=== PATIENT | male | born 1960 | race African-American/Black ===

== ENCOUNTER 2016-11-06 15:41 | Inpatient (IN) | payer OTHER ==
[2016-11-06 19:32] VITALS: BMI 19.7
--- NOTE | 2016-11-06 21:06 | HP ---
COWS - Scale Resting Pulse: 1= [place] 81-100 Sweatin= Chills/Flushing Restless Observation: 3= Extraneous Movement Pupil Size: 0= Normal to Room Light Bone or Joint Aches: 2= Severe Diffuse Aches Runny Nose/ Eye Tearin= Nasal Congestion GI Upset > 30mins: 2= Nausea/Diarrhea Tremor Observation: 2= Slight Tremor Visible Yawning Observation: 0= None Anxiety or Irritability: 2=Irritable/Anxious Goose Flesh Skin: 0=Smooth Skin COWS Score: 14 CIWA Score - CIWA Score Nausea/Vomitin-Mild Nausea/No Vomiting Muscle Tremors: 4-Moderate,w/Arms Extend Anxiety: 4-Mod. Anxious/Guarded Agitation: 4-Moderately Restless Paroxysmal Sweats: 1-Minimal Palms Moist Orientation: 1-Uncertain about Date Tacttile Disturbances: 0-None Auditory Disturbances: 0-None Visual Disturbances: 0-None Headache: 0-None Present CIWA-Ar Total Score: 15 Admission ROS S - HPI Chief Complaint: WITHDRAWAL SX Allergies/Adverse Reactions: Allergies Allergy/AdvReac Type Severity Reaction Status Date / Time No Known Allergies Allergy Verified 10/23/13 22:16 History of Present Illness: 56 YEARS OLD MALE WITH LONG HISTORY OF OPIOID ALCOHOL NICOTINE DEPENDENCE HAS HIV HYPERTENSION ASTHMA COPD AND DEPRESSION WEIGHT LOSS IS ADMITTED TO DETOX Exam Limitations: No Limitations - Ebola screening Have you traveled outside of the country in the last 21 days: No Have you had contact with anyone from an Ebola affected area: No Have you been sick,other than usual withdrawal symptoms: No Do you have a fever: No - Review of Systems Constitutional: Chills, Loss of Appetite, Changes in sleep, Unintentional Wgt. Loss, Unexplained wgt Loss EENT: reports: No Symptoms Reported, Dental Problems (TOOTH REMOVED) Respiratory: reports: Cough, SOB with Exertion Cardiac: reports: No Symptoms Reported GI: reports: Nausea, Poor Appetite, Poor Fluid Intake, Abdominal cramping : reports: No Symptoms Reported Musculoskeletal: reports: Back Pain, Joint Pain, Muscle Pain, Neck Pain Integumentary: reports: Change in Color (BOTH UPPER FORE ARMS), Other (RIGHT INGUINAL HERNIA) Neuro: reports: Seizure (2015), Tremors Endocrine: reports: No Symptoms Reported Hematology: reports: No Symptoms Reported Psychiatric: reports: Judgement Intact, Depressed Other Systems: Reviewed and Negative Patient History - Patient Medical History Hx Anemia: No Hx Asthma: Yes (hh of PCP ) Hx Chronic Obstructive Pulmonary Disease (COPD): Yes Hx Cancer: No Hx Cardiac Disorders: No Hx Congestive Heart Failure: No Hx Hypertension: Yes Hx Hypercholesterolemia: No Hx Pacemaker: No HX Cerebrovascular Accident: No Hx Seizures: Yes Hx Dementia: No Hx Diabetes: No Hx Gastrointestinal Disorders: No Hx Liver Disease: No Hx Genitourinary Disorders: No Hx Sexually Transmitted Disorders: No Hx Renal Disease (ESRD): No Hx Thyroid Disease: No Hx Human Immunodeficiency Virus (HIV): Yes (since 1995, TRIUMEQ) Hx Hepatitis C: Yes Hx Depression: Yes Hx Suicide Attempt: No Hx Bipolar Disorder: No Hx Schizophrenia: No - Patient Surgical History Past Surgical History: Yes Hx Neurologic Surgery: No Hx Cataract Extraction: No Hx Cardiac Surgery: No Hx Lung Surgery: Yes (chest tube insertion right 2 months ago) Hx Breast Surgery: No Hx Breast Biopsy: No Hx Abdominal Surgery: Yes Hx Appendectomy: No Hx Cholecystectomy: No Hx Genitourinary Surgery: No Hx Orthopedic Surgery: No Other Surgical History: in childhood also hernia right Anesthesia Reaction: No - PPD History Previous Implant?: Yes Documented Results: Negative w/o proof Implanted On Prior R Admission?: Yes Date: 08/02/13 PPD to be Administered?: Yes - Smoking Cessation Smoking history: Current every day smoker Have you smoked in the past 12 months: Yes Aproximately how many cigarettes per day: 10 Cigars Per Day: 0 Hx Chewing Tobacco Use: No Initiated information on smoking cessation: Yes 'Breaking Loose' booklet given: 11/06/16 - Substance & Tx. History Hx Alcohol Use: Yes Hx Substance Use: Yes Substance Use Type: Alcohol, Cocaine, Opiates Hx Substance Use Treatment: Yes - Substances Abused Alcohol Route: Oral Frequency: Daily Amount used: [id number] 1 PINT Age of first use: 15 Date of Last Use: 11/06/16 Heroin Route: Injection Frequency: Daily Amount used: 3 BAGS Age of first use: 15 Date of Last Use: 11/05/16 Family Disease History - Family Disease History Family Disease History: Diabetes: Father, Heart Disease: Father, Mother ( alcoholic ), CA: Sister, Other: Mother Admission Physical Exam BHS - Vital Signs Vital Signs: Vital Signs - 24 hr 11/06/16 19:29 Temperature 97.3 F L Pulse Rate 92 H Respiratory 18 Rate Blood Pressure 100/70 - Physical General Appearance: Yes: Appropriately Dressed, Mild Distress, Alcohol on Breath , Thin, Tremorous, Irritable, Sweating, Anxious HEENTM: Yes: Hearing grossly Normal, Normal ENT Inspection, Normocephalic, Normal Voice Respiratory: Yes: Chest Non-Tender, No Respiratory Distress, No Accessory Muscle Use, Wheezing, Hyperresonant Neck: Yes: Supple, Trachea in good position Breast: Yes: Breasts Symetrical Cardiology: Yes: Regular Rhythm, S1, S2, Tachycardia Abdominal: Yes: Non Tender, Soft Genitourinary: Yes: Within Normal Limits Back: Yes: Normal Inspection Musculoskeletal: Yes: full range of Motion, Gait Steady, Back pain, Muscle Pain Extremities: Yes: Normal Range of Motion, Non-Tender, Tremors Neurological: Yes: Alert, Motor Strength 5/5, Normal Response, Depressed Affect Integumentary: Yes: Warm, Track [place] Lymphatic: Yes: Within Normal Limits - Diagnostic (1) Depression Current Visit: Yes Status: Suspected Qualifiers: Depression Type: dysthymia Qualified Code(s): F34.1 - Dysthymic disorder (2) Weight decreased Current Visit: Yes Status: Acute (3) Alcohol dependence with uncomplicated withdrawal Current Visit: Yes Status: Acute (4) Opioid dependence with withdrawal Current Visit: Yes Status: Acute (5) HIV (human immunodeficiency virus infection) Current Visit: Yes Status: Chronic (6) Hypertension Current Visit: Yes Status: Chronic Qualifiers: Hypertension type: essential hypertension Qualified Code(s): I10 - Essential (primary) hypertension (7) Nicotine dependence Current Visit: Yes Status: Acute Qualifiers: Nicotine product type: cigarettes Substance use status: in withdrawal Qualified Code(s): F17.213 - Nicotine dependence, cigarettes, with withdrawal (8) Tooth caries Current Visit: Yes Status: Acute Comment: FRONT LOWER BIOXIN (9) Hepatitis C antibody test positive Current Visit: Yes Status: Resolved (10) Asthma Current Visit: Yes Status: Chronic Qualifiers: Asthma severity: mild persistent Asthma complication type: with status asthmaticus Qualified Code(s): J45.32 - Mild persistent asthma with status asthmaticus (11) COPD (chronic obstructive pulmonary disease) Current Visit: Yes Status: Chronic Qualifiers: COPD type: emphysema Emphysema type: other Qualified Code(s): J43.8 - Other emphysema (12) Use of cane as ambulatory aid Current Visit: Yes Status: Chronic (13) Inguinal hernia of right side without obstruction or gangrene Current Visit: Yes Status: Chronic Comment: RIGHT Cleared for Admission [facility] - Detox or Rehab [facility] Level of Care: Medically Managed Detox Regimen/Protocol: Methadone/Librium [facility] Breath Alcohol Content Breath Alcohol Content: 0.175 Urine Drug Screen - Results Drug Screen Negative: No Urine Drug Screen Results: LULA-Cocaine, OPI-Opiates, TCA-Tricyclic Antidepress
[2016-11-06] MEDS ORDERED: guaiFENesin/D-METHORPHAN HB 10 ML UNIT-DOSE CUPS PO PRN (21:18)
[2016-11-06] MEDS ORDERED: chlordiazePOXIDE HCL 25 MG CAPSULE PO PRN (21:18)
[2016-11-06] MEDS ORDERED: MAGNESIUM HYDROX 2400MG/30ML ORAL SUSPENSION 30 ML CUP PO PRN (21:18)
[2016-11-06] MEDS ORDERED: P-EPHED 60MG/TRIPROLIDI 2.5MG TABLET PO PRN (21:18)
[2016-11-06] MEDS ORDERED: MAGNESIUM CITRATE 300 ML BOTTLE PO PRN (21:18)
[2016-11-06] MEDS ORDERED: MAG HYDROX/AL HYDROX/SIMETH 30 ML UNIT-DOSE CUP PO PRN (21:18)
[2016-11-06] MEDS ORDERED: NICOTINE POLACRILEX 2 MG GUM BC PRN (21:18)
[2016-11-06] MEDS ORDERED: IBUPROFEN 400 MG TABLET (FP) PO PRN (21:18)
[2016-11-06] MEDS ORDERED: ACETAMINOPHEN 325 MG TABLET (FP) PO PRN (21:18)
[2016-11-06] MEDS ORDERED: diphenhydrAMINE HCL 50 MG CAPSULE PO PRN (21:18)
[2016-11-06] MEDS ORDERED: METHADONE HCL 10 MG TABLET (FOR DETOX USE ONLY) PO ONE ×2 (21:18→23:00)
[2016-11-06] MEDS ORDERED: LOPERAMIDE HCL 2 MG CAPSULE PO PRN (21:18)
[2016-11-06] MEDS ORDERED: MENTHOL/PHENOL 1 EACH UD MM PRN (21:18)
[2016-11-06] MEDS: chlordiazePOXIDE HCL 25 MG CAPSULE PO SCH (23:08)
[2016-11-06] MEDS: THIAMINE HCL 100 MG TABLET (FP) PO SCH (23:09)
[2016-11-07 00:10] LABS: URINE APPEARANCE CLEAR; URINE BILIRUBIN NEGATIVE (NEGATIVE); URINE BLOOD NEGATIVE (NEGATIVE); URINE COLOR YELLOW; URINE GLUCOSE (UA) NEGATIVE (NEGATIVE); URINE KETONE NEGATIVE (NEGATIVE); URINE LEUK ESTERASE NEGATIVE (NEGATIVE); URINE NITRITE NEGATIVE (NEGATIVE); URINE UROBILINOGEN NEGATIVE E.U./dl (0.2-1.0)
[2016-11-07 00:17] LABS: URINE PROTEIN 2+ (NEGATIVE)
[2016-11-07 00:44] LABS: URINE HYALINE CAST 122 /lpf; URINE MUCUS RARE; URINE RBC 1 /hpf (0-3); URINE WBC 11 /hpf (3-5)
[2016-11-07] MEDS: chlordiazePOXIDE HCL 25 MG CAPSULE PO SCH ×4 (05:59→22:53)
[2016-11-07] MEDS ORDERED: METHADONE HCL 10 MG TABLET (FOR DETOX USE ONLY) PO SCH (10:00)
[2016-11-07 10:29] LABS: MCH 29.7 pg (25.7-33.7); MCHC 33.2 g/dl (32.0-35.9); MEAN CELL VOLUME 89.4 fl (80-96); MEAN PLT VOLUME 7.3 fl (7.5-11.1); PLATELET COUNT 408 K/MM3 (134-434); RDW 17.2 % (11.9-15.9); WHITE BLOOD COUNT 4.6 K/mm3 (4.0-10.0)
[2016-11-07] MEDS: PATIENT'S OWN MEDICATION (NON-FORMULARY) (Sulfamethoxazole/Trimethoprim [Bactrim Ds Tablet PO SCH (10:37)
[2016-11-07] MEDS: PATIENT'S OWN MEDICATION (NON-FORMULARY) (Amlodipine Besylate [Amlodipine Besylate] 10 MG) PO SCH (10:37)
[2016-11-07] MEDS: CLARITHROMYCIN PO SCH ×4 (10:37→23:03)
[2016-11-07] MEDS: PRENATAL VITAMINS W/ FOLIC ACID TABLET (FP) PO SCH (10:38)
[2016-11-07] MEDS: NICOTINE 14 MG/24 HOURS TOPICAL PATCH TD SCH (10:38)
[2016-11-07 10:53] LABS: ALBUMIN 2.9 g/dl (3.4-5.0); ANION GAP 9 (8-16); CALCIUM 9.6 mg/dL (8.5-10.1); CO2 35 mmol/L (21-32); COCKROFT - GAULT 63.02; SGOT/AST 28 U/L (15-37); SGPT/ALT 23 U/L (12-78)
[2016-11-07 10:55] LABS: ALK PHOS 134 U/L (45-117); TOT PROT 7.3 g/dl (6.4-8.2)
[2016-11-07] MEDS ORDERED: ALBUTEROL SO4 6.7 GM HFA INHALER IH PRN (11:00)
--- NOTE | 2016-11-07 11:05 | PN ---
[facility] CIWA - CIWA Score Nausea/Vomitin-No Nausea/No Vomiting Muscle Tremors: 3 Anxiety: 3 Agitation: 4-Moderately Restless Paroxysmal Sweats: 3 Orientation: 0-Oriented Tacttile Disturbances: 0-None Auditory Disturbances: 0-None Visual Disturbances: 0-None Headache: 1-Very Mild CIWA-Ar Total Score: 14 BHS COWS - Scale Resting Pulse: 2= [place] 101-120 Sweatin=Flushed/Facial Moisture Restless Observation: 1= Difficult to Sit Still Pupil Size: 0= Normal to Room Light Bone or Joint Aches: 2= Severe Diffuse Aches Runny Nose/ Eye Tearin= Runny Nose/Eyes GI Upset > 30mins: 0= None Tremor Observation of Outstretched Hands: 2= Slight Tremor Visible Yawning Observation: 2= >3x During Session Anxiety or Irritability: 1=Feels Anxious/Irritable Goose Flesh Skin: 0=Smooth Skin COWS Score: 14 S Progress Note (SOAP) Subjective: agitation sweats shakes interrupted sleep back pain diarrhea Objective: 11/07/16 11:02 Vital Signs Temperature 97.9 F 11/07/16 09:58 Pulse Rate 110 H 11/07/16 09:58 Respiratory Rate 16 11/07/16 09:58 Blood Pressure 125/75 11/07/16 09:58 O2 Sat by Pulse Oximetry (%) Laboratory Tests 11/06/16 11/07/16 00:00 07:00 WBC 4.6 RBC 4.22 Hgb 12.5 Hct 37.7 MCV 89.4 MCHC 33.2 RDW 17.2 H D Plt Count 408 D MPV 7.3 L D Urine Color Yellow Urine Appearance Clear Urine pH 7.0 Urine Protein 2+ H Urine Glucose (UA) Negative Urine Ketones Negative Urine Blood Negative Urine Nitrite Negative Urine Bilirubin Negative Urine Urobilinogen Negative Ur Leukocyte Esterase Negative Urine RBC 1 Urine WBC 11 Ur Epithelial Cells Rare Hyaline Casts 122 Urine Mucus Rare labs pending awake/alert ambulating no acute distress Assessment: 11/07/16 11:04 withdrawal sx Plan: continue detox increase fluids labs pending lidocaine patch immodium prn
[2016-11-07] MEDS: PATIENT'S OWN MEDICATION (NON-FORMULARY) (Umeclidinium Bromide [Incruse Ellipta] 62.5 MCG) IH SCH (12:08)
[2016-11-07] MEDS: LIDOCAINE 5% TOPICAL PATCH TP SCH (12:10)
[2016-11-07 12:12] LABS: GLUCOSE,RANDOM 104 mg/dL (74-106)
[2016-11-07 12:13] LABS: BILIRUBIN,TOTAL 0.3 mg/dL (0.2-1.0)
--- NOTE | 2016-11-07 17:19 | EKG ---
Test Reason : Blood Pressure : / mmHG Vent. Rate : 094 BPM Atrial Rate : 094 BPM P-R Int : 144 ms QRS Dur : 086 ms QT Int : 414 ms P-R-T Axes : 078 060 058 degrees QTc Int : 517 ms NORMAL SINUS RHYTHM MINIMAL VOLTAGE CRITERIA FOR LVH, MAY BE NORMAL VARIANT PROLONGED QT ABNORMAL ECG WHEN COMPARED WITH ECG OF 06-NOV-2016 21:33, NO SIGNIFICANT CHANGE WAS FOUND Confirmed by EDILBERTO RUBALCAVA, JACOBO ([id number]) on 11/07/2016 5:18:46 PM Referred By: Confirmed By:JACOBO CASANOVA MD
--- NOTE | 2016-11-07 17:20 | EKG ---
Test Reason : Blood Pressure : / mmHG Vent. Rate : 085 BPM Atrial Rate : 085 BPM P-R Int : 150 ms QRS Dur : 078 ms QT Int : 440 ms P-R-T Axes : 080 063 059 degrees QTc Int : 523 ms NORMAL SINUS RHYTHM PROLONGED QT ABNORMAL ECG WHEN COMPARED WITH ECG OF 05-AUG-2013 14:21, QT HAS LENGTHENED Confirmed by JACOBO CASANOVA MD ([id number]) on 11/07/2016 5:20:25 PM Referred By: Confirmed By:JACOBO CASANOVA MD
--- NOTE | 2016-11-07 17:55 | CONSULT ---
[facility] Psychiatric Consult - Data Date of interview: 11/07/16 Admission source: [facility] Identifying data: Readmission to [facility] for this 56 y/o AA male seeking detox treatment on for alcohol,heroin and cocaine dependence.Patient is without children,domiciled,unemployed and supported on SSI benefits. Substance Abuse History: - Smoking Cessation. Smoking history: Current every day smoker. Have you smoked in the past 12 months: Yes. Aproximately how many cigarettes per day: 10. Cigars Per Day: 0. Hx Chewing Tobacco Use: No. Initiated information on smoking cessation: Yes. 'Breaking Loose' booklet given : 11/06/16. - Substance & Tx. History. Hx Alcohol Use: Yes. Hx Substance Use : Yes. Substance Use Type: Alcohol, Cocaine, Opiates. Hx Substance Use Treatment: Yes. - Substances Abused. Alcohol. Route: Oral. Frequency: Daily. Amount used: [id number]+WISKY 1 PINT. Age of first use: 15. Date of Last Use: 11/06/16. Heroin. Route: Injection. Frequency: Daily. Amount used: 3 BAGS. Age of first use: 15. Date of Last Use: 11/05/16. Confirmed by patient. Medical History: HIV infection since 1995,COPD,hypertension and bronchial asthma. Psychiatric History: No reported history of psychiatric hospitalizations.Patient is followed at the [facility] in the [place].Diagnosed with MDD/Anxietyy Disorder.Prescribed seroquel 100 mg/hs.Mr Prather denies history of suicide attempts. Physical/Sexual Abuse/Trauma History: Patient denies. Additional Comment: Urine Drug Screen Results: LULA-Cocaine, OPI-Opiates, TCA- Tricyclic Antidepressants .Noted. Mental Status Exam - Mental Status Exam Alert and Oriented to: Time, Place, Person Cognitive Function: Good Patient Appearance: Well Groomed Mood: Withdrawn, Hopeful Affect: Appropriate, Normal Range Patient Behavior: Fatigued, Appropriate, Cooperative Speech Pattern: Clear, Appropriate Voice Loudness: Normal Thought Process: Goal Oriented Thought Disorder: Not Present Hallucinations: Denies Suicidal Ideation: Denies Homicidal Ideation: Denies Insight/Judgement: Fair Sleep: Poorly, Difficulty falling asleep Appetite: Good Muscle strength/Tone: Normal Gait/Station: Normal Psychiatric Findings - Problem List ([place] 1, 2,3) (1) Alcohol dependence with uncomplicated withdrawal Current Visit: Yes Status: Acute (2) Opioid dependence with withdrawal Current Visit: Yes Status: Acute (3) Nicotine dependence Current Visit: Yes Status: Acute Qualifiers: Nicotine product type: cigarettes Substance use status: in withdrawal Qualified Code(s): F17.213 - Nicotine dependence, cigarettes, with withdrawal (4) Cocaine dependence Current Visit: Yes Status: Acute (5) Substance induced mood disorder Current Visit: Yes Status: Acute (6) Weight decreased Current Visit: Yes Status: Chronic (7) Asthma Current Visit: Yes Status: Chronic Qualifiers: Asthma severity: mild persistent Asthma complication type: with status asthmaticus Qualified Code(s): J45.32 - Mild persistent asthma with status asthmaticus (8) COPD (chronic obstructive pulmonary disease) Current Visit: Yes Status: Chronic Qualifiers: COPD type: emphysema Emphysema type: other Qualified Code(s): J43.8 - Other emphysema (9) HIV (human immunodeficiency virus infection) Current Visit: Yes Status: Chronic (10) Hypertension Current Visit: Yes Status: Chronic Qualifiers: Hypertension type: essential hypertension Qualified Code(s): I10 - Essential (primary) hypertension (11) Hepatitis C antibody test positive Current Visit: Yes Status: Resolved (12) Inguinal hernia of right side without obstruction or gangrene Current Visit: Yes Status: Chronic Comment: RIGHT (13) Use of cane as ambulatory aid Current Visit: Yes Status: Chronic (14) Insomnia Current Visit: Yes Status: Acute - Initial Treatment Plan Initial Treatment Plan: Psychoeducation.Detoxification.Seroquel 100 mg po hs.Side effects/benefits discussed with the patient.He is in agreememt with this careplan.Observation.Dose of seroquel is verified through review of recent pharmacy claims (filled script on 10/23/16 at [facility]).NO need for script at discharge.
[2016-11-07] MEDS: POTASSIUM CHLORIDE ORAL LIQUID 20 MEQ/15 ML PO SCH ×2 (21:39→22:54)
[2016-11-07] MEDS: QUEtiapine FUMARATE 100 MG TABLET (FP) PO SCH (22:53)
[2016-11-07] MEDS: BUDESONIDE/FORMETEROL FUMARATE 80/4.5 mcg INHALER IH SCH (22:53)
[2016-11-07] MEDS: THIAMINE HCL 100 MG TABLET (FP) PO SCH (22:55)
[2016-11-08] MEDS: chlordiazePOXIDE HCL 25 MG CAPSULE PO SCH ×3 (06:03→17:30)
[2016-11-08] MEDS: PRENATAL VITAMINS W/ FOLIC ACID TABLET (FP) PO SCH (10:49)
[2016-11-08] MEDS: METHADONE HCL 5 MG TABLET (FOR DETOX USE ONLY) PO SCH (10:49)
[2016-11-08] MEDS: NICOTINE 14 MG/24 HOURS TOPICAL PATCH TD SCH (10:50)
[2016-11-08] MEDS: CLARITHROMYCIN PO SCH ×2 (10:50→23:00)
[2016-11-08] MEDS: LIDOCAINE 5% TOPICAL PATCH TP SCH (10:50)
[2016-11-08] MEDS: PATIENT'S OWN MEDICATION (NON-FORMULARY) (Umeclidinium Bromide [Incruse Ellipta] 62.5 MCG) IH SCH (10:51)
[2016-11-08] MEDS: POTASSIUM CHLORIDE ORAL LIQUID 20 MEQ/15 ML PO SCH ×2 (10:51→22:59)
[2016-11-08] MEDS: PATIENT'S OWN MEDICATION (NON-FORMULARY) (Sulfamethoxazole/Trimethoprim [Bactrim Ds Tablet PO SCH (10:51)
[2016-11-08] MEDS: BUDESONIDE/FORMETEROL FUMARATE 80/4.5 mcg INHALER IH SCH ×2 (10:51→22:59)
[2016-11-08] MEDS: PATIENT'S OWN MEDICATION (NON-FORMULARY) (Amlodipine Besylate [Amlodipine Besylate] 10 MG) PO SCH (10:52)
--- NOTE | 2016-11-08 12:30 | PN ---
[facility] CIWA - CIWA Score Nausea/Vomitin Muscle Tremors: 2 Anxiety: 2 Agitation: 2 Paroxysmal Sweats: 3 Orientation: 0-Oriented Tacttile Disturbances: 1-Very Mild Itch/Numbness Auditory Disturbances: 0-None Visual Disturbances: 0-None Headache: 0-None Present CIWA-Ar Total Score: 12 BHS COWS - Scale Resting Pulse: 1= [place] 81-100 Sweatin= Chills/Flushing Restless Observation: 1= Difficult to Sit Still Pupil Size: 1= Pupils >than Normal Bone or Joint Aches: 1= Mild Discomfort Runny Nose/ Eye Tearin= Nasal Congestion GI Upset > 30mins: 1= Stomach Cramp Tremor Observation of Outstretched Hands: 1= Tremor [place], Not Seen Yawning Observation: 1= 1-2x During Session Anxiety or Irritability: 1=Feels Anxious/Irritable Goose Flesh Skin: 0=Smooth Skin COWS Score: 10 S Progress Note (SOAP) Subjective: feeling better, interrupted sleep, sweats, lbp Objective: 11/08/16 12:28 Vital Signs Temperature 97.2 F L 11/08/16 10:07 Pulse Rate 111 H 11/08/16 10:07 Respiratory Rate 20 11/08/16 10:07 Blood Pressure 104/53 11/08/16 10:07 O2 Sat by Pulse Oximetry (%) Laboratory Tests 11/06/16 11/07/16 11/07/16 00:00 07:00 07:00 WBC 4.6 RBC 4.22 Hgb 12.5 Hct 37.7 MCV 89.4 MCHC 33.2 RDW 17.2 H D Plt Count 408 D MPV 7.3 L D Sodium 137 Potassium 3.0 L D Chloride 93 L Carbon Dioxide 35 H Anion Gap 9 BUN 5 L D Creatinine 1.0 D Creat Clearance w eGFR > 60 Random Glucose 104 D Calcium 9.6 Total Bilirubin 0.3 D AST 28 D ALT 23 D Alkaline Phosphatase 134 H D Total Protein 7.3 Albumin 2.9 L Urine Color Yellow Urine Appearance Clear Urine pH 7.0 Ur Specific [place] 1.020 Urine Protein 2+ H Urine Glucose (UA) Negative Urine Ketones Negative Urine Blood Negative Urine Nitrite Negative Urine Bilirubin Negative Urine Urobilinogen Negative Ur Leukocyte Esterase Negative Urine RBC 1 Urine WBC 11 Ur Epithelial Cells Rare Hyaline Casts 122 Urine Mucus Rare RPR Titer 05/16/17 07:00 WBC RBC Hgb Hct MCV MCHC RDW Plt Count MPV Sodium Potassium Chloride Carbon Dioxide Anion Gap BUN Creatinine Creat Clearance w eGFR Random Glucose Calcium Total Bilirubin AST ALT Alkaline Phosphatase Total Protein Albumin Urine Color Urine Appearance Urine pH Ur Specific [place] Urine Protein Urine Glucose (UA) Urine Ketones Urine Blood Urine Nitrite Urine Bilirubin Urine Urobilinogen Ur Leukocyte Esterase Urine RBC Urine WBC Ur Epithelial Cells Hyaline Casts Urine Mucus RPR Titer Nonreactive pt aox3 in nad ambulating Assessment: 11/08/16 12:28 withdrawal sx;s lbp hypokalemia hiv 11/08/16 12:30 Plan: cont. detox increase fluids cont k dur cont lido. patch
[2016-11-08] MEDS: QUEtiapine FUMARATE 100 MG TABLET (FP) PO SCH (22:59)
[2016-11-08] MEDS: THIAMINE HCL 100 MG TABLET (FP) PO SCH (22:59)
[2016-11-08] MEDS: chlordiazePOXIDE 5 MG CAPSULE PO SCH (22:59)
[2016-11-09] MEDS: chlordiazePOXIDE 5 MG CAPSULE PO SCH ×3 (06:24→17:23)
[2016-11-09 10:00] LABS: ALBUMIN 2.6 g/dl (3.4-5.0); ANION GAP 8 (8-16); CALCIUM 9.2 mg/dL (8.5-10.1); CO2 31 mmol/L (21-32); GLUCOSE,RANDOM 117 mg/dL (74-106)
[2016-11-09 10:04] LABS: ALK PHOS 116 U/L (45-117); BILIRUBIN,TOTAL 0.2 mg/dL (0.2-1.0); COCKROFT - GAULT 70.02; CREATININE 0.9 mg/dL (0.7-1.3); SGOT/AST 22 U/L (15-37); SGPT/ALT 20 U/L (12-78); TOT PROT 6.5 g/dl (6.4-8.2)
[2016-11-09] MEDS: METHADONE HCL 5 MG TABLET (FOR DETOX USE ONLY) PO SCH (11:11)
[2016-11-09] MEDS: PRENATAL VITAMINS W/ FOLIC ACID TABLET (FP) PO SCH (11:11)
[2016-11-09] MEDS: PATIENT'S OWN MEDICATION (NON-FORMULARY) (Sulfamethoxazole/Trimethoprim [Bactrim Ds Tablet PO SCH (11:12)
[2016-11-09] MEDS: NICOTINE 14 MG/24 HOURS TOPICAL PATCH TD SCH (11:14)
[2016-11-09] MEDS: PATIENT'S OWN MEDICATION (NON-FORMULARY) (Umeclidinium Bromide [Incruse Ellipta] 62.5 MCG) IH SCH (11:15)
[2016-11-09] MEDS: BUDESONIDE/FORMETEROL FUMARATE 80/4.5 mcg INHALER IH SCH ×2 (11:15→22:27)
[2016-11-09] MEDS: POTASSIUM CHLORIDE ORAL LIQUID 20 MEQ/15 ML PO SCH ×2 (11:15→22:28)
[2016-11-09] MEDS: LIDOCAINE 5% TOPICAL PATCH TP SCH (11:22)
[2016-11-09] MEDS: PATIENT'S OWN MEDICATION (NON-FORMULARY) (Amlodipine Besylate [Amlodipine Besylate] 10 MG) PO SCH (11:23)
--- NOTE | 2016-11-09 11:32 | PN ---
BHS Progress Note (SOAP) Subjective: sweats sleepy Objective: 11/09/16 11:31 Vital Signs Temperature 98.1 F 11/09/16 09:44 Pulse Rate 105 H 11/09/16 09:44 Respiratory Rate 16 11/09/16 09:44 Blood Pressure 109/60 11/09/16 09:44 O2 Sat by Pulse Oximetry (%) awake/alert ambulating no acute distress Assessment: 11/09/16 11:31 withdrawal sx Plan: continue detox increase fluids d/c in am
[2016-11-09] MEDS: chlordiazePOXIDE HCL 10 MG CAPSULE PO SCH (22:27)
[2016-11-09] MEDS: THIAMINE HCL 100 MG TABLET (FP) PO SCH (22:28)
[2016-11-09] MEDS: QUEtiapine FUMARATE 100 MG TABLET (FP) PO SCH (22:28)
[2016-11-10] MEDS: chlordiazePOXIDE HCL 10 MG CAPSULE PO SCH ×2 (06:36→11:09)
[2016-11-10 07:00] VITALS: TEMP 97.7
--- NOTE | 2016-11-10 09:49 | DS ---
[facility] Detox Discharge Summary Admission Date: 11/06/16 Discharge Date: 11/10/16 - History Present History: Alcohol Dependence, Cocaine Dependence, Opioid Dependence - Physical Exam Results Vital Signs: Vital Signs Temperature 97.7 F 11/10/16 06:00 Pulse Rate 105 H 11/10/16 06:00 Respiratory Rate 16 11/10/16 06:00 Blood Pressure 129/70 11/10/16 06:00 O2 Sat by Pulse Oximetry (%) - Treatment Hospital Course: Detox Protocol Followed, Detoxed Safely, Responded well, Discharged Condition Good, Rehab Referral Accepted - Medication Discharge Medications: Ambulatory Orders Sulfamethoxazole/Trimethoprim [Bactrim DS -] 1 each PO DAILY #0 tablet 08/13/13 Azithromycin [Zithromax 600mg Tablets -] 1,200 mg PO Q7D@1000 #8 tablet Fluconazole [Diflucan -] 100 mg PO DAILY #30 tablet 11/11/13 Quetiapine Fumarate [Seroquel -] 100 mg PO HS #30 tablet 11/11/13 Sulfamethoxazole/Trimethoprim [Bactrim DS -] 1 each PO DAILY #30 tablet Abacavir/Dolutegravir/Lamivudi [Triumeq Tablet] 1 each PO DAILY 11/06/16 Amlodipine Besylate 10 mg PO DAILY 11/06/16 Clarithromycin [Biaxin -] 250 mg PO BID 11/06/16 Sulfamethoxazole/Trimethoprim [Bactrim Ds Tablet] 1 each PO DAILY 11/06/16 Umeclidinium [place] [Incruse Ellipta] 62.5 mcg IH DAILY 11/06/16 - Diagnosis (1) Alcohol dependence with uncomplicated withdrawal Current Visit: Yes Status: Chronic (2) Cocaine dependence Current Visit: Yes Status: Chronic Qualifiers: Substance use status: uncomplicated Qualified Code(s): F14.20 - Cocaine dependence, uncomplicated (3) Insomnia Current Visit: Yes Status: Chronic (4) Nicotine dependence Current Visit: Yes Status: Chronic Qualifiers: Nicotine product type: cigarettes Substance use status: uncomplicated Qualified Code(s): F17.210 - Nicotine dependence, cigarettes, uncomplicated (5) Opioid dependence with withdrawal Current Visit: Yes Status: Chronic (6) Substance induced mood disorder Current Visit: Yes Status: Chronic (7) Tooth caries Current Visit: Yes Status: Acute (8) Asthma Current Visit: Yes Status: Chronic Qualifiers: Asthma severity: mild persistent Asthma complication type: with status asthmaticus Qualified Code(s): J45.32 - Mild persistent asthma with status asthmaticus (9) COPD (chronic obstructive pulmonary disease) Current Visit: Yes Status: Chronic Qualifiers: COPD type: emphysema Emphysema type: other Qualified Code(s): J43.8 - Other emphysema (10) HIV (human immunodeficiency virus infection) Current Visit: Yes Status: Chronic (11) Hypertension Current Visit: Yes Status: Chronic Qualifiers: Hypertension type: essential hypertension Qualified Code(s): I10 - Essential (primary) hypertension (12) Inguinal hernia of right side without obstruction or gangrene Current Visit: Yes Status: Chronic (13) Use of cane as ambulatory aid Current Visit: Yes Status: Chronic (14) Weight decreased Current Visit: Yes Status: Chronic (15) Depression Current Visit: Yes Status: Suspected Qualifiers: Depression Type: dysthymia Qualified Code(s): F34.1 - Dysthymic disorder (16) Hepatitis C antibody test positive Current Visit: Yes Status: Resolved (17) Acquired immune deficiency syndrome (AIDS) Current Visit: No Status: Acute (18) Alcohol dependence Current Visit: No Status: Acute (19) Hepatitis C carrier Current Visit: No Status: Acute (20) Opioid dependence Current Visit: Yes Status: Chronic Qualifiers: Substance use status: uncomplicated Qualified Code(s): F11.20 - Opioid dependence, uncomplicated - AMA Did Patient Leave Against Medical Advice: No
[2016-11-10] MEDS ORDERED: METHADONE HCL 10 MG TABLET (FOR DETOX USE ONLY) PO SCH (10:00)
[2016-11-10 10:39] VITALS: BP 132/75; PULSE 109
[2016-11-10] MEDS: NICOTINE 14 MG/24 HOURS TOPICAL PATCH TD SCH (11:00)
[2016-11-10] MEDS: PATIENT'S OWN MEDICATION (NON-FORMULARY) (Umeclidinium Bromide [Incruse Ellipta] 62.5 MCG) IH SCH (11:00)
[2016-11-10] MEDS: PATIENT'S OWN MEDICATION (NON-FORMULARY) (Amlodipine Besylate [Amlodipine Besylate] 10 MG) PO SCH (11:00)
[2016-11-10] MEDS: PATIENT'S OWN MEDICATION (NON-FORMULARY) (Sulfamethoxazole/Trimethoprim [Bactrim Ds Tablet PO SCH (11:00)
[2016-11-10] MEDS: POTASSIUM CHLORIDE ORAL LIQUID 20 MEQ/15 ML PO SCH (11:00)
[2016-11-10] MEDS: LIDOCAINE 5% TOPICAL PATCH TP SCH (11:00)
[2016-11-10] MEDS: PRENATAL VITAMINS W/ FOLIC ACID TABLET (FP) PO SCH (11:00)
[2016-11-10] MEDS: BUDESONIDE/FORMETEROL FUMARATE 80/4.5 mcg INHALER IH SCH (11:00)
[2016-11-11] MEDS ORDERED: METHADONE HCL 5 MG TABLET (FOR DETOX USE ONLY) PO SCH (06:00)
== END 2016-11-10 12:55 | disposition home or self-care (01) | DRG 773 ==
LOC: YASAS 15:41 → Y6N 21:47
PROVIDERS: ADMIT Internal Medicine Addiction Medicine; ATTEND Internal Medicine Addiction Medicine
PROC: HZ2ZZZZ Detoxification Services for Substance Abuse Treatment (ICD-10-PCS; principal; 2016-11-10)
DX: F11.23 Opioid dependence with withdrawal (principal); F10.230 Alcohol dependence with withdrawal, uncomplicated; F14.20 Cocaine dependence, uncomplicated; F17.210 Nicotine dependence, cigarettes, uncomplicated; F19.24 Other psychoactive substance dependence with psychoactive substance-induced mood disorder; F34.1 Dysthymic disorder; G47.00 Insomnia, unspecified; B18.2 Chronic viral hepatitis C; Z21 Asymptomatic human immunodeficiency virus [HIV] infection status; I10 Essential (primary) hypertension; J43.8 Other emphysema; J45.30 Mild persistent asthma, uncomplicated; K40.90 Unilateral inguinal hernia, without obstruction or gangrene, not specified as recurrent; Z99.89 Dependence on other enabling machines and devices; R63.4 Abnormal weight loss; Z68.1 Body mass index [BMI] 19.9 or less, adult; K02.9 Dental caries, unspecified
CPT/HCPCS: 36415; 80053; 81003; 81015; 85027; 86593; 93005; 93010

== ENCOUNTER 2017-01-26 13:31 | Inpatient (IN) | payer OTHER ==
[2017-01-26] MEDS ORDERED: chlordiazePOXIDE HCL 25 MG CAPSULE PO SCH (17:00)
--- NOTE | 2017-01-26 17:59 | HP ---
COWS - Scale Resting Pulse: 1= [place] 81-100 Sweatin=Flushed/Facial Moisture Restless Observation: 1= Difficult to Sit Still Pupil Size: 0= Normal to Room Light Bone or Joint Aches: 2= Severe Diffuse Aches Runny Nose/ Eye Tearin= Runny Nose/Eyes GI Upset > 30mins: 0= None Tremor Observation: 2= Slight Tremor Visible Yawning Observation: 2= >3x During Session Anxiety or Irritability: 2=Irritable/Anxious Goose Flesh Skin: 3=Piloerection COWS Score: 17 CIWA Score - CIWA Score Nausea/Vomitin-Mild Nausea/No Vomiting Muscle Tremors: 4-Moderate,w/Arms Extend Anxiety: 3 Agitation: 4-Moderately Restless Paroxysmal Sweats: 3 Orientation: 0-Oriented Tacttile Disturbances: 0-None Auditory Disturbances: 0-None Visual Disturbances: 0-None Headache: 1-Very Mild CIWA-Ar Total Score: 16 Admission ROS BHS - HPI Chief Complaint: I am need detox and help to stay sober. Allergies/Adverse Reactions: Allergies Allergy/AdvReac Type Severity Reaction Status Date / Time No Known Allergies Allergy Verified 01/26/17 16:52 History of Present Illness: pt is a 56yr old male with a history of alcohol and heroin dependence seeking detox for treatment. Exam Limitations: Physical Impairment (uses cane d/t bad hip pain.), Other ( large inguinal hernia pt denies any pain/discomfort) - Ebola screening Have you traveled outside of the country in the last 21 days: No Have you had contact with anyone from an Ebola affected area: No Have you been sick,other than usual withdrawal symptoms: No Do you have a fever: No - Review of Systems Constitutional: Chills, Loss of Appetite, Night Sweats EENT: reports: Tearing, Nose Congestion Respiratory: reports: Cough Cardiac: reports: No Symptoms Reported GI: reports: Nausea, Poor Appetite, Poor Fluid Intake, Indigestion : reports: No Symptoms Reported Musculoskeletal: reports: Back Pain, Joint Pain, Other (pt states he fell four week ago and hurt his right hip and abrasions to left forearm.) Integumentary: reports: Flushing, Sweating Endocrine: reports: Excessive Sweating, Flushing Hematology: reports: No Symptoms Reported Psychiatric: reports: Judgement Intact, Mood/Affect Appropiate, Orientated x3, Agitated, Anxious Other Systems: Reviewed and Negative Patient History - Patient Medical History Hx Anemia: No Hx Asthma: Yes Hx Chronic Obstructive Pulmonary Disease (COPD): Yes Hx Cancer: No Hx Cardiac Disorders: No Hx Congestive Heart Failure: No Hx Hypertension: Yes Hx Hypercholesterolemia: No Hx Pacemaker: No HX Cerebrovascular Accident: No Hx Seizures: No Hx Dementia: No Hx Diabetes: No Hx Gastrointestinal Disorders: No Hx Liver Disease: No Hx Genitourinary Disorders: No Hx Sexually Transmitted Disorders: No Hx Renal Disease (ESRD): No Hx Thyroid Disease: No Hx Human Immunodeficiency Virus (HIV): Yes (since 1995, TRIUMEQ) Hx Hepatitis C: Yes Hx Depression: Yes Hx Suicide Attempt: No Hx Bipolar Disorder: No Hx Schizophrenia: No - Patient Surgical History Past Surgical History: Yes Hx Neurologic Surgery: No Hx Cataract Extraction: No Hx Cardiac Surgery: No Hx Lung Surgery: No Hx Breast Surgery: No Hx Breast Biopsy: No Hx Abdominal Surgery: No Hx Appendectomy: No Hx Cholecystectomy: No Hx Genitourinary Surgery: No Hx Section: No Hx Orthopedic Surgery: No Other Surgical History: hernia surgery as a child Anesthesia Reaction: No - PPD History Previous Implant?: Yes Documented Results: Negative w/o proof PPD to be Administered?: Yes - Reproductive History Patient is a Female of Child Bearing Age (11 -55 yrs old): No - Smoking Cessation Smoking history: Current every day smoker Have you smoked in the past 12 months: Yes Aproximately how many cigarettes per day: 10 Cigars Per Day: 0 Hx Chewing Tobacco Use: No Initiated information on smoking cessation: Yes 'Breaking Loose' booklet given: 01/26/17 - Substance & Tx. History Hx Alcohol Use: Yes Hx Substance Use: Yes Substance Use Type: Alcohol, Cocaine, Heroin Hx Substance Use Treatment: Yes ([facility] detox 1 month ago.) - Substances Abused Heroin Route: Injection Frequency: Daily Amount used: 4 BAGS Age of first use: 15 Date of Last Use: 01/25/17 Cocaine Route: Smoking Frequency: Daily Amount used: 2 BAGS Age of first use: 23 Date of Last Use: 01/24/17 Alcohol Frequency: Daily Amount used: 4 can 16oz beer Age of first use: 15 Date of Last Use: 01/25/17 Family Disease History - Family Disease History Family Disease History: Diabetes: Father, Heart Disease: Father, Mother ( alcoholic ), CA: Sister, Other: Mother Admission Physical Exam [facility] - Vital Signs Vital Signs: Vital Signs - 24 hr 01/26/17 15:27 Temperature 97 F L Pulse Rate 88 Respiratory 20 Rate Blood Pressure 108/69 - Physical General Appearance: Yes: Appropriately Dressed, Moderate Distress, Thin, Tremorous, Irritable, Sweating, Anxious HEENTM: Yes: Hearing grossly Normal, Normal Voice, Nasal Congestion, Rhinorrhea Respiratory: Yes: Lungs Clear, Normal Breath Sounds, No Respiratory Distress Neck: Yes: No masses,lesions,Nodules Breast: Yes: Within Normal Limits Cardiology: Yes: Regular Rhythm, Regular Rate, S1, S2 Abdominal: Yes: Normal Bowel Sounds, Non Tender, Soft Genitourinary: Yes: Within Normal Limits Back: Yes: Normal Inspection Musculoskeletal: Yes: Back pain Extremities: Yes: Normal Capillary Refill, Normal Inspection, Tremors Neurological: Yes: Fully Oriented, Alert, Normal Response Integumentary: Yes: Normal Color, Diaphoresis, Track Powell, Other (large hernia to inguinal area) Lymphatic: Yes: Within Normal Limits Cleared for Admission [facility] - Detox or Rehab [facility] Level of Care: Medically Managed Detox Regimen/Protocol: Methadone/Librium [facility] Breath Alcohol Content Breath Alcohol Content: 0.090 Urine Drug Screen - Results Drug Screen Negative: No Urine Drug Screen Results: LULA-Cocaine, OPI-Opiates
[2017-01-26] MEDS ORDERED: ACETAMINOPHEN 325 MG TABLET (FP) PO PRN (18:06)
[2017-01-26] MEDS ORDERED: MAGNESIUM HYDROX 2400MG/30ML ORAL SUSPENSION 30 ML CUP PO PRN (18:06)
[2017-01-26] MEDS ORDERED: hydrOXYzine PAMOATE 50 MG CAPSULE (FP) PO PRN (18:06)
[2017-01-26] MEDS ORDERED: MENTHOL/PHENOL 1 EACH UD MM PRN (18:06)
[2017-01-26] MEDS ORDERED: MAG HYDROX/AL HYDROX/SIMETH 30 ML UNIT-DOSE CUP PO PRN (18:06)
[2017-01-26] MEDS ORDERED: IBUPROFEN 400 MG TABLET (FP) PO PRN (18:06)
[2017-01-26] MEDS ORDERED: MAGNESIUM CITRATE 300 ML BOTTLE PO PRN (18:06)
[2017-01-26] MEDS ORDERED: chlordiazePOXIDE HCL 25 MG CAPSULE PO PRN (18:06)
[2017-01-26] MEDS ORDERED: LOPERAMIDE HCL 2 MG CAPSULE PO PRN (18:06)
[2017-01-26] MEDS ORDERED: diphenhydrAMINE HCL 50 MG CAPSULE PO PRN (18:06)
[2017-01-26] MEDS ORDERED: guaiFENesin/D-METHORPHAN HB 10 ML UNIT-DOSE CUPS PO PRN (18:06)
[2017-01-26] MEDS ORDERED: chlordiazePOXIDE HCL 25 MG CAPSULE PO ONE (18:06)
[2017-01-26] MEDS ORDERED: P-EPHED 60MG/TRIPROLIDI 2.5MG TABLET PO PRN (18:06)
[2017-01-26] MEDS ORDERED: ALBUTEROL SO4 2.5/IPRATROPIUM 0.5 INH SOL 3 ML VIAL.NEB. NEB ONE (18:11)
[2017-01-26] MEDS ORDERED: METHADONE HCL 10 MG TABLET (FOR DETOX USE ONLY) PO ONE ×4 (18:30→23:00)
[2017-01-26] MEDS ORDERED: diazePAM 5 MG TABLET PO ONE (19:22)
[2017-01-26] MEDS ORDERED: diazePAM 5 MG TABLET PO PRN (19:22)
[2017-01-26 22:02] LABS: URINE APPEARANCE CLEAR; URINE BILIRUBIN NEGATIVE (NEGATIVE); URINE BLOOD NEGATIVE (NEGATIVE); URINE COLOR LTYELLOW; URINE GLUCOSE (UA) NEGATIVE (NEGATIVE); URINE KETONE NEGATIVE (NEGATIVE); URINE LEUK ESTERASE NEGATIVE (NEGATIVE); URINE NITRITE NEGATIVE (NEGATIVE)
[2017-01-26] MEDS: BUDESONIDE/FORMETEROL FUMARATE 80/4.5 mcg INHALER IH SCH (22:12)
[2017-01-26] MEDS: diazePAM 5 MG TABLET PO SCH (22:12)
[2017-01-26] MEDS: THIAMINE HCL 100 MG TABLET (FP) PO SCH (22:12)
[2017-01-26 22:14] LABS: URINE PROTEIN 1+ (NEGATIVE)
[2017-01-26 22:47] LABS: URINE WBC 1 /hpf (3-5)
[2017-01-27] MEDS ORDERED: cloNIDine HCL 0.1 MG TABLET PO ONE (06:18)
[2017-01-27] MEDS ORDERED: cloNIDine HCL 0.1 MG TABLET ONE (06:25)
[2017-01-27] MEDS: diazePAM 5 MG TABLET PO SCH ×3 (06:30→21:41)
--- NOTE | 2017-01-27 07:16 | PN ---
BHS Progress Note Note: Last Vital Signs Temp Pulse Resp BP Pulse Ox 101.3 F H 138 H 16 150/90 01/27/17 06:32 01/27/17 06:32 01/27/17 06:32 01/27/17 06:32 BP elevated. Clonidine 0.2mg ordered. Will continue to monitor.
[2017-01-27 10:00] LABS: MCH 28.7 pg (25.7-33.7); MCHC 32.1 g/dl (32.0-35.9); MEAN CELL VOLUME 89.5 fl (80-96); MEAN PLT VOLUME 7.8 fl (7.5-11.1); PLATELET COUNT 431 K/MM3 (134-434); RDW 18.4 % (11.9-15.9); WHITE BLOOD COUNT 13.5 K/mm3 (4.0-10.0)
[2017-01-27] MEDS ORDERED: BACTRIM DS PO SCH (10:00)
[2017-01-27] MEDS ORDERED: METHADONE HCL 10 MG TABLET (FOR DETOX USE ONLY) PO SCH ×2 (10:00)
[2017-01-27 10:25] LABS: ALBUMIN 2.8 g/dl (3.4-5.0); ALK PHOS 147 U/L (45-117); ANION GAP 12 (8-16); BILIRUBIN,TOTAL 0.6 mg/dL (0.2-1.0); CALCIUM 8.9 mg/dL (8.5-10.1); CO2 37 mmol/L (21-32); CREATININE 0.8 mg/dL (0.7-1.3); GLUCOSE,RANDOM 130 mg/dL (74-106); SGOT/AST 32 U/L (15-37); SGPT/ALT 24 U/L (12-78); TOT PROT 8.4 g/dl (6.4-8.2)
--- NOTE | 2017-01-27 11:40 | CONSULT ---
[facility] Psychiatric Consult - Data Date of interview: 01/27/17 Admission source: [facility] Identifying data: Another admission to [facility] for this 56 y/o AA male seeking detox treatment on for alcohol,heroin and cocaine dependence.Patient is without children,domiciled,unemployed and supported on SSI benefits. Substance Abuse History: Discussed in this interview.Mr Yamilka HOROWITZ confirms report on his substance abuse patterns as accurate : Smoking Cessation. Smoking history: Current every day smoker. Have you smoked in the past 12 months: Yes. Aproximately how many cigarettes per day: 10. Cigars Per Day: 0. Hx Chewing Tobacco Use: No. Initiated information on smoking cessation: Yes. 'Breaking Loose' booklet given: 01/26/17. - Substance & Tx. History. Hx Alcohol Use: Yes. Hx Substance Use: Yes. Substance Use Type: Alcohol, Cocaine , Heroin. Hx Substance Use Treatment: Yes ([facility] ago[facility] - Substances Abused. Heroin. Route: Injection. Frequency: Daily. Amount used: 4 BAGS. Age of first use: 15. Date of Last Use: 01/25/17. Cocaine. Route: Smoking. Frequency: Daily. Amount used: 2 BAGS. Age of first use: 23. Date of Last Use: 01/24/17. Alcohol. Frequency: Daily. Amount used: 4 can 16oz beer. Age of first use: 15. Date of Last Use: 01/25/17 Medical History: Patient ambulates with a cane.Hip pain,HIV infection since 1995 ,COPD,hepatitis C,inguinal hernia,hypertension and bronchial asthma. Psychiatric History: Patient denies history of psychiatric hospitalizations.Patient is still followed at the [facility] in the [place].Diagnosed with MDD/Anxiety Disorder.Mr Yamilka HOROWITZ is currently managed on a regimen of wellbutrin XL 150 mg/day + seroquel 100 mg/hs (verified via survey of recent pharmacy claims : filled scripts on 01/16/17 @ [facility] [place]) .Patient admits to poor adherence to OPD care.Denies history of suicide attempts. Physical/Sexual Abuse/Trauma History: Patient denies history of abuse. Additional Comment: Urine Drug Screen Results: LULA-Cocaine, OPI-Opiates.Noted. Mental Status Exam - Mental Status Exam Alert and Oriented to: Time, Place, Person Cognitive Function: Grossly Intact Patient Appearance: Unkempt, Disheveled (short stature,thin,frail habitus.Abrasions seen on left forearm : result of a fall two weeks ago) Mood: Nervous, Withdrawn Affect: Mood Congruent, Constricted Patient Behavior: Fatigued (weak), Appropriate, Cooperative Speech Pattern: Clear, Appropriate Voice Loudness: Moderately Soft/Quiet Thought Process: Goal Oriented Thought Disorder: Not Present Hallucinations: Denies Suicidal Ideation: Denies Homicidal Ideation: Denies Insight/Judgement: Poor Sleep: Poorly, Difficulty falling asleep Appetite: Poor, Weight loss Muscle strength/Tone: Mild Hypotonicity Gait/Station: Other (unsteady gait) Psychiatric Findings - Problem List ([place] 1, 2,3) (1) Alcohol dependence with uncomplicated withdrawal Current Visit: Yes Status: Acute (2) Opioid dependence with withdrawal Current Visit: Yes Status: Acute (3) Cocaine dependence Current Visit: Yes Status: Acute Qualifiers: Substance use status: uncomplicated Qualified Code(s): F14.20 - Cocaine dependence, uncomplicated (4) Nicotine dependence Current Visit: Yes Status: Acute Qualifiers: Nicotine product type: cigarettes Substance use status: uncomplicated Qualified Code(s): F17.210 - Nicotine dependence, cigarettes, uncomplicated (5) Depressive disorder Current Visit: Yes Status: Acute (6) Asthma Current Visit: Yes Status: Chronic Qualifiers: Asthma severity: mild persistent Asthma complication type: with status asthmaticus Qualified Code(s): J45.32 - Mild persistent asthma with status asthmaticus (7) COPD (chronic obstructive pulmonary disease) Current Visit: Yes Status: Chronic Qualifiers: COPD type: emphysema Emphysema type: other Qualified Code(s): J43.8 - Other emphysema (8) HIV (human immunodeficiency virus infection) Current Visit: Yes Status: Chronic (9) Hepatitis C carrier Current Visit: Yes Status: Chronic (10) Insomnia Current Visit: Yes Status: Acute (11) Use of cane as ambulatory aid Current Visit: Yes Status: Chronic - Initial Treatment Plan Initial Treatment Plan: Psychoeducation.Detoxification.Medications : wellbutrin XL 150 mg po daily + seroquel 50 mg po hs (reduced).Side effects/benefits discussed with the patient.He agrees to follow this careplan.Observation.NO scripts needed at discharge from [facility].
[2017-01-27] MEDS: CLARITHROMYCIN PO SCH ×3 (11:53→21:43)
[2017-01-27] MEDS: PRENATAL VITAMINS W/ FOLIC ACID TABLET (FP) PO SCH (11:54)
[2017-01-27] MEDS: PATIENT'S OWN MEDICATION (NON-FORMULARY) (Amlodipine Besylate [Amlodipine Besylate] 10 MG) PO SCH (11:56)
[2017-01-27] MEDS: BUDESONIDE/FORMETEROL FUMARATE 80/4.5 mcg INHALER IH SCH ×2 (11:57→21:42)
[2017-01-27] MEDS: NICOTINE 14 MG/24 HOURS TOPICAL PATCH TD SCH (11:57)
[2017-01-27] MEDS ORDERED: POTASSIUM CHLORIDE TABS 20 MEQ TABLET.ER (FP) PO ONE (13:00)
--- NOTE | 2017-01-27 15:05 | PN ---
[facility] CIWA - CIWA Score Nausea/Vomitin-Mild Nausea/No Vomiting Muscle Tremors: 5 Anxiety: 3 Agitation: 2 Paroxysmal Sweats: 2 Orientation: 2-Disoriented Date<2 days Tacttile Disturbances: 2-Mild Itch/Numbness/Burn Auditory Disturbances: 0-None Visual Disturbances: 0-None Headache: 0-None Present CIWA-Ar Total Score: 17 BHS COWS - Scale Resting Pulse: 1= [place] 81-100 Sweatin= Chills/Flushing Restless Observation: 0= Sits Still Pupil Size: 0= Normal to Room Light Bone or Joint Aches: 1= Mild Discomfort Runny Nose/ Eye Tearin= Runny Nose/Eyes GI Upset > 30mins: 1= Stomach Cramp Tremor Observation of Outstretched Hands: 2= Slight Tremor Visible Yawning Observation: 1= 1-2x During Session Anxiety or Irritability: 2=Irritable/Anxious Goose Flesh Skin: 3=Piloerection COWS Score: 14 S Progress Note (SOAP) Subjective: Fatigue, Tremors, Sweating. Objective: PT. A & O X 2 (DISORIENTED ABOUT DAY / DATE). PT. OBSERVED AMBULATING ON UNIT. NO ACUTE DISTRESS. PT. DENIES CHEST PAIN. PATIENT REPORTS HISTORY OF DIAGNOSIS OF PNEUMONIA (APPORX. 2 WEEKS AGO), FOR WHICH HE WAS PRESCRIBED BACTRIM. HOWEVER, PATIENT REPORTS INCONSISTENT TAKING OF THE BACTRIM SINCE STARTING IT. NO S.O.B. NOTED ON PATIENT. LUNG SOUNDS AUSCULTATED CLEAR AND EQUAL BILATERALLY. TRACK GONG NOTED ON BILATERAL ARMS; HOWEVER, NO SIGNS OF INFECTION NOTED AT ANY OF THE AFFECTED SITES. PATIENT DENIES ANY OTHER ACUTE WOUNDS OR INJURIES TO ANY OTHER PART OF HIS BODY. 01/27/17 14:59 Vital Signs Temperature 97.7 F 01/27/17 13:52 Pulse Rate 79 01/27/17 13:52 Respiratory Rate 20 01/27/17 13:52 Blood Pressure 100/59 01/27/17 13:52 O2 Sat by Pulse Oximetry (%) Laboratory Tests 01/26/17 01/27/17 01/27/17 21:45 08:00 08:00 WBC 13.5 H D RBC 4.06 Hgb 11.7 Hct 36.3 MCV 89.5 MCH 28.7 MCHC 32.1 RDW 18.4 H Plt Count 431 MPV 7.8 Sodium 135 L Potassium 2.8 L* D Chloride 86 L D Carbon Dioxide 37 H Anion Gap 12 BUN 3 L D Creatinine 0.8 Creat Clearance w eGFR > 60 Random Glucose 130 H Calcium 8.9 Total Bilirubin 0.6 D AST 32 D ALT 24 Alkaline Phosphatase 147 H D Total Protein 8.4 H D Albumin 2.8 L Urine Color Ltyellow Urine Appearance Clear Urine pH 6.0 Ur Specific [place] <= 1.005 Urine Protein 1+ H Urine Glucose (UA) Negative Urine Ketones Negative Urine Blood Negative Urine Nitrite Negative Urine Bilirubin Negative Urine Urobilinogen 2.0 Ur Leukocyte Esterase Negative Urine RBC None Urine WBC 1 Ur Epithelial Cells Rare RPR Titer 01/27/17 08:00 WBC RBC Hgb Hct MCV MCH MCHC RDW Plt Count MPV Sodium Potassium Chloride Carbon Dioxide Anion Gap BUN Creatinine Creat Clearance w eGFR Random Glucose Calcium Total Bilirubin AST ALT Alkaline Phosphatase Total Protein Albumin Urine Color Urine Appearance Urine pH Ur Specific [place] Urine Protein Urine Glucose (UA) Urine Ketones Urine Blood Urine Nitrite Urine Bilirubin Urine Urobilinogen Ur Leukocyte Esterase Urine RBC Urine WBC Ur Epithelial Cells RPR Titer Nonreactive LABS NOTED. 01/27/17 15:05 01/27/17 15:09 Assessment: 01/27/17 15:00 WITHDRAWAL SYMPTOMS. Plan: CONTINUE DETOX. K, 40 MEQ PO X 1 NOW, THEN 20 MEQ PO BID. RE-CHECK K LEVEL ON CXR ON 01/29/17. PATIENT ALSO CURRENTLY PRESCRIBED CLARITHROMYCIN, 250 MG PO BID (PATIENT UNCERTAIN TO REASON WHY). START BACTRIM, DS, PO, 1 TABLET DAILY (PATIENT WAS PREVIOUSLY PRESCRIBED THIS PRIOR TO ADMISSION TO DETOX). PATIENT CURRENTLY AFEBRILE. CONTINUE TO MONITOR TEMPERATURE.
[2017-01-27] MEDS ORDERED: chlordiazePOXIDE HCL 25 MG CAPSULE PO SCH (17:00)
[2017-01-27] MEDS: THIAMINE HCL 100 MG TABLET (FP) PO SCH (21:41)
[2017-01-27] MEDS: QUEtiapine FUMARATE 50 MG TABLET PO SCH (21:41)
[2017-01-27] MEDS: POTASSIUM CHLORIDE TABS 20 MEQ TABLET.ER (FP) PO SCH (21:42)
--- NOTE | 2017-01-28 08:12 | EKG ---
Test Reason : Blood Pressure : / mmHG Vent. Rate : 083 BPM Atrial Rate : 083 BPM P-R Int : 146 ms QRS Dur : 076 ms QT Int : 416 ms P-R-T Axes : 082 069 070 degrees QTc Int : 488 ms NORMAL SINUS RHYTHM POSSIBLE LEFT ATRIAL ENLARGEMENT LEFT VENTRICULAR HYPERTROPHY PROLONGED QT ABNORMAL ECG WHEN COMPARED WITH ECG OF 07-NOV-2016 05:41, NO SIGNIFICANT CHANGE WAS FOUND Confirmed by RIYA RUBALCAVA, DEMARCO ([id number]) on 01/28/2017 8:11:52 AM Referred By: Julio Carter Confirmed By:DEMARCO RITTER MD
[2017-01-28] MEDS ORDERED: METHADONE HCL 5 MG TABLET (FOR DETOX USE ONLY) PO SCH (10:00)
[2017-01-28] MEDS: CLARITHROMYCIN PO SCH ×2 (10:05→22:00)
[2017-01-28] MEDS: PATIENT'S OWN MEDICATION (NON-FORMULARY) (Amlodipine Besylate [Amlodipine Besylate] 10 MG) PO SCH (10:05)
[2017-01-28] MEDS: PRENATAL VITAMINS W/ FOLIC ACID TABLET (FP) PO SCH (10:06)
[2017-01-28] MEDS: POTASSIUM CHLORIDE TABS 20 MEQ TABLET.ER (FP) PO SCH ×2 (10:06→22:00)
[2017-01-28] MEDS: METHADONE HCL 5 MG TABLET (FOR DETOX USE ONLY) PO SCH (10:07)
[2017-01-28] MEDS: diazePAM 5 MG TABLET PO SCH ×2 (10:08→22:00)
[2017-01-28] MEDS: NICOTINE 14 MG/24 HOURS TOPICAL PATCH TD SCH (10:09)
[2017-01-28] MEDS: BUDESONIDE/FORMETEROL FUMARATE 80/4.5 mcg INHALER IH SCH ×2 (10:09→22:00)
[2017-01-28] MEDS: SULFAMETHOXAZOLE/TRIMETHOPRIM 800MG/160MG D.S. TABLET PO SCH (12:35)
[2017-01-28] MEDS: ALBUTEROL SO4 2.5/IPRATROPIUM 0.5 INH SOL 3 ML VIAL.NEB. NEB PRN ×2 (12:38→21:20)
--- NOTE | 2017-01-28 13:14 | PN ---
[facility] CIWA - CIWA Score Nausea/Vomitin Muscle Tremors: 4-Moderate,w/Arms Extend Anxiety: 4-Mod. Anxious/Guarded Agitation: 4-Moderately Restless Paroxysmal Sweats: No Perspiration Orientation: 0-Oriented Tacttile Disturbances: 0-None Auditory Disturbances: 0-None Visual Disturbances: 0-None Headache: 1-Very Mild CIWA-Ar Total Score: 16 BHS COWS - Scale Resting Pulse: 4= [place] > 121 Sweatin=Flushed/Facial Moisture Restless Observation: 3= Extraneous Movement Pupil Size: 0= Normal to Room Light Bone or Joint Aches: 2= Severe Diffuse Aches Runny Nose/ Eye Tearin= Runny Nose/Eyes GI Upset > 30mins: 3= Vomiting/Diarrhea Tremor Observation of Outstretched Hands: 2= Slight Tremor Visible Yawning Observation: 0= None Anxiety or Irritability: 2=Irritable/Anxious Goose Flesh Skin: 0=Smooth Skin COWS Score: 20 S Progress Note (SOAP) Subjective: N/V/D (vomited once this morning), stomach ache, anxious, restless Objective: 01/28/17 13:11 Last Vital Signs Temp Pulse Resp BP Pulse Ox 99.1 F 122 H 18 102/60 01/28/17 10:15 01/28/17 10:15 01/28/17 10:15 01/28/17 10:15 Laboratory Tests 01/26/17 01/27/17 01/27/17 21:45 08:00 08:00 WBC 13.5 H D RBC 4.06 Hgb 11.7 Hct 36.3 MCV 89.5 MCH 28.7 MCHC 32.1 RDW 18.4 H Plt Count 431 MPV 7.8 Sodium 135 L Potassium 2.8 L* D Chloride 86 L D Carbon Dioxide 37 H Anion Gap 12 BUN 3 L D Creatinine 0.8 Creat Clearance w eGFR > 60 Random Glucose 130 H Calcium 8.9 Total Bilirubin 0.6 D AST 32 D ALT 24 Alkaline Phosphatase 147 H D Total Protein 8.4 H D Albumin 2.8 L Urine Color Ltyellow Urine Appearance Clear Urine pH 6.0 Ur Specific [place] <= 1.005 Urine Protein 1+ H Urine Glucose (UA) Negative Urine Ketones Negative Urine Blood Negative Urine Nitrite Negative Urine Bilirubin Negative Urine Urobilinogen 2.0 Ur Leukocyte Esterase Negative Urine RBC None Urine WBC 1 Ur Epithelial Cells Rare RPR Titer 01/27/17 08:00 WBC RBC Hgb Hct MCV MCH MCHC RDW Plt Count MPV Sodium Potassium Chloride Carbon Dioxide Anion Gap BUN Creatinine Creat Clearance w eGFR Random Glucose Calcium Total Bilirubin AST ALT Alkaline Phosphatase Total Protein Albumin Urine Color Urine Appearance Urine pH Ur Specific [place] Urine Protein Urine Glucose (UA) Urine Ketones Urine Blood Urine Nitrite Urine Bilirubin Urine Urobilinogen Ur Leukocyte Esterase Urine RBC Urine WBC Ur Epithelial Cells RPR Titer Nonreactive Labs noted: K 2.8, WBC 13.5, RDW 18.4, UA: 1+ protein Assessment: 01/28/17 13:14 Withdrawal symptoms Noted with hypokalemia, elevated RDW, leukocytosis and proteinuria Plan: Continue detox Hypokalemia: continue potassium supplement, send BMP Elevated RDW: send iron studies to rule out iron deficiency anemia Leukocytosis: repeat CBC, continue abx for PNA, follow up on chest xray Proteinuria: encouraged to drink lots of water, repeat UA
[2017-01-28] MEDS ORDERED: chlordiazePOXIDE 5 MG CAPSULE PO SCH (17:00)
[2017-01-28] MEDS: QUEtiapine FUMARATE 50 MG TABLET PO SCH (22:00)
[2017-01-28] MEDS: THIAMINE HCL 100 MG TABLET (FP) PO SCH (22:00)
[2017-01-29] MEDS: ALBUTEROL SO4 2.5/IPRATROPIUM 0.5 INH SOL 3 ML VIAL.NEB. NEB PRN (06:06)
--- NOTE | 2017-01-29 07:35 | PN ---
[facility] Progress Note Note: MD'S NOTE: CALLED AT ABOUT 6:50 TO EVALUATE THE PT. FOR CONSIDERATION TO TRANSFER TO THE ER SUB: FEELS BETTER AFTER RESP. TREATMENT BUT STILL HAS ONGOING MILD SOB - SEC. TO COPD AND ASTHMA DENIES CP, PALPITATIONS, N/V, DIZZINESS OBJ: THE PT. IS PEREZ X 3, LOOKS ANEMIC, MILDLY DYSPNEIC, NO CYANOSIS, NO EDEMA NOTED UNDERNOURISHED WITH MUSCLE WASTING+++. V/S: 96.3F-16-63-90/51-02 SATS. AT 88% ON R/A S/E: LUNGS: BRONCHO-VESICULAR BREATH SOUNDS, OCC. RALES AT THE BASES+ RHONCHI AND WHEEZING AT LOWER LOBE REGIONS+ CVS: -JVD, NORMAL HEART SOUNDS, NO MURMURS ABD: SOFT, NT, B.S.+ METAL MOVER: NO FOCAL DEFICITS NOTED CLINICALLY AT THIS TIME IMPRESSION: -MILD HYPOXIA - SEC. TO: COPD AND ASTHMA : POOR INSPIRATORY EFFORT -KNOWN CASE OF AIDS AND HEP.C PLANS: -AWAITING FOR AM LABS. AND CHEST X-RAY (TO R/O: PNEUMONIA) FOR FURTHER MANAGEMENT -NEEDS MORE NUTRITIONAL SUPPORT AND SUPPORTIVE CARE -02 AT 1-3L/NC/MT -PRN -WILL TRANSFER THE PT. TO THE ER, IN THE EVENT OF ANY FURTHER DETERIORATION OF HIS OVER ALL CONDITION. -WILL BE FOLLOWED BY AM ATTENDING FOR FURTHER MANAGEMENT -CLOSE MONITORING OF ABC'S -WILL ALSO F/U NEEDED PROVIDER; MIGUEL STEELE MD
[2017-01-29] MEDS: PATIENT'S OWN MEDICATION (NON-FORMULARY) (Amlodipine Besylate [Amlodipine Besylate] 10 MG) PO SCH (09:33)
[2017-01-29] MEDS: CLARITHROMYCIN PO SCH ×2 (09:34→22:57)
[2017-01-29] MEDS: SULFAMETHOXAZOLE/TRIMETHOPRIM 800MG/160MG D.S. TABLET PO SCH ×2 (09:34→22:57)
[2017-01-29] MEDS: METHADONE HCL 5 MG TABLET (FOR DETOX USE ONLY) PO SCH (09:35)
[2017-01-29] MEDS: NICOTINE 14 MG/24 HOURS TOPICAL PATCH TD SCH (09:35)
[2017-01-29] MEDS: POTASSIUM CHLORIDE TABS 20 MEQ TABLET.ER (FP) PO SCH ×2 (09:35→22:57)
[2017-01-29] MEDS: PRENATAL VITAMINS W/ FOLIC ACID TABLET (FP) PO SCH (09:35)
[2017-01-29] MEDS: diazePAM 5 MG TABLET PO SCH ×2 (09:36→22:57)
[2017-01-29] MEDS: BUDESONIDE/FORMETEROL FUMARATE 80/4.5 mcg INHALER IH SCH ×2 (09:36→22:57)
[2017-01-29 09:59] LABS: BASOPHIL 0.1 % (0-2.0); EOSINOPHIL 0.3 % (0-4.5); MCH 28.6 pg (25.7-33.7); MCHC 32.1 g/dl (32.0-35.9); MEAN CELL VOLUME 89.2 fl (80-96); MEAN PLT VOLUME 7.9 fl (7.5-11.1); NEUTROPHILS 81.9 % (42.8-82.8); PLATELET COUNT 328 K/MM3 (134-434); RDW 18.9 % (11.9-15.9)
[2017-01-29 10:09] LABS: ANION GAP 7 (8-16); CALCIUM 8.3 mg/dL (8.5-10.1); CO2 37 mmol/L (21-32); GLUCOSE,RANDOM 119 mg/dL (74-106)
[2017-01-29 10:17] LABS: FERRITIN 177.746 ng/ml (16.4-293.9)
--- NOTE | 2017-01-29 16:31 | PN ---
[facility] Progress Note (SOAP) Subjective: Body Aches, H/A, Interrupted Sleep. Objective: PT. A & O X 2 (DISORIENTED ABOUT DAY / DATE). NO ACUTE DISTRESS. 01/29/17 16:27 Vital Signs Temperature 99.8 F H 01/29/17 13:06 Pulse Rate 118 H 01/29/17 13:06 Respiratory Rate 18 01/29/17 13:06 Blood Pressure 89/59 01/29/17 13:06 O2 Sat by Pulse Oximetry (%) Laboratory Tests 01/26/17 01/27/17 01/27/17 21:45 08:00 08:00 WBC 13.5 H D RBC 4.06 Hgb 11.7 Hct 36.3 MCV 89.5 MCH 28.7 MCHC 32.1 RDW 18.4 H Plt Count 431 MPV 7.8 Neutrophils % Lymphocytes % Monocytes % Eosinophils % Basophils % Sodium 135 L Potassium 2.8 L* D Chloride 86 L D Carbon Dioxide 37 H Anion Gap 12 BUN 3 L D Creatinine 0.8 Creat Clearance w eGFR > 60 Random Glucose 130 H Calcium 8.9 Ferritin Total Bilirubin 0.6 D AST 32 D ALT 24 Alkaline Phosphatase 147 H D Total Protein 8.4 H D Albumin 2.8 L Vitamin B12 Serum Folate Urine Color Ltyellow Urine Appearance Clear Urine pH 6.0 Ur Specific [place] <= 1.005 Urine Protein 1+ H Urine Glucose (UA) Negative Urine Ketones Negative Urine Blood Negative Urine Nitrite Negative Urine Bilirubin Negative Urine Urobilinogen 2.0 Ur Leukocyte Esterase Negative Urine RBC None Urine WBC 1 Ur Epithelial Cells Rare RPR Titer 01/27/17 01/29/17 01/29/17 08:00 07:00 07:00 WBC 7.0 D RBC 3.21 L D Hgb 9.2 L D Hct 28.6 L D MCV 89.2 MCH 28.6 MCHC 32.1 RDW 18.9 H Plt Count 328 D MPV 7.9 Neutrophils % 81.9 D Lymphocytes % 11.9 D Monocytes % 5.8 Eosinophils % 0.3 D Basophils % 0.1 Sodium 137 Potassium 3.4 L D Chloride 93 L Carbon Dioxide 37 H Anion Gap 7 L BUN 15 D Creatinine 1.0 D Creat Clearance w eGFR Random Glucose 119 H Calcium 8.3 L Ferritin 177.746 Total Bilirubin AST ALT Alkaline Phosphatase Total Protein Albumin Vitamin B12 685 Serum Folate 26 H Urine Color Urine Appearance Urine pH Ur Specific [place] Urine Protein Urine Glucose (UA) Urine Ketones Urine Blood Urine Nitrite Urine Bilirubin Urine Urobilinogen Ur Leukocyte Esterase Urine RBC Urine WBC Ur Epithelial Cells RPR Titer Nonreactive LABS NOTED. RESULTS OF REPEAT CBC, REPEAT COMP META., AND CXR DONE EARLIER TODAY (01/29/2017 ) NOTED. IRON STUDIES RESULTS PENDING. 01/29/17 16:28 01/29/17 16:32 01/29/17 16:33 Assessment: 01/29/17 16:27 WITHDRAWAL SYMPTOMS. Plan: CONTINUE DETOX. INCREASE BACTRIM DS TO 1 TABLET PO BID. PATIENT CURRENTLY RECEIVING CLARITHROMYCIN, 250 MG PO BID (STARTED PRIOR TO DETOX ADMISSION). FEOSOL, 300 MG PO (LIQUID) TID WITH MEALS.
[2017-01-29] MEDS ORDERED: chlordiazePOXIDE HCL 10 MG CAPSULE PO SCH (17:00)
[2017-01-29] MEDS: FERROUS SO4 300 MG/5 ML ORAL SOLN UNIT DOSE CUPS PO SCH (18:30)
[2017-01-29] MEDS ORDERED: SULFAMETHOXAZOLE/TRIMETHOPRIM 800MG/160MG D.S. TABLET PO SCH (22:00)
[2017-01-29] MEDS: THIAMINE HCL 100 MG TABLET (FP) PO SCH (22:57)
[2017-01-29] MEDS: QUEtiapine FUMARATE 50 MG TABLET PO SCH (22:57)
[2017-01-30] MEDS: ALBUTEROL SO4 2.5/IPRATROPIUM 0.5 INH SOL 3 ML VIAL.NEB. NEB PRN (05:39)
[2017-01-30] MEDS: FERROUS SO4 300 MG/5 ML ORAL SOLN UNIT DOSE CUPS PO SCH ×2 (08:45→12:20)
[2017-01-30 09:15] VITALS: BP 110/72; PULSE 78; TEMP 98.4
--- NOTE | 2017-01-30 09:50 | PN ---
[facility] Progress Note Note: RECEIVED PT AT 8:30 AM WHILE ROUNDING ON PT HE C/O SOB, WHEEZING,WEAK AND UNSTABLE GAIT. PT ON OXYGEN THERAPY 2 L NC AND NEBULIZER TX WHICH APPEAR TO BE INEFFECTIVE. PT STATES WORSENING SYMPTOMS FROM PAST TWO DAYS. DENIES CHEST PAIN. PT LOOKS CACHECTIC. HX ASTHMA,COPD, HTN, HIV+/AIDS, HEP C. LUNGS: SLIGHT TO MODERATE BILATERAL WHEEZE WITH SCATTERED RHONCHI. SLIGHT DYSPNEIC. ACYANOTIC. PULSE OXIMETRY: 82% ROOM AIR; 85% POST NEBULIZER TX. CARDIAC:S1 S2, TACHYCARDIA Laboratory Last Values Vital Signs 01/30/17 01/30/17 01/30/17 04:02 06:24 09:15 Temperature 97 F L 98.4 F Pulse Rate 110 H 78 Respiratory 18 16 18 Rate Blood Pressure 97/62 110/72 Laboratory Tests 01/26/17 01/27/17 01/27/17 21:45 08:00 08:00 WBC 13.5 H D RBC 4.06 Hgb 11.7 Hct 36.3 MCV 89.5 MCH 28.7 MCHC 32.1 RDW 18.4 H Plt Count 431 MPV 7.8 Neutrophils % Lymphocytes % Monocytes % Eosinophils % Basophils % Sodium 135 L Potassium 2.8 L* D Chloride 86 L D Carbon Dioxide 37 H Anion Gap 12 BUN 3 L D Creatinine 0.8 Creat Clearance w eGFR > 60 Random Glucose 130 H Calcium 8.9 Ferritin Total Bilirubin 0.6 D AST 32 D ALT 24 Alkaline Phosphatase 147 H D Total Protein 8.4 H D Albumin 2.8 L Vitamin B12 Serum Folate Urine Color Ltyellow Urine Appearance Clear Urine pH 6.0 Ur Specific [place] <= 1.005 Urine Protein 1+ H Urine Glucose (UA) Negative Urine Ketones Negative Urine Blood Negative Urine Nitrite Negative Urine Bilirubin Negative Urine Urobilinogen 2.0 Ur Leukocyte Esterase Negative Urine RBC None Urine WBC 1 Ur Epithelial Cells Rare RPR Titer 01/27/17 01/29/17 01/29/17 08:00 07:00 07:00 WBC 7.0 D RBC 3.21 L D Hgb 9.2 L D Hct 28.6 L D MCV 89.2 MCH 28.6 MCHC 32.1 RDW 18.9 H Plt Count 328 D MPV 7.9 Neutrophils % 81.9 D Lymphocytes % 11.9 D Monocytes % 5.8 Eosinophils % 0.3 D Basophils % 0.1 Sodium 137 Potassium 3.4 L D Chloride 93 L Carbon Dioxide 37 H Anion Gap 7 L BUN 15 D Creatinine 1.0 D Creat Clearance w eGFR Random Glucose 119 H Calcium 8.3 L Ferritin 177.746 Total Bilirubin AST ALT Alkaline Phosphatase Total Protein Albumin Vitamin B12 685 Serum Folate 26 H Urine Color Urine Appearance Urine pH Ur Specific [place] Urine Protein Urine Glucose (UA) Urine Ketones Urine Blood Urine Nitrite Urine Bilirubin Urine Urobilinogen Ur Leukocyte Esterase Urine RBC Urine WBC Ur Epithelial Cells RPR Titer Nonreactive 01/30/17 10:00 WBC RBC Hgb Hct MCV MCH MCHC RDW Plt Count MPV Neutrophils % Lymphocytes % Monocytes % Eosinophils % Basophils % Sodium Potassium Chloride Carbon Dioxide Anion Gap BUN Creatinine Creat Clearance w eGFR Random Glucose Calcium Ferritin Total Bilirubin AST ALT Alkaline Phosphatase Total Protein Albumin Vitamin B12 Serum Folate Urine Color Yellow Urine Appearance Clear Urine pH 7.0 Ur Specific [place] Urine Protein Negative Urine Glucose (UA) Negative Urine Ketones Negative Urine Blood Negative Urine Nitrite Negative Urine Bilirubin Negative Urine Urobilinogen 4.0 e.u/dl Ur Leukocyte Esterase Negative Urine RBC Urine WBC Ur Epithelial Cells RPR Titer IMPRESSION:ACUTE RESPIRATORY DISTRESS HYPOKALEMIA ANEMIA HIV/AIDS COPD CHRONIC ASTHMA HEP C PLAN:TRANSFER TO [facility] FOR EVALUATION AND STABILIZATION. SPOKE TO AT THE ER.
[2017-01-30] MEDS: POTASSIUM CHLORIDE TABS 20 MEQ TABLET.ER (FP) PO SCH (09:52)
[2017-01-30] MEDS: SULFAMETHOXAZOLE/TRIMETHOPRIM 800MG/160MG D.S. TABLET PO SCH (09:52)
[2017-01-30] MEDS: PRENATAL VITAMINS W/ FOLIC ACID TABLET (FP) PO SCH (09:53)
[2017-01-30] MEDS: NICOTINE 14 MG/24 HOURS TOPICAL PATCH TD SCH (09:53)
[2017-01-30] MEDS: BUDESONIDE/FORMETEROL FUMARATE 80/4.5 mcg INHALER IH SCH (09:53)
[2017-01-30] MEDS: PATIENT'S OWN MEDICATION (NON-FORMULARY) (Amlodipine Besylate [Amlodipine Besylate] 10 MG) PO SCH (09:54)
[2017-01-30] MEDS: CLARITHROMYCIN PO SCH (09:54)
[2017-01-30] MEDS ORDERED: METHADONE HCL 10 MG TABLET (FOR DETOX USE ONLY) PO SCH ×2 (10:00)
[2017-01-30] MEDS ORDERED: diazePAM 5 MG TABLET PO SCH (10:00)
[2017-01-30 12:26] LABS: URINE APPEARANCE CLEAR; URINE BILIRUBIN NEGATIVE (NEGATIVE); URINE BLOOD NEGATIVE (NEGATIVE); URINE COLOR YELLOW; URINE GLUCOSE (UA) NEGATIVE (NEGATIVE); URINE KETONE NEGATIVE (NEGATIVE); URINE LEUK ESTERASE NEGATIVE (NEGATIVE); URINE NITRITE NEGATIVE (NEGATIVE); URINE PROTEIN NEGATIVE (NEGATIVE); URINE UROBILINOGEN 4.0 E.U/dl mg/dL (0.2-1.0)
[2017-01-31] MEDS ORDERED: METHADONE HCL 5 MG TABLET (FOR DETOX USE ONLY) PO SCH ×2 (06:00)
[2017-02-01 06:08] LABS: SERUM IRON 10 ug/dL (38-169); TOTAL IRON BINDING CAPACITY 130 ug/dL (250-450); UIBC 120 ug/dL (111-343)
== END 2017-01-30 15:30 | disposition short-term general hospital (02) | DRG 773 ==
LOC: YASAS 13:31 → Y3N 17:14
PROVIDERS: ADMIT Internal Medicine; ATTEND Internal Medicine
PROC: HZ2ZZZZ Detoxification Services for Substance Abuse Treatment (ICD-10-PCS; principal; 2017-01-26)
DX: F11.23 Opioid dependence with withdrawal (principal); F10.230 Alcohol dependence with withdrawal, uncomplicated; F14.20 Cocaine dependence, uncomplicated; F17.210 Nicotine dependence, cigarettes, uncomplicated; F32.9 Major depressive disorder, single episode, unspecified; I10 Essential (primary) hypertension; E87.6 Hypokalemia; B20 Human immunodeficiency virus [HIV] disease; D64.9 Anemia, unspecified; J45.32 Mild persistent asthma with status asthmaticus; J43.8 Other emphysema; B18.2 Chronic viral hepatitis C; D72.829 Elevated white blood cell count, unspecified; R80.9 Proteinuria, unspecified; R79.89 Other specified abnormal findings of blood chemistry; R26.2 Difficulty in walking, not elsewhere classified; Z99.89 Dependence on other enabling machines and devices; J80 Acute respiratory distress syndrome
CPT/HCPCS: 36415; 71020-TC; 80048; 80053; 81003; 81015; 82607; 82728; 82746; 83540; 83550; 85025; 85027; 86593; 93005; 93010; 94640

== ENCOUNTER 2017-01-30 10:32 | Inpatient (IN) | payer OTHER ==
[2017-01-30] MEDS ORDERED: methylPREDNISolone NA SUCC 125 MG/2 ML VIAL IVPB ONE (11:16)
[2017-01-30] MEDS ORDERED: PIPERACILLIN/TAZOB 3.375 GM/50 ML PRE-DOCKED IV ONE (11:32)
[2017-01-30] MEDS ORDERED: SODIUM CHLORIDE 1,000 ML IV STA (11:32)
[2017-01-30] MEDS ORDERED: VANCOMYCIN 1,000 MG in DEXTROSE 5%-WATER - 250 ML IVPB ONE (11:32)
[2017-01-30] MEDS ORDERED: ACETAMINOPHEN 325 MG TABLET (FP) PO ONE (11:32)
[2017-01-30] MEDS: ALBUTEROL SO4 2.5/IPRATROPIUM 0.5 INH SOL 3 ML VIAL.NEB. NEB SCH ×4 (12:00→12:45)
--- NOTE | 2017-01-30 12:00 | PDOC ---
History of Present Illness - General Chief Complaint: Shortness of Breath Stated Complaint: DIFFICULTY BREATHING Time Seen by Provider: 01/30/17 10:49 - History of Present Illness Initial Comments: 01/30/17 11:51 56 yo M with h/o alcohol dependence, cocaine abuse, HIV, Hep C, HTN, and COPD who is transferred from [facility] with SOB. Arrives with 2/4 SIRS criteria ( Temp: 100.5, P: 110) and hypoxia 88% on 2 Liters NC. Increased SOB, wheezing, and productive ( yellow sputum ) cough over the past 2 days. Pt. reports stable , left sided non pleuritic, non radiating chest pain. + weakness, fatigue, and night sweats. Denies N/V,hemoptysis, vision changes, LOC, lightheadedness, abdominal complaints, urinary symptoms, diaphoresis, or falls. Denies home oxygen requirements/use or home nebulizer therapy. Recent CXR ( 01/29/17) depicts bilateral pulmonary consolidations. Denies h/o PE, DVT, malignancy, recent surgery or trauma within 4 weeks. Pt. continues tobacco use 1/2 ppd 30+ years. Endorses continued daily alcohol intake and cocaine recreational cocaine use. Past History - Past Medical History Allergies/Adverse Reactions: Allergies Allergy/AdvReac Type Severity Reaction Status Date / Time No Known Allergies Allergy Verified 01/30/17 10:48 Home Medications: Ambulatory Orders Sulfamethoxazole/Trimethoprim [Bactrim DS -] 1 each PO DAILY #0 tablet 08/13/13 Azithromycin [Zithromax 600mg Tablets -] 1,200 mg PO Q7D@1000 #8 tablet Fluconazole [Diflucan -] 100 mg PO DAILY #30 tablet 11/11/13 Quetiapine Fumarate [Seroquel -] 100 mg PO HS #30 tablet 11/11/13 Sulfamethoxazole/Trimethoprim [Bactrim DS -] 1 each PO DAILY #30 tablet Abacavir/Dolutegravir/Lamivudi [Triumeq Tablet] 1 each PO DAILY 11/06/16 Amlodipine Besylate 10 mg PO DAILY 11/06/16 Clarithromycin [Biaxin -] 250 mg PO BID 11/06/16 Sulfamethoxazole/Trimethoprim [Bactrim Ds Tablet] 1 each PO DAILY 11/06/16 Umeclidinium [place] [Incruse Ellipta] 62.5 mcg IH DAILY 11/06/16 Anemia: No Asthma: Yes Cancer: No Cardiac Disorders: No CVA: No COPD: Yes CHF: No Dementia: No Diabetes: No GI Disorders: No Disorders: No HTN: Yes Hypercholesterolemia: No HIV: Yes (AIDS) Kidney Stones: No Liver Disease: No Suicide Attempt (Hx): No Seizures: No Thyroid Disease: No - Surgical History Abdominal Surgery: No Appendectomy: No Cardiac Surgery: No Cholecystectomy: No Lung Surgery: No Neurologic Surgery: No Orthopedic Surgery: No - Reproductive History Testicular Surgery: No - Psycho/Social/Smoking Cessation Hx Anxiety: No Suicidal Ideation: No Smoking History: Current every day smoker Have you smoked in the past 12 months: Yes Number of Cigarettes Smoked Daily: 10 Cigars Per Day: 0 Information on smoking cessation initiated: Yes 'Breaking Loose' booklet given: 01/26/17 Hx Alcohol Use: Yes Drug/Substance Use Hx: Yes Substance Use Type: Alcohol, Cocaine, Heroin Hx Substance Use Treatment: Yes ([facility] detox 1 month ago.) Cardiac Specific PMH - Complaint Specific PMHX Pacemaker: No Review of Systems - Review of Systems Comments:: 01/30/17 12:13 GENERAL/CONSTITUTIONAL: + fever /chills, and weakness. HEAD, EYES, EARS, NOSE AND THROAT: No change in vision. No ear pain or discharge. No sore throat. CARDIOVASCULAR: + chest pain and shortness of breath RESPIRATORY: +cough, and wheezing,. No hemoptysis. GASTROINTESTINAL: No nausea, vomiting, diarrhea or constipation. GENITOURINARY: No dysuria, frequency, or change in urination. MUSCULOSKELETAL: No joint or muscle swelling or pain. No neck or back pain. SKIN: No rash NEUROLOGIC: No headache, vertigo, loss of consciousness, or change in strength/ sensation. ENDOCRINE: No increased thirst. No abnormal weight change HEMATOLOGIC/LYMPHATIC: No anemia, easy bleeding, or history of blood clots. ALLERGIC/IMMUNOLOGIC: No hives or skin allergy. *Physical Exam - Vital Signs Last Vital Signs Temp Pulse Resp BP Pulse Ox 98.3 F 91 H 22 111/58 93 L 01/30/17 14:14 01/30/17 14:14 01/30/17 10:35 01/30/17 14:14 01/30/17 14:14 - Physical Exam Comments: 01/30/17 12:15 GENERAL: + Slurred Speech. Awake, alert, and fully oriented, in no acute distress. HEAD: No signs of trauma, normocephalic, atraumatic EYES: PERRLA, EOMI, sclera anicteric, conjunctiva clear ENT: Auricles normal inspection, hearing grossly normal, nares patent, oropharynx clear without exudates. Moist mucosa NECK: Normal ROM, supple, no lymphadenopathy, JVD, or masses LUNGS: Scattered rales and rhonci in upper and lower lung mejia. No distress, speaks full sentences,. peripheral pulses normal and equal bilaterally. ABDOMEN: Soft, nontender, normoactive bowel sounds. No guarding, no rebound. No masses EXTREMITIES: Normal inspection, Normal range of motion, no edema. No clubbing or cyanosis. NEUROLOGICAL: Cranial nerves II through XII grossly intact. Normal speech, normal gait, no focal sensorimotor deficits SKIN: Warm, Dry, normal turgor, no rashes or lesions noted. ED Treatment Course - LABORATORY CBC & Chemistry Diagram: 01/30/17 11:55 01/30/17 11:55 - ADDITIONAL ORDERS Additional order review: Laboratory Results 01/30/17 01/30/17 01/30/17 13:24 13:12 11:55 Puncture Site Right radial ABG pH 7.45 ABG pCO2 at Pt Temp 51.9 H D ABG pO2 at Pt Temp 60.6 L ABG HCO3 35.4 H ABG O2 Sat (Measured) 88.5 L ABG O2 Content 9.9 L* ABG Base Excess 10.4 H Rubén Test Positive Carboxyhemoglobin 2.2 H Methemoglobin 0.5 O2 Delivery Device nasal cannula Oxygen Flow Rate 2 lpm PEEP 0.0 Sodium Potassium Chloride Carbon Dioxide Anion Gap BUN Creatinine Creat Clearance w eGFR Random Glucose Lactic Acid 1.7 Calcium Total Bilirubin AST ALT Alkaline Phosphatase LD Total Creatine Kinase Creatine Kinase Index CK-MB (CK-2) Troponin I Total Protein Albumin 01/30/17 01/30/17 11:55 11:55 Puncture Site ABG pH ABG pCO2 at Pt Temp ABG pO2 at Pt Temp ABG HCO3 ABG O2 Sat (Measured) ABG O2 Content ABG Base Excess Rubén Test Carboxyhemoglobin Methemoglobin O2 Delivery Device Oxygen Flow Rate PEEP Sodium 140 Potassium 4.8 D Chloride 97 L Carbon Dioxide 38 H Anion Gap 5 L BUN 14 Creatinine 0.8 Creat Clearance w eGFR > 60 Random Glucose 68 L D Lactic Acid Calcium 8.2 L Total Bilirubin 0.3 D AST 47 H D ALT 21 Alkaline Phosphatase 114 D LD Total 322 H D Creatine Kinase Cancelled 312 H Creatine Kinase Index 0.6 CK-MB (CK-2) 2.175 Troponin I Cancelled < 0.02 Total Protein 6.4 D Albumin 2.0 L D 01/30/17 11:55 RBC 3.12 L MCV 89.1 MCHC 32.6 RDW 18.8 H MPV 7.8 Neutrophils % 71.5 Lymphocytes % 16.4 D Monocytes % 11.4 H D Eosinophils % 0.5 Basophils % 0.2 - RADIOLOGY Radiology Studies Ordered: Category Date Time Status CHEST X-RAY PORTABLE* [RAD] Stat Radiology 01/30/17 11:17 Completed Radiograph Interpretation: 01/30/17 12:53 - Medications Given in the ED: ED Medications Discontinued Medications Generic Name Dose Route Start Last Admin Trade Name Cecilq PRN Reason Stop Dose Admin Acetaminophen 650 mg 01/30/17 11:32 01/30/17 12:00 Tylenol - PO 01/30/17 11:33 650 mg ONCE ONE Administration Albuterol/Ipratropium 1 amp 01/30/17 11:45 01/30/17 12:45 Duoneb - NEB 01/30/17 12:31 1 amp Q15M JANETT Administration Sodium Chloride 1,000 mls @ 1,000 mls/hr 01/30/17 11:32 01/30/17 12:00 Normal Saline - IV 01/30/17 12:31 1,000 mls/hr ASDIR STA Administration Vancomycin HCl 1,000 mg/ 250 mls @ 250 mls/hr 01/30/17 11:32 01/30/17 12:45 Dextrose IVPB 01/30/17 12:31 250 mls/hr ONCE ONE Administration Protocol Methylprednisolone Sodium Succinate 125 mg 01/30/17 11:16 01/30/17 12:00 Solu-Medrol - IVPB 01/30/17 11:17 125 mg ONCE ONE Administration Piperacillin Sod/Tazobactam Sod 3.375 gm 01/30/17 11:32 01/30/17 12:00 Zosyn 3.375gm Ivpb (Pre-Docked) IV 01/30/17 11:33 3.375 gm ONCE ONE Administration Protocol Medical Decision Making - Medical Decision Making 01/30/17 12:21 56 yo M with h/o alcohol dependence, cocaine abuse, HIV, Hep C, HTN, and COPD who is transferred from [facility] with SOB. Arrives with 2/4 SIRS criteria ( Temp: 100.5, P: 110) and hypoxia 88% on 2 Liters NC. Increased SOB, wheezing, and productive ( yellow sputum ) cough over the past 2 days. Physical exam reveals diffuse rales and rhonci. Recent CXR ( 01/29/17) depicts bilateral pulmonary consolidations. DDx: COPD exaccerbation, Pneumonia, PE, ACS/AK ED Course: CBC CMP UA Lactic acid EKG CXR BIPAP Duonebs Methylprednisilone 125 Zosyn / Vanc NS 1 L 01/30/17 12:52 CXR BL Pulmonary Consolidation unchanged from previous exam ( 01/29/17) Admit to Inpatient Med/Surg. 01/30/17 13:47 AB.448/51.9/60.6/35.4 *DC/Admit/Observation/Transfer Diagnosis at time of Disposition: COPD exacerbation - Discharge Dispostion Admit: Yes - Attestations Physician Attestion: 01/30/17 13:44 I, Dr. Clyde Garcia, attest that this document has been prepared under my direction and personally reviewed by me in its entirety. I further attest, that it accurately reflects all work, treatment, procedures and medical decision -making performed by me.
[2017-01-30] MEDS ORDERED: ALBUTEROL SO4 2.5/IPRATROPIUM 0.5 INH SOL 3 ML VIAL.NEB. NEB ONE (12:05)
[2017-01-30] MEDS ORDERED: ACETAMINOPHEN 325 MG TABLET (FP) ONE (12:05)
[2017-01-30] MEDS ORDERED: VANCOMYCIN 1 GRAM (PRE-DOCKED) 250 ML IVPB ONE ×2 (12:05→19:26)
[2017-01-30] MEDS ORDERED: PIPERACILLIN/TAZOB 3.375 GM 50 ML IVPB ONE (12:06)
[2017-01-30] MEDS ORDERED: methylPREDNISolone NA SUCC 125 MG/2 ML VIAL ONE (12:06)
[2017-01-30 12:18] LABS: BASOPHIL 0.2 % (0-2.0); EOSINOPHIL 0.5 % (0-4.5); MCHC 32.6 g/dl (32.0-35.9); MEAN CELL VOLUME 89.1 fl (80-96); MEAN PLT VOLUME 7.8 fl (7.5-11.1); NEUTROPHILS 71.5 % (42.8-82.8); PLATELET COUNT 330 K/MM3 (134-434); RDW 18.8 % (11.9-15.9); WHITE BLOOD COUNT 8.3 K/mm3 (4.0-10.0)
[2017-01-30 13:18] LABS: ARTERIAL BLD GAS O2 SATURATION 88.5 % (90-98.9); ARTERIAL BLOOD GAS BASE EXCESS 10.4 meq/l (-2-2); ARTERIAL BLOOD GAS HCO3 35.4 meq/L (22-26); ARTERIAL BLOOD GAS PO2 60.6 mmHg (80-100); ARTERIAL BLOOD GAS pH 7.45 (7.35-7.45)
[2017-01-30 13:19] LABS: ALLENS TEST POSITIVE; ART PUNCT SITE RIGHT RADIAL; LPM/O2% 2 LPM; PT. ON O2? yes; TYPE OF O2 nasal cannula
--- NOTE | 2017-01-30 13:21 | HP ---
CHIEF COMPLAINT: Shortness of breath PCP: Dr. Douglass ([address] in [place]) HISTORY OF PRESENT ILLNESS: This is a 56 year old male with a history of HIV/ AIDS (dx in 1995, IVDU, hx PCP PNA, on Triumeq but does not take it regularly, unknown CD4), Hep C, HTN, and asthma/COPD who presented to the [facility] detox facility for heroin/cocaine EtOH detox on 01/27. He reported a diagnosis of pneumonia about two weeks prior to admission and was on Bactrim and Clarithromycin (again, taking it only occasionally). While in the facility yesterday, he was noted to be short of breath and hypoxic to 88%. He was treated with nebulizers, his Bactrim dose was increased to bid, and he had a chest xray which showed bilateral opacities. Today, he became more short of breath, weak, and unsteady and was transferred to the ED. Here, he reports intermittent sharp chest pain, wheezing, cough productive of white sputum, and decreased exercise tolerance (becomes dyspenic after walking a few feet). ER course was notable for: (1) SpO2 87% on room air, P 105, Temp 100.5 rectally (per ED verbal report) (2) WBC within normal limits at 8.3 (3) ABG: pH 7.45/PO2 61/PCO2 52/HcO3- 35 Recent Travel: None PAST MEDICAL HISTORY: As above PAST SURGICAL HISTORY: Ventral hernia Social History: Lives in an apartment in a facility where he is served one meal a day. Drug use: Heroin Route: Injection Frequency: Daily Amount used: 4 BAGS Age of first use: 15 Date of Last Use: 01/25/17 Cocaine Route: Smoking Frequency: Daily Amount used: 2 BAGS Age of first use: 23 Date of Last Use: 01/24/17 Alcohol Frequency: Daily Amount used: 4 can 16oz beer Age of first use: 15 Date of Last Use: 01/25/17 Family History: Allergies No Known Allergies Allergy (Verified 01/30/17 10:48) HOME MEDICATIONS: Home Medications Medication Instructions Recorded Sulfamethoxazole/Trimethoprim 1 each PO DAILY #0 tablet 08/13/13 [Bactrim DS -] Azithromycin [Zithromax 600mg 1,200 mg PO Q7D@1000 #8 tablet 11/11/13 Tablets -] Fluconazole [Diflucan -] 100 mg PO DAILY #30 tablet 11/11/13 Quetiapine Fumarate [Seroquel -] 100 mg PO HS #30 tablet 11/11/13 Sulfamethoxazole/Trimethoprim 1 each PO DAILY #30 tablet 11/11/13 [Bactrim DS -] Abacavir/Dolutegravir/Lamivudi 1 each PO DAILY 11/06/16 [Triumeq Tablet] Amlodipine Besylate 10 mg PO DAILY 11/06/16 Clarithromycin [Biaxin -] 250 mg PO BID 11/06/16 Sulfamethoxazole/Trimethoprim 1 each PO DAILY 11/06/16 [Bactrim Ds Tablet] Umeclidinium [place] [Incruse 62.5 mcg IH DAILY 11/06/16 Ellipta] REVIEW OF SYSTEMS CONSTITUTIONAL: Fevers/chills, generalized weakness, malaise Absent: f loss of appetite, weight change HEENT: Absent: rhinorrhea, nasal congestion, throat pain, throat swelling, difficulty swallowing, mouth swelling, ear pain, eye pain, visual changes CARDIOVASCULAR: Chest pain Absent: syncope, palpitations, irregular heart rate, lightheadedness, peripheral edema RESPIRATORY: See HPI GASTROINTESTINAL: Absent: abdominal pain, abdominal distension, nausea, vomiting, diarrhea, constipation, melena, hematochezia GENITOURINARY: Absent: dysuria, frequency, urgency, hesitancy, hematuria, flank pain, genital pain MUSCULOSKELETAL: Absent: myalgia, arthralgia, joint swelling, back pain, neck pain SKIN: Absent: rash, itching, pallor HEMATOLOGIC/IMMUNOLOGIC: Absent: easy bleeding, easy bruising, lymphadenopathy, frequent infections ENDOCRINE: Absent: unexplained weight gain, unexplained weight loss, heat intolerance, cold intolerance NEUROLOGIC: Absent: headache, focal weakness or paresthesias, dizziness, unsteady gait, seizure, mental status changes, bladder or bowel incontinence PSYCHIATRIC: Active polysubstance abuse Absent: anxiety, depression, suicidal or homicidal ideation, hallucinations. PHYSICAL EXAMINATION Vital Signs - 24 hr 01/30/17 10:35 Temperature 99.9 F H Pulse Rate 105 H Respiratory 22 Rate Blood Pressure 117/74 O2 Sat by Pulse 87 L Oximetry (%) GENERAL: Awake, alert, and fully oriented, in no acute distress. Cachectic. HEAD: Normal with no signs of trauma. Temporal wasting. EYES: Pupils equal, round and reactive to light, extraocular movements intact, sclera anicteric, conjunctiva clear. No lid lag. EARS, NOSE, THROAT: Ears normal, nares patent, oropharynx clear without exudates. Moist mucous membranes. NECK: Normal range of motion, supple without lymphadenopathy, JVD, or masses. LUNGS:Diffuse expiratory wheezing. Diminished at bases. Cough. No accessory muscle use. HEART: Regular rate and rhythm, normal S1 and S2 without murmur, rub or gallop. ABDOMEN: Soft, nontender, not distended. Very large right inguinal hernia, non- tender. MUSCULOSKELETAL: Normal range of motion at all joints. No bony deformities or tenderness. No CVA tenderness. UPPER EXTREMITIES: 2+ pulses, warm, well-perfused. No cyanosis. No clubbing. No peripheral edema. LOWER EXTREMITIES: 2+ pulses, warm, well-perfused. No calf tenderness. No peripheral edema. NEUROLOGICAL: Cranial nerves II-XII intact. Normal speech. Normal gait. PSYCHIATRIC: Cooperative. Good eye contact. Appropriate mood and affect. SKIN: Warm, dry, normal turgor, no rashes or lesions noted, normal capillary refill. Laboratory Results - last 24 hr 01/30/17 01/30/17 11:55 11:55 WBC 8.3 RBC 3.12 L Hgb 9.1 L Hct 27.8 L MCV 89.1 MCH 29.0 MCHC 32.6 RDW 18.8 H Plt Count 330 MPV 7.8 Neutrophils % 71.5 Lymphocytes % 16.4 D Monocytes % 11.4 H D Eosinophils % 0.5 Basophils % 0.2 Creatine Kinase Cancelled Troponin I Cancelled ASSESSMENT/PLAN: 56 year old male with history of asthma and HIV/AIDS (non- adherent to medication, unknown CD4) with dyspnea, sepsis, and bilateral pulmonary infiltrates. Problem List - Problem (1) Pneumonia Assessment/Plan: -HCAP with recent outpatient abx, although not taken correctly -Bilateral opacities with hypoxemia and unknown CD4; r/o PCP -Add LDH -CT non-contrast -Continue Vancomycin, Zosyn, start Atovaquone -Re-start HAART -ID evaluation requested Code(s): J18.9 - PNEUMONIA, UNSPECIFIED ORGANISM (2) Sepsis Assessment/Plan: -Likely referable to above -Antibiotics as outlined -IVF -Tylenol prn fever -Follow up blood, urine, sputum cultures -Monitor temp, WBC curves Code(s): A41.9 - SEPSIS, UNSPECIFIED ORGANISM (3) Opioid dependence with withdrawal Assessment/Plan: -With concurrent EtOH WD -Detox consultation Code(s): F11.23 - OPIOID DEPENDENCE WITH WITHDRAWAL (4) Asthma exacerbation Assessment/Plan: -DuoNebs q6h standing -Solu-Medrol 40mg q6h, taper as tolerated -Supplemental O2 as needed (currently on VenturiMask 50%) Code(s): J45.901 - UNSPECIFIED ASTHMA WITH (ACUTE) EXACERBATION (5) HIV (human immunodeficiency virus infection) Assessment/Plan: -Send CD4 -Re-start HAART -ID evaluation Code(s): Z21 - ASYMPTOMATIC HUMAN IMMUNODEFICIENCY VIRUS INFECTION STATUS (6) Nicotine dependence Assessment/Plan: -Nicoderm patch Code(s): F17.200 - NICOTINE DEPENDENCE, UNSPECIFIED, UNCOMPLICATED Qualifiers : Nicotine product type: cigarettes Substance use status: uncomplicated Qualified Code(s): F17.210 - Nicotine dependence, cigarettes, uncomplicated (7) Inguinal hernia Assessment/Plan: -Asymptomatic -Outpatient surgery followup Code(s): K40.90 - UNIL INGUINAL HERNIA, W/O OBST OR GANGR, NOT SPCF RECUR (8) DVT prophylaxis Assessment/Plan: -Lovenox 40mg sq daily -PT Code(s): MKK9761 - (9) Hepatitis C carrier Assessment/Plan: -No active issues Code(s): Z22.52 - (10) Hypertension Assessment/Plan: -Borderline low BP -Hold Norvasc in setting of sepsis Code(s): I10 - ESSENTIAL (PRIMARY) HYPERTENSION Visit type - Emergency Visit Emergency Visit: Yes ED Registration Date: 01/30/17 Care time: The patient presented to the Emergency Department on the above date and was hospitalized for further evaluation of their emergent condition. - New Patient This patient is new to me today: Yes Date on this admission: 02/03/17 - Critical Care Critical Care patient: No
[2017-01-30 13:28] LABS: METHEMOGLOBIN 0.5 % (0.4-1.5)
[2017-01-30] MEDS ORDERED: ONDANSETRON 4 MG/2 ML VIAL IVPB PRN (13:29)
[2017-01-30 13:39] LABS: ANION GAP 5 (8-16); BILIRUBIN,TOTAL 0.3 mg/dL (0.2-1.0); CALCIUM 8.2 mg/dL (8.5-10.1); CO2 38 mmol/L (21-32); CREATININE 0.8 mg/dL (0.7-1.3); GLUCOSE,RANDOM 68 mg/dL (74-106); SGOT/AST 47 U/L (15-37); SGPT/ALT 21 U/L (12-78); TOT PROT 6.4 g/dl (6.4-8.2)
[2017-01-30 13:40] LABS: ALK PHOS 114 U/L (45-117); CPK 312 IU/L (39-308); TROPONIN I < 0.02 ng/ml (0.00-0.05)
[2017-01-30] MEDS ORDERED: ATOVAQUONE 750 MG/5 ML (UNIT-DOSE PACKAGING) PO SCH (13:45)
[2017-01-30 15:18] LABS: LDH 322 U/L (87-241)
--- NOTE | 2017-01-30 15:42 | PDOC ---
Attending Attestation - Resident Resident Name: Clyde Garcia - ED Attending Attestation I have performed the following: I have examined & evaluated the patient, The case was reviewed & discussed with the resident, I agree w/resident's findings & plan, Exceptions are as noted - HPI HPI: 01/30/17 15:39 Agree with the resident's HPI as documented in the electronic medical record. - Physicial Exam PE: 01/30/17 15:39 Agree with the resident's physical examination as documented in the electronic medical record. - Medical Decision Making 01/30/17 15:39 56-year-old male with history of HIVunknown CD4 count, COPD, polysubstance abuse is transferred to the emergency department from [facility] for evaluation of hypoxia and shortness of breath. The patient was hypoxic into the low 90s on room air upon arrival to the emergency department; he had an episode of hypotension at [facility] earlier this morning. Differential diagnosis includes but is not limited to: Pneumonia, sepsis, COPD exacerbation, pneumothorax, ACS, dehydration, toxic/metabolic derangement. Plan: 1. Labs 2. Chest x-ray 3. EKG 4. Panculture 5. DuoNeb treatments 6. Observe and reevaluate Addendum: Labs were reviewed and are noted in the EMR. The chest x-ray shows multi lobar patchy infiltrates. The patient has been given vancomycin and Zosyn. The plan is to admit to a monitored setting for continued IV antibiotics and monitoring of hypoxemia.
[2017-01-30] MEDS ORDERED: methylPREDNISolone NA SUCC 40 MG/1 ML VIAL ONE ×2 (16:25→21:05)
--- NOTE | 2017-01-30 16:28 | CONSULT ---
Consultation: REQUESTING PROVIDER: Helen Mcghee CONSULT REQUEST: We have been asked to medically evaluate this patient for PNA. HISTORY OF PRESENT ILLNESS: Pt is a 56yo man with PMH of HIV (CD4 unknown, non-compliant with Triumeq, h/o PCP), polysubstance abuse (heroine IV, cocaine, EtOH, tob cigarettes), Hep C, HTN, COPD who presents from [facility] due to fever and SOB. Per patient, about 1 month ago he was at another hospital ([facility]) where he was told that he had PNA. He was given medication, but was taking it inconsistently. He endorses increased cough and sputum production over the past month. He denies any hemoptysis. No subjective fever, chills, n/v or dysuria. He has been having pleuritic chest pain for the past few weeks, but no chest pressure or palpitations REVIEW OF SYSTEMS: CONSTITUTIONAL: Absent: fever, chills, diaphoresis, generalized weakness, malaise, loss of appetite, weight change HEENT: Absent: rhinorrhea, nasal congestion, throat pain, throat swelling, difficulty swallowing, mouth swelling, ear pain, eye pain, visual changes CARDIOVASCULAR: Absent: chest pain, syncope, palpitations, irregular heart rate, lightheadedness , peripheral edema RESPIRATORY: see HPI Absent: cough, shortness of breath, dyspnea with exertion, orthopnea, wheezing, stridor, hemoptysis GASTROINTESTINAL: Absent: abdominal pain, abdominal distension, nausea, vomiting, diarrhea, constipation, melena, hematochezia GENITOURINARY: Absent: dysuria, frequency, urgency, hesitancy, hematuria, flank pain, genital pain MUSCULOSKELETAL: Absent: myalgia, arthralgia, joint swelling, back pain, neck pain SKIN: Absent: rash, itching, pallor HEMATOLOGIC/IMMUNOLOGIC: Absent: easy bleeding, easy bruising, lymphadenopathy, frequent infections ENDOCRINE: Absent: unexplained weight gain, unexplained weight loss, heat intolerance, cold intolerance NEUROLOGIC: Absent: headache, focal weakness or paresthesias, dizziness, unsteady gait, seizure, mental status changes, bladder or bowel incontinence PSYCHIATRIC: Absent: anxiety, depression, suicidal or homicidal ideation, hallucinations. PHYSICAL EXAMINATION Vital Signs - 24 hr 01/30/17 14:14 Temperature 98.3 F Pulse Rate [ 91 H Apical] Blood Pressure 111/58 [Left Arm] O2 Sat by Pulse 93 L Oximetry (%) GENERAL: thin older man, awake, alert, and fully oriented, in no acute distress. HEAD: Normal with no signs of trauma. EYES: EOMI, sclera anicteric, conjunctiva clear EARS, NOSE, THROAT: Poor dentition, oropharynx clear without exudates. Moist mucous membranes. NECK: supple, no cervical LAD LUNGS: bibasilar rhonchi L>R HEART: Regular rate and rhythm, normal S1 and S2 without murmur, rub or gallop. ABDOMEN: Soft, nontender, not distended, normoactive bowel sounds, no guarding, no rebound, no masses UPPER EXTREMITIES: 2+ pulses, warm, well-perfused. No cyanosis. No clubbing. No peripheral edema. LOWER EXTREMITIES: 2+ pulses, warm, well-perfused. No calf tenderness. No peripheral edema. NEUROLOGICAL: Grossly intact, but not formally tested. Normal speech PSYCHIATRIC: Cooperative. Good eye contact. Appropriate mood and affect. SKIN: Warm, dry, normal turgor CBC, BMP 01/30/17 11:55 01/30/17 11:55 IMAGING: Chest CT (01/30/2017): minimal b/l pleural effusions. subcentimeter LLL blebs which are probably postinfectious, centrilobular emphysema. CXR (01/29/2017): b/l pulmonary consolidations, no e/o pneumothorax Active Medications Acetaminophen (Tylenol -) 650 mg PO Q4H PRN PRN Reason: FEVER OR PAIN Albuterol/Ipratropium (Duoneb -) 1 amp NEB QIDR [facility] Cefepime HCl (Maxipime (Restricted To Id) -) 1 gm IVPB Q8H-IV JANETT PRN Reason: Protocol Docusate Sodium (Colace -) 100 mg PO TID [facility] Last Admin: 01/30/17 17:14 Dose: 100 mg Enoxaparin Sodium (Lovenox -) 40 mg SQ DAILY [facility] Vancomycin HCl (Vancomycin (Pre-Docked)) 250 mls @ 166.667 mls/hr IVPB Q12H [facility] Methylprednisolone Sodium Succinate (Solu-Medrol -) 40 mg IVPB Q6H-IV JANETT Last Admin: 01/30/17 16:57 Dose: 40 mg Nicotine (Nicoderm Patch -) 14 mg TD DAILY JANETT Non-Formulary Medication (Abacavir/Dolutegravir/Lamivudi [Triumeq Tablet]) 1 each PO DAILY JANETT Ondansetron HCl (Zofran Injection) 4 mg IVPB Q6H PRN PRN Reason: NAUSEA Quetiapine Fumarate (Seroquel -) 100 mg PO HS JANETT Trimethoprim/Sulfamethoxazole (Bactrim Ds -) 1 each PO DAILY JANETT ASSESSMENT/PLAN: 56yo man with HIV/AIDS (non-compliant, CD4 unknown) and IVDU/polysubstance abuser who presents in sepsis (T 100.5, HR 100) likely 2/2 multilobar PNA. Possible COPD exacerbation. #sepsis 2/2 HCAP -discontinue Zosyn -Vancomycin 2gm IVPB daily for MRSA coverage -Vanc trough in 72h -Cefepime IVPB for GN/pseudomonas coverage -obtain sputum culture #HIV/AIDS -CD4 -Bactrim for PCP prophylaxis -Quantiferon gold ordered Dispo: We will continue to follow the patient. Thank you for this consultative opportunity. d/w Dr. Ruben FINNEGAN MD PGY-1 Visit type - Emergency Visit Emergency Visit: Yes ED Registration Date: 01/30/17 Care time: The patient presented to the Emergency Department on the above date and was hospitalized for further evaluation of their emergent condition. - New Patient This patient is new to me today: Yes Date on this admission: 01/30/17 - Critical Care Critical Care patient: No
[2017-01-30] MEDS: methylPREDNISolone NA SUCC 40 MG/1 ML VIAL IVPB SCH ×2 (16:57→21:13)
[2017-01-30] MEDS ORDERED: DOCUSATE SODIUM 100 MG CAPSULE (FP) PO ONE ×2 (17:09→21:11)
[2017-01-30] MEDS: DOCUSATE SODIUM 100 MG CAPSULE (FP) PO SCH ×2 (17:14→21:13)
--- NOTE | 2017-01-30 17:32 | PN ---
Teaching Attending Note Name of Resident: Mary Huitron ATTENDING PHYSICIAN STATEMENT I saw and evaluated the patient. I reviewed the resident's note and discussed the case with the resident. I agree with the resident's findings and plan as documented. SUBJECTIVE: OBJECTIVE: ASSESSMENT AND PLAN: Bilateral, multilobar pneumonia Exacerbation COPD Polysubstance abuse AIDS- hx non compliance Obtain sputum c/s, CD4, Quantiferon Empiric coverage, suspected nosocomial lung pathogens with vancomycin/ cefepime Bactrim prophylaxis
[2017-01-30] MEDS ORDERED: CEFEPIME 100 ML IVPB ONE (19:25)
[2017-01-30] MEDS: CEFEPIME HCL 1 GM VIAL (RESTRICTED TO ID) IVPB SCH (19:32)
[2017-01-30] MEDS: VANCOMYCIN 1 GRAM (PRE-DOCKED) 250 ML IVPB SCH (20:37)
[2017-01-30 20:45] LABS: URINE APPEARANCE CLEAR; URINE BILIRUBIN NEGATIVE (NEGATIVE); URINE BLOOD NEGATIVE (NEGATIVE); URINE COLOR LTYELLOW; URINE GLUCOSE (UA) NEGATIVE (NEGATIVE); URINE KETONE NEGATIVE (NEGATIVE); URINE LEUK ESTERASE NEGATIVE (NEGATIVE); URINE NITRITE NEGATIVE (NEGATIVE); URINE PROTEIN NEGATIVE (NEGATIVE); URINE UROBILINOGEN 4.0 E.U/dl mg/dL (0.2-1.0)
[2017-01-30] MEDS ORDERED: QUEtiapine FUMARATE 100 MG TABLET (FP) ONE (21:10)
[2017-01-30] MEDS: QUEtiapine FUMARATE 100 MG TABLET (FP) PO SCH (21:13)
[2017-01-31] MEDS: CEFEPIME HCL 1 GM VIAL (RESTRICTED TO ID) IVPB SCH (01:29)
[2017-01-31] MEDS: methylPREDNISolone NA SUCC 40 MG/1 ML VIAL IVPB SCH ×4 (03:00→21:12)
[2017-01-31] MEDS: VANCOMYCIN 1 GRAM (PRE-DOCKED) 250 ML IVPB SCH ×2 (05:51→17:58)
[2017-01-31] MEDS: DOCUSATE SODIUM 100 MG CAPSULE (FP) PO SCH ×3 (05:51→21:12)
[2017-01-31] MEDS: ALBUTEROL SO4 2.5/IPRATROPIUM 0.5 INH SOL 3 ML VIAL.NEB. NEB SCH ×4 (06:35→18:51)
[2017-01-31 07:48] LABS: BASOPHIL 0.1 % (0-2.0); MCH 28.7 pg (25.7-33.7); MCHC 32.3 g/dl (32.0-35.9); MEAN CELL VOLUME 88.7 fl (80-96); MEAN PLT VOLUME 7.9 fl (7.5-11.1); NEUTROPHILS 87.2 % (42.8-82.8); PLATELET COUNT 396 K/MM3 (134-434); RDW 18.1 % (11.9-15.9); WHITE BLOOD COUNT 5.8 K/mm3 (4.0-10.0)
[2017-01-31 08:06] LABS: ALBUMIN 2.1 g/dl (3.4-5.0); ANION GAP 8 (8-16); CALCIUM 8.9 mg/dL (8.5-10.1); CO2 32 mmol/L (21-32); GLUCOSE,RANDOM 79 mg/dL (74-106); MAGNESIUM 2.1 mg/dL (1.8-2.4)
[2017-01-31 08:10] LABS: ALK PHOS 116 U/L (45-117); BILIRUBIN,TOTAL 0.3 mg/dL (0.2-1.0); CREATININE 0.7 mg/dL (0.7-1.3); SGOT/AST 29 U/L (15-37); SGPT/ALT 21 U/L (12-78); TOT PROT 6.8 g/dl (6.4-8.2)
[2017-01-31] MEDS: NICOTINE 14 MG/24 HOURS TOPICAL PATCH TD SCH (10:01)
[2017-01-31] MEDS: CEFEPIME 1 GM in DEXTROSE 5%-WATER 100 ML IVPB SCH ×2 (10:01→19:27)
[2017-01-31] MEDS: ENOXAPARIN NA (PORCINE) 40 MG/0.4 ML DISP.SYRIN SQ SCH (10:01)
[2017-01-31] MEDS: SULFAMETHOXAZOLE/TRIMETHOPRIM 800MG/160MG D.S. TABLET PO SCH (10:02)
--- NOTE | 2017-01-31 10:32 | PN ---
Physical Exam: SUBJECTIVE: Patient seen and examined at bedside. OBJECTIVE: Vital Signs Period Temp Pulse Resp BP Sys/Galdamez Pulse Ox Last 24 Hr 97.0 F-98.3 F 76-91 16-22 95-146/58-80 93-100 GENERAL: The patient is awake, alert, and fully oriented, in no acute distress. Cachectic. NECK: Trachea midline, full range of motion, supple. LUNGS: Breath sounds diminished in left base, no wheezes, no crackles, no accessory muscle use. HEART: Regular rate and rhythm, S1, S2 without murmur, rub or gallop. ABDOMEN: Soft, nontender, nondistended, normoactive bowel sounds, no guarding, no rebound, no hepatomegaly, no masses. Palpable spleen present. EXTREMITIES: 2+ pulses, warm, well-perfused, no edema. NEUROLOGICAL: Cranial nerves II through XII grossly intact. Normal speech, gait not observed. SKIN: Warm, dry, normal turgor, no rashes or lesions noted Laboratory Results - last 24 hr 01/30/17 01/31/17 01/31/17 17:16 05:35 05:35 WBC 5.8 D RBC 3.38 L Hgb 9.7 L Hct 30.0 L MCV 88.7 MCH 28.7 MCHC 32.3 RDW 18.1 H Plt Count 396 MPV 7.9 Neutrophils % 87.2 H D Lymphocytes % 8.4 D Monocytes % 4.3 Eosinophils % 0.0 D Basophils % 0.1 Sodium 143 Potassium 4.3 Chloride 103 Carbon Dioxide 32 Anion Gap 8 BUN 11 D Creatinine 0.7 Creat Clearance w eGFR > 60 Random Glucose 79 Calcium 8.9 Magnesium 2.1 Total Bilirubin 0.3 AST 29 D ALT 21 Alkaline Phosphatase 116 Total Protein 6.8 Albumin 2.1 L Urine Color Ltyellow Urine Appearance Clear Urine pH 7.0 Ur Specific [place] 1.015 Urine Protein Negative Urine Glucose (UA) Negative Urine Ketones Negative Urine Blood Negative Urine Nitrite Negative Urine Bilirubin Negative Urine Urobilinogen 4.0 e.u/dl Ur Leukocyte Esterase Negative Active Medications Generic Name Dose Route Start Last Admin Trade Name Freq PRN Reason Stop Dose Admin Acetaminophen 650 mg 01/30/17 13:29 Tylenol - PO Q4H PRN FEVER OR PAIN Albuterol/Ipratropium 1 amp 01/30/17 18:00 01/31/17 06:35 Duoneb - NEB 1 amp QIDR JANETT Administration Docusate Sodium 100 mg 01/30/17 14:00 01/31/17 05:51 Colace - PO 100 mg TID JANETT Administration Enoxaparin Sodium 40 mg 01/31/17 10:00 01/31/17 10:01 Lovenox - SQ 40 mg DAILY JANETT Administration Vancomycin HCl 250 mls @ 166.667 mls/hr 01/30/17 18:00 01/31/17 05:51 Vancomycin (Pre-Docked) IVPB 166.667 mls/hr Q12H JANETT Administration Cefepime HCl 1 gm/ Dextrose 100 mls @ 200 mls/hr 01/31/17 10:00 01/31/17 10:01 IVPB 200 mls/hr Q8H-IV JANETT Administration Methylprednisolone Sodium Succinate 40 mg 01/30/17 15:00 01/31/17 10:02 Solu-Medrol - IVPB 40 mg Q6H-IV JANETT Administration Nicotine 14 mg 01/31/17 10:00 01/31/17 10:01 Nicoderm Patch - TD 14 mg DAILY JANETT Administration Non-Formulary Medication 1 each 01/31/17 10:00 Abacavir/Dolutegravir/Lamivudi [Triumeq Tablet] PO DAILY JANETT Ondansetron HCl 4 mg 01/30/17 13:29 Zofran Injection IVPB Q6H PRN NAUSEA Quetiapine Fumarate 100 mg 01/30/17 22:00 01/30/17 21:13 Seroquel - PO 100 mg HS JANETT Administration Trimethoprim/Sulfamethoxazole 1 each 01/31/17 10:00 01/31/17 10:02 Bactrim Ds - PO 1 each DAILY JANETT Administration IMAGING: RAD/CHEST X-RAY PORTABLE* Reason: Rule out infiltrate. Single portable chest x- ray compared with January 29, 2017. Pulmonary consolidations are noted in bilateral mid/lower lung zones unchanged from prior study. Unchanged contour of the cardiomediastinal silhouette. No evidence of pneumothorax. Bullous changes noted in bilateral upper lobes. Impression. Bilateral pulmonary consolidations, unchanged from prior examination. Reported By: Israel Roy MD 01/30/[address]/CHEST CT WITHOUT CONTRAST Chest CT (without contrast) Clinical information - evaluate for PCP pneumonia multiplanar imaging was performed. As requested intravenous contrast was not administered. In comparison to a prior CT study of 08/01/2013 development of bilateral lower lung field alveolar consolidation is noted. As on the prior study several subcentimeter left lower lobe blebs is seen probably on a postinfectious basis. Development of a lingular infiltrate is seen. A small right upper lobe anterior segment infiltrate is noted. A persistent versus recurrent alveolar infiltrate is seen within the superior segment of the right lower lobe. Atelectasis is noted within the medial segment right middle lobe which appears increased. Subtle trace bilateral pleural effusions are seen. As on the prior study bilateral upper lobe bullae are seen suggestive of centrilobular emphysema. A component of this finding may also be post infectious. No gross lymphadenopathy is noted. There is no definite cardiac enlargement. No pericardial effusion is seen. Several small atherosclerotic coronary artery calcifications are noted. As on the prior study the partially imaged spleen demonstrates a mildly lobulated contour as well as a small subcapsular fluid collection laterally probably due to remote injury. There is associated mild capsular calcification laterally. IMPRESSION: Bilateral nonspecific alveolar infiltrates are noted as discussed. Alveolar infiltrates may be noted in patients treated prophylactically for pneumocystis pneumonia. Minimal bilateral pleural effusions. Atelectasis, probably chronic, involving the right middle lobe medially. Subcentimeter left lower lobe blebs which are probably postinfectious - ? history of pneumocystis pneumonia. Centrilobular emphysema. Reported By: Stevie Tyson MD 01/30/17 [id number] ASSESSMENT/PLAN: A: 56 yo man with AIDS who reports intermittent compliance with ART 2/2 IV heroin and ETOH use who presents with pneumonia and right upper lobe infiltrates. P: 1. Pneumonia - likely PCP given recent diagnosis and intermittent compliance with Bactrim treatment - Vancomycin - Cefipime - Bactrim DS BID - sputum cx- pending - blood cx- pending - urine cx- pending - quantiferon- pending 2. HIV/AIDS - restart HAART - CD4/CD8/CD3- pending - ID following 3. Sepsis - likely PNA as source - SIRS resolved 4. Asthma - Solumedrol - Duonebs 5. Right inguinal hernia - no s/s incarceration - outpatient treatment 6. Opiate dependance without withdrawal - COWS score- 0 - serial COWS score - last IV heroin 01/25 - Consult Detox if worsens 7. ETOH dependance without withdrawal - CIWA score- 0 - Serial CIWA - Last ETOH 01/26 8. Tobacco Dependance - nicotine patch 9. H/o HTN - hold all meds given sepsis 10. F/E/N - Low Na diet - replete prn 11. PPX - Lovenox 40mg daily Dispo- Requires inpatient treatment of his acute medical conditions Visit type - Emergency Visit Emergency Visit: Yes ED Registration Date: 01/30/17 Care time: The patient presented to the Emergency Department on the above date and was hospitalized for further evaluation of their emergent condition. - New Patient This patient is new to me today: Yes Date on this admission: 01/31/17 - Critical Care Critical Care patient: No
--- NOTE | 2017-01-31 10:43 | PN ---
Physical Exam: SUBJECTIVE: Patient seen and examined. Subjective fever last night. No chills, n /v. Continues to cough with some white sputum production, feels less SOB. Good appetite. OBJECTIVE: Vital Signs Period Temp Pulse Resp BP Sys/Galdamez Pulse Ox Last 24 Hr 97.0 F-98.3 F 76-91 16-22 95-146/58-80 93-100 GENERAL: Thin, lying comfortably in bed. nad EYES: Sclera anicteric, conjunctiva clear ENT: poor dentition, oropharynx clear without exudates, moist mucous membranes. NECK: supple, no cervical LAD LUNGS: bibasilar rhonchi L>R HEART: Regular rate and rhythm, normal S1/S2 without murmur, rub or gallop. ABDOMEN: Soft, ntnd, normoactive bowel sounds, no guarding, no rebound, no hepatosplenomegaly, no masses. EXTREMITIES: 2+ pulses, warm, well-perfused, no edema. NEUROLOGICAL: grossly intact, not formally tested PSYCH: Normal mood, normal affect. SKIN: Warm, dry, normal turgor, no rashes or lesions noted Laboratory Results - last 24 hr 01/30/17 01/31/17 01/31/17 17:16 05:35 05:35 WBC 5.8 D RBC 3.38 L Hgb 9.7 L Hct 30.0 L MCV 88.7 MCH 28.7 MCHC 32.3 RDW 18.1 H Plt Count 396 MPV 7.9 Neutrophils % 87.2 H D Lymphocytes % 8.4 D Monocytes % 4.3 Eosinophils % 0.0 D Basophils % 0.1 Sodium 143 Potassium 4.3 Chloride 103 Carbon Dioxide 32 Anion Gap 8 BUN 11 D Creatinine 0.7 Creat Clearance w eGFR > 60 Random Glucose 79 Calcium 8.9 Magnesium 2.1 Total Bilirubin 0.3 AST 29 D ALT 21 Alkaline Phosphatase 116 Total Protein 6.8 Albumin 2.1 L Urine Color Ltyellow Urine Appearance Clear Urine pH 7.0 Ur Specific [place] 1.015 Urine Protein Negative Urine Glucose (UA) Negative Urine Ketones Negative Urine Blood Negative Urine Nitrite Negative Urine Bilirubin Negative Urine Urobilinogen 4.0 e.u/dl Ur Leukocyte Esterase Negative Microbiology -Urine Cx pending -Blood Cx x2 pending -Sputum Cx pending -Quantiferon Gold pending Active Medications Acetaminophen (Tylenol -) 650 mg PO Q4H PRN PRN Reason: FEVER OR PAIN Albuterol/Ipratropium (Duoneb -) 1 amp NEB QIDR [facility] Last Admin: 01/31/17 06:35 Dose: 1 amp Docusate Sodium (Colace -) 100 mg PO TID [facility] Last Admin: 01/31/17 05:51 Dose: 100 mg Enoxaparin Sodium (Lovenox -) 40 mg SQ DAILY [facility] Last Admin: 01/31/17 10:01 Dose: 40 mg Vancomycin HCl (Vancomycin (Pre-Docked)) 250 mls @ 166.667 mls/hr IVPB Q12H [facility] Last Admin: 01/31/17 05:51 Dose: 166.667 mls/hr Cefepime HCl 1 gm/ Dextrose 100 mls @ 200 mls/hr IVPB Q8H-IV [facility] Last Admin: 01/31/17 10:01 Dose: 200 mls/hr Methylprednisolone Sodium Succinate (Solu-Medrol -) 40 mg IVPB Q6H-IV [facility] Last Admin: 01/31/17 10:02 Dose: 40 mg Nicotine (Nicoderm Patch -) 14 mg TD DAILY [facility] Last Admin: 01/31/17 10:01 Dose: 14 mg Non-Formulary Medication (Abacavir/Dolutegravir/Lamivudi [Triumeq Tablet]) 1 each PO DAILY [facility] Ondansetron HCl (Zofran Injection) 4 mg IVPB Q6H PRN PRN Reason: NAUSEA Quetiapine Fumarate (Seroquel -) 100 mg PO HS [facility] Last Admin: 01/30/17 21:13 Dose: 100 mg Trimethoprim/Sulfamethoxazole (Bactrim Ds -) 1 each PO DAILY [facility] Last Admin: 01/31/17 10:02 Dose: 1 each ASSESSMENT/PLAN: 56yo man who is IVDU/polysubstance abuser with HIV/AIDS (non-compliant, CD4 unknown) who has multilobar PNA. Possible COPD exacerbation. #HCAP -Vancomycin 2gm IVPB daily for MRSA coverage -Vanc trough in 72h -Cefepime IVPB for GN/pseudomonas coverage -Sputum culture sent today -f/u blood cx #HIV/AIDS -CD4/CD8 pending -Quantiferon gold pending -Bactrim for PCP prophylaxis Dispo: We will continue to follow the patient. Thank you for this consultative opportunity. d/w Dr. Isaiah FINNEGAN MD PGY-1 Visit type - Emergency Visit Emergency Visit: No - New Patient This patient is new to me today: No - Critical Care Critical Care patient: No
--- NOTE | 2017-01-31 13:23 | PN ---
Teaching Attending Note Name of Resident: Mary Huitron ATTENDING PHYSICIAN STATEMENT I saw and evaluated the patient. I reviewed the resident's note and discussed the case with the resident. I agree with the resident's findings and plan as documented. SUBJECTIVE: feels improved OBJECTIVE: Vital Signs Period Temp Pulse Resp BP Sys/Galdamez Pulse Ox Last 24 Hr 97.0 F-98.6 F 76-91 16-22 95-146/58-80 93-100 cor-rrr lungs crackles at bases abd soft,nt ext no edema CBC, BMP 01/31/17 05:35 01/31/17 05:35 Microbiology 01/30/17 11:55 Blood - Peripheral Venous Blood Culture - Preliminary NO GROWTH OBTAINED AFTER 24 HOURS, INCUBATION TO CONTINUE FOR 4 DAYS. 01/30/17 11:55 Blood - Peripheral Venous Blood Culture - Preliminary NO GROWTH OBTAINED AFTER 24 HOURS, INCUBATION TO CONTINUE FOR 4 DAYS. ASSESSMENT AND PLAN: multilobar pneumonia polysubstance use hiv- noncompliant with care continue vanco/cefepime bactrim for pcp prophylaxis f/u cd4 count vancomycin trough before the fourth dose
--- NOTE | 2017-01-31 14:46 | EKG ---
Test Reason : Blood Pressure : / mmHG Vent. Rate : 103 BPM Atrial Rate : 103 BPM P-R Int : 138 ms QRS Dur : 078 ms QT Int : 368 ms P-R-T Axes : 074 057 070 degrees QTc Int : 482 ms POOR DATA QUALITY, INTERPRETATION MAY BE ADVERSELY AFFECTED SINUS TACHYCARDIA POSSIBLE LEFT ATRIAL ENLARGEMENT NONSPECIFIC T WAVE ABNORMALITY ABNORMAL ECG WHEN COMPARED WITH ECG OF 26-JAN-2017 18:30, NO SIGNIFICANT CHANGE WAS FOUND Confirmed by NIALL MCGILL MD ([id number]) on 01/31/2017 2:46:16 PM Referred By: Confirmed By:NIALL MCGILL MD
--- NOTE | 2017-01-31 15:31 | PN ---
[facility] Progress Note (SOAP) Subjective: Pt. was sent to med/surg from detox because of bilateral consolidation and SOB. Objective: 01/31/17 15:26 Vital Signs - 8 hr 01/31/17 01/31/17 09:00 14:06 Temperature 98.6 F 97.6 F Pulse Rate 85 89 Respiratory 20 20 Rate Blood Pressure 135/69 120/70 O2 Sat by Pulse 97 Oximetry (%) Laboratory Last Values WBC 5.8 K/mm3 (4.0-10.0) D 01/31/17 05:35 RBC 3.38 M/mm3 (4.00-5.60) L 01/31/17 05:35 Hgb 9.7 GM/dL (11.7-16.9) L 01/31/17 05:35 Hct 30.0 % (35.4-49) L 01/31/17 05:35 MCV 88.7 fl (80-96) 01/31/17 05:35 MCH 28.7 pg (25.7-33.7) 01/31/17 05:35 MCHC 32.3 g/dl (32.0-35.9) 01/31/17 05:35 RDW 18.1 % (11.9-15.9) H 01/31/17 05:35 Plt Count 396 K/MM3 (134-434) 01/31/17 05:35 MPV 7.9 fl (7.5-11.1) 01/31/17 05:35 Neutrophils % 87.2 % (42.8-82.8) H D 01/31/17 05:35 Lymphocytes % 8.4 % (8-40) D 01/31/17 05:35 Monocytes % 4.3 % (3.8-10.2) 01/31/17 05:35 Eosinophils % 0.0 % (0-4.5) D 01/31/17 05:35 Basophils % 0.1 % (0-2.0) 01/31/17 05:35 Puncture Site Right radial 01/30/17 13:12 ABG pH 7.45 (7.35-7.45) 01/30/17 13:12 ABG pCO2 at Pt Temp 51.9 mmHg (35-45) H D 01/30/17 13:12 ABG pO2 at Pt Temp 60.6 mmHg (80-100) L 01/30/17 13:12 ABG HCO3 35.4 meq/L (22-26) H 01/30/17 13:12 ABG O2 Sat (Measured) 88.5 % (90-98.9) L 01/30/17 13:12 ABG O2 Content 9.9 % vol (15-22) L* 01/30/17 13:12 ABG Base Excess 10.4 meq/l (-2-2) H 01/30/17 13:12 Rubén Test Positive 01/30/17 13:12 Carboxyhemoglobin 2.2 gm% (0.5-2.0) H 01/30/17 13:24 Methemoglobin 0.5 % (0.4-1.5) 01/30/17 13:24 O2 Delivery Device nasal cannula 01/30/17 13:12 Oxygen Flow Rate 2 lpm 01/30/17 13:12 PEEP 0.0 cmH2O 01/30/17 13:12 Sodium 143 mmol/L (136-145) 01/31/17 05:35 Potassium 4.3 mmol/L (3.5-5.1) 01/31/17 05:35 Chloride 103 mmol/L (98-107) 01/31/17 05:35 Carbon Dioxide 32 mmol/L (21-32) 01/31/17 05:35 Anion Gap 8 (8-16) 01/31/17 05:35 BUN 11 mg/dL (7-18) D 01/31/17 05:35 Creatinine 0.7 mg/dL (0.7-1.3) 01/31/17 05:35 Creat Clearance w eGFR > 60 (>60) 01/31/17 05:35 Random Glucose 79 mg/dL (74-106) 01/31/17 05:35 Lactic Acid 1.7 mmol/L (0.4-2.0) 01/30/17 11:55 Calcium 8.9 mg/dL (8.5-10.1) 01/31/17 05:35 Magnesium 2.1 mg/dL (1.8-2.4) 01/31/17 05:35 Total Bilirubin 0.3 mg/dL (0.2-1.0) 01/31/17 05:35 AST 29 U/L (15-37) D 01/31/17 05:35 ALT 21 U/L (12-78) 01/31/17 05:35 Alkaline Phosphatase 116 U/L (45-117) 01/31/17 05:35 LD Total 322 U/L (87-241) H D 01/30/17 11:55 Creatine Kinase 312 IU/L (39-308) H 01/30/17 11:55 Creatine Kinase Index 0.6 % (0.0-5.0) 01/30/17 11:55 CK-MB (CK-2) 2.175 ng/mL (0.5-3.6) 01/30/17 11:55 Troponin I < 0.02 ng/ml (0.00-0.05) 01/30/17 11:55 Total Protein 6.8 g/dl (6.4-8.2) 01/31/17 05:35 Albumin 2.1 g/dl (3.4-5.0) L 01/31/17 05:35 Urine Color Ltyellow 01/30/17 17:16 Urine Appearance Clear 01/30/17 17:16 Urine pH 7.0 (5.0-8.0) 01/30/17 17:16 Ur Specific [place] 1.015 (1.005-1.025) 01/30/17 17:16 Urine Protein Negative (NEGATIVE) 01/30/17 17:16 Urine Glucose (UA) Negative (NEGATIVE) 01/30/17 17:16 Urine Ketones Negative (NEGATIVE) 01/30/17 17:16 Urine Blood Negative (NEGATIVE) 01/30/17 17:16 Urine Nitrite Negative (NEGATIVE) 01/30/17 17:16 Urine Bilirubin Negative (NEGATIVE) 01/30/17 17:16 Urine Urobilinogen 4.0 e.u/dl mg/dL (0.2-1.0) 01/30/17 17:16 Ur Leukocyte Esterase Negative (NEGATIVE) 01/30/17 17:16 labs noted Cx-ray = consolidation, small b/l pleural effusion & centrolobular emphysema Assessment: 01/31/17 15:29 R/O Pneumocystis pneumonia Plan: Detox completed
--- NOTE | 2017-01-31 15:35 | PN ---
Progress Note (short form) - Note Progress Note: PULMONARY CONSULTATION DICTATED 01/31/17 IMP ACUTE ON CHRONIC RESPIRATORY FAILURE BILATERAL PNEUMONIA HIV/AIDS COPD H/O SUBSTANCE ABUSE PLAN IV ANTIBIOTICS PER ID INHALED BRONCHODILATORS O2 STEROID TAPER CULTURES F/U CHEST X-RAY SMOKING CESSATION DR RODRIGUEZ Problem List - Problems (1) COPD exacerbation Code(s): J44.1 - CHRONIC OBSTRUCTIVE PULMONARY DISEASE W (ACUTE) EXACERBATION (2) DVT prophylaxis Code(s): WFR9387 - (3) Pneumonia Code(s): J18.9 - PNEUMONIA, UNSPECIFIED ORGANISM (4) COPD (chronic obstructive pulmonary disease) Code(s): J44.9 - CHRONIC OBSTRUCTIVE PULMONARY DISEASE, UNSPECIFIED Qualifiers : COPD type: emphysema Emphysema type: other Qualified Code(s): J43.8 - Other emphysema (5) HIV (human immunodeficiency virus infection) Code(s): Z21 - ASYMPTOMATIC HUMAN IMMUNODEFICIENCY VIRUS INFECTION STATUS (6) Acute and chronic respiratory failure Code(s): J96.20 - ACUTE AND CHR RESP FAILURE, UNSP W HYPOXIA OR HYPERCAPNIA
[2017-01-31] MEDS ORDERED: ALBUTEROL SO4 2.5/IPRATROPIUM 0.5 INH SOL 3 ML VIAL.NEB. NEB ONE (17:40)
[2017-01-31] MEDS: CEFEPIME 1 GM/100 ML BAG PRE-DOCKED IVPB SCH (18:42)
[2017-01-31] MEDS: QUEtiapine FUMARATE 100 MG TABLET (FP) PO SCH (21:12)
[2017-01-31] MEDS: guaiFENesin 200 MG/10 ML 10 ML UNIT-DOSE CUPS PO PRN (21:47)
[2017-02-01] MEDS: ALBUTEROL SO4 2.5/IPRATROPIUM 0.5 INH SOL 3 ML VIAL.NEB. NEB SCH ×5 (00:02→23:31)
[2017-02-01] MEDS: CEFEPIME 1 GM/100 ML BAG PRE-DOCKED IVPB SCH ×3 (03:09→17:11)
[2017-02-01] MEDS: methylPREDNISolone NA SUCC 40 MG/1 ML VIAL IVPB SCH ×4 (03:10→22:32)
[2017-02-01] MEDS: DOCUSATE SODIUM 100 MG CAPSULE (FP) PO SCH ×3 (06:14→22:33)
[2017-02-01] MEDS: VANCOMYCIN 1 GRAM (PRE-DOCKED) 250 ML IVPB SCH ×2 (06:14→19:12)
[2017-02-01 07:11] LABS: BASOPHIL 0.1 % (0-2.0); MCH 28.5 pg (25.7-33.7); MCHC 32.3 g/dl (32.0-35.9); MEAN CELL VOLUME 88.3 fl (80-96); MEAN PLT VOLUME 7.6 fl (7.5-11.1); NEUTROPHILS 86.1 % (42.8-82.8); PLATELET COUNT 397 K/MM3 (134-434); RDW 18.6 % (11.9-15.9); WHITE BLOOD COUNT 6.7 K/mm3 (4.0-10.0)
[2017-02-01 07:33] LABS: ALBUMIN 2.2 g/dl (3.4-5.0); ANION GAP 5 (8-16); CALCIUM 8.9 mg/dL (8.5-10.1); CO2 32 mmol/L (21-32); GLUCOSE,RANDOM 146 mg/dL (74-106); SGOT/AST 15 U/L (15-37)
[2017-02-01 07:36] LABS: ALK PHOS 106 U/L (45-117); BILIRUBIN,TOTAL 0.3 mg/dL (0.2-1.0); CREATININE 0.7 mg/dL (0.7-1.3); SGPT/ALT 19 U/L (12-78); TOT PROT 6.9 g/dl (6.4-8.2)
--- NOTE | 2017-02-01 09:09 | PN ---
Physical Exam: SUBJECTIVE: Patient seen and examined at the bedside. Remains on isolation precautions. He denies any chest pain or any other discomfort. Having intermittent right hip pain after a fall a few weeks ago as per patient. Having coughing spells that last apx 10 mins, but otherwise denies shortness of breath. Patient verbalized hopes to finish rehab after d/c and to remain drug free. OBJECTIVE: Productive cough with light brown sputum No wheezing on exam, tolerating room air: in no acute distress Vital Signs Period Temp Pulse Resp BP Sys/Galdamez Pulse Ox Last 24 Hr 97.6 F-98.1 F 81-93 20-20 115-129/70-78 96 GENERAL: The patient is awake, alert, and fully oriented, in no acute distress. HEAD: Normal with no signs of trauma. EYES: PERRL, extraocular movements intact, sclera anicteric, conjunctiva clear. No ptosis. ENT: Ears normal, nares patent, oropharynx clear without exudates, moist mucous membranes. NECK: Trachea midline, full range of motion, supple. LUNGS: No wheezing, breath sounds equal, mostly clear to auscultation, diminished at the bases. HEART: Regular rate and rhythm ABDOMEN: Soft, nontender, nondistended, normoactive bowel sounds, no guarding, no rebound, no hepatosplenomegaly, no masses. EXTREMITIES: no edema. NEUROLOGICAL: Normal speech PSYCH: Normal mood, normal affect. SKIN: Warm, dry, normal turgor, no rashes or lesions noted Laboratory Results - last 24 hr 02/01/17 02/01/17 06:30 06:30 WBC 6.7 RBC 3.38 L Hgb 9.6 L Hct 29.8 L MCV 88.3 MCH 28.5 MCHC 32.3 RDW 18.6 H Plt Count 397 MPV 7.6 Neutrophils % 86.1 H Lymphocytes % 9.0 Monocytes % 4.8 Eosinophils % 0.0 Basophils % 0.1 Sodium 141 Potassium 4.1 Chloride 104 Carbon Dioxide 32 Anion Gap 5 L BUN 9 Creatinine 0.7 Creat Clearance w eGFR > 60 Random Glucose 146 H D Calcium 8.9 Total Bilirubin 0.3 AST 15 D ALT 19 Alkaline Phosphatase 106 Total Protein 6.9 Albumin 2.2 L Active Medications Generic Name Dose Route Start Last Admin Trade Name Freq PRN Reason Stop Dose Admin Acetaminophen 650 mg 01/30/17 13:29 Tylenol - PO Q4H PRN FEVER OR PAIN Albuterol/Ipratropium 1 amp 01/30/17 18:00 02/01/17 06:30 Duoneb - NEB Not Given QIDR JANETT Cefepime HCl 1 gm 01/31/17 18:15 02/01/17 03:09 Maxipime 1gm Ivpb Pre-Docked IVPB 1 gm Q8H-IV JANETT Administration Docusate Sodium 100 mg 01/30/17 14:00 02/01/17 06:14 Colace - PO Not Given TID JANETT Enoxaparin Sodium 40 mg 01/31/17 10:00 01/31/17 10:01 Lovenox - SQ 40 mg DAILY JANETT Administration Guaifenesin 10 ml 01/31/17 21:32 01/31/17 21:47 Robitussin - PO 10 ml Q4H PRN Administration COUGH Vancomycin HCl 250 mls @ 166.667 mls/hr 01/30/17 18:00 02/01/17 06:14 Vancomycin (Pre-Docked) IVPB 166.667 mls/hr Q12H JANETT Administration Methylprednisolone Sodium Succinate 40 mg 01/30/17 15:00 02/01/17 03:10 Solu-Medrol - IVPB 40 mg Q6H-IV JANETT Administration Nicotine 14 mg 01/31/17 10:00 01/31/17 10:01 Nicoderm Patch - TD 14 mg DAILY JANETT Administration Non-Formulary Medication 1 each 01/31/17 10:00 Abacavir/Dolutegravir/Lamivudi [Triumeq Tablet] PO DAILY JANETT Ondansetron HCl 4 mg 01/30/17 13:29 Zofran Injection IVPB Q6H PRN NAUSEA Quetiapine Fumarate 100 mg 01/30/17 22:00 01/31/17 21:12 Seroquel - PO 100 mg HS JANETT Administration Trimethoprim/Sulfamethoxazole 1 each 01/31/17 10:00 01/31/17 10:02 Bactrim Ds - PO 1 each DAILY JANETT Administration ASSESSMENT/PLAN: Patient is a 56 year old male with a significant past medical history of ETOH abuse, cocaine abuse, current everyday smoker, HIV+ (CD4 count unknown), Hepatitis C, hypertension and COPD. Patient reported history of pneumonia 2 weeks prior for which he was prescribed Bactrim, however he was inconsistent with taking the Bactrim. On 01/26 he was admitted to [facility] for detox for ETOH, cocaine and heroin use. He completed detox and was about to start rehab but he was noted by staff to be experiencing shortness of breath and wheezing at [facility] with hypoxia @88% . He was treated with nebs and his Bactrim was increased to BID without improvement of his symptoms. On admission, He was noted to have a fever of 100.5, pulse of 110 with hypoxia @ 88% on 2 liters of NC. He was noted to also be wheezing with productive yellow sputum. Further he was weak and his gait was unsteady in the ED. Imaging: Chest Xray 01/29/2017: bilateral pulmonary consolidations, no pneumothorax, no large pleural effusions Chest Xray 01/30/2017: bilateral pulmonary consolidations unchanged from prior chest xray Chest CT 01/31/2017: pending read ID/Pulmonary: Sepsis secondary to Pneumonia/Chronic obstructive bronchitis/ PCP pneumonia/ with acute respiratory failure A/P: On admission noted to have tachycardia, leukocytotis and fever of 102.2 which have since resolved Serial xrays show bilateral pulmonary consolidations, no large pleural effusions On Solumedrol 40mg q6 On Vanco (day 3), cifepime (day 2), Bactrim (was on this outpt) Oxygen as needed. duonebs On airborne isolation pending TB (Qft) Blood cultures ngtd, UC pending, Sputum cult pending Monitor respiratory status, continue airborne precautions Robitussin for cough HIV+ A/P: awaiting CD4/CD8/CD3-pending Reported to be non compliant with meds ID following Psyche: Opiate dependance without evidence of withdrawal/ETOH dependence A/P: completed detox at [facility] (Methadone and Libirium) Rehab after d/c from hospital Tobacco Dependence A/P: Nicotine patch Counseled on cessation Cardiology: Hypertension A/P: BP at goal, on home dose of Norvasc 10mg which is on hold 2/2 to sepsis Monitor BP and restart cardiac meds if hypertensive F.E.N. Fluids: tolerating PO Electrolytes: within normal limits Nutrition: regular diet Prophylaxis: GI: protonix while on steroids DVT: Lovenox Physical therapy once more stable Disposition: Requires inpatient hospitalization for his acute medical condition. Full Code. - Visit type - Emergency Visit Emergency Visit: Yes ED Registration Date: 01/30/17 Care time: The patient presented to the Emergency Department on the above date and was hospitalized for further evaluation of their emergent condition. - New Patient This patient is new to me today: Yes Date on this admission: 02/01/17 - Critical Care Critical Care patient: No - Discharge Referral Referred to [facility] Med [facility] No
--- NOTE | 2017-02-01 09:17 | PN ---
Progress Note, Physician History of Present Illness: Pt feels less SOB and chest tightness this am, but coughing more with whitish- brown sputum. No fever, chills, n/v. No dysuria, normal BM yesterday. good appetite - Current Medication List Current Medications: Active Medications Acetaminophen (Tylenol -) 650 mg PO Q4H PRN PRN Reason: FEVER OR PAIN Albuterol/Ipratropium (Duoneb -) 1 amp NEB QIDR [facility] Last Admin: 02/01/17 06:30 Dose: Not Given Cefepime HCl (Maxipime 1gm Ivpb Pre-Docked) 1 gm IVPB Q8H-IV [facility] Last Admin: 02/01/17 03:09 Dose: 1 gm Docusate Sodium (Colace -) 100 mg PO TID [facility] Last Admin: 02/01/17 06:14 Dose: Not Given Enoxaparin Sodium (Lovenox -) 40 mg SQ DAILY [facility] Last Admin: 01/31/17 10:01 Dose: 40 mg Guaifenesin (Robitussin -) 10 ml PO Q4H PRN PRN Reason: COUGH Last Admin: 01/31/17 21:47 Dose: 10 ml Vancomycin HCl (Vancomycin (Pre-Docked)) 250 mls @ 166.667 mls/hr IVPB Q12H [facility] Last Admin: 02/01/17 06:14 Dose: 166.667 mls/hr Methylprednisolone Sodium Succinate (Solu-Medrol -) 40 mg IVPB Q6H-IV [facility] Last Admin: 02/01/17 03:10 Dose: 40 mg Nicotine (Nicoderm Patch -) 14 mg TD DAILY [facility] Last Admin: 01/31/17 10:01 Dose: 14 mg Non-Formulary Medication (Abacavir/Dolutegravir/Lamivudi [Triumeq Tablet]) 1 each PO DAILY [facility] Ondansetron HCl (Zofran Injection) 4 mg IVPB Q6H PRN PRN Reason: NAUSEA Quetiapine Fumarate (Seroquel -) 100 mg PO HS [facility] Last Admin: 01/31/17 21:12 Dose: 100 mg Trimethoprim/Sulfamethoxazole (Bactrim Ds -) 1 each PO DAILY [facility] Last Admin: 01/31/17 10:02 Dose: 1 each - Objective Vital Signs: Vital Signs Temperature 97.8 F 02/01/17 06:00 Pulse Rate 81 02/01/17 06:00 Respiratory Rate 20 02/01/17 06:00 Blood Pressure 128/73 02/01/17 06:00 O2 Sat by Pulse Oximetry (%) 96 01/31/17 21:00 Constitutional: Yes: No Distress, Thin Eyes: Yes: WNL HENT: Yes: WNL Neck: Yes: Supple. No: Lymphadenopathy Cardiovascular: Yes: Regular Rate and Rhythm. No: Gallop, Murmur, Rub Respiratory: Yes: Cough, Diminished (at bases). No: Accessory Muscle Use, Rales , Rhonchi, Wheezes Gastrointestinal: Yes: Normal Bowel Sounds, Soft. No: Distention, Tenderness Extremities: Yes: Other (No LE edema) Edema: No Peripheral Pulses WNL: Yes (2+ b/l) Labs: 02/01/17 06:30 02/01/17 06:30 01/31/17 05:35 Absolute CD3 Count Pending % CD3+ Lymphocytes Pending Absolute CD4 [place] Pending % CD4+ Lymphocyte Pending CD4/CD8 Ratio Pending % CD8+ Lymphocyte Pending Absolute CD8 Count Pending Microbiology Sputum culture: collected 01/30 - no organisms see collected 01/31 - pending Blood culture: NGTD x 48hr Impression/Plan Impression/Plan: 56yo man who is IVDU/polysubstance abuser with HIV/AIDS (non-compliant, CD4 unknown) who has multilobar PNA. Possible COPD exacerbation. #HCAP -Vancomycin 2gm IVPB daily for MRSA coverage -Vanc trough ordered for this evening -Cefepime IVPB for GN/pseudomonas coverage #HIV/AIDS -Bactrim DS for PCP prophylaxis -CD4/CD8 pending -Quantiferon gold pending -Sputum AFB x2 pending -restart Triumeq Dispo: We will continue to follow the patient. Thank you for this consultative opportunity. d/w Dr. Ruben FINNEGAN MD PGY-1 Visit type - Emergency Visit Emergency Visit: No - New Patient This patient is new to me today: No - Critical Care Critical Care patient: No
[2017-02-01] MEDS: guaiFENesin 200 MG/10 ML 10 ML UNIT-DOSE CUPS PO PRN ×2 (10:27→22:33)
[2017-02-01] MEDS: SULFAMETHOXAZOLE/TRIMETHOPRIM 800MG/160MG D.S. TABLET PO SCH (10:27)
[2017-02-01] MEDS: ENOXAPARIN NA (PORCINE) 40 MG/0.4 ML DISP.SYRIN SQ SCH (10:27)
[2017-02-01] MEDS: NICOTINE 14 MG/24 HOURS TOPICAL PATCH TD SCH (10:27)
[2017-02-01] MEDS: PANTOPRAZOLE 40 MG TABLET (FP) PO SCH (10:30)
--- NOTE | 2017-02-01 13:53 | CONS ---
DATE OF CONSULTATION: 01/31/2017 PULMONARY CONSULTATION REFERRING PHYSICIAN: HISTORY OF PRESENT ILLNESS: The patient is a 56-year-old black male with a past medical history of HIV/AIDS diagnosed in 1995, currently not on any therapy. History of PCP pneumonia, hepatitis C, hypertension, asthma, COPD, admitted to [facility] with shortness of breath. Patient was recently diagnosed with pneumonia approximately 2 weeks prior to this admission, placed on Bactrim and clarithromycin. Apparently he checked into detox on admission. He was noted to be hypoxic. He had chest x-ray performed showing bilateral opacities. On the day of admission, he developed more shortness of breath and weakness and presented in the emergency room. In the ER he had chest CT performed, which revealed extensive bilateral basilar consolidations with ground glass opacities as well as extensive COPD changes. He was admitted to the floor. He was started on broad-spectrum antibiotics. Patient denies any chest pain, nausea, vomiting, diaphoreses. He does have significant weight loss. He also has a cough productive of clear sputum, denies any hemoptysis. He has a history of tobacco use and is a retired cook by profession. PAST MEDICAL HISTORY: Again includes HIV/AIDS, history of IVDA, history of pneumonia. REVIEW OF SYSTEMS: No orthopnea, no PND. Positive dyspnea on exertion. Positive cough. No chest pain. No palpitations. No hemoptysis. CURRENT MEDICATIONS: Include Solu-Medrol, Zofran, Triumeq, Tylenol, cefepime, Fortaz, trimethoprim sulfate, vancomycin, Lovenox, Seroquel, NicoDerm, DuoNeb, Colace. PHYSICAL EXAMINATION: General: The patient is a cachectic black male, well developed, awake, alert, in no acute distress. Vital signs: He is currently afebrile. Blood pressure 120/70, respiratory rate 20, O2 saturation is 97% on nasal O2. HEENT: Head is normocephalic, atraumatic. Neck: Supple. Heart: Regular. S1, S2. Chest: Bilateral crackles. Abdomen: Soft. Bowel sounds positive. Extremities: No cyanosis, edema. LABORATORY: WBC is 5.8, hemoglobin 9.7, hematocrit 30. Platelet count 396,000. Blood gas: pH 7.45, pCO2 of 51, and pO2 of 60, bicarbonate of 35, and saturation of 88 that was on 2 L. BUN 11, creatinine 0.7. Chest CT reveals extensive bibasilar consolidations since his COPD changes. IMPRESSION: 1. [id number] hypoxemic respiratory failure. 2. Extensive bilateral pneumonia. 3. Advanced chronic obstructive pulmonary disease. 4. History of acquired immune deficiency syndrome. PLAN: Continue inhaled bronchodilators, supplemental O2, broad-spectrum antibiotics as per Infectious Disease. Obtain followup chest x-ray. Cultures. Short course of rapid steroid taper. Smoking cessation. ANTONIO RODRIGUEZ M.D. [id number]
--- NOTE | 2017-02-01 15:11 | PN ---
Teaching Attending Note Name of Resident: Mary Huitron ATTENDING PHYSICIAN STATEMENT I saw and evaluated the patient. I reviewed the resident's note and discussed the case with the resident. I agree with the resident's findings and plan as documented. SUBJECTIVE: Awake, alert C/O cough productive of white sputum, sternal chest pain No hemoptysis Afebrile on steroids OBJECTIVE: Cachectic No thrush cor S1S2 scatterred rhonchi no edema ASSESSMENT AND PLAN: Multilobar pneumonia AIDS Await cultures, AFB CD4 Continue vancomycin/ cefepime
[2017-02-01 16:30] LABS: % CD 3 POS. LYMPH. 73.8 % (57.5-86.2); % CD 4 POS LYM 4.8 % (30.8-58.5); %CD3+CD4+CD8+ 0.8 % (Not Estab.); %CD3+CD4-CD8+ 66.1 % (Not Estab.); %CD3+CD4-CD8- 2.9 % (Not Estab.); ABSO. CD 3 443 /uL (622-2402); ABSOLUTE CD 4 HELPER 29 /uL (359-1519); AbsCD3+CD4+CD8+ 5 /uL (Not Estab.); AbsCD3+CD4-CD8+ 397 /uL (Not Estab.); AbsCD3+CD4-CD8- 17 /uL (Not Estab.); CD4/CD8 0.07 (0.92-3.72); CD4/CD8 NYSDOH RATIO 0.06 (Not Estab.); WHITE BLOOD COUNT 6.1 x10E3/uL (3.4-10.8)
[2017-02-01] MEDS ORDERED: PT OWN MED DRAWER 7, Y5N ONE (19:07)
[2017-02-01] MEDS: ACETAMINOPHEN 325 MG TABLET (FP) PO PRN (22:33)
[2017-02-01] MEDS: QUEtiapine FUMARATE 100 MG TABLET (FP) PO SCH (22:33)
[2017-02-02] MEDS: guaiFENesin 200 MG/10 ML 10 ML UNIT-DOSE CUPS PO PRN (02:11)
[2017-02-02] MEDS: methylPREDNISolone NA SUCC 40 MG/1 ML VIAL IVPB SCH ×3 (02:11→22:43)
[2017-02-02] MEDS: CEFEPIME 1 GM/100 ML BAG PRE-DOCKED IVPB SCH ×3 (02:11→17:34)
[2017-02-02] MEDS: DOCUSATE SODIUM 100 MG CAPSULE (FP) PO SCH ×3 (05:48→22:42)
[2017-02-02] MEDS: VANCOMYCIN 1 GRAM (PRE-DOCKED) 250 ML IVPB SCH ×2 (05:48→17:33)
[2017-02-02] MEDS: ALBUTEROL SO4 2.5/IPRATROPIUM 0.5 INH SOL 3 ML VIAL.NEB. NEB SCH ×3 (06:51→17:34)
[2017-02-02 07:35] LABS: MCH 28.6 pg (25.7-33.7); MCHC 32.6 g/dl (32.0-35.9); MEAN CELL VOLUME 87.7 fl (80-96); PLATELET COUNT 420 K/MM3 (134-434); RDW 18.6 % (11.9-15.9); WHITE BLOOD COUNT 10.1 K/mm3 (4.0-10.0)
[2017-02-02 07:51] LABS: ALBUMIN 2.4 g/dl (3.4-5.0); ALK PHOS 105 U/L (45-117); ANION GAP 8 (8-16); BILIRUBIN,TOTAL 0.5 mg/dL (0.2-1.0); CALCIUM 8.8 mg/dL (8.5-10.1); CO2 32 mmol/L (21-32); CREATININE 0.7 mg/dL (0.7-1.3); GLUCOSE,RANDOM 121 mg/dL (74-106); SGOT/AST 13 U/L (15-37); SGPT/ALT 20 U/L (12-78); TOT PROT 6.9 g/dl (6.4-8.2)
--- NOTE | 2017-02-02 09:50 | PN ---
Physical Exam: SUBJECTIVE: Patient seen and examined. He is verbalizing midsternal intermittent chest pressure. Will order trop and evaluate. Having intermittent shortness of breath, uses oxygen 2 liters prn + right anterior thigh soreness, minimal pain OBJECTIVE: Lidoderm patch to right anterior thigh for pain relief troponin x 1, last trop on 01/30/17 negative Productive cough with whitish cooper sputum Vital Signs Period Temp Pulse Resp BP Sys/Galdamez Pulse Ox Last 24 Hr 97.8 F-98.7 F 74-92 18-20 126-141/73-98 96-97 GENERAL: The patient is awake, alert, and fully oriented, in no acute distress. HEAD: Normal with no signs of trauma. EYES: PERRL, extraocular movements intact, sclera anicteric, conjunctiva clear. No ptosis. ENT: Ears normal, nares patent, oropharynx clear without exudates, moist mucous membranes. NECK: Trachea midline, full range of motion, supple. LUNGS: No wheezing, breath sounds equal, mostly clear to auscultation, diminished at the bases. HEART: Regular rate and rhythm ABDOMEN: Soft, nontender, nondistended, normoactive bowel sounds, no guarding, no rebound, no hepatosplenomegaly, no masses. EXTREMITIES: no edema. NEUROLOGICAL: Normal speech PSYCH: Normal mood, normal affect. SKIN: Warm, dry, normal turgor, no rashes or lesions noted Laboratory Results - last 24 hr 01/31/17 02/01/17 02/02/17 05:35 17:00 05:35 WBC 6.1 10.1 H D RBC 3.40 L Hgb 9.7 L Hct 29.8 L MCV 87.7 MCH 28.6 MCHC 32.6 RDW 18.6 H Plt Count 420 MPV 8.0 Absolute Lymphs (auto) 0.6 L Neutrophils % Y Lymphocytes % Y Lymphocytes 9 Nucleated RBCs TNP Sodium Potassium Chloride Carbon Dioxide Anion Gap BUN Creatinine Creat Clearance w eGFR Random Glucose Calcium Total Bilirubin AST ALT Alkaline Phosphatase Total Protein Albumin Vancomycin Pre-Dose 11.740 H Absolute CD3 Count 443 L % CD3+ Lymphocytes 73.8 Absolute CD4 [place] 29 L % CD4+ Lymphocyte 4.8 L CD4/CD8 Ratio 0.07 L % CD8+ Lymphocyte 66.8 H Absolute CD8 Count 401 02/02/17 05:35 WBC RBC Hgb Hct MCV MCH MCHC RDW Plt Count MPV Absolute Lymphs (auto) Neutrophils % Lymphocytes % Lymphocytes Nucleated RBCs Sodium 140 Potassium 3.9 Chloride 100 Carbon Dioxide 32 Anion Gap 8 BUN 11 D Creatinine 0.7 Creat Clearance w eGFR > 60 Random Glucose 121 H Calcium 8.8 Total Bilirubin 0.5 D AST 13 L ALT 20 Alkaline Phosphatase 105 Total Protein 6.9 Albumin 2.4 L Vancomycin Pre-Dose Absolute CD3 Count % CD3+ Lymphocytes Absolute CD4 [place] % CD4+ Lymphocyte CD4/CD8 Ratio % CD8+ Lymphocyte Absolute CD8 Count Active Medications Generic Name Dose Route Start Last Admin Trade Name Freq PRN Reason Stop Dose Admin Acetaminophen 650 mg 01/30/17 13:29 02/01/17 22:33 Tylenol - PO 650 mg Q4H PRN Administration FEVER OR PAIN Albuterol/Ipratropium 1 amp 01/30/17 18:00 02/02/17 06:51 Duoneb - NEB Not Given QIDR JANETT Cefepime HCl 1 gm 01/31/17 18:15 02/02/17 02:11 Maxipime 1gm Ivpb Pre-Docked IVPB 1 gm Q8H-IV JANETT Administration Docusate Sodium 100 mg 01/30/17 14:00 02/02/17 05:48 Colace - PO Not Given TID JANETT Enoxaparin Sodium 40 mg 01/31/17 10:00 02/01/17 10:27 Lovenox - SQ 40 mg DAILY JANETT Administration Guaifenesin 10 ml 01/31/17 21:32 02/02/17 02:11 Robitussin - PO 10 ml Q4H PRN Administration COUGH Vancomycin HCl 250 mls @ 166.667 mls/hr 01/30/17 18:00 02/02/17 05:48 Vancomycin (Pre-Docked) IVPB 166.667 mls/hr Q12H JANETT Administration Methylprednisolone Sodium Succinate 40 mg 01/30/17 15:00 02/02/17 02:11 Solu-Medrol - IVPB 40 mg Q6H-IV JANETT Administration Nicotine 14 mg 01/31/17 10:00 02/01/17 10:27 Nicoderm Patch - TD 14 mg DAILY JANETT Administration Non-Formulary Medication 1 each 01/31/17 10:00 Abacavir/Dolutegravir/Lamivudi [Triumeq Tablet] PO DAILY JANETT Ondansetron HCl 4 mg 08/08/17 13:29 Zofran Injection IVPB Q6H PRN NAUSEA Pantoprazole Sodium 40 mg 02/01/17 10:00 02/01/17 10:30 Protonix - PO 40 mg DAILY JANETT Administration Quetiapine Fumarate 100 mg 01/30/17 22:00 02/01/17 22:33 Seroquel - PO 100 mg HS JANETT Administration Trimethoprim/Sulfamethoxazole 1 each 01/31/17 10:00 02/01/17 10:27 Bactrim Ds - PO 1 each DAILY JANETT Administration ASSESSMENT/PLAN: Patient is a 56 year old male with a significant past medical history of ETOH abuse, cocaine abuse, current everyday smoker, HIV+, Hepatitis C, hypertension and COPD. Patient reported history of pneumonia 2 weeks prior for which he was prescribed Bactrim, however he was inconsistent with taking the Bactrim. On 01/26 he was admitted to [facility] for detox for ETOH, cocaine and heroin use. He completed detox and was about to start rehab but he was noted by staff to be experiencing shortness of breath and wheezing at [facility] with hypoxia @88% . He was treated with nebs and his Bactrim was increased to BID without improvement of his symptoms. On admission, He was noted to have a fever of 100.5, pulse of 110 with hypoxia @ 88% on 2 liters of NC. He was noted to also be wheezing with productive yellow sputum. Further he was weak and his gait was unsteady in the ED. Imaging: Chest Xray 01/29/2017: bilateral pulmonary consolidations, no pneumothorax, no large pleural effusions Chest Xray 01/30/2017: bilateral pulmonary consolidations unchanged from prior chest xray Chest CT 01/31/2017: Bilateral non specific alveolar infiltrates, minimal bilateral pleural effusion, atelectasis (likely chronic) on right lobe, centrilobular emphysema ID/Pulmonary: Sepsis secondary to Pneumonia/Chronic obstructive bronchitis/ PCP pneumonia/ with acute respiratory failure A/P: On admission noted to have tachycardia, leukocytotis and fever of 102.2 which have since resolved Serial xrays show bilateral pulmonary consolidations, no large pleural effusions On Solumedrol q12 On Vanco (day 4), cifepime (day 3), Bactrim (was on this outpt) Oxygen as needed. duonebs On airborne isolation pending TB (Qft) Blood cultures ngtd, UC pending, Sputum cult pending Monitor respiratory status, continue airborne precautions Robitussin for cough HIV+ A/P: awaiting CD4/CD8/CD3-pending Reported to be non compliant with meds Started on antiviral medications ID following Psyche: Opiate dependance without evidence of withdrawal/ETOH dependence A/P: completed detox at [facility] (Methadone and Libirium) Rehab after d/c from hospital Tobacco Dependence A/P: Nicotine patch Counseled on cessation Cardiology: Hypertension A/P: BP at goal, on home dose of Norvasc 10mg which is on hold 2/2 to sepsis Monitor BP and restart cardiac meds if hypertensive F.E.N. Fluids: tolerating PO Electrolytes: within normal limits Nutrition: regular diet Prophylaxis: GI: protonix while on steroids DVT: Lovenox Physical therapy as tolerated Disposition: Requires inpatient hospitalization for his acute medical condition. Full Code. Visit type - Emergency Visit Emergency Visit: Yes ED Registration Date: 01/30/17 Care time: The patient presented to the Emergency Department on the above date and was hospitalized for further evaluation of their emergent condition. - New Patient This patient is new to me today: No - Critical Care Critical Care patient: No - Discharge Referral Referred to [facility] No
[2017-02-02] MEDS: LIDOCAINE 5% TOPICAL PATCH TP SCH (10:47)
[2017-02-02] MEDS: SULFAMETHOXAZOLE/TRIMETHOPRIM 800MG/160MG D.S. TABLET PO SCH (10:48)
[2017-02-02] MEDS: PANTOPRAZOLE 40 MG TABLET (FP) PO SCH (10:48)
[2017-02-02] MEDS: ENOXAPARIN NA (PORCINE) 40 MG/0.4 ML DISP.SYRIN SQ SCH (10:48)
[2017-02-02 11:09] LABS: TROPONIN I < 0.02 ng/ml (0.00-0.05)
[2017-02-02] MEDS: NICOTINE 14 MG/24 HOURS TOPICAL PATCH TD SCH ×2 (12:52→13:51)
--- NOTE | 2017-02-02 14:25 | PN ---
Progress Note, Physician History of Present Illness: PULMONARY ALERT,FEELING BETTER,-RESP DISTRESS - Current Medication List Current Medications: Active Medications Acetaminophen (Tylenol -) 650 mg PO Q4H PRN PRN Reason: FEVER OR PAIN Last Admin: 02/01/17 22:33 Dose: 650 mg Albuterol/Ipratropium (Duoneb -) 1 amp NEB QIDR [facility] Last Admin: 02/02/17 11:43 Dose: 1 amp Cefepime HCl (Maxipime 1gm Ivpb Pre-Docked) 1 gm IVPB Q8H-IV [facility] Last Admin: 02/02/17 10:47 Dose: 1 gm Docusate Sodium (Colace -) 100 mg PO TID [facility] Last Admin: 02/02/17 13:52 Dose: 100 mg Enoxaparin Sodium (Lovenox -) 40 mg SQ DAILY [facility] Last Admin: 02/02/17 10:48 Dose: 40 mg Guaifenesin (Robitussin -) 10 ml PO Q4H PRN PRN Reason: COUGH Last Admin: 02/02/17 02:11 Dose: 10 ml Vancomycin HCl (Vancomycin (Pre-Docked)) 250 mls @ 166.667 mls/hr IVPB Q12H [facility] Last Admin: 02/02/17 05:48 Dose: 166.667 mls/hr Lidocaine (Lidoderm Patch -) 1 patch TP DAILY [facility] Last Admin: 02/02/17 10:47 Dose: 1 patch Methylprednisolone Sodium Succinate (Solu-Medrol -) 40 mg IVPB Q6H-IV [facility] Last Admin: 02/02/17 09:30 Dose: 40 mg Miscellaneous (Lidoderm Patch Removal) 1 each MC DAILY@2200 [facility] Nicotine (Nicoderm Patch -) 14 mg TD DAILY [facility] Last Admin: 02/02/17 13:51 Dose: 14 mg Non-Formulary Medication (Abacavir/Dolutegravir/Lamivudi [Triumeq Tablet]) 1 each PO DAILY [facility] Ondansetron HCl (Zofran Injection) 4 mg IVPB Q6H PRN PRN Reason: NAUSEA Pantoprazole Sodium (Protonix -) 40 mg PO DAILY [facility] Last Admin: 02/02/17 10:48 Dose: 40 mg Quetiapine Fumarate (Seroquel -) 100 mg PO HS [facility] Last Admin: 02/01/17 22:33 Dose: 100 mg Trimethoprim/Sulfamethoxazole (Bactrim Ds -) 1 each PO DAILY [facility] Last Admin: 02/02/17 10:48 Dose: 1 each - Objective Vital Signs: Vital Signs Temperature 98.7 F 02/02/17 10:00 Pulse Rate 88 02/02/17 11:44 Respiratory Rate 18 02/02/17 10:00 Blood Pressure 128/72 02/02/17 10:00 O2 Sat by Pulse Oximetry (%) 97 02/02/17 11:44 Constitutional: Yes: Calm, Thin Eyes: Yes: WNL HENT: Yes: WNL Neck: Yes: WNL Cardiovascular: Yes: Regular Rate and Rhythm, S1, S2 Respiratory: Yes: Rhonchi (SCATTERED BILATERAL RHONCHI AND WHEEZES) Gastrointestinal: Yes: Normal Bowel Sounds, Soft Extremities: Yes: WNL Edema: No Labs: CBC, BMP 02/02/17 05:35 02/02/17 05:35 Problem List - Problems (1) COPD exacerbation Code(s): J44.1 - CHRONIC OBSTRUCTIVE PULMONARY DISEASE W (ACUTE) EXACERBATION (2) DVT prophylaxis Code(s): [id number] - (3) Pneumonia Code(s): J18.9 - PNEUMONIA, UNSPECIFIED ORGANISM (4) COPD (chronic obstructive pulmonary disease) Code(s): J44.9 - CHRONIC OBSTRUCTIVE PULMONARY DISEASE, UNSPECIFIED Qualifiers : COPD type: emphysema Emphysema type: other Qualified Code(s): J43.8 - Other emphysema (5) HIV (human immunodeficiency virus infection) Code(s): Z21 - ASYMPTOMATIC HUMAN IMMUNODEFICIENCY VIRUS INFECTION STATUS (6) Acute and chronic respiratory failure Code(s): J96.20 - ACUTE AND CHR RESP FAILURE, UNSP W HYPOXIA OR HYPERCAPNIA Assessment/Plan IMP ACUTE ON CHRONIC RESPIRATORY FAILURE BILATERAL PNEUMONIA HIV/AIDS COPD H/O SUBSTANCE ABUSE PLAN IV ANTIBIOTICS PER ID INHALED BRONCHODILATORS O2 STEROID TAPER F/U CHEST X-RAY SMOKING CESSATION DR RODRIGUEZ Problem List - Problems (1) COPD exacerbation Code(s): J44.1 - CHRONIC OBSTRUCTIVE PULMONARY DISEASE W (ACUTE) EXACERBATION (2) DVT prophylaxis Code(s): [id number] - (3) Pneumonia Code(s): J18.9 - PNEUMONIA, UNSPECIFIED ORGANISM (4) COPD (chronic obstructive pulmonary disease) Code(s): J44.9 - CHRONIC OBSTRUCTIVE PULMONARY DISEASE, UNSPECIFIED Qualifiers : COPD type: emphysema Emphysema type: other Qualified Code(s): J43.8 - Other emphysema (5) HIV (human immunodeficiency virus infection) Code(s): Z21 - ASYMPTOMATIC HUMAN IMMUNODEFICIENCY VIRUS INFECTION STATUS (6) Acute and chronic respiratory failure Code(s): J96.20 - ACUTE AND CHR RESP FAILURE, UNSP W HYPOXIA OR HYPERCAPNIA
[2017-02-02 14:47] LABS: PLATELET ESTIMATE ADEQUATE (NORMAL)
--- NOTE | 2017-02-02 15:29 | PN ---
Physical Exam: SUBJECTIVE: Patient seen and examined. Pt still feeling short of breath with chest tightness. productive cough with cooper-colored sputum. no fever, chills, n/ v. good appetite. OBJECTIVE: Vital Signs Period Temp Pulse Resp BP Sys/Galdamez Pulse Ox Last 24 Hr 97.8 F-98.7 F 74-88 18-20 126-141/72-98 97-97 Constitutional: Yes: No Distress, Thin Eyes: Yes: WNL HENT: Yes: WNL Neck: Yes: Supple. No: Lymphadenopathy Cardiovascular: Yes: Regular Rate and Rhythm. No: Gallop, Murmur, Rub Respiratory: Yes: Cough, Diminished (at bases). No: Accessory Muscle Use, Rales , Rhonchi, Wheezes Gastrointestinal: Yes: Normal Bowel Sounds, Soft. No: Distention, Tenderness Extremities: Yes: Other (No LE edema) Edema: No Peripheral Pulses WNL: Yes (2+ b/l) CBC, BMP 02/02/17 05:35 02/02/17 05:35 01/31/17 02/01/17 05:35 17:00 Vancomycin Pre-Dose 11.740 H Absolute CD3 Count 443 L % CD3+ Lymphocytes 73.8 Absolute CD4 [place] 29 L % CD4+ Lymphocyte 4.8 L CD4/CD8 Ratio 0.07 L % CD8+ Lymphocyte 66.8 H Absolute CD8 Count 401 Microbiology 02/01/17 16:10 Sputum - Expectorated AFB Smear Concentration - Preliminary : neg 02/01/17 16:10 Sputum - Expectorated Direct Acid Fast Bacilli Smear - Final 02/01/17 16:10 Sputum - Expectorated Mycobacterial Culture - Preliminary 02/02/17 07:40 Sputum - Expectorated AFB Smear Concentration - Preliminary 02/02/17 07:40 Sputum - Expectorated Direct Acid Fast Bacilli Smear - Final 02/02/17 07:40 Sputum - Expectorated Mycobacterial Culture - Preliminary 01/30/17 21:39 Sputum - Expectorated Gram Stain - Final 01/30/17 21:39 Sputum - Expectorated Sputum Culture - Final Yeast Like Organism 01/30/17 11:55 Blood - Peripheral Venous Blood Culture - Preliminary NO GROWTH OBTAINED AFTER 72 HOURS, INCUBATION TO CONTINUE FOR 2 DAYS. 01/30/17 11:55 Blood - Peripheral Venous Blood Culture - Preliminary NO GROWTH OBTAINED AFTER 72 HOURS, INCUBATION TO CONTINUE FOR 2 DAYS. 01/31/17 11:05 Sputum - Expectorated Gram Stain - Final 01/31/17 11:05 Sputum - Expectorated Sputum Culture - Preliminary Yeast Like Organism Staphylococcus Latex Coag Pos 01/31/17 05:35 Blood - Peripheral Venous TB Test (QFT) ([facility]) - Preliminary 01/30/17 11:32 Urine - Urine Clean Catch Urine Culture - Final NO GROWTH OBTAINED Active Medications Abacavir Sulfate (Ziagen -) 300 mg PO BID [facility] Acetaminophen (Tylenol -) 650 mg PO Q4H PRN PRN Reason: FEVER OR PAIN Last Admin: 02/01/17 22:33 Dose: 650 mg Albuterol/Ipratropium (Duoneb -) 1 amp NEB QIDR [facility] Last Admin: 02/02/17 11:43 Dose: 1 amp Cefepime HCl (Maxipime 1gm Ivpb Pre-Docked) 1 gm IVPB Q8H-IV [facility] Last Admin: 02/02/17 10:47 Dose: 1 gm Docusate Sodium (Colace -) 100 mg PO TID [facility] Last Admin: 02/02/17 13:52 Dose: 100 mg Enoxaparin Sodium (Lovenox -) 40 mg SQ DAILY [facility] Last Admin: 02/02/17 10:48 Dose: 40 mg Guaifenesin (Robitussin -) 10 ml PO Q4H PRN PRN Reason: COUGH Last Admin: 02/02/17 02:11 Dose: 10 ml Vancomycin HCl (Vancomycin (Pre-Docked)) 250 mls @ 166.667 mls/hr IVPB Q12H [facility] Last Admin: 02/02/17 05:48 Dose: 166.667 mls/hr Lamivudine (Epivir -) 300 mg PO DAILY [facility] Lidocaine (Lidoderm Patch -) 1 patch TP DAILY [facility] Last Admin: 02/02/17 10:47 Dose: 1 patch Methylprednisolone Sodium Succinate (Solu-Medrol -) 40 mg IVPB BID [facility] Miscellaneous (Lidoderm Patch Removal) 1 each MC DAILY@2200 [facility] Nicotine (Nicoderm Patch -) 14 mg TD DAILY [facility] Last Admin: 02/02/17 13:51 Dose: 14 mg Non-Formulary Medication (Abacavir/Dolutegravir/Lamivudi [Triumeq Tablet]) 1 each PO DAILY [facility] Ondansetron HCl (Zofran Injection) 4 mg IVPB Q6H PRN PRN Reason: NAUSEA Pantoprazole Sodium (Protonix -) 40 mg PO DAILY [facility] Last Admin: 02/02/17 10:48 Dose: 40 mg Quetiapine Fumarate (Seroquel -) 100 mg PO HS [facility] Last Admin: 02/01/17 22:33 Dose: 100 mg Raltegravir (Isentress -) 400 mg PO BID [facility] Trimethoprim/Sulfamethoxazole (Bactrim Ds -) 1 each PO DAILY [facility] Last Admin: 02/02/17 10:48 Dose: 1 each ASSESSMENT/PLAN: 56yo man who is IVDU/polysubstance abuser with HIV/AIDS who has multilobar PNA. Possible COPD exacerbation. #HCAP -Vancomycin 1gm IVPB Q12H for MRSA coverage -Cefepime 1gm IVPB Q8H for GN/pseudomonas coverage #HIV/AIDS: CD4 count 29 -Triumeq not on formulary here - start Abacavir 300 mg PO BID, Raltegravir 400 mg PO BID, Lamivudine 300 mg PO DAILY -Bactrim DS for PCP prophylaxis -AFB sputum x2 neg, awaiting 3rd sputum --> if negative can d/c TB isolation -Mycobacterium PCR pending --> if no detection of MAC, start ppx with Azithromycin Dispo: We will continue to follow the patient. Thank you for this consultative opportunity. d/w Dr. Ruben FINNEGAN MD PGY-1 Visit type - Emergency Visit Emergency Visit: No - New Patient This patient is new to me today: No - Critical Care Critical Care patient: No
--- NOTE | 2017-02-02 16:15 | PN ---
Teaching Attending Note Name of Resident: Mary Huitron ATTENDING PHYSICIAN STATEMENT I saw and evaluated the patient. I reviewed the resident's note and discussed the case with the resident. I agree with the resident's findings and plan as documented. SUBJECTIVE: OBJECTIVE: ASSESSMENT AND PLAN: Await 3rd AFB Continue empiric vancomycin/ cefepime Continue AFB precautions ART/ PCP prohylaxis
[2017-02-02] MEDS ORDERED: PT OWN MED DRAWER 7, Y5N ONE ×3 (21:57→23:58)
[2017-02-02] MEDS: QUEtiapine FUMARATE 100 MG TABLET (FP) PO SCH (22:42)
[2017-02-02] MEDS: ABACAVIR SULFATE 300 MG TABLET PO SCH (22:43)
[2017-02-02] MEDS: RALTEGRAVIR POTASSIUM 400 MG TAB PO SCH (22:43)
[2017-02-02] MEDS: LIDOCAINE PATCH REMOVAL MC SCH (22:50)
[2017-02-03] MEDS: ALBUTEROL SO4 2.5/IPRATROPIUM 0.5 INH SOL 3 ML VIAL.NEB. NEB SCH ×5 (00:05→23:33)
[2017-02-03] MEDS: CEFEPIME 1 GM/100 ML BAG PRE-DOCKED IVPB SCH ×3 (02:37→17:43)
[2017-02-03] MEDS: DOCUSATE SODIUM 100 MG CAPSULE (FP) PO SCH ×3 (05:46→22:14)
[2017-02-03] MEDS: VANCOMYCIN 1 GRAM (PRE-DOCKED) 250 ML IVPB SCH ×2 (05:49→17:43)
[2017-02-03 08:56] LABS: BASOPHIL 0.1 % (0-2.0); MCH 27.8 pg (25.7-33.7); MCHC 31.4 g/dl (32.0-35.9); MEAN CELL VOLUME 88.6 fl (80-96); MEAN PLT VOLUME 7.4 fl (7.5-11.1); NEUTROPHILS 87.1 % (42.8-82.8); PLATELET COUNT 468 K/MM3 (134-434); RDW 18.7 % (11.9-15.9)
[2017-02-03 09:24] LABS: ALBUMIN 2.5 g/dl (3.4-5.0); ANION GAP 7 (8-16); CALCIUM 9.2 mg/dL (8.5-10.1); CO2 31 mmol/L (21-32); CREATININE 0.8 mg/dL (0.7-1.3); GLUCOSE,RANDOM 166 mg/dL (74-106); SGOT/AST 11 U/L (15-37); SGPT/ALT 22 U/L (12-78)
[2017-02-03 09:25] LABS: ALK PHOS 104 U/L (45-117); BILIRUBIN,TOTAL 0.2 mg/dL (0.2-1.0)
[2017-02-03] MEDS ORDERED: PT OWN MED DRAWER 7, Y5N ONE ×2 (09:48→22:06)
[2017-02-03] MEDS: SULFAMETHOXAZOLE/TRIMETHOPRIM 800MG/160MG D.S. TABLET PO SCH (09:53)
[2017-02-03] MEDS: methylPREDNISolone NA SUCC 40 MG/1 ML VIAL IVPB SCH ×2 (09:53→22:15)
[2017-02-03] MEDS: PANTOPRAZOLE 40 MG TABLET (FP) PO SCH (09:53)
[2017-02-03] MEDS: LIDOCAINE 5% TOPICAL PATCH TP SCH (09:53)
[2017-02-03] MEDS: NICOTINE 14 MG/24 HOURS TOPICAL PATCH TD SCH (09:54)
[2017-02-03] MEDS: RALTEGRAVIR POTASSIUM 400 MG TAB PO SCH ×2 (09:54→22:14)
[2017-02-03] MEDS: ENOXAPARIN NA (PORCINE) 40 MG/0.4 ML DISP.SYRIN SQ SCH (09:54)
[2017-02-03] MEDS: ABACAVIR SULFATE 300 MG TABLET PO SCH ×2 (09:55→22:14)
[2017-02-03] MEDS: lamiVUDine 150 MG TABLET PO SCH (09:55)
--- NOTE | 2017-02-03 12:10 | PN ---
Physical Exam: SUBJECTIVE: Patient seen and examined. He denies any shortness of breath or further chest pressure. Ambulating in room without shortness of breath OBJECTIVE: Ambulating in room, no dyspnea on exam. Lung sound mostly clear, no wheezing Trops negative, no further chest pain. Remains on airborne precautions, awaiting third sputum culture Vital Signs Period Temp Pulse Resp BP Sys/Galdamez Pulse Ox Last 24 Hr 97.9 F-98.2 F 84-88 18-18 136-137/65-71 93 GENERAL: The patient is awake, alert, and fully oriented, in no acute distress. HEAD: Normal with no signs of trauma. EYES: PERRL, extraocular movements intact, sclera anicteric, conjunctiva clear. No ptosis. ENT: Ears normal, nares patent, oropharynx clear without exudates, moist mucous membranes. NECK: Trachea midline, full range of motion, supple. LUNGS: No wheezing, breath sounds equal, mostly clear to auscultation, diminished at the bases. HEART: Regular rate and rhythm ABDOMEN: Soft, nontender, nondistended, normoactive bowel sounds, no guarding, no rebound, no hepatosplenomegaly, no masses. EXTREMITIES: no edema. NEUROLOGICAL: Normal speech PSYCH: Normal mood, normal affect. SKIN: Warm, dry, normal turgor, no rashes or lesions noted Laboratory Results - last 24 hr 02/02/17 02/03/17 02/03/17 05:35 08:45 08:45 WBC 10.1 H D 12.0 H RBC 3.40 L 3.68 L Hgb 9.7 L 10.2 L Hct 29.8 L 32.6 L MCV 87.7 88.6 MCH 28.6 27.8 MCHC 32.6 31.4 L RDW 18.6 H 18.7 H Plt Count 420 468 H MPV 8.0 7.4 L Neutrophils % 93.0 H 87.1 H Lymphocytes % 4.0 L D 7.4 L D Monocytes % 2.0 L 5.4 D Eosinophils % 0.0 Basophils % 0.1 Myelocytes 1 Differential Comment Manual diff done Platelet Estimate Adequate Sodium 139 Potassium 3.5 Chloride 101 Carbon Dioxide 31 Anion Gap 7 L BUN 13 Creatinine 0.8 Creat Clearance w eGFR > 60 Random Glucose 166 H D Calcium 9.2 Total Bilirubin 0.2 D AST 11 L ALT 22 Alkaline Phosphatase 104 Total Protein 7.0 Albumin 2.5 L Active Medications Generic Name Dose Route Start Last Admin Trade Name Freq PRN Reason Stop Dose Admin Abacavir Sulfate 300 mg 02/02/17 22:00 02/03/17 09:55 Ziagen - PO 300 mg BID [facility] Administration Acetaminophen 650 mg 01/30/17 13:29 02/01/17 22:33 Tylenol - PO 650 mg Q4H PRN Administration FEVER OR PAIN Albuterol/Ipratropium 1 amp 01/30/17 18:00 02/03/17 11:43 Duoneb - NEB 1 amp QIDR [facility] Administration Cefepime HCl 1 gm 01/31/17 18:15 02/03/17 09:53 Maxipime 1gm Ivpb Pre-Docked IVPB 1 gm Q8H-IV [facility] Administration Docusate Sodium 100 mg 01/30/17 14:00 02/03/17 05:46 Colace - PO Not Given TID [facility] Enoxaparin Sodium 40 mg 01/31/17 10:00 02/03/17 09:54 Lovenox - SQ 40 mg DAILY [facility] Administration Guaifenesin 10 ml 01/31/17 21:32 02/02/17 02:11 Robitussin - PO 10 ml Q4H PRN Administration COUGH Vancomycin HCl 250 mls @ 166.667 mls/hr 01/30/17 18:00 02/03/17 05:49 Vancomycin (Pre-Docked) IVPB 166.667 mls/hr Q12H [facility] Administration Lamivudine 300 mg 02/02/17 18:52 02/03/17 09:55 Epivir - PO 300 mg DAILY [facility] Administration Lidocaine 1 patch 02/02/17 10:00 02/03/17 09:53 Lidoderm Patch - TP 1 patch DAILY [facility] Administration Methylprednisolone Sodium Succinate 40 mg 02/02/17 22:00 02/03/17 09:53 Solu-Medrol - IVPB 40 mg BID [facility] Administration Miscellaneous 1 each 02/02/17 22:00 02/02/17 22:50 Lidoderm Patch Removal MC 1 each DAILY@2200 [facility] Administration Nicotine 14 mg 01/31/17 10:00 02/03/17 09:54 Nicoderm Patch - TD 14 mg DAILY [facility] Administration Ondansetron HCl 4 mg 01/30/17 13:29 Zofran Injection IVPB Q6H PRN [facility] Pantoprazole Sodium 40 mg 02/01/17 10:00 02/03/17 09:53 Protonix - PO 40 mg DAILY [facility] Administration Quetiapine Fumarate 100 mg 01/30/17 22:00 02/02/17 22:42 Seroquel - PO 100 mg HS [facility] Administration Raltegravir 400 mg 02/02/17 22:00 02/03/17 09:54 Isentress - PO 400 mg BID [facility] Administration Trimethoprim/Sulfamethoxazole 1 each 01/31/17 10:00 02/03/17 09:53 Bactrim Ds - PO 1 each DAILY [facility] Administration ASSESSMENT/PLAN: Patient is a 56 year old male with a significant past medical history of ETOH abuse, cocaine abuse, current everyday smoker, HIV+, Hepatitis C, hypertension and COPD. Patient reported history of pneumonia 2 weeks prior for which he was prescribed Bactrim, however he was inconsistent with taking the Bactrim. On 01/26 he was admitted to [facility] for detox for ETOH, cocaine and heroin use. He completed detox and was about to start rehab but he was noted by staff to be experiencing shortness of breath and wheezing with hypoxia @88%. He was treated with nebs and his Bactrim was increased to BID without improvement of his symptoms. On admission, He was noted to have a fever of 100.5, pulse of 110 with hypoxia @ 88% on 2 liters of NC. He was noted to also be wheezing with productive yellow sputum. Further he was weak and his gait was unsteady in the ED. Imaging: Chest Xray 01/29/2017: bilateral pulmonary consolidations, no pneumothorax, no large pleural effusions Chest Xray 01/30/2017: bilateral pulmonary consolidations unchanged from prior chest xray Chest CT 01/31/2017: Bilateral non specific alveolar infiltrates, minimal bilateral pleural effusion, atelectasis (likely chronic) on right lobe, centrilobular emphysema ID/Pulmonary: Sepsis secondary to Pneumonia/Chronic obstructive bronchitis/ PCP pneumonia/ with acute respiratory failure - improving A/P: On admission noted to have tachycardia, leukocytotis and fever of 102.2 which have since resolved Serial xrays show bilateral pulmonary consolidations, no large pleural effusions On Solumedrol q12 On Vanco (day 5), cifepime (day 4), Bactrim (was on this medication outpt) Oxygen as needed. duonebs On airborne isolation pending TB (Qft) Blood cultures ngtd, UC pending, 3rd Sputum cult pending Monitor respiratory status, continue airborne precautions Robitussin for cough HIV+ A/P: Reported to be non compliant with meds Started on antiviral medications by ID Psyche: Opiate dependance without evidence of withdrawal/ETOH dependence A/P: completed detox at [facility] (Methadone and Libirium) Rehab after d/c from hospital Tobacco Dependence A/P: Nicotine patch Counseled on cessation Cardiology: Hypertension A/P: BP at goal, on home dose of Norvasc 10mg will restart Norvasc 10mg F.E.N. Fluids: tolerating PO Electrolytes: within normal limits Nutrition: regular diet Prophylaxis: GI: protonix while on steroids DVT: Lovenox Physical therapy as tolerated Disposition: Requires inpatient hospitalization for his acute medical condition. Full Code. Visit type - Emergency Visit Emergency Visit: Yes ED Registration Date: 01/30/17 Care time: The patient presented to the Emergency Department on the above date and was hospitalized for further evaluation of their emergent condition. - New Patient This patient is new to me today: No - Critical Care Critical Care patient: No - Discharge Referral Referred to [facility] Med P.C.: No
--- NOTE | 2017-02-03 13:59 | PN ---
Progress Note (short form) - Note Progress Note: Overall breathing is better. No CP or SOB. Intake & Output 01/31/17 02/01/17 02/02/17 02/03/17 23:59 23:59 23:59 23:59 Intake Total 1390 350 550 350 Output Total 017 610 7922 300 Balance 1140 50 -1450 50 Weight 115 lb 6.4 oz Last Vital Signs Temp Pulse Resp BP Pulse Ox 98.2 F 84 18 136/71 93 L 02/03/17 06:00 02/03/17 06:00 02/03/17 06:00 02/03/17 06:00 02/02/17 22:45 Active Medications Abacavir Sulfate (Ziagen -) 300 mg PO BID [facility] Last Admin: 02/03/17 09:55 Dose: 300 mg Acetaminophen (Tylenol -) 650 mg PO Q4H PRN PRN Reason: FEVER OR PAIN Last Admin: 02/01/17 22:33 Dose: 650 mg Albuterol/Ipratropium (Duoneb -) 1 amp NEB QIDR [facility] Last Admin: 02/03/17 11:43 Dose: 1 amp Cefepime HCl (Maxipime 1gm Ivpb Pre-Docked) 1 gm IVPB Q8H-IV [facility] Last Admin: 02/03/17 09:53 Dose: 1 gm Docusate Sodium (Colace -) 100 mg PO TID [facility] Last Admin: 02/03/17 05:46 Dose: Not Given Enoxaparin Sodium (Lovenox -) 40 mg SQ DAILY [facility] Last Admin: 02/03/17 09:54 Dose: 40 mg Guaifenesin (Robitussin -) 10 ml PO Q4H PRN PRN Reason: COUGH Last Admin: 02/02/17 02:11 Dose: 10 ml Vancomycin HCl (Vancomycin (Pre-Docked)) 250 mls @ 166.667 mls/hr IVPB Q12H [facility] Last Admin: 02/03/17 05:49 Dose: 166.667 mls/hr Lamivudine (Epivir -) 300 mg PO DAILY [facility] Last Admin: 02/03/17 09:55 Dose: 300 mg Lidocaine (Lidoderm Patch -) 1 patch TP DAILY [facility] Last Admin: 02/03/17 09:53 Dose: 1 patch Methylprednisolone Sodium Succinate (Solu-Medrol -) 40 mg IVPB BID [facility] Last Admin: 02/03/17 09:53 Dose: 40 mg Miscellaneous (Lidoderm Patch Removal) 1 each MC DAILY@2200 [facility] Last Admin: 02/02/17 22:50 Dose: 1 each Nicotine (Nicoderm Patch -) 14 mg TD DAILY [facility] Last Admin: 02/03/17 09:54 Dose: 14 mg Ondansetron HCl (Zofran Injection) 4 mg IVPB Q6H PRN PRN Reason: NAUSEA Pantoprazole Sodium (Protonix -) 40 mg PO DAILY [facility] Last Admin: 02/03/17 09:53 Dose: 40 mg Quetiapine Fumarate (Seroquel -) 100 mg PO HS [facility] Last Admin: 02/02/17 22:42 Dose: 100 mg Raltegravir (Isentress -) 400 mg PO BID [facility] Last Admin: 02/03/17 09:54 Dose: 400 mg Trimethoprim/Sulfamethoxazole (Bactrim Ds -) 1 each PO DAILY [facility] Last Admin: 02/03/17 09:53 Dose: 1 each Constitutional: Yes: NAD, Thin Eyes: Yes: WNL HENT: Yes: WNL Neck: Yes: WNL Cardiovascular: Yes: Regular Rate and Rhythm, S1, S2 Respiratory: Yes: Scattered bilateral Rhonchi Gastrointestinal: Yes: Normal Bowel Sounds, Soft Extremities: Yes: WNL Edema: No Labs: Laboratory Results - last 24 hr 02/02/17 02/03/17 02/03/17 05:35 08:45 08:45 WBC 10.1 H D 12.0 H RBC 3.40 L 3.68 L Hgb 9.7 L 10.2 L Hct 29.8 L 32.6 L MCV 87.7 88.6 MCH 28.6 27.8 MCHC 32.6 31.4 L RDW 18.6 H 18.7 H Plt Count 420 468 H MPV 8.0 7.4 L Neutrophils % 93.0 H 87.1 H Lymphocytes % 4.0 L D 7.4 L D Monocytes % 2.0 L 5.4 D Eosinophils % 0.0 Basophils % 0.1 Myelocytes 1 Differential Comment Manual diff done Platelet Estimate Adequate Sodium 139 Potassium 3.5 Chloride 101 Carbon Dioxide 31 Anion Gap 7 L BUN 13 Creatinine 0.8 Creat Clearance w eGFR > 60 Random Glucose 166 H D Calcium 9.2 Total Bilirubin 0.2 D AST 11 L ALT 22 Alkaline Phosphatase 104 Total Protein 7.0 Albumin 2.5 L Problem List - Problems (1) COPD exacerbation Code(s): J44.1 - CHRONIC OBSTRUCTIVE PULMONARY DISEASE W (ACUTE) EXACERBATION (2) DVT prophylaxis Code(s): [id number] - (3) Pneumonia Code(s): J18.9 - PNEUMONIA, UNSPECIFIED ORGANISM (4) COPD (chronic obstructive pulmonary disease) Code(s): J44.9 - CHRONIC OBSTRUCTIVE PULMONARY DISEASE, UNSPECIFIED Qualifiers : COPD type: emphysema Emphysema type: other Qualified Code(s): J43.8 - Other emphysema (5) HIV (human immunodeficiency virus infection) Code(s): Z21 - ASYMPTOMATIC HUMAN IMMUNODEFICIENCY VIRUS INFECTION STATUS (6) Acute and chronic respiratory failure Code(s): J96.20 - ACUTE AND CHR RESP FAILURE, UNSP W HYPOXIA OR HYPERCAPNIA Assessment/Plan IMP ACUTE ON CHRONIC RESPIRATORY FAILURE BILATERAL PNEUMONIA HIV/AIDS COPD H/O SUBSTANCE ABUSE PLAN IV ANTIBIOTICS PER ID INHALED BRONCHODILATORS O2 STEROID TAPER SMOKING CESSATION DR MALDONADO
[2017-02-03] MEDS: QUEtiapine FUMARATE 100 MG TABLET (FP) PO SCH (22:14)
[2017-02-03] MEDS: LIDOCAINE PATCH REMOVAL MC SCH (22:15)
[2017-02-04] MEDS: CEFEPIME 1 GM/100 ML BAG PRE-DOCKED IVPB SCH ×3 (02:14→17:35)
[2017-02-04] MEDS ORDERED: PT OWN MED DRAWER 7, Y5N ONE ×3 (02:24→20:57)
[2017-02-04] MEDS: ALBUTEROL SO4 2.5/IPRATROPIUM 0.5 INH SOL 3 ML VIAL.NEB. NEB SCH ×3 (06:21→17:25)
[2017-02-04] MEDS: VANCOMYCIN 1 GRAM (PRE-DOCKED) 250 ML IVPB SCH ×2 (06:45→18:29)
[2017-02-04] MEDS: DOCUSATE SODIUM 100 MG CAPSULE (FP) PO SCH ×3 (06:45→21:08)
[2017-02-04 07:35] LABS: MCH 28.4 pg (25.7-33.7); MCHC 32.5 g/dl (32.0-35.9); MEAN CELL VOLUME 87.5 fl (80-96); MEAN PLT VOLUME 7.8 fl (7.5-11.1); PLATELET COUNT 415 K/MM3 (134-434); RDW 18.6 % (11.9-15.9); WHITE BLOOD COUNT 8.7 K/mm3 (4.0-10.0)
[2017-02-04 08:10] LABS: ALBUMIN 2.3 g/dl (3.4-5.0); ANION GAP 8 (8-16); BILIRUBIN,TOTAL 0.8 mg/dL (0.2-1.0); CALCIUM 9.1 mg/dL (8.5-10.1); CO2 32 mmol/L (21-32); CREATININE 0.7 mg/dL (0.7-1.3); GLUCOSE,RANDOM 120 mg/dL (74-106); SGOT/AST 12 U/L (15-37); SGPT/ALT 23 U/L (12-78); TOT PROT 6.5 g/dl (6.4-8.2)
[2017-02-04 08:11] LABS: ALK PHOS 92 U/L (45-117)
[2017-02-04] MEDS: LIDOCAINE 5% TOPICAL PATCH TP SCH (11:14)
[2017-02-04] MEDS: ENOXAPARIN NA (PORCINE) 40 MG/0.4 ML DISP.SYRIN SQ SCH (11:14)
[2017-02-04] MEDS: PANTOPRAZOLE 40 MG TABLET (FP) PO SCH (11:15)
[2017-02-04] MEDS: amLODIPine BESYLATE 10 MG TABLET (FP) PO SCH (11:15)
[2017-02-04] MEDS: SULFAMETHOXAZOLE/TRIMETHOPRIM 800MG/160MG D.S. TABLET PO SCH (11:15)
[2017-02-04] MEDS: methylPREDNISolone NA SUCC 40 MG/1 ML VIAL IVPB SCH ×2 (11:15→21:08)
[2017-02-04] MEDS: RALTEGRAVIR POTASSIUM 400 MG TAB PO SCH ×2 (11:16→21:08)
[2017-02-04] MEDS: guaiFENesin 200 MG/10 ML 10 ML UNIT-DOSE CUPS PO PRN (11:16)
[2017-02-04] MEDS: ABACAVIR SULFATE 300 MG TABLET PO SCH ×2 (11:17→21:09)
[2017-02-04] MEDS: lamiVUDine 150 MG TABLET PO SCH (11:17)
[2017-02-04] MEDS: NICOTINE 14 MG/24 HOURS TOPICAL PATCH TD SCH (11:17)
[2017-02-04 12:33] LABS: METAMYELOCYTE 1 % (0-2); PLATELET ESTIMATE ADEQUATE (NORMAL)
--- NOTE | 2017-02-04 15:28 | PN ---
Physical Exam: SUBJECTIVE: Patient seen and examined. He states his breathing has improved, able to tolerate room air without dyspnea. Denies chest pain. OBJECTIVE: Restarted Amlodopine 10mg +MRSA in the sputum Vital Signs Period Temp Pulse Resp BP Sys/Galdamez Pulse Ox Last 24 Hr 98.0 F-98.6 F 75-94 18-20 103-145/63-90 96-99 GENERAL: The patient is awake, alert, and fully oriented, in no acute distress. HEAD: Normal with no signs of trauma. EYES: PERRL, extraocular movements intact, sclera anicteric, conjunctiva clear. No ptosis. ENT: Ears normal, nares patent, oropharynx clear without exudates, moist mucous membranes. NECK: Trachea midline, full range of motion, supple. LUNGS: No wheezing, breath sounds equal, mostly clear to auscultation, diminished at the bases. HEART: Regular rate and rhythm ABDOMEN: Soft, nontender, nondistended, normoactive bowel sounds, no guarding, no rebound, no hepatosplenomegaly, no masses. EXTREMITIES: no edema. NEUROLOGICAL: Normal speech PSYCH: Normal mood, normal affect. SKIN: Warm, dry, normal turgor, no rashes or lesions noted Laboratory Results - last 24 hr 02/04/17 02/04/17 06:00 06:00 WBC 8.7 RBC 3.52 L Hgb 10.0 L Hct 30.8 L MCV 87.5 MCH 28.4 MCHC 32.5 RDW 18.6 H Plt Count 415 MPV 7.8 Neutrophils % 89.0 H Lymphocytes % 5.0 L D Monocytes % 5.0 Metamyelocytes 1 Differential Comment Manual diff done Platelet Estimate Adequate Sodium 141 Potassium 4.2 Chloride 101 Carbon Dioxide 32 Anion Gap 8 BUN 16 D Creatinine 0.7 Creat Clearance w eGFR > 60 Random Glucose 120 H D Calcium 9.1 Total Bilirubin 0.8 D AST 12 L ALT 23 Alkaline Phosphatase 92 Total Protein 6.5 Albumin 2.3 L Active Medications Generic Name Dose Route Start Last Admin Trade Name Freq PRN Reason Stop Dose Admin Abacavir Sulfate 300 mg 02/02/17 22:00 02/04/17 11:17 Ziagen - PO 300 mg BID JANETT Administration Acetaminophen 650 mg 01/30/17 13:29 02/01/17 22:33 Tylenol - PO 650 mg Q4H PRN Administration FEVER OR PAIN Albuterol/Ipratropium 1 amp 01/30/17 18:00 02/04/17 11:02 Duoneb - NEB 1 amp QIDR JANETT Administration Amlodipine Besylate 10 mg 02/04/17 10:00 02/04/17 11:15 Norvasc - PO 10 mg DAILY JANETT Administration Cefepime HCl 1 gm 01/31/17 18:15 02/04/17 11:14 Maxipime 1gm Ivpb Pre-Docked IVPB 1 gm Q8H-IV JANETT Administration Docusate Sodium 100 mg 01/30/17 14:00 02/04/17 14:19 Colace - PO Not Given TID JANETT Enoxaparin Sodium 40 mg 01/31/17 10:00 02/04/17 11:14 Lovenox - SQ 40 mg DAILY JANETT Administration Guaifenesin 10 ml 01/31/17 21:32 02/04/17 11:16 Robitussin - PO 10 ml Q4H PRN Administration COUGH Vancomycin HCl 250 mls @ 166.667 mls/hr 01/30/17 18:00 02/04/17 06:45 Vancomycin (Pre-Docked) IVPB 166.667 mls/hr Q12H JANETT Administration Lamivudine 300 mg 02/02/17 18:52 02/04/17 11:17 Epivir - PO 300 mg DAILY JANETT Administration Lidocaine 1 patch 02/02/17 10:00 02/04/17 11:14 Lidoderm Patch - TP 1 patch DAILY JANETT Administration Methylprednisolone Sodium Succinate 40 mg 02/02/17 22:00 02/04/17 11:15 Solu-Medrol - IVPB 40 mg BID JANETT Administration Miscellaneous 1 each 02/02/17 22:00 02/03/17 22:15 Lidoderm Patch Removal MC 1 each DAILY@2200 JANETT Administration Nicotine 14 mg 01/31/17 10:00 02/04/17 11:17 Nicoderm Patch - TD 14 mg DAILY JANETT Administration Ondansetron HCl 4 mg 01/30/17 13:29 Zofran Injection IVPB Q6H PRN NAUSEA Pantoprazole Sodium 40 mg 02/01/17 10:00 02/04/17 11:15 Protonix - PO 40 mg DAILY JANETT Administration Quetiapine Fumarate 100 mg 01/30/17 22:00 02/03/17 22:14 Seroquel - PO 100 mg HS JANETT Administration Raltegravir 400 mg 02/02/17 22:00 02/04/17 11:16 Isentress - PO 400 mg BID JANETT Administration Trimethoprim/Sulfamethoxazole 1 each 01/31/17 10:00 02/04/17 11:15 Bactrim Ds - PO 1 each DAILY JANETT Administration ASSESSMENT/PLAN: Patient is a 56 year old male with a significant past medical history of ETOH abuse, cocaine abuse, current everyday smoker, HIV+, Hepatitis C, hypertension and COPD. Patient reported history of pneumonia 2 weeks prior for which he was prescribed Bactrim, however he was inconsistent with taking the Bactrim. On 01/26 he was admitted to [facility] for detox for ETOH, cocaine and heroin use. He completed detox and was about to start rehab but he was noted by staff to be experiencing shortness of breath and wheezing with hypoxia @88%. He was treated with nebs and his Bactrim was increased to BID without improvement of his symptoms. On admission, He was noted to have a fever of 100.5, pulse of 110 with hypoxia @ 88% on 2 liters of NC. He was noted to also be wheezing with productive yellow sputum. Further he was weak and his gait was unsteady in the ED. Imaging: Chest Xray 01/29/2017: bilateral pulmonary consolidations, no pneumothorax, no large pleural effusions Chest Xray 01/30/2017: bilateral pulmonary consolidations unchanged from prior chest xray Chest CT 01/31/2017: Bilateral non specific alveolar infiltrates, minimal bilateral pleural effusion, atelectasis (likely chronic) on right lobe, centrilobular emphysema ID/Pulmonary: Sepsis secondary to Pneumonia/Chronic obstructive bronchitis/ PCP pneumonia/ with acute respiratory failure - improving A/P: On admission noted to have tachycardia, leukocytotis and fever of 102.2 which have since resolved Serial xrays show bilateral pulmonary consolidations, no large pleural effusions On Solumedrol q12 On Vanco (day 6), cifepime (day 5), Bactrim (was on this medication outpt) On airborne isolation pending TB (Qft), +MRSA in sputum Blood and urine cultures ngtd, 3rd Sputum cult pending Monitor respiratory status, continue airborne precautions HIV+ A/P: Reported to be non compliant with meds Started on antiviral medications by ID Psyche: Opiate dependance without evidence of withdrawal/ETOH dependence A/P: completed detox at [facility] (Methadone and Libirium) Rehab after d/c from hospital Tobacco Dependence A/P: Nicotine patch Counseled on cessation Cardiology: Hypertension A/P: BP at goal, on home dose of Norvasc 10mg F.E.N. Fluids: tolerating PO Electrolytes: within normal limits Nutrition: regular diet Prophylaxis: GI: protonix while on steroids DVT: Lovenox Physical therapy as tolerated Disposition: Requires inpatient hospitalization for his acute medical condition. Full Code. Visit type - Emergency Visit Emergency Visit: Yes ED Registration Date: 01/30/17 Care time: The patient presented to the Emergency Department on the above date and was hospitalized for further evaluation of their emergent condition. - New Patient This patient is new to me today: No - Critical Care Critical Care patient: No - Discharge Referral Referred to [facility] No
[2017-02-04] MEDS: QUEtiapine FUMARATE 100 MG TABLET (FP) PO SCH (21:08)
[2017-02-04] MEDS: LIDOCAINE PATCH REMOVAL MC SCH (21:12)
[2017-02-05] MEDS: CEFEPIME 1 GM/100 ML BAG PRE-DOCKED IVPB SCH ×4 (01:59→18:34)
[2017-02-05] MEDS: VANCOMYCIN 1 GRAM (PRE-DOCKED) 250 ML IVPB SCH ×3 (06:05→18:34)
[2017-02-05] MEDS: DOCUSATE SODIUM 100 MG CAPSULE (FP) PO SCH ×3 (06:05→23:23)
[2017-02-05 07:49] LABS: ALBUMIN 2.4 g/dl (3.4-5.0); ANION GAP 8 (8-16); BILIRUBIN,TOTAL 0.3 mg/dL (0.2-1.0); CALCIUM 8.8 mg/dL (8.5-10.1); CO2 30 mmol/L (21-32); CREATININE 0.6 mg/dL (0.7-1.3); GLUCOSE,RANDOM 125 mg/dL (74-106); SGOT/AST 13 U/L (15-37); SGPT/ALT 26 U/L (12-78); TOT PROT 6.5 g/dl (6.4-8.2)
[2017-02-05 07:50] LABS: ALK PHOS 88 U/L (45-117)
[2017-02-05 07:53] LABS: BASOPHIL 0.1 % (0-2.0); MCH 28.4 pg (25.7-33.7); MCHC 32.4 g/dl (32.0-35.9); MEAN CELL VOLUME 87.8 fl (80-96); MEAN PLT VOLUME 7.8 fl (7.5-11.1); NEUTROPHILS 85.7 % (42.8-82.8); PLATELET COUNT 425 K/MM3 (134-434); RDW 18.5 % (11.9-15.9); WHITE BLOOD COUNT 11.4 K/mm3 (4.0-10.0)
--- NOTE | 2017-02-05 10:23 | PN ---
Progress Note (short form) - Note Progress Note: spitting up saliva, vomited this am no abdominal pain, notes mid chest discomfort with cough no constipation Vital Signs no diarrhea Period Temp Pulse Resp BP Sys/Galdamez Pulse Ox Last 24 Hr 97.3 F-98.6 F 78-86 18-20 103-139/63-84 96 +thrush cor-rrr lungs decreased bs at bases abd soft,nt ext no edema CBC, BMP 02/05/17 06:00 02/05/17 06:00 Microbiology 02/02/17 07:40 Sputum - Expectorated AFB Smear Concentration - Preliminary 02/02/17 07:40 Sputum - Expectorated Direct Acid Fast Bacilli Smear - Final 02/02/17 07:40 Sputum - Expectorated Mycobacterial Culture - Preliminary 02/01/17 16:10 Sputum - Expectorated AFB Smear Concentration - Preliminary 02/01/17 16:10 Sputum - Expectorated Direct Acid Fast Bacilli Smear - Final 02/01/17 16:10 Sputum - Expectorated Mycobacterial Culture - Preliminary 01/31/17 05:35 Blood - Peripheral Venous TB Test (QFT) (MEGHA) - Preliminary 02/03/17 10:00 Sputum - Expectorated Direct Acid Fast Bacilli Smear - Final 02/03/17 10:00 Sputum - Expectorated Mycobacterial Culture - Preliminary 01/30/17 11:55 Blood - Peripheral Venous Blood Culture - Final NO GROWTH AFTER 5 DAYS INCUBATION 01/30/17 11:55 Blood - Peripheral Venous Blood Culture - Final NO GROWTH AFTER 5 DAYS INCUBATION 01/31/17 11:05 Sputum - Expectorated Gram Stain - Final 01/31/17 11:05 Sputum - Expectorated Sputum Culture - Final Yeast Like Organism Mr S Aureus 01/30/17 21:39 Sputum - Expectorated Gram Stain - Final 01/30/17 21:39 Sputum - Expectorated Sputum Culture - Final Yeast Like Organism 01/30/17 11:32 Urine - Urine Clean Catch Urine Culture - Final NO GROWTH OBTAINED Current Medications Abacavir Sulfate (Ziagen -) 300 mg PO BID JANETT Last Admin: 02/04/17 21:09 Dose: 300 mg Acetaminophen (Tylenol -) 650 mg PO Q4H PRN PRN Reason: FEVER OR PAIN Last Admin: 02/01/17 22:33 Dose: 650 mg Amlodipine Besylate (Norvasc -) 10 mg PO DAILY JANETT Last Admin: 02/04/17 11:15 Dose: 10 mg Cefepime HCl (Maxipime 1gm Ivpb Pre-Docked) 1 gm IVPB Q8H-IV [facility] Last Admin: 02/05/17 01:59 Dose: 1 gm Docusate Sodium (Colace -) 100 mg PO TID [facility] Last Admin: 02/05/17 06:05 Dose: Not Given Enoxaparin Sodium (Lovenox -) 40 mg SQ DAILY [facility] Last Admin: 02/04/17 11:14 Dose: 40 mg Guaifenesin (Robitussin -) 10 ml PO Q4H PRN PRN Reason: COUGH Last Admin: 02/04/17 11:16 Dose: 10 ml Vancomycin HCl (Vancomycin (Pre-Docked)) 250 mls @ 166.667 mls/hr IVPB Q12H [facility] Last Admin: 02/05/17 06:05 Dose: 166.667 mls/hr Lamivudine (Epivir -) 300 mg PO DAILY [facility] Last Admin: 02/04/17 11:17 Dose: 300 mg Lidocaine (Lidoderm Patch -) 1 patch TP DAILY [facility] Last Admin: 02/04/17 11:14 Dose: 1 patch Methylprednisolone Sodium Succinate (Solu-Medrol -) 40 mg IVPB BID [facility] Last Admin: 02/04/17 21:08 Dose: 40 mg Miscellaneous (Lidoderm Patch Removal) 1 each MC DAILY@2200 [facility] Last Admin: 02/04/17 21:12 Dose: 1 each Nicotine (Nicoderm Patch -) 14 mg TD DAILY [facility] Last Admin: 02/04/17 11:17 Dose: 14 mg Ondansetron HCl (Zofran Injection) 4 mg IVPB Q6H PRN PRN Reason: NAUSEA Pantoprazole Sodium (Protonix -) 40 mg PO DAILY [facility] Last Admin: 02/04/17 11:15 Dose: 40 mg Quetiapine Fumarate (Seroquel -) 100 mg PO HS [facility] Last Admin: 02/04/17 21:08 Dose: 100 mg Raltegravir (Isentress -) 400 mg PO BID [facility] Last Admin: 02/04/17 21:08 Dose: 400 mg Trimethoprim/Sulfamethoxazole (Bactrim Ds -) 1 each PO DAILY [facility] Last Admin: 02/04/17 11:15 Dose: 1 each a/p bilateral pneumonia aids thrush continue vancomycin and cefepime day #6 vanco level today add nystatin swish and swallow continue ART f/u sputum AFB, if 3rd sputum is negative, can d/c isolation
[2017-02-05] MEDS: PANTOPRAZOLE 40 MG TABLET (FP) PO SCH (10:24)
[2017-02-05] MEDS: amLODIPine BESYLATE 10 MG TABLET (FP) PO SCH (10:24)
[2017-02-05] MEDS: ENOXAPARIN NA (PORCINE) 40 MG/0.4 ML DISP.SYRIN SQ SCH (10:24)
[2017-02-05] MEDS: SULFAMETHOXAZOLE/TRIMETHOPRIM 800MG/160MG D.S. TABLET PO SCH (10:24)
[2017-02-05] MEDS: RALTEGRAVIR POTASSIUM 400 MG TAB PO SCH ×2 (10:25→23:22)
[2017-02-05] MEDS: LIDOCAINE 5% TOPICAL PATCH TP SCH ×2 (10:25→10:42)
[2017-02-05] MEDS: lamiVUDine 150 MG TABLET PO SCH (10:26)
[2017-02-05] MEDS: NICOTINE 14 MG/24 HOURS TOPICAL PATCH TD SCH (10:26)
[2017-02-05] MEDS: ABACAVIR SULFATE 300 MG TABLET PO SCH ×2 (10:27→23:24)
[2017-02-05] MEDS: methylPREDNISolone NA SUCC 40 MG/1 ML VIAL IVPB SCH ×2 (10:35→23:42)
--- NOTE | 2017-02-05 10:37 | PN ---
Physical Exam: SUBJECTIVE: Patient seen and examined. Denies chest pain or shortness of breath , tolerating room air. States he vomited x 1 today after eating breakfast provoked by increased secretions and coughing. He denies nausea. c/o of hiccups. OBJECTIVE: Vital Signs Period Temp Pulse Resp BP Sys/Galdamez Pulse Ox Last 24 Hr 97.3 F-98.6 F 78-86 18-20 103-139/63-84 96 GENERAL: The patient is awake, alert, and fully oriented, in no acute distress. HEAD: Normal with no signs of trauma. EYES: PERRL, extraocular movements intact, sclera anicteric, conjunctiva clear. No ptosis. ENT: Ears normal, nares patent, oropharynx clear without exudates, moist mucous membranes. NECK: Trachea midline, full range of motion, supple. LUNGS: No wheezing, breath sounds equal, clear to auscultation, diminished at the bases. HEART: Regular rate and rhythm ABDOMEN: Soft, nontender, nondistended, normoactive bowel sounds, no guarding, no rebound, no hepatosplenomegaly, no masses. EXTREMITIES: no edema. NEUROLOGICAL: Normal speech PSYCH: Normal mood, normal affect. SKIN: Warm, dry, normal turgor, no rashes or lesions noted Laboratory Results - last 24 hr 02/04/17 02/05/17 02/05/17 06:00 06:00 06:00 WBC 8.7 11.4 H D RBC 3.52 L 3.44 L Hgb 10.0 L 9.8 L Hct 30.8 L 30.2 L MCV 87.5 87.8 MCH 28.4 28.4 MCHC 32.5 32.4 RDW 18.6 H 18.5 H Plt Count 415 425 MPV 7.8 7.8 Neutrophils % 89.0 H 85.7 H Lymphocytes % 5.0 L D 9.9 D Monocytes % 5.0 4.3 Eosinophils % 0.0 Basophils % 0.1 Metamyelocytes 1 Differential Comment Manual diff done Platelet Estimate Adequate Sodium 141 Potassium 3.9 Chloride 103 Carbon Dioxide 30 Anion Gap 8 BUN 18 Creatinine 0.6 L Creat Clearance w eGFR > 60 Random Glucose 125 H Calcium 8.8 Total Bilirubin 0.3 D AST 13 L ALT 26 Alkaline Phosphatase 88 Total Protein 6.5 Albumin 2.4 L Active Medications Generic Name Dose Route Start Last Admin Trade Name Freq PRN Reason Stop Dose Admin Abacavir Sulfate 300 mg 02/02/17 22:00 02/05/17 10:27 Ziagen - PO 300 mg BID JANETT Administration Acetaminophen 650 mg 01/30/17 13:29 02/01/17 22:33 Tylenol - PO 650 mg Q4H PRN Administration FEVER OR PAIN Amlodipine Besylate 10 mg 02/04/17 10:00 02/05/17 10:24 Norvasc - PO 10 mg DAILY JANETT Administration Cefepime HCl 1 gm 01/31/17 18:15 02/05/17 10:24 Maxipime 1gm Ivpb Pre-Docked IVPB 1 gm Q8H-IV JANETT Administration Clotrimazole 10 mg 02/05/17 14:00 Mycelex Patrick's - PO 5XD JANETT Docusate Sodium 100 mg 01/30/17 14:00 02/05/17 06:05 Colace - PO Not Given TID JANETT Enoxaparin Sodium 40 mg 01/31/17 10:00 02/05/17 10:24 Lovenox - SQ 40 mg DAILY JANETT Administration Guaifenesin 10 ml 01/31/17 21:32 02/04/17 11:16 Robitussin - PO 10 ml Q4H PRN Administration COUGH Vancomycin HCl 250 mls @ 166.667 mls/hr 01/30/17 18:00 02/05/17 06:05 Vancomycin (Pre-Docked) IVPB 166.667 mls/hr Q12H JANETT Administration Lamivudine 300 mg 02/02/17 18:52 02/05/17 10:26 Epivir - PO 300 mg DAILY JANETT Administration Lidocaine 1 patch 02/02/17 10:00 02/05/17 10:25 Lidoderm Patch - TP 1 patch DAILY JANETT Administration Methylprednisolone Sodium Succinate 40 mg 02/02/17 22:00 02/05/17 10:35 Solu-Medrol - IVPB 40 mg BID JANETT Administration Miscellaneous 1 each 02/02/17 22:00 02/04/17 21:12 Lidoderm Patch Removal MC 1 each DAILY@2200 JANETT Administration Nicotine 14 mg 01/31/17 10:00 02/05/17 10:26 Nicoderm Patch - TD 14 mg DAILY JANETT Administration Nystatin 500,000 units 02/05/17 12:00 Nystatin Oral Suspension - PO Q6HPO JANETT Ondansetron HCl 4 mg 01/30/17 13:29 Zofran Injection IVPB Q6H PRN NAUSEA Pantoprazole Sodium 40 mg 02/01/17 10:00 02/05/17 10:24 Protonix - PO 40 mg DAILY JANETT Administration Quetiapine Fumarate 100 mg 01/30/17 22:00 02/04/17 21:08 Seroquel - PO 100 mg HS JANETT Administration Raltegravir 400 mg 02/02/17 22:00 02/05/17 10:25 Isentress - PO 400 mg BID JANETT Administration Trimethoprim/Sulfamethoxazole 1 each 01/31/17 10:00 02/05/17 10:24 Bactrim Ds - PO 1 each DAILY JANETT Administration ASSESSMENT/PLAN: Patient is a 56 year old male with a significant past medical history of ETOH abuse, cocaine abuse, current everyday smoker, HIV+, Hepatitis C, hypertension and COPD. Patient reported history of pneumonia 2 weeks prior for which he was prescribed Bactrim, however he was inconsistent with taking the Bactrim. On 01/26 he was admitted to [facility] for detox for ETOH, cocaine and heroin use. He completed detox and was about to start rehab but he was noted by staff to be experiencing shortness of breath and wheezing with hypoxia @88%. He was treated with nebs and his Bactrim was increased to BID without improvement of his symptoms. On admission, He was noted to have a fever of 100.5, pulse of 110 with hypoxia @ 88% on 2 liters of NC. He was noted to also be wheezing with productive yellow sputum. Further he was weak and his gait was unsteady in the ED. Imaging: Chest Xray 01/29/2017: bilateral pulmonary consolidations, no pneumothorax, no large pleural effusions Chest Xray 01/30/2017: bilateral pulmonary consolidations unchanged from prior chest xray Chest CT 01/31/2017: Bilateral non specific alveolar infiltrates, minimal bilateral pleural effusion, atelectasis (likely chronic) on right lobe, centrilobular emphysema ID/Pulmonary: Sepsis secondary to Pneumonia/Chronic obstructive bronchitis/ PCP pneumonia/ with acute respiratory failure - improving A/P: On admission noted to have tachycardia, leukocytotis and fever of 102.2 which have since resolved Serial xrays show bilateral pulmonary consolidations, no large pleural effusions On Solumedrol q12 On Vanco (day 7), cifepime (day 6), Bactrim (was on this medication outpt) On airborne isolation pending TB (Qft), +MRSA in sputum Blood and urine cultures ngtd, 3rd Sputum cult pending Monitor respiratory status, continue airborne precautions HIV+ A/P: Reported to be non compliant with meds Started on antiviral medications by ID Psyche: Opiate dependance without evidence of withdrawal/ETOH dependence A/P: completed detox at [facility] (Methadone and Libirium) Rehab after d/c from hospital Tobacco Dependence A/P: Nicotine patch Counseled on cessation Cardiology: Hypertension A/P: BP at goal, on home dose of Norvasc 10mg F.E.N. Fluids: tolerating PO Electrolytes: within normal limits Nutrition: regular diet Prophylaxis: GI: protonix while on steroids DVT: Lovenox Physical therapy as tolerated Disposition: Requires inpatient hospitalization for his acute medical condition. Full Code. Visit type - Emergency Visit Emergency Visit: Yes ED Registration Date: 01/30/17 Care time: The patient presented to the Emergency Department on the above date and was hospitalized for further evaluation of their emergent condition. - New Patient This patient is new to me today: No - Critical Care Critical Care patient: No - Discharge Referral Referred to [facility] No
[2017-02-05] MEDS: NYSTATIN 500,000 UNITS/5 ML SUSPENSION PO SCH ×2 (12:24→17:23)
--- NOTE | 2017-02-05 13:51 | PN ---
Progress Note (short form) - Note Progress Note: PULMONARY Has been vomiting today. +cough. No fevers or chills. Last Vital Signs Temp Pulse Resp BP Pulse Ox 98.5 F 82 18 128/82 96 02/05/17 08:45 02/05/17 08:45 02/05/17 08:45 02/05/17 08:45 02/04/17 21:00 Gen: NAD at rest Heart: RRR Lung: scattered bilateral rhonchi Abd: soft, nontender Ext: no edema CBC, BMP 02/05/17 06:00 02/05/17 06:00 Active Medications Abacavir Sulfate (Ziagen -) 300 mg PO BID [facility] Last Admin: 02/05/17 10:27 Dose: 300 mg Acetaminophen (Tylenol -) 650 mg PO Q4H PRN PRN Reason: FEVER OR PAIN Last Admin: 02/01/17 22:33 Dose: 650 mg Amlodipine Besylate (Norvasc -) 10 mg PO DAILY [facility] Last Admin: 02/05/17 10:24 Dose: 10 mg Cefepime HCl (Maxipime 1gm Ivpb Pre-Docked) 1 gm IVPB Q8H-IV [facility] Last Admin: 02/05/17 10:24 Dose: 1 gm Clotrimazole (Mycelex Patrick's -) 10 mg PO 5XD [facility] Docusate Sodium (Colace -) 100 mg PO TID [facility] Last Admin: 02/05/17 06:05 Dose: Not Given Enoxaparin Sodium (Lovenox -) 40 mg SQ DAILY [facility] Last Admin: 02/05/17 10:24 Dose: 40 mg Guaifenesin (Robitussin -) 10 ml PO Q4H PRN PRN Reason: COUGH Last Admin: 02/04/17 11:16 Dose: 10 ml Vancomycin HCl (Vancomycin (Pre-Docked)) 250 mls @ 166.667 mls/hr IVPB Q12H [facility] Last Admin: 02/05/17 06:05 Dose: 166.667 mls/hr Lamivudine (Epivir -) 300 mg PO DAILY [facility] Last Admin: 02/05/17 10:26 Dose: 300 mg Lidocaine (Lidoderm Patch -) 1 patch TP DAILY [facility] Last Admin: 02/05/17 10:42 Dose: Not Given Methylprednisolone Sodium Succinate (Solu-Medrol -) 40 mg IVPB BID [facility] Last Admin: 02/05/17 10:35 Dose: 40 mg Miscellaneous (Lidoderm Patch Removal) 1 each MC DAILY@2200 [facility] Last Admin: 02/04/17 21:12 Dose: 1 each Nicotine (Nicoderm Patch -) 14 mg TD DAILY [facility] Last Admin: 02/05/17 10:26 Dose: 14 mg Nystatin (Nystatin Oral Suspension -) 500,000 units PO Q6HPO [facility] Last Admin: 02/05/17 12:24 Dose: 500,000 units Ondansetron HCl (Zofran Injection) 4 mg IVPB Q6H PRN PRN Reason: NAUSEA Pantoprazole Sodium (Protonix -) 40 mg PO DAILY [facility] Last Admin: 02/05/17 10:24 Dose: 40 mg Quetiapine Fumarate (Seroquel -) 100 mg PO HS [facility] Last Admin: 02/04/17 21:08 Dose: 100 mg Raltegravir (Isentress -) 400 mg PO BID [facility] Last Admin: 02/05/17 10:25 Dose: 400 mg Trimethoprim/Sulfamethoxazole (Bactrim Ds -) 1 each PO DAILY [facility] Last Admin: 02/05/17 10:24 Dose: 1 each A/P Pneumonia HIV/AIDS COPD Smoker - continue antibiotics - medrol at current dose - inhaled bronchodilators - continue ART - O2 to keep SpO2 >90% - DVT prophylaxis - smoking cessation
[2017-02-05] MEDS: CLOTRIMAZOLE 10 MG TROCHE (FP) PO SCH ×3 (14:19→23:22)
[2017-02-05] MEDS ORDERED: ALBUTEROL SO4 2.5/IPRATROPIUM 0.5 INH SOL 3 ML VIAL.NEB. NEB ONE (17:06)
[2017-02-05] MEDS: LIDOCAINE PATCH REMOVAL MC SCH (23:22)
[2017-02-05] MEDS: QUEtiapine FUMARATE 100 MG TABLET (FP) PO SCH (23:22)
[2017-02-05] MEDS: guaiFENesin 200 MG/10 ML 10 ML UNIT-DOSE CUPS PO PRN (23:48)
[2017-02-06] MEDS: NYSTATIN 500,000 UNITS/5 ML SUSPENSION PO SCH ×4 (00:24→17:19)
[2017-02-06] MEDS: CEFEPIME 1 GM/100 ML BAG PRE-DOCKED IVPB SCH ×3 (01:01→17:00)
[2017-02-06] MEDS: DOCUSATE SODIUM 100 MG CAPSULE (FP) PO SCH ×3 (06:13→23:06)
[2017-02-06] MEDS: VANCOMYCIN 1 GRAM (PRE-DOCKED) 250 ML IVPB SCH ×2 (06:13→17:01)
[2017-02-06] MEDS: CLOTRIMAZOLE 10 MG TROCHE (FP) PO SCH ×5 (06:13→23:07)
[2017-02-06 08:32] LABS: ALBUMIN 2.5 g/dl (3.4-5.0); ANION GAP 9 (8-16); BILIRUBIN,TOTAL 0.4 mg/dL (0.2-1.0); CALCIUM 9.1 mg/dL (8.5-10.1); CO2 29 mmol/L (21-32); CREATININE 0.7 mg/dL (0.7-1.3); GLUCOSE,RANDOM 110 mg/dL (74-106); SGOT/AST 13 U/L (15-37); SGPT/ALT 29 U/L (12-78)
[2017-02-06 08:37] LABS: ALK PHOS 92 U/L (45-117); TOT PROT 6.4 g/dl (6.4-8.2)
[2017-02-06 09:02] LABS: BASOPHIL 0.4 % (0-2.0); MCHC 31.6 g/dl (32.0-35.9); MEAN CELL VOLUME 88.5 fl (80-96); MEAN PLT VOLUME 7.4 fl (7.5-11.1); NEUTROPHILS 87.5 % (42.8-82.8); PLATELET COUNT 397 K/MM3 (134-434); WHITE BLOOD COUNT 10.9 K/mm3 (4.0-10.0)
--- NOTE | 2017-02-06 09:47 | PN ---
Physical Exam: SUBJECTIVE: Patient seen and examined. States he is having midsternal chest pain, does not radiate. No shortness of breath, no jaw pain. Productive cough. OBJECTIVE: Chest pain likely secondary to coughing spells, but CP not reproducible on palpation of chest: will order trops now, EKG K 3.4, repleted wth PO Kdur 40meq x 1 Vital Signs Period Temp Pulse Resp BP Sys/Galdamez Pulse Ox Last 24 Hr 98.1 F-98.3 F 89-105 16-20 108-125/71-74 GENERAL: The patient is awake, alert, and fully oriented, in no acute distress. HEAD: Normal with no signs of trauma. EYES: PERRL, extraocular movements intact, sclera anicteric, conjunctiva clear. No ptosis. ENT: Ears normal, nares patent, oropharynx clear without exudates, moist mucous membranes. NECK: Trachea midline, full range of motion, supple. LUNGS: No wheezing, breath sounds equal, clear to auscultation, diminished at the bases. HEART: Regular rate and rhythm ABDOMEN: Soft, nontender, nondistended, normoactive bowel sounds, no guarding, no rebound, no hepatosplenomegaly, no masses. EXTREMITIES: no edema. NEUROLOGICAL: Normal speech PSYCH: Normal mood, normal affect. SKIN: Warm, dry, normal turgor, no rashes or lesions noted Laboratory Results - last 24 hr 02/05/17 02/06/17 02/06/17 17:20 07:00 08:15 WBC 10.9 H RBC 3.59 L Hgb 10.0 L Hct 31.7 L MCV 88.5 MCH 28.0 MCHC 31.6 L RDW 19.0 H Plt Count 397 MPV 7.4 L Neutrophils % 87.5 H Lymphocytes % 8.3 Monocytes % 3.8 Eosinophils % 0.0 Basophils % 0.4 D Sodium 144 Potassium 3.4 L Chloride 106 Carbon Dioxide 29 Anion Gap 9 BUN 23 H D Creatinine 0.7 Creat Clearance w eGFR > 60 Random Glucose 110 H Calcium 9.1 Total Bilirubin 0.4 D AST 13 L ALT 29 Alkaline Phosphatase 92 Total Protein 6.4 Albumin 2.5 L Vancomycin Pre-Dose 15.152 H* D Active Medications Generic Name Dose Route Start Last Admin Trade Name Freq PRN Reason Stop Dose Admin Abacavir Sulfate 300 mg 02/02/17 22:00 02/05/17 23:24 Ziagen - PO 300 mg BID JANETT Administration Acetaminophen 650 mg 01/30/17 13:29 02/01/17 22:33 Tylenol - PO 650 mg Q4H PRN Administration FEVER OR PAIN Amlodipine Besylate 10 mg 02/04/17 10:00 02/05/17 10:24 Norvasc - PO 10 mg DAILY JANETT Administration Cefepime HCl 1 gm 01/31/17 18:15 02/06/17 01:01 Maxipime 1gm Ivpb Pre-Docked IVPB 1 gm Q8H-IV JANETT Administration Clotrimazole 10 mg 02/05/17 14:00 02/06/17 06:13 Mycelex Patrick's - PO 10 mg 5XD JANETT Administration Docusate Sodium 100 mg 01/30/17 14:00 02/06/17 06:13 Colace - PO Not Given TID JANETT Enoxaparin Sodium 40 mg 01/31/17 10:00 02/05/17 10:24 Lovenox - SQ 40 mg DAILY JANETT Administration Guaifenesin 10 ml 01/31/17 21:32 02/05/17 23:48 Robitussin - PO 10 ml Q4H PRN Administration COUGH Vancomycin HCl 250 mls @ 166.667 mls/hr 01/30/17 18:00 02/06/17 06:13 Vancomycin (Pre-Docked) IVPB 166.667 mls/hr Q12H JANETT Administration Lamivudine 300 mg 02/02/17 18:52 02/05/17 10:26 Epivir - PO 300 mg DAILY JANETT Administration Lidocaine 1 patch 02/02/17 10:00 02/05/17 10:42 Lidoderm Patch - TP Not Given DAILY JANETT Methylprednisolone Sodium Succinate 40 mg 02/02/17 22:00 02/05/17 23:42 Solu-Medrol - IVPB 40 mg BID JANETT Administration Miscellaneous 1 each 02/02/17 22:00 02/05/17 23:22 Lidoderm Patch Removal MC Not Given DAILY@2200 JANETT Nicotine 14 mg 01/31/17 10:00 02/05/17 10:26 Nicoderm Patch - TD 14 mg DAILY JANETT Administration Nystatin 500,000 units 02/05/17 12:00 02/06/17 06:13 Nystatin Oral Suspension - PO 500,000 units Q6HPO JANETT Administration Ondansetron HCl 4 mg 01/30/17 13:29 Zofran Injection IVPB Q6H PRN NAUSEA Pantoprazole Sodium 40 mg 02/01/17 10:00 02/05/17 10:24 Protonix - PO 40 mg DAILY JANETT Administration Potassium Chloride 40 meq 02/06/17 09:44 K-Dur - PO 02/06/17 09:45 ONCE ONE Quetiapine Fumarate 100 mg 01/30/17 22:00 02/05/17 23:22 Seroquel - PO 100 mg HS JANETT Administration Raltegravir 400 mg 02/02/17 22:00 02/05/17 23:22 Isentress - PO 400 mg BID JANETT Administration Trimethoprim/Sulfamethoxazole 1 each 01/31/17 10:00 02/05/17 10:24 Bactrim Ds - PO 1 each DAILY JANETT Administration ASSESSMENT/PLAN: Patient is a 56 year old male with a significant past medical history of ETOH abuse, cocaine abuse, current everyday smoker, HIV+, Hepatitis C, hypertension and COPD. Patient reported history of pneumonia 2 weeks prior for which he was prescribed Bactrim, however he was inconsistent with taking the Bactrim. On 01/26 he was admitted to [facility] for detox for ETOH, cocaine and heroin use. He completed detox and was about to start rehab but he was noted by staff to be experiencing shortness of breath and wheezing with hypoxia @88%. He was treated with nebs and his Bactrim was increased to BID without improvement of his symptoms. On admission, He was noted to have a fever of 100.5, pulse of 110 with hypoxia @ 88% on 2 liters of NC. He was noted to also be wheezing with productive yellow sputum. Further he was weak and his gait was unsteady in the ED. Imaging: Chest Xray 01/29/2017: bilateral pulmonary consolidations, no pneumothorax, no large pleural effusions Chest Xray 01/30/2017: bilateral pulmonary consolidations unchanged from prior chest xray Chest CT 01/31/2017: Bilateral non specific alveolar infiltrates, minimal bilateral pleural effusion, atelectasis (likely chronic) on right lobe, centrilobular emphysema ID/Pulmonary: Sepsis secondary to Pneumonia/Chronic obstructive bronchitis/ PCP pneumonia - improving A/P: On admission noted to have tachycardia, leukocytosis and fever of 102.2. Has mild leukocytosis, remains afebrile, mild tachycardia Serial xrays show bilateral pulmonary consolidations, no large pleural effusions On Solumedrol 40mg q12 On Vanco (day 8), cifepime (day 7), Bactrim (was on this medication outpt) On airborne isolation pending TB (Qft), +MRSA in sputum Blood and urine cultures ngtd, 3rd Sputum cult pending Continue airborne precautions pending 3rd sputum cult. HIV+ A/P: Reported to be non compliant with meds Started on antiviral medications by ID Psyche: Opiate dependance without evidence of withdrawal/ETOH dependence A/P: completed detox at [facility] (Methadone and Libirium) Rehab after d/c from hospital Tobacco Dependence A/P: Nicotine patch Counseled on cessation Cardiology: Hypertension A/P: BP at goal, on home dose of Norvasc 10mg Recent use of cocaine Chest Pain: A/P: chest pain not reproducible on palpation Trend troponins EKG 02/06/2017 NSR with upward coving of ST segment in leads II, III, VF, V5, V6 F.E.N. Fluids: tolerating PO Electrolytes: within normal limits Nutrition: regular diet Prophylaxis: GI: protonix while on steroids DVT: Lovenox Physical therapy as tolerated Disposition: Requires inpatient hospitalization for his acute medical condition. Full Code. Visit type - Emergency Visit Emergency Visit: Yes ED Registration Date: 01/30/17 Care time: The patient presented to the Emergency Department on the above date and was hospitalized for further evaluation of their emergent condition. - New Patient This patient is new to me today: No - Critical Care Critical Care patient: No - Discharge Referral Referred to [facility] No
[2017-02-06] MEDS ORDERED: POTASSIUM CHLORIDE TABS 20 MEQ TABLET.ER (FP) PO ONE (10:00)
--- NOTE | 2017-02-06 10:26 | EKG ---
Test Reason : Blood Pressure : / mmHG Vent. Rate : 087 BPM Atrial Rate : 087 BPM P-R Int : 138 ms QRS Dur : 086 ms QT Int : 372 ms P-R-T Axes : 085 063 071 degrees QTc Int : 447 ms NORMAL SINUS RHYTHM EARLY REPOLARIZATION WHEN COMPARED WITH ECG OF 30-JAN-2017 10:57, UPWARD COVING OF ST SEGMENTS IN IN II III aVF AND V5-V6 CLINICAL CORRELATION IS RECOMMENDED Confirmed by JIGNA MANN MD ([id number]) on 02/06/2017 10:26:19 AM Referred By: Ina MADDEN Confirmed By:JIGNA MANN MD
[2017-02-06] MEDS ORDERED: PT OWN MED DRAWER 7, Y5N ONE (10:34)
[2017-02-06] MEDS: SULFAMETHOXAZOLE/TRIMETHOPRIM 800MG/160MG D.S. TABLET PO SCH (10:39)
[2017-02-06] MEDS: methylPREDNISolone NA SUCC 40 MG/1 ML VIAL IVPB SCH ×2 (10:39→23:05)
[2017-02-06] MEDS: amLODIPine BESYLATE 10 MG TABLET (FP) PO SCH (10:40)
[2017-02-06] MEDS: ENOXAPARIN NA (PORCINE) 40 MG/0.4 ML DISP.SYRIN SQ SCH (10:40)
[2017-02-06] MEDS: LIDOCAINE 5% TOPICAL PATCH TP SCH (10:40)
[2017-02-06] MEDS: PANTOPRAZOLE 40 MG TABLET (FP) PO SCH (10:40)
[2017-02-06] MEDS: NICOTINE 14 MG/24 HOURS TOPICAL PATCH TD SCH (10:42)
[2017-02-06] MEDS: ABACAVIR SULFATE 300 MG TABLET PO SCH ×2 (10:43→23:07)
[2017-02-06] MEDS: RALTEGRAVIR POTASSIUM 400 MG TAB PO SCH ×2 (10:43→23:05)
[2017-02-06] MEDS: lamiVUDine 150 MG TABLET PO SCH (10:44)
--- NOTE | 2017-02-06 15:01 | PN ---
Progress Note (short form) - Note Progress Note: PULMONARY Reports persistent hiccups. +cough. No fevers or chills. Last Vital Signs Temp Pulse Resp BP Pulse Ox 98.2 F 105 H 16 125/71 96 02/06/17 06:00 02/06/17 06:00 02/06/17 08:54 02/06/17 06:00 02/04/17 21:00 Gen: NAD at rest Heart: RRR Lung: scattered bilateral rhonchi Abd: soft, nontender Ext: no edema CBC, BMP 02/06/17 08:15 02/06/17 07:00 Active Medications Abacavir Sulfate (Ziagen -) 300 mg PO BID [facility] Last Admin: 02/06/17 10:43 Dose: 300 mg Acetaminophen (Tylenol -) 650 mg PO Q4H PRN PRN Reason: FEVER OR PAIN Last Admin: 02/01/17 22:33 Dose: 650 mg Amlodipine Besylate (Norvasc -) 10 mg PO DAILY [facility] Last Admin: 02/06/17 10:40 Dose: 10 mg Cefepime HCl (Maxipime 1gm Ivpb Pre-Docked) 1 gm IVPB Q8H-IV JANETT Last Admin: 02/06/17 10:40 Dose: 1 gm Clotrimazole (Mycelex Patrick's -) 10 mg PO 5XD [facility] Last Admin: 02/06/17 13:54 Dose: 10 mg Docusate Sodium (Colace -) 100 mg PO TID [facility] Last Admin: 02/06/17 13:54 Dose: Not Given Enoxaparin Sodium (Lovenox -) 40 mg SQ DAILY [facility] Last Admin: 02/06/17 10:40 Dose: 40 mg Guaifenesin (Robitussin -) 10 ml PO Q4H PRN PRN Reason: COUGH Last Admin: 02/05/17 23:48 Dose: 10 ml Vancomycin HCl (Vancomycin (Pre-Docked)) 250 mls @ 166.667 mls/hr IVPB Q12H [facility] Last Admin: 02/06/17 06:13 Dose: 166.667 mls/hr Lamivudine (Epivir -) 300 mg PO DAILY [facility] Last Admin: 02/06/17 10:44 Dose: 300 mg Lidocaine (Lidoderm Patch -) 1 patch TP DAILY [facility] Last Admin: 02/06/17 10:40 Dose: Not Given Methylprednisolone Sodium Succinate (Solu-Medrol -) 40 mg IVPB BID [facility] Last Admin: 02/06/17 10:39 Dose: 40 mg Miscellaneous (Lidoderm Patch Removal) 1 each MC DAILY@2200 [facility] Last Admin: 02/05/17 23:22 Dose: Not Given Nicotine (Nicoderm Patch -) 14 mg TD DAILY [facility] Last Admin: 02/06/17 10:42 Dose: 14 mg Nystatin (Nystatin Oral Suspension -) 500,000 units PO Q6HPO [facility] Last Admin: 02/06/17 13:04 Dose: 500,000 units Ondansetron HCl (Zofran Injection) 4 mg IVPB Q6H PRN PRN Reason: NAUSEA Pantoprazole Sodium (Protonix -) 40 mg PO DAILY [facility] Last Admin: 02/06/17 10:40 Dose: 40 mg Quetiapine Fumarate (Seroquel -) 100 mg PO HS [facility] Last Admin: 02/05/17 23:22 Dose: 100 mg Raltegravir (Isentress -) 400 mg PO BID [facility] Last Admin: 02/06/17 10:43 Dose: 400 mg Trimethoprim/Sulfamethoxazole (Bactrim Ds -) 1 each PO DAILY [facility] Last Admin: 02/06/17 10:39 Dose: 1 each A/P Pneumonia HIV/AIDS COPD Smoker - continue antibiotics - medrol at current dose, can taper in AM to daily dosing - inhaled bronchodilators - continue ART - O2 to keep SpO2 >90% - DVT prophylaxis - smoking cessation
--- NOTE | 2017-02-06 15:46 | PN ---
Progress Note (short form) - Note Progress Note: spitting up saliva, hungry wants a snack intermittent chest discomfort with cough Vital Signs Period Temp Pulse Resp BP Sys/Galdamez Pulse Ox Last 24 Hr 97.2 F-98.2 F 89-105 16-22 117-125/70-74 no thrush cor-rrr lungs scattered rhonchi abd soft,nt ext no edema CBC, BMP 02/06/17 08:15 02/06/17 07:00 Microbiology 01/31/17 05:35 Blood - Peripheral Venous TB Test (QFT) (MEGHA) - Final 02/01/17 16:10 Sputum - Expectorated AFB Smear Concentration - Final 02/01/17 16:10 Sputum - Expectorated Direct Acid Fast Bacilli Smear - Final 02/01/17 16:10 Sputum - Expectorated Mycobacterial Culture - Preliminary 02/02/17 07:40 Sputum - Expectorated AFB Smear Concentration - Final 02/02/17 07:40 Sputum - Expectorated Direct Acid Fast Bacilli Smear - Final 02/02/17 07:40 Sputum - Expectorated Mycobacterial Culture - Preliminary 02/03/17 10:00 Sputum - Expectorated Direct Acid Fast Bacilli Smear - Final 02/03/17 10:00 Sputum - Expectorated Mycobacterial Culture - Preliminary 01/30/17 11:55 Blood - Peripheral Venous Blood Culture - Final NO GROWTH AFTER 5 DAYS INCUBATION 01/30/17 11:55 Blood - Peripheral Venous Blood Culture - Final NO GROWTH AFTER 5 DAYS INCUBATION 01/31/17 11:05 Sputum - Expectorated Gram Stain - Final 01/31/17 11:05 Sputum - Expectorated Sputum Culture - Final Yeast Like Organism Mr S Aureus 01/30/17 21:39 Sputum - Expectorated Gram Stain - Final 01/30/17 21:39 Sputum - Expectorated Sputum Culture - Final Yeast Like Organism 01/30/17 11:32 Urine - Urine Clean Catch Urine Culture - Final NO GROWTH OBTAINED Laboratory Tests 02/05/17 17:20 Vancomycin Pre-Dose 15.152 H* D a/p bilateral pneumonia aids thrush continue vancomycin and cefepime day #7 continue ART f/u sputum AFB, if 3rd sputum is negative, can d/c isolation called [facility] they will check with reference lab
[2017-02-06] MEDS: LIDOCAINE PATCH REMOVAL MC SCH (23:06)
[2017-02-06] MEDS: QUEtiapine FUMARATE 100 MG TABLET (FP) PO SCH (23:07)
[2017-02-07] MEDS: CEFEPIME 1 GM/100 ML BAG PRE-DOCKED IVPB SCH ×2 (01:09→15:51)
[2017-02-07] MEDS: NYSTATIN 500,000 UNITS/5 ML SUSPENSION PO SCH ×4 (01:11→17:36)
[2017-02-07] MEDS: VANCOMYCIN 1 GRAM (PRE-DOCKED) 250 ML IVPB SCH (06:34)
[2017-02-07] MEDS: DOCUSATE SODIUM 100 MG CAPSULE (FP) PO SCH ×3 (06:34→22:49)
[2017-02-07] MEDS: CLOTRIMAZOLE 10 MG TROCHE (FP) PO SCH ×5 (06:34→22:48)
[2017-02-07 07:39] LABS: MCH 28.3 pg (25.7-33.7); MCHC 32.1 g/dl (32.0-35.9); MEAN CELL VOLUME 88.2 fl (80-96); MEAN PLT VOLUME 7.8 fl (7.5-11.1); PLATELET COUNT 367 K/MM3 (134-434); RDW 18.4 % (11.9-15.9); WHITE BLOOD COUNT 9.7 K/mm3 (4.0-10.0)
[2017-02-07 08:05] LABS: ALBUMIN 2.4 g/dl (3.4-5.0); ALK PHOS 85 U/L (45-117); ANION GAP 9 (8-16); BILIRUBIN,TOTAL 0.3 mg/dL (0.2-1.0); CALCIUM 8.6 mg/dL (8.5-10.1); CO2 28 mmol/L (21-32); CREATININE 0.7 mg/dL (0.7-1.3); GLUCOSE,RANDOM 151 mg/dL (74-106); SGOT/AST 13 U/L (15-37); SGPT/ALT 28 U/L (12-78); TOT PROT 6.1 g/dl (6.4-8.2)
--- NOTE | 2017-02-07 09:53 | PN ---
Progress Note (short form) - Note Progress Note: Subjective: The patient was seen and examined at the bedside, he reports having hiccups and vomiting. Will give Reglan x1 and monitor Hiccups may be 2/2 to pneumonia? F/u abd x-ray, r/o GI source for hiccups Current Medications Generic Name Dose Route Start Last Admin Trade Name Freq PRN Reason Stop Dose Admin Abacavir Sulfate 300 mg 02/02/17 22:00 02/06/17 23:07 Ziagen - PO 300 mg BID JANETT Administration Acetaminophen 650 mg 01/30/17 13:29 02/01/17 22:33 Tylenol - PO 650 mg Q4H PRN Administration FEVER OR PAIN Amlodipine Besylate 10 mg 02/04/17 10:00 02/06/17 10:40 Norvasc - PO 10 mg DAILY JANETT Administration Cefepime HCl 1 gm 01/31/17 18:15 02/07/17 01:09 Maxipime 1gm Ivpb Pre-Docked IVPB 1 gm Q8H-IV JANETT Administration Clotrimazole 10 mg 02/05/17 14:00 02/07/17 06:34 Mycelex Aptrick's - PO 10 mg 5XD JANETT Administration Docusate Sodium 100 mg 01/30/17 14:00 02/07/17 06:34 Colace - PO Not Given TID JANETT Enoxaparin Sodium 40 mg 01/31/17 10:00 02/06/17 10:40 Lovenox - SQ 40 mg DAILY JANETT Administration Guaifenesin 10 ml 01/31/17 21:32 02/05/17 23:48 Robitussin - PO 10 ml Q4H PRN Administration COUGH Vancomycin HCl 250 mls @ 166.667 mls/hr 01/30/17 18:00 02/07/17 06:34 Vancomycin (Pre-Docked) IVPB 166.667 mls/hr Q12H JANETT Administration Lamivudine 300 mg 02/02/17 18:52 02/06/17 10:44 Epivir - PO 300 mg DAILY JANETT Administration Lidocaine 1 patch 02/02/17 10:00 02/06/17 10:40 Lidoderm Patch - TP Not Given DAILY JANETT Methylprednisolone Sodium Succinate 40 mg 02/02/17 22:00 02/06/17 23:05 Solu-Medrol - IVPB 40 mg BID JANETT Administration Miscellaneous 1 each 02/02/17 22:00 02/06/17 23:06 Lidoderm Patch Removal MC Not Given DAILY@2200 JANETT Nicotine 14 mg 01/31/17 10:00 02/06/17 10:42 Nicoderm Patch - TD 14 mg DAILY JANETT Administration Nystatin 500,000 units 02/05/17 12:00 02/07/17 06:35 Nystatin Oral Suspension - PO 500,000 units Q6HPO JANETT Administration Ondansetron HCl 4 mg 01/30/17 13:29 Zofran Injection IVPB Q6H PRN NAUSEA Pantoprazole Sodium 40 mg 02/01/17 10:00 02/06/17 10:40 Protonix - PO 40 mg DAILY JANETT Administration Quetiapine Fumarate 100 mg 01/30/17 22:00 02/06/17 23:07 Seroquel - PO 100 mg HS JANETT Administration Raltegravir 400 mg 02/02/17 22:00 02/06/17 23:05 Isentress - PO 400 mg BID JANETT Administration Trimethoprim/Sulfamethoxazole 1 each 01/31/17 10:00 02/06/17 10:39 Bactrim Ds - PO 1 each DAILY JANETT Administration Objective: Vital Signs Period Temp Pulse Resp BP Sys/Galdamez Pulse Ox Last 24 Hr 97.2 F-98.2 F 72-96 18-22 117-136/70-79 Physical Exam: General: NAD, A&Ox3, Thin Lungs: CTA bilaterally Heart: RRR, S1S2 Abd: Soft, non-tender, non-distended. Normoactive bowel sounds Ext: Warm, well-perfused 2+ DP/PT bilaterally Neuro: CN 2-12 intact CBCD WBC 9.7 K/mm3 (4.0-10.0) 02/07/17 05:35 RBC 3.41 M/mm3 (4.00-5.60) L 02/07/17 05:35 Hgb 9.7 GM/dL (11.7-16.9) L 02/07/17 05:35 Hct 30.1 % (35.4-49) L 02/07/17 05:35 MCV 88.2 fl (80-96) 02/07/17 05:35 MCHC 32.1 g/dl (32.0-35.9) 02/07/17 05:35 RDW 18.4 % (11.9-15.9) H 02/07/17 05:35 Plt Count 367 K/MM3 (134-434) 02/07/17 05:35 MPV 7.8 fl (7.5-11.1) 02/07/17 05:35 CMP Sodium 142 mmol/L (136-145) 02/07/17 05:35 Potassium 3.7 mmol/L (3.5-5.1) 02/07/17 05:35 Chloride 105 mmol/L (98-107) 02/07/17 05:35 Carbon Dioxide 28 mmol/L (21-32) 02/07/17 05:35 Anion Gap 9 (8-16) 02/07/17 05:35 BUN 20 mg/dL (7-18) H 02/07/17 05:35 Creatinine 0.7 mg/dL (0.7-1.3) 02/07/17 05:35 Creat Clearance w eGFR > 60 (>60) 02/07/17 05:35 Random Glucose 151 mg/dL (74-106) H D 02/07/17 05:35 Calcium 8.6 mg/dL (8.5-10.1) 02/07/17 05:35 Total Bilirubin 0.3 mg/dL (0.2-1.0) D 02/07/17 05:35 AST 13 U/L (15-37) L 02/07/17 05:35 ALT 28 U/L (12-78) 02/07/17 05:35 Alkaline Phosphatase 85 U/L (45-117) 02/07/17 05:35 Total Protein 6.1 g/dl (6.4-8.2) L 02/07/17 05:35 Albumin 2.4 g/dl (3.4-5.0) L 02/07/17 05:35 CARDIAC ENZYMES Creatine Kinase 312 IU/L (39-308) H 01/30/17 11:55 Troponin I < 0.02 ng/ml (0.00-0.05) 02/06/17 15:40 Microbiology 02/03/17 10:00 Sputum - Expectorated AFB Smear Concentration - Preliminary 02/03/17 10:00 Sputum - Expectorated Direct Acid Fast Bacilli Smear - Final 02/03/17 10:00 Sputum - Expectorated Mycobacterial Culture - Preliminary 01/31/17 05:35 Blood - Peripheral Venous TB Test (QFT) (MEGHA) - Final 02/01/17 16:10 Sputum - Expectorated AFB Smear Concentration - Final 02/01/17 16:10 Sputum - Expectorated Direct Acid Fast Bacilli Smear - Final 02/01/17 16:10 Sputum - Expectorated Mycobacterial Culture - Preliminary 02/02/17 07:40 Sputum - Expectorated AFB Smear Concentration - Final 02/02/17 07:40 Sputum - Expectorated Direct Acid Fast Bacilli Smear - Final 02/02/17 07:40 Sputum - Expectorated Mycobacterial Culture - Preliminary 01/30/17 11:55 Blood - Peripheral Venous Blood Culture - Final NO GROWTH AFTER 5 DAYS INCUBATION 01/30/17 11:55 Blood - Peripheral Venous Blood Culture - Final NO GROWTH AFTER 5 DAYS INCUBATION 01/31/17 11:05 Sputum - Expectorated Gram Stain - Final 01/31/17 11:05 Sputum - Expectorated Sputum Culture - Final Yeast Like Organism Mr S Aureus 01/30/17 21:39 Sputum - Expectorated Gram Stain - Final 01/30/17 21:39 Sputum - Expectorated Sputum Culture - Final Yeast Like Organism 01/30/17 11:32 Urine - Urine Clean Catch Urine Culture - Final NO GROWTH OBTAINED Imaging: Chest Xray 01/29/2017: bilateral pulmonary consolidations, no pneumothorax, no large pleural effusions Chest Xray 01/30/2017: bilateral pulmonary consolidations unchanged from prior chest xray Chest CT 01/31/2017: Bilateral non specific alveolar infiltrates, minimal bilateral pleural effusion, atelectasis (likely chronic) on right lobe, centrilobular emphysema Assessment: This is a 56 year old male with a history of HIV/AIDS (dx in 1995, IVDU, hx PCP PNA, on Triumeq but does not take it regularly, unknown CD4), Hep C , HTN, and asthma/COPD who presented to the [facility] detox facility for heroin/ cocaine EtOH detox on 01/27 and was sent to the ED with shortness of breath, wheezing, and hypoxia. Plan: 1) ID: B/l pneumonia - Continue Vanco (01/30- ) - Continue Cefepime (01/30- ) - AFB x3 negative Thrush - Continue Nystatin AIDS - Continue Bactrim for prophylaxis - [place] Lamivudine - Continue Raltegravir - Continue Abacavir - Appreciate ID consult 2) Psych: Opiate dependence - No evidence of withdrawal - Can d/c to [facility] rehab once cleared by ID 3) Cardiology: HTN - Continue Norvasc - No BB as the patient has recent cocaine use Chest pain - Trops negative 4) F/E/N: - Sodium controlled diet - Monitor electrolytes 5) Prophylaxis: - Lovenox 40mg sq daily - OOB ambulating 6) Dispo: - Requires continued inpatient care CODE STATUS: FULL CODE Visit type - Emergency Visit Emergency Visit: Yes ED Registration Date: 01/30/17 Care time: The patient presented to the Emergency Department on the above date and was hospitalized for further evaluation of their emergent condition. - New Patient This patient is new to me today: Yes Date on this admission: 02/07/17 - Critical Care Critical Care patient: No
[2017-02-07 09:56] LABS: METAMYELOCYTE 3 % (0-2)
[2017-02-07] MEDS: LIDOCAINE 5% TOPICAL PATCH TP SCH (10:17)
[2017-02-07] MEDS: NICOTINE 14 MG/24 HOURS TOPICAL PATCH TD SCH (10:18)
[2017-02-07] MEDS: methylPREDNISolone NA SUCC 40 MG/1 ML VIAL IVPB SCH (10:19)
[2017-02-07] MEDS: ENOXAPARIN NA (PORCINE) 40 MG/0.4 ML DISP.SYRIN SQ SCH (10:19)
[2017-02-07] MEDS: PANTOPRAZOLE 40 MG TABLET (FP) PO SCH (10:19)
[2017-02-07] MEDS: SULFAMETHOXAZOLE/TRIMETHOPRIM 800MG/160MG D.S. TABLET PO SCH (10:19)
[2017-02-07] MEDS: amLODIPine BESYLATE 10 MG TABLET (FP) PO SCH (10:19)
[2017-02-07] MEDS: lamiVUDine 150 MG TABLET PO SCH (10:20)
[2017-02-07] MEDS: RALTEGRAVIR POTASSIUM 400 MG TAB PO SCH ×2 (10:20→22:48)
--- NOTE | 2017-02-07 10:39 | PN ---
Progress Note (short form) - Note Progress Note: continues to have hiccups intermittent vomiting no abdominal pain hungry and wants to eat Vital Signs Period Temp Pulse Resp BP Sys/Galdamez Pulse Ox Last 24 Hr 97.2 F-98.2 F 72-96 18-22 117-136/70-79 no thrush cor rrr lungs scattered rhonchi abd soft,nt ext no edema CBC, BMP 02/07/17 05:35 02/07/17 05:35 Microbiology 02/03/17 10:00 Sputum - Expectorated AFB Smear Concentration - Preliminary 02/03/17 10:00 Sputum - Expectorated Direct Acid Fast Bacilli Smear - Final 02/03/17 10:00 Sputum - Expectorated Mycobacterial Culture - Preliminary 01/31/17 05:35 Blood - Peripheral Venous TB Test (QFT) (MEGHA) - Final 02/01/17 16:10 Sputum - Expectorated AFB Smear Concentration - Final 02/01/17 16:10 Sputum - Expectorated Direct Acid Fast Bacilli Smear - Final 02/01/17 16:10 Sputum - Expectorated Mycobacterial Culture - Preliminary 02/02/17 07:40 Sputum - Expectorated AFB Smear Concentration - Final 02/02/17 07:40 Sputum - Expectorated Direct Acid Fast Bacilli Smear - Final 02/02/17 07:40 Sputum - Expectorated Mycobacterial Culture - Preliminary 01/30/17 11:55 Blood - Peripheral Venous Blood Culture - Final NO GROWTH AFTER 5 DAYS INCUBATION 01/30/17 11:55 Blood - Peripheral Venous Blood Culture - Final NO GROWTH AFTER 5 DAYS INCUBATION 01/31/17 11:05 Sputum - Expectorated Gram Stain - Final 01/31/17 11:05 Sputum - Expectorated Sputum Culture - Final Yeast Like Organism Mr S Aureus 01/30/17 21:39 Sputum - Expectorated Gram Stain - Final 01/30/17 21:39 Sputum - Expectorated Sputum Culture - Final Yeast Like Organism 01/30/17 11:32 Urine - Urine Clean Catch Urine Culture - Final NO GROWTH OBTAINED Laboratory Tests 02/05/17 17:20 Vancomycin Pre-Dose 15.152 H* D Current Medications Abacavir Sulfate (Ziagen -) 300 mg PO BID JANETT Last Admin: 02/06/17 23:07 Dose: 300 mg Acetaminophen (Tylenol -) 650 mg PO Q4H PRN PRN Reason: FEVER OR PAIN Last Admin: 02/01/17 22:33 Dose: 650 mg Amlodipine Besylate (Norvasc -) 10 mg PO DAILY [facility] Last Admin: 02/07/17 10:19 Dose: 10 mg Cefepime HCl (Maxipime 1gm Ivpb Pre-Docked) 1 gm IVPB Q8H-IV [facility] Last Admin: 02/07/17 01:09 Dose: 1 gm Clotrimazole (Mycelex Patrick's -) 10 mg PO 5XD [facility] Last Admin: 02/07/17 10:21 Dose: 10 mg Docusate Sodium (Colace -) 100 mg PO TID [facility] Last Admin: 02/07/17 06:34 Dose: Not Given Enoxaparin Sodium (Lovenox -) 40 mg SQ DAILY [facility] Last Admin: 02/07/17 10:19 Dose: 40 mg Guaifenesin (Robitussin -) 10 ml PO Q4H PRN PRN Reason: COUGH Last Admin: 02/05/17 23:48 Dose: 10 ml Vancomycin HCl (Vancomycin (Pre-Docked)) 250 mls @ 166.667 mls/hr IVPB Q12H [facility] Last Admin: 02/07/17 06:34 Dose: 166.667 mls/hr Lamivudine (Epivir -) 300 mg PO DAILY [facility] Last Admin: 02/07/17 10:20 Dose: 300 mg Lidocaine (Lidoderm Patch -) 1 patch TP DAILY [facility] Last Admin: 02/07/17 10:17 Dose: Not Given Methylprednisolone Sodium Succinate (Solu-Medrol -) 40 mg IVPB BID [facility] Last Admin: 02/07/17 10:19 Dose: 40 mg Miscellaneous (Lidoderm Patch Removal) 1 each MC DAILY@2200 [facility] Last Admin: 02/06/17 23:06 Dose: Not Given Nicotine (Nicoderm Patch -) 14 mg TD DAILY [facility] Last Admin: 02/07/17 10:18 Dose: 14 mg Nystatin (Nystatin Oral Suspension -) 500,000 units PO Q6HPO [facility] Last Admin: 02/07/17 06:35 Dose: 500,000 units Ondansetron HCl (Zofran Injection) 4 mg IVPB Q6H PRN PRN Reason: NAUSEA Pantoprazole Sodium (Protonix -) 40 mg PO DAILY [facility] Last Admin: 02/07/17 10:19 Dose: 40 mg Quetiapine Fumarate (Seroquel -) 100 mg PO HS [facility] Last Admin: 02/06/17 23:07 Dose: 100 mg Raltegravir (Isentress -) 400 mg PO BID [facility] Last Admin: 02/07/17 10:20 Dose: 400 mg Trimethoprim/Sulfamethoxazole (Bactrim Ds -) 1 each PO DAILY [facility] Last Admin: 02/07/17 10:19 Dose: 1 each a/p bilateral pneumonia aids thrush can d/c antibiotics 3rd sputum afb is negative can d/c isolation taper steroids hiccups/vomiting- ?gi continue ART d/w hospitalist d/w pulmonary
[2017-02-07] MEDS ORDERED: ONDANSETRON 4 MG/2 ML VIAL ONE (12:20)
[2017-02-07] MEDS ORDERED: METOCLOPRAMIDE HCL INJECTION 10 MG/2 ML VIAL IVPB ONE (12:30)
--- NOTE | 2017-02-07 12:58 | PN ---
Progress Note (short form) - Note Progress Note: PULMONARY Still with persistent hiccups. +cough. No fevers or chills. No shortness of breath. Last Vital Signs Temp Pulse Resp BP Pulse Ox 98.4 F 88 18 142/72 96 02/07/17 10:00 02/07/17 10:00 02/07/17 10:00 02/07/17 10:00 02/04/17 21:00 Gen: NAD at rest Heart: RRR Lung: scattered bilateral rhonchi Abd: soft, nontender Ext: no edema CBC, BMP 02/07/17 05:35 02/07/17 05:35 Active Medications Abacavir Sulfate (Ziagen -) 300 mg PO BID [facility] Last Admin: 02/06/17 23:07 Dose: 300 mg Acetaminophen (Tylenol -) 650 mg PO Q4H PRN PRN Reason: FEVER OR PAIN Last Admin: 02/01/17 22:33 Dose: 650 mg Amlodipine Besylate (Norvasc -) 10 mg PO DAILY [facility] Last Admin: 02/07/17 10:19 Dose: 10 mg Clotrimazole (Mycelex Patrick's -) 10 mg PO 5XD [facility] Last Admin: 02/07/17 10:21 Dose: 10 mg Docusate Sodium (Colace -) 100 mg PO TID [facility] Last Admin: 02/07/17 06:34 Dose: Not Given Enoxaparin Sodium (Lovenox -) 40 mg SQ DAILY [facility] Last Admin: 02/07/17 10:19 Dose: 40 mg Guaifenesin (Robitussin -) 10 ml PO Q4H PRN PRN Reason: COUGH Last Admin: 02/05/17 23:48 Dose: 10 ml Lamivudine (Epivir -) 300 mg PO DAILY [facility] Last Admin: 02/07/17 10:20 Dose: 300 mg Lidocaine (Lidoderm Patch -) 1 patch TP DAILY [facility] Last Admin: 02/07/17 10:17 Dose: Not Given Methylprednisolone Sodium Succinate (Solu-Medrol -) 40 mg IVPB BID [facility] Last Admin: 02/07/17 10:19 Dose: 40 mg Miscellaneous (Lidoderm Patch Removal) 1 each MC DAILY@2200 [facility] Last Admin: 02/06/17 23:06 Dose: Not Given Nicotine (Nicoderm Patch -) 14 mg TD DAILY [facility] Last Admin: 02/07/17 10:18 Dose: 14 mg Nystatin (Nystatin Oral Suspension -) 500,000 units PO Q6HPO [facility] Last Admin: 02/07/17 06:35 Dose: 500,000 units Pantoprazole Sodium (Protonix -) 40 mg PO DAILY [facility] Last Admin: 02/07/17 10:19 Dose: 40 mg Quetiapine Fumarate (Seroquel -) 100 mg PO HS [facility] Last Admin: 02/06/17 23:07 Dose: 100 mg Raltegravir (Isentress -) 400 mg PO BID [facility] Last Admin: 02/07/17 10:20 Dose: 400 mg Trimethoprim/Sulfamethoxazole (Bactrim Ds -) 1 each PO DAILY [facility] Last Admin: 02/07/17 10:19 Dose: 1 each A/P Pneumonia HIV/AIDS COPD Smoker - completed antibiotics - will decrease medrol to daily - inhaled bronchodilators - continue ART - O2 to keep SpO2 >90% - DVT prophylaxis - smoking cessation
[2017-02-07] MEDS: ABACAVIR SULFATE 300 MG TABLET PO SCH ×2 (15:50→22:49)
[2017-02-07] MEDS ORDERED: METOCLOPRAMIDE HCL INJECTION 10 MG/2 ML VIAL IVPB PRN (20:07)
[2017-02-07] MEDS ORDERED: PT OWN MED DRAWER 7, Y5N ONE ×2 (21:51)
[2017-02-07] MEDS: QUEtiapine FUMARATE 100 MG TABLET (FP) PO SCH (22:49)
[2017-02-07] MEDS: LIDOCAINE PATCH REMOVAL MC SCH (22:57)
[2017-02-07] MEDS: guaiFENesin 200 MG/10 ML 10 ML UNIT-DOSE CUPS PO PRN (23:00)
[2017-02-08] MEDS: NYSTATIN 500,000 UNITS/5 ML SUSPENSION PO SCH ×3 (00:15→11:46)
[2017-02-08] MEDS ORDERED: PT OWN MED DRAWER 7, Y5N ONE ×6 (06:31→22:08)
[2017-02-08] MEDS: DOCUSATE SODIUM 100 MG CAPSULE (FP) PO SCH ×3 (06:41→22:13)
[2017-02-08] MEDS: CLOTRIMAZOLE 10 MG TROCHE (FP) PO SCH ×3 (06:41→13:25)
[2017-02-08 07:58] LABS: MCH 28.4 pg (25.7-33.7); MCHC 32.7 g/dl (32.0-35.9); MEAN CELL VOLUME 86.8 fl (80-96); MEAN PLT VOLUME 8.1 fl (7.5-11.1); PLATELET COUNT 400 K/MM3 (134-434); RDW 18.5 % (11.9-15.9); WHITE BLOOD COUNT 9.1 K/mm3 (4.0-10.0)
[2017-02-08 08:23] LABS: ALBUMIN 2.5 g/dl (3.4-5.0); ALK PHOS 91 U/L (45-117); ANION GAP 6 (8-16); BILIRUBIN,TOTAL 0.4 mg/dL (0.2-1.0); CO2 31 mmol/L (21-32); CREATININE 0.6 mg/dL (0.7-1.3); GLUCOSE,RANDOM 70 mg/dL (74-106); SGOT/AST 16 U/L (15-37); SGPT/ALT 34 U/L (12-78); TOT PROT 6.5 g/dl (6.4-8.2)
[2017-02-08] MEDS ORDERED: POTASSIUM CHLORIDE TABS 20 MEQ TABLET.ER (FP) PO ONE (09:45)
[2017-02-08] MEDS: NICOTINE 14 MG/24 HOURS TOPICAL PATCH TD SCH (09:56)
[2017-02-08] MEDS: methylPREDNISolone NA SUCC 40 MG/1 ML VIAL IVPB SCH (09:57)
[2017-02-08] MEDS: ABACAVIR SULFATE 300 MG TABLET PO SCH ×2 (09:57→22:13)
[2017-02-08] MEDS: ENOXAPARIN NA (PORCINE) 40 MG/0.4 ML DISP.SYRIN SQ SCH (09:57)
[2017-02-08] MEDS: amLODIPine BESYLATE 10 MG TABLET (FP) PO SCH (09:57)
[2017-02-08] MEDS: PANTOPRAZOLE 40 MG TABLET (FP) PO SCH (09:57)
[2017-02-08] MEDS: RALTEGRAVIR POTASSIUM 400 MG TAB PO SCH ×2 (09:58→22:14)
[2017-02-08] MEDS: SULFAMETHOXAZOLE/TRIMETHOPRIM 800MG/160MG D.S. TABLET PO SCH (09:58)
[2017-02-08] MEDS: lamiVUDine 150 MG TABLET PO SCH (09:58)
[2017-02-08] MEDS: LIDOCAINE 5% TOPICAL PATCH TP SCH (10:08)
--- NOTE | 2017-02-08 12:18 | PN ---
Progress Note (short form) - Note Progress Note: Subjective: The patient was seen and examined at the bedside, he reports having hiccups and vomiting. Continue Reglan Discussed with GI, will order upper GI series Current Medications Generic Name Dose Route Start Last Admin Trade Name Freq PRN Reason Stop Dose Admin Abacavir Sulfate 300 mg 02/02/17 22:00 02/08/17 09:57 Ziagen - PO 300 mg BID JANETT Administration Acetaminophen 650 mg 01/30/17 13:29 02/01/17 22:33 Tylenol - PO 650 mg Q4H PRN Administration FEVER OR PAIN Amlodipine Besylate 10 mg 02/04/17 10:00 02/08/17 09:57 Norvasc - PO 10 mg DAILY JANETT Administration Clotrimazole 10 mg 02/05/17 14:00 02/08/17 10:07 Mycelex Patrick's - PO 10 mg 5XD JANETT Administration Docusate Sodium 100 mg 01/30/17 14:00 02/08/17 06:41 Colace - PO 100 mg TID JANETT Administration Enoxaparin Sodium 40 mg 01/31/17 10:00 02/08/17 09:57 Lovenox - SQ 40 mg DAILY JANETT Administration Guaifenesin 10 ml 01/31/17 21:32 02/07/17 23:00 Robitussin - PO 10 ml Q4H PRN Administration COUGH Lamivudine 300 mg 02/02/17 18:52 02/08/17 09:58 Epivir - PO 300 mg DAILY JANETT Administration Lidocaine 1 patch 02/02/17 10:00 02/08/17 10:08 Lidoderm Patch - TP Not Given DAILY JANETT Methylprednisolone Sodium Succinate 40 mg 02/08/17 10:00 02/08/17 09:57 Solu-Medrol - IVPB 40 mg DAILY JANETT Administration Miscellaneous 1 each 02/02/17 22:00 02/07/17 22:57 Lidoderm Patch Removal MC Not Given DAILY@2200 JANETT Nicotine 14 mg 01/31/17 10:00 02/08/17 09:56 Nicoderm Patch - TD 14 mg DAILY JANETT Administration Nystatin 500,000 units 02/05/17 12:00 02/08/17 11:46 Nystatin Oral Suspension - PO 500,000 units Q6HPO JANETT Administration Pantoprazole Sodium 40 mg 02/01/17 10:00 02/08/17 09:57 Protonix - PO 40 mg DAILY JANETT Administration Quetiapine Fumarate 100 mg 01/30/17 22:00 02/07/17 22:49 Seroquel - PO 100 mg HS JANETT Administration Raltegravir 400 mg 02/02/17 22:00 02/08/17 09:58 Isentress - PO 400 mg BID JANETT Administration Trimethoprim/Sulfamethoxazole 1 each 01/31/17 10:00 02/08/17 09:58 Bactrim Ds - PO 1 each DAILY JANETT Administration Objective: Vital Signs Period Temp Pulse Resp BP Sys/Galdamez Pulse Ox Last 24 Hr 98.4 F-98.7 F 79-89 18-18 125-136/70-88 93 Physical Exam: General: NAD, A&Ox3, Thin Lungs: CTA bilaterally Heart: RRR, S1S2 Abd: Soft, non-tender, non-distended. Normoactive bowel sounds Ext: Warm, well-perfused 2+ DP/PT bilaterally Neuro: CN 2-12 intact CBCD WBC 9.1 K/mm3 (4.0-10.0) 02/08/17 06:00 RBC 3.71 M/mm3 (4.00-5.60) L 02/08/17 06:00 Hgb 10.5 GM/dL (11.7-16.9) L 02/08/17 06:00 Hct 32.2 % (35.4-49) L 02/08/17 06:00 MCV 86.8 fl (80-96) 02/08/17 06:00 MCHC 32.7 g/dl (32.0-35.9) 02/08/17 06:00 RDW 18.5 % (11.9-15.9) H 02/08/17 06:00 Plt Count 400 K/MM3 (134-434) 02/08/17 06:00 MPV 8.1 fl (7.5-11.1) 02/08/17 06:00 CMP Sodium 142 mmol/L (136-145) 02/08/17 06:00 Potassium 3.0 mmol/L (3.5-5.1) L 02/08/17 06:00 Chloride 105 mmol/L (98-107) 02/08/17 06:00 Carbon Dioxide 31 mmol/L (21-32) 02/08/17 06:00 Anion Gap 6 (8-16) L 02/08/17 06:00 BUN 17 mg/dL (7-18) 02/08/17 06:00 Creatinine 0.6 mg/dL (0.7-1.3) L 02/08/17 06:00 Creat Clearance w eGFR > 60 (>60) 02/08/17 06:00 Random Glucose 70 mg/dL (74-106) L D 02/08/17 06:00 Calcium 9.0 mg/dL (8.5-10.1) 02/08/17 06:00 Total Bilirubin 0.4 mg/dL (0.2-1.0) D 02/08/17 06:00 AST 16 U/L (15-37) D 02/08/17 06:00 ALT 34 U/L (12-78) D 02/08/17 06:00 Alkaline Phosphatase 91 U/L (45-117) 02/08/17 06:00 Total Protein 6.5 g/dl (6.4-8.2) 02/08/17 06:00 Albumin 2.5 g/dl (3.4-5.0) L 02/08/17 06:00 CARDIAC ENZYMES Creatine Kinase 312 IU/L (39-308) H 01/30/17 11:55 Troponin I < 0.02 ng/ml (0.00-0.05) 02/06/17 15:40 Microbiology 02/03/17 10:00 Sputum - Expectorated AFB Smear Concentration - Preliminary 02/03/17 10:00 Sputum - Expectorated Direct Acid Fast Bacilli Smear - Final 02/03/17 10:00 Sputum - Expectorated Mycobacterial Culture - Preliminary 01/31/17 05:35 Blood - Peripheral Venous TB Test (QFT) (MEG[facility]) - Final 02/01/17 16:10 Sputum - Expectorated AFB Smear Concentration - Final 02/01/17 16:10 Sputum - Expectorated Direct Acid Fast Bacilli Smear - Final 02/01/17 16:10 Sputum - Expectorated Mycobacterial Culture - Preliminary 02/02/17 07:40 Sputum - Expectorated AFB Smear Concentration - Final 02/02/17 07:40 Sputum - Expectorated Direct Acid Fast Bacilli Smear - Final 02/02/17 07:40 Sputum - Expectorated Mycobacterial Culture - Preliminary 01/30/17 11:55 Blood - Peripheral Venous Blood Culture - Final NO GROWTH AFTER 5 DAYS INCUBATION 01/30/17 11:55 Blood - Peripheral Venous Blood Culture - Final NO GROWTH AFTER 5 DAYS INCUBATION 01/31/17 11:05 Sputum - Expectorated Gram Stain - Final 01/31/17 11:05 Sputum - Expectorated Sputum Culture - Final Yeast Like Organism S Aureus 01/30/17 21:39 Sputum - Expectorated Gram Stain - Final 01/30/17 21:39 Sputum - Expectorated Sputum Culture - Final Yeast Like Organism 01/30/17 11:32 Urine - Urine Clean Catch Urine Culture - Final NO GROWTH OBTAINED Imaging: Chest Xray 01/29/2017: bilateral pulmonary consolidations, no pneumothorax, no large pleural effusions Chest Xray 01/30/2017: bilateral pulmonary consolidations unchanged from prior chest xray Chest CT 01/31/2017: Bilateral non specific alveolar infiltrates, minimal bilateral pleural effusion, atelectasis (likely chronic) on right lobe, centrilobular emphysema Assessment: This is a 56 year old male with a history of HIV/AIDS (dx in 1995, IVDU, hx PCP PNA, on Triumeq but does not take it regularly, unknown CD4), Hep C , HTN, and asthma/COPD who presented to the [facility] detox facility for heroin/ cocaine EtOH detox on 01/27 and was sent to the ED with shortness of breath, wheezing, and hypoxia. Plan: 1) ID: B/l pneumonia - Discontinued Vanco and Cefepime (01/30-02/07) - AFB x3 negative, isolation precautions discontinued Thrush - Continue Nystatin AIDS - Continue Bactrim for prophylaxis - [place] Lamivudine - Continue Raltegravir - Continue Abacavir - Appreciate ID consult 2) Psych: Opiate dependence - No evidence of withdrawal - Can d/c to [facility] rehab once cleared by ID 3) Cardiology: HTN - Continue Norvasc - No BB as the patient has recent cocaine use Chest pain - Trops negative 4) Pulmonary: COPD exacerbation - Continue Solu-medrol, can taper tomorrow AM - Appreciate pulmonary consult 5) Persistent hiccups: - Unresolved with Reglan - Possibly 2/2 pneumonia vs. GI? - Abd x-ray with large right scrotal hernia, coarse lung changes - F/u upper GI series 6) F/E/N: - Sodium controlled diet - Monitor electrolytes 7) Prophylaxis: - Lovenox 40mg sq daily - OOB ambulating 8) Dispo: - Requires continued inpatient care CODE STATUS: FULL CODE Visit type - Emergency Visit Emergency Visit: Yes ED Registration Date: 01/30/17 Care time: The patient presented to the Emergency Department on the above date and was hospitalized for further evaluation of their emergent condition. - New Patient This patient is new to me today: No - Critical Care Critical Care patient: No
[2017-02-08 14:03] LABS: ANISOCYTOSIS 2+; HYPOCHROMIA 2+; MACROCYTOSIS FEW; PLATELET ESTIMATE ADEQUATE
--- NOTE | 2017-02-08 14:42 | CONSULT ---
Consult Consult Specialty:: GI Reason for Consultation:: hiccups - History of Present Illness History of Present Illness: 56yo man who is IVDU/polysubstance abuser with HIV/AIDS (CD4 29, restarted HAART 02/03/16) who was admitted on 01/30/17 for multilobar PNA and COPD exacerbation. The patient developed hiccups during this hospital stay. The hiccups are constant and interfere with his eating and swallowing. He has been having intermittent nausea and vomiting since admission for which he has received metoclopramide. He was found to have oral thrush and is currently on PO nystatin and clomitrazole. He endorses odynophagia without dysphagia. Of note, he was admitted here in 2013 and was evaluated by GI for similar c/o hiccups and vomiting. - History Source History Provided By: Patient, Medical Record Limitations to Obtaining History: No Limitations - Past Medical History Pulmonary: Yes: COPD, Pneumonia Hepatobiliary: Yes: Hepatitis C Infectious Disease: Yes: AIDS, HIV Psych: Yes: Addictions (polysubstance abuse (IV heroine, cocaine, tobacco cigarettes, EtOH)) Endocrine: Yes: Hypothyroidism Additional Medical History: poly substance abuse - Past Surgical History Past Surgical History: Yes: None - Alcohol/Substance Use Hx Alcohol Use: Yes - Smoking History Smoking history: Current every day smoker Have you smoked in the past 12 months: Yes Aproximately how many cigarettes per day: 10 Home Medications - Allergies Allergies/Adverse Reactions: Allergies Allergy/AdvReac Type Severity Reaction Status Date / Time No Known Allergies Allergy Verified 01/30/17 10:48 - Home Medications Home Medications: Ambulatory Orders Quetiapine Fumarate [Seroquel -] 100 mg PO HS #30 tablet 11/11/13 Abacavir/Dolutegravir/Lamivudi [Triumeq Tablet] 1 each PO DAILY 11/06/16 Amlodipine Besylate 10 mg PO DAILY 11/06/16 Umeclidinium Richton [Incruse Ellipta] 62.5 mcg IH DAILY 11/06/16 Family Disease History - Family Disease History Family History: Unremarkable Family Disease History: Diabetes: Father, Heart Disease: Father, Mother ( alcoholic ), CA: Sister, Other: Mother Review of Systems - Review of Systems HENT: reports: Other (esophageal pain with swallowing) Cardiovascular: reports: Chest Pain Respiratory: reports: Cough, SOB Gastrointestinal: reports: Other (see HPI) Genitourinary: reports: No Symptoms Musculoskeletal: reports: No Symptoms Integumentary: reports: No Symptoms Neurological: reports: No Symptoms Endocrine: reports: No Symptoms Hematology/Lymphatic: reports: No Symptoms Psychiatric: reports: No Symptoms Physical Exam Vital Signs: Vital Signs Temperature 98.7 F 02/08/17 06:00 Pulse Rate 83 02/08/17 06:00 Respiratory Rate 18 02/08/17 06:00 Blood Pressure 136/78 02/08/17 06:00 O2 Sat by Pulse Oximetry (%) 93 L on RA 02/07/17 20:04 Constitutional: Yes: No Distress, Thin Eyes: No: Sclera Icterus HENT: Yes: Other (No exudates or erythema) Respiratory: Yes: Diminished (bibasilar) Gastrointestinal: Yes: Soft. No: Distention, Tenderness Edema: No Peripheral Pulses WNL: Yes Labs: CBC, BMP 02/08/17 06:00 02/08/17 06:00 Hepatic Panel Total Bilirubin 0.4 mg/dL (0.2-1.0) D 02/08/17 06:00 AST 16 U/L (15-37) D 02/08/17 06:00 ALT 34 U/L (12-78) D 02/08/17 06:00 Alkaline Phosphatase 91 U/L (45-117) 02/08/17 06:00 Albumin 2.5 g/dl (3.4-5.0) L 02/08/17 06:00 Microbiology 02/03/17 10:00 Sputum - Expectorated AFB Smear Concentration - Final 02/03/17 10:00 Sputum - Expectorated Direct Acid Fast Bacilli Smear - Final 02/03/17 10:00 Sputum - Expectorated Mycobacterial Culture - Preliminary 01/31/17 05:35 Blood - Peripheral Venous TB Test (QFT) (MEGHA) - Final 02/01/17 16:10 Sputum - Expectorated AFB Smear Concentration - Final 02/01/17 16:10 Sputum - Expectorated Direct Acid Fast Bacilli Smear - Final 02/01/17 16:10 Sputum - Expectorated Mycobacterial Culture - Preliminary 02/02/17 07:40 Sputum - Expectorated AFB Smear Concentration - Final 02/02/17 07:40 Sputum - Expectorated Direct Acid Fast Bacilli Smear - Final 02/02/17 07:40 Sputum - Expectorated Mycobacterial Culture - Preliminary 01/30/17 11:55 Blood - Peripheral Venous Blood Culture - Final NO GROWTH AFTER 5 DAYS INCUBATION 01/30/17 11:55 Blood - Peripheral Venous Blood Culture - Final NO GROWTH AFTER 5 DAYS INCUBATION 01/31/17 11:05 Sputum - Expectorated Gram Stain - Final 01/31/17 11:05 Sputum - Expectorated Sputum Culture - Final Yeast Like Organism S Aureus 01/30/17 21:39 Sputum - Expectorated Gram Stain - Final 01/30/17 21:39 Sputum - Expectorated Sputum Culture - Final Yeast Like Organism 01/30/17 11:32 Urine - Urine Clean Catch Urine Culture - Final NO GROWTH OBTAINED Imaging - Results Chest X-ray: Image Reviewed (CXR (01/29/2017): b/l pulmonary consolidations, no e/o pneumothorax), Other Cat Scan: Image Reviewed (Chest CT (01/30/2017): minimal b/l pleural effusions. subcentimeter LLL blebs which are probably postinfectious, centrilobular emphysema.) Assessment/Plan Assessment: 56yo man with HIV/AIDS and COPD exacerbation with hiccups that may be 2/2 to diaphragmatic irritation due to bibasilar lung consolidations. Esophageal candidiasis is also on the differential given oral thrush and AIDS status. Current medication with metoclopramide and quetiapine could also be contributing to diaphragm spasticity. PLAN: Eliminate non-essential medications Solu-Medrol is being tapered ? need for continued seroquel Reglan has been discontinued as it hasn't helped Thorazine not used given potential interactions with current medication regimen Trial of low dose muscle relaxant flexeril 5mg BID-TID of no significant interactions Empiric trial of systemic difucan therapy 100mg IVPB to treat for possible esophageal candidiasis Repeat CT scn of the chest along with abdomen (PO contrast if feasible) Aspiration precautions Changed to Clear liquids Plan: -D/c metoclopramide -Trial of systemic difucan 100mg IVPB for empiric esophageal candidiasis treatment -Trial low dose flexeril 5mg BID for use as a muscle relaxant -Aspiration precautions -Clear liquid diet d/w Dr. Elle Huitron MD PGY-1 Visit type - Emergency Visit Emergency Visit: No - New Patient This patient is new to me today: No - Critical Care Critical Care patient: No
--- NOTE | 2017-02-08 14:50 | PN ---
Progress Note (short form) - Note Progress Note: PULMONARY Still with persistent hiccups. +cough. No fevers or chills. Last Vital Signs Temp Pulse Resp BP Pulse Ox 98.7 F 83 18 136/78 97 02/08/17 06:00 02/08/17 06:00 02/08/17 09:00 02/08/17 06:00 02/08/17 09:00 Gen: NAD at rest Heart: RRR Lung: scattered bilateral rhonchi Abd: soft, nontender Ext: no edema CBC, BMP 02/08/17 06:00 02/08/17 06:00 Active Medications Abacavir Sulfate (Ziagen -) 300 mg PO BID [facility] Last Admin: 02/08/17 09:57 Dose: 300 mg Acetaminophen (Tylenol -) 650 mg PO Q4H PRN PRN Reason: FEVER OR PAIN Last Admin: 02/01/17 22:33 Dose: 650 mg Amlodipine Besylate (Norvasc -) 10 mg PO DAILY [facility] Last Admin: 02/08/17 09:57 Dose: 10 mg Clotrimazole (Mycelex Patrick's -) 10 mg PO 5XD [facility] Last Admin: 02/08/17 13:25 Dose: 10 mg Docusate Sodium (Colace -) 100 mg PO TID [facility] Last Admin: 02/08/17 13:25 Dose: 100 mg Enoxaparin Sodium (Lovenox -) 40 mg SQ DAILY [facility] Last Admin: 02/08/17 09:57 Dose: 40 mg Guaifenesin (Robitussin -) 10 ml PO Q4H PRN PRN Reason: COUGH Last Admin: 02/07/17 23:00 Dose: 10 ml Lamivudine (Epivir -) 300 mg PO DAILY [facility] Last Admin: 02/08/17 09:58 Dose: 300 mg Lidocaine (Lidoderm Patch -) 1 patch TP DAILY [facility] Last Admin: 02/08/17 10:08 Dose: Not Given Methylprednisolone Sodium Succinate (Solu-Medrol -) 40 mg IVPB DAILY [facility] Last Admin: 02/08/17 09:57 Dose: 40 mg Miscellaneous (Lidoderm Patch Removal) 1 each MC DAILY@2200 [facility] Last Admin: 02/07/17 22:57 Dose: Not Given Nicotine (Nicoderm Patch -) 14 mg TD DAILY [facility] Last Admin: 02/08/17 09:56 Dose: 14 mg Nystatin (Nystatin Oral Suspension -) 500,000 units PO Q6HPO [facility] Last Admin: 02/08/17 11:46 Dose: 500,000 units Pantoprazole Sodium (Protonix -) 40 mg PO DAILY [facility] Last Admin: 02/08/17 09:57 Dose: 40 mg Quetiapine Fumarate (Seroquel -) 100 mg PO HS [facility] Last Admin: 02/07/17 22:49 Dose: 100 mg Raltegravir (Isentress -) 400 mg PO BID [facility] Last Admin: 02/08/17 09:58 Dose: 400 mg Trimethoprim/Sulfamethoxazole (Bactrim Ds -) 1 each PO DAILY [facility] Last Admin: 02/08/17 09:58 Dose: 1 each A/P Pneumonia HIV/AIDS COPD Smoker - completed antibiotics - can change medrol to prednisone in AM - inhaled bronchodilators - continue ART - O2 to keep SpO2 >90% - DVT prophylaxis - smoking cessation
--- NOTE | 2017-02-08 16:42 | PN ---
Progress Note (short form) - Note Progress Note: continues to have hiccups intermittent vomiting no abdominal pain hungry and wants to eat c/o mid chest discomfort with eating NO GROWTH OBTAINED Vital Signs Period Temp Pulse Resp BP Sys/Galdamez Pulse Ox Last 24 Hr 98.7 F-98.8 F 79-107 18-18 108-136/63-78 93-97 no thrush cor-rrr lungs scattered rhonchi abd soft,nt ext no edema CBC, BMP 02/08/17 06:00 02/08/17 06:00 Microbiology 02/03/17 10:00 AFB Smear Concentration - Final Sputum - Expectorated Direct Acid Fast Bacilli Smear - Final Mycobacterial Culture - Preliminary Current Medications Generic Name Dose Route Start Last Admin Trade Name Freq PRN Reason Stop Dose Admin Abacavir Sulfate 300 mg 02/02/17 22:00 02/08/17 09:57 Ziagen - PO 300 mg BID JANETT Administration Acetaminophen 650 mg 01/30/17 13:29 02/01/17 22:33 Tylenol - PO 650 mg Q4H PRN Administration FEVER OR PAIN Amlodipine Besylate 10 mg 02/04/17 10:00 02/08/17 09:57 Norvasc - PO 10 mg DAILY JANETT Administration Clotrimazole 10 mg 02/05/17 14:00 02/08/17 13:25 Mycelex Patrick's - PO 10 mg 5XD JANETT Administration Docusate Sodium 100 mg 01/30/17 14:00 02/08/17 13:25 Colace - PO 100 mg TID JANETT Administration Enoxaparin Sodium 40 mg 01/31/17 10:00 02/08/17 09:57 Lovenox - SQ 40 mg DAILY JANETT Administration Guaifenesin 10 ml 01/31/17 21:32 02/07/17 23:00 Robitussin - PO 10 ml Q4H PRN Administration COUGH Lamivudine 300 mg 02/02/17 18:52 02/08/17 09:58 Epivir - PO 300 mg DAILY JANETT Administration Lidocaine 1 patch 02/02/17 10:00 02/08/17 10:08 Lidoderm Patch - TP Not Given DAILY JANETT Methylprednisolone Sodium Succinate 40 mg 02/08/17 10:00 02/08/17 09:57 Solu-Medrol - IVPB 40 mg DAILY JANETT Administration Miscellaneous 1 each 02/02/17 22:00 02/07/17 22:57 Lidoderm Patch Removal MC Not Given DAILY@2200 JANETT Nicotine 14 mg 01/31/17 10:00 02/08/17 09:56 Nicoderm Patch - TD 14 mg DAILY JANETT Administration Nystatin 500,000 units 02/05/17 12:00 02/08/17 11:46 Nystatin Oral Suspension - PO 500,000 units Q6HPO JANETT Administration Pantoprazole Sodium 40 mg 02/01/17 10:00 02/08/17 09:57 Protonix - PO 40 mg DAILY JANETT Administration Quetiapine Fumarate 100 mg 01/30/17 22:00 02/07/17 22:49 Seroquel - PO 100 mg HS JANETT Administration Raltegravir 400 mg 02/02/17 22:00 02/08/17 09:58 Isentress - PO 400 mg BID JANETT Administration Trimethoprim/Sulfamethoxazole 1 each 01/31/17 10:00 02/08/17 09:58 Bactrim Ds - PO 1 each DAILY JANETT Administration a/p bilateral pneumonia aids thrush copd hiccups/vomiting- continue ART d/w GI trial diflucan for possible esophagitis, if no improvement may need endoscopy- ? other OI (CMV, HSV) repeat ekg in am d/w hospitalist
[2017-02-08] MEDS ORDERED: FLUCONAZOLE 100 MG TABLET (UD) PO SCH (16:45)
[2017-02-08] MEDS ORDERED: POTASSIUM CHLORIDE ORAL LIQUID 20 MEQ/15 ML PO ONE (16:56)
--- NOTE | 2017-02-08 17:32 | PN ---
Teaching Attending Note Name of Resident: Mary Huitron ATTENDING PHYSICIAN STATEMENT I saw and evaluated the patient. I reviewed the resident's note and discussed the case with the resident. I agree with the resident's findings and plan as documented. SUBJECTIVE: Prolonged hospitlization. Admitted on 01/30, being treated for PNA. Poor compliance with HIV meds. during hospitalization developed intractable hiccups and spitting Seems to be able to tolerate meals however Similar episode in 2013 with pulm issues and hiccups OBJECTIVE: On exam: Anicteric Abd: Sft, NT/ND +BS ASSESSMENT: Hiccups / chest pain ? if secondary to pulmonary process ? if secondary to one of the medications started during hospitalization ? if secondary to infectious esophagitis ( given low CD4 count/steroid and PPI use). He was being treated for oropharyngeal esophagitis. PLAN: Eliminate non-essential medications Solu-Medrol is being tapered ? need for continued seroquel Reglan has been discontinued as it hasn't helped Thorazine not used given potential interactions with current medication regimen Trial of low dose muscle relaxant flexeril 5mg BID-TID of no significant interactions Empiric trial of systemic difucan therapy 100mg IVPB to treat for possible esophageal candidiasis Repeat CT scn of the chest along with abdomen (PO contrast if feasible) Aspiration precautions Changed to Clear liquids Dr. Fong will be covering 02/10-02/11
[2017-02-08] MEDS ORDERED: CYCLOBENZAPRINE HCL 10 MG TABLET (FP) PO ONE (18:34)
[2017-02-08] MEDS ORDERED: QUEtiapine FUMARATE 25 MG TABLET (FP) PO SCH (22:00)
[2017-02-08] MEDS: guaiFENesin 200 MG/10 ML 10 ML UNIT-DOSE CUPS PO PRN (22:13)
[2017-02-08] MEDS: QUEtiapine FUMARATE 25 MG TABLET (FP) PO SCH (22:13)
[2017-02-08] MEDS: ACETAMINOPHEN 325 MG TABLET (FP) PO PRN (22:14)
[2017-02-08] MEDS: LIDOCAINE PATCH REMOVAL MC SCH (22:39)
[2017-02-09] MEDS: DOCUSATE SODIUM 100 MG CAPSULE (FP) PO SCH ×3 (04:59→21:45)
[2017-02-09] MEDS ORDERED: PT OWN MED DRAWER 7, Y5N ONE ×4 (06:45→21:42)
--- NOTE | 2017-02-09 09:52 | PN ---
Progress Note (short form) - Note Progress Note: Subjective: The patient was seen and examined at the bedside, he just "chugged" the po contrast in "less than 5 minutes". He states he is not feeling nauseous. He reports still having hiccups, however for the duration of time I was in his room he did not hiccup Current Medications Generic Name Dose Route Start Last Admin Trade Name Freq PRN Reason Stop Dose Admin Abacavir Sulfate 300 mg 02/02/17 22:00 02/08/17 22:13 Ziagen - PO 300 mg BID JANETT Administration Acetaminophen 650 mg 01/30/17 13:29 02/08/17 22:14 Tylenol - PO 650 mg Q4H PRN Administration FEVER OR PAIN Amlodipine Besylate 10 mg 02/04/17 10:00 02/08/17 09:57 Norvasc - PO 10 mg DAILY JANETT Administration Docusate Sodium 100 mg 01/30/17 14:00 02/09/17 04:59 Colace - PO Not Given TID JANETT Enoxaparin Sodium 40 mg 01/31/17 10:00 02/08/17 09:57 Lovenox - SQ 40 mg DAILY JANETT Administration Guaifenesin 10 ml 01/31/17 21:32 02/08/17 22:13 Robitussin - PO 10 ml Q4H PRN Administration COUGH Fluconazole 50 mls @ 50 mls/hr 02/09/17 10:00 Diflucan 100 Mg/D5w Premixed Ivpb - IVPB DAILY JANETT Lamivudine 300 mg 02/02/17 18:52 02/08/17 09:58 Epivir - PO 300 mg DAILY JANETT Administration Lidocaine 1 patch 02/02/17 10:00 02/08/17 10:08 Lidoderm Patch - TP Not Given DAILY JANETT Methylprednisolone Sodium Succinate 40 mg 02/08/17 10:00 02/08/17 09:57 Solu-Medrol - IVPB 40 mg DAILY JANETT Administration Miscellaneous 1 each 02/02/17 22:00 02/08/17 22:39 Lidoderm Patch Removal MC 1 each DAILY@2200 JANETT Administration Nicotine 14 mg 01/31/17 10:00 02/08/17 09:56 Nicoderm Patch - TD 14 mg DAILY JANETT Administration Pantoprazole Sodium 40 mg 02/01/17 10:00 02/08/17 09:57 Protonix - PO 40 mg DAILY JANETT Administration Quetiapine Fumarate 50 mg 02/08/17 22:00 02/08/17 22:13 Seroquel - PO 50 mg HS JANETT Administration Raltegravir 400 mg 02/02/17 22:00 02/08/17 22:14 Isentress - PO 400 mg BID JANETT Administration Trimethoprim/Sulfamethoxazole 1 each 01/31/17 10:00 02/08/17 09:58 Bactrim Ds - PO 1 each DAILY JANETT Administration Objective: Vital Signs Period Temp Pulse Resp BP Sys/Galdamez Pulse Ox Last 24 Hr 97.7 F-98.8 F 83-107 16-18 108-142/63-77 97 Physical Exam: General: NAD, A&Ox3, Thin Lungs: CTA bilaterally Heart: RRR, S1S2 Abd: Soft, non-tender, non-distended. Normoactive bowel sounds Ext: Warm, well-perfused 2+ DP/PT bilaterally Neuro: CN 2-12 intact CBCD WBC 9.1 K/mm3 (4.0-10.0) 02/08/17 06:00 RBC 3.71 M/mm3 (4.00-5.60) L 02/08/17 06:00 Hgb 10.5 GM/dL (11.7-16.9) L 02/08/17 06:00 Hct 32.2 % (35.4-49) L 02/08/17 06:00 MCV 86.8 fl (80-96) 02/08/17 06:00 MCHC 32.7 g/dl (32.0-35.9) 02/08/17 06:00 RDW 18.5 % (11.9-15.9) H 02/08/17 06:00 Plt Count 400 K/MM3 (134-434) 02/08/17 06:00 MPV 8.1 fl (7.5-11.1) 02/08/17 06:00 CMP Sodium 142 mmol/L (136-145) 02/08/17 06:00 Potassium 3.0 mmol/L (3.5-5.1) L 02/08/17 06:00 Chloride 105 mmol/L (98-107) 02/08/17 06:00 Carbon Dioxide 31 mmol/L (21-32) 02/08/17 06:00 Anion Gap 6 (8-16) L 02/08/17 06:00 BUN 17 mg/dL (7-18) 02/08/17 06:00 Creatinine 0.6 mg/dL (0.7-1.3) L 02/08/17 06:00 Creat Clearance w eGFR > 60 (>60) 02/08/17 06:00 Random Glucose 70 mg/dL (74-106) L D 02/08/17 06:00 Calcium 9.0 mg/dL (8.5-10.1) 02/08/17 06:00 Total Bilirubin 0.4 mg/dL (0.2-1.0) D 02/08/17 06:00 AST 16 U/L (15-37) D 02/08/17 06:00 ALT 34 U/L (12-78) D 02/08/17 06:00 Alkaline Phosphatase 91 U/L (45-117) 02/08/17 06:00 Total Protein 6.5 g/dl (6.4-8.2) 02/08/17 06:00 Albumin 2.5 g/dl (3.4-5.0) L 02/08/17 06:00 CARDIAC ENZYMES Creatine Kinase 312 IU/L (39-308) H 01/30/17 11:55 Troponin I < 0.02 ng/ml (0.00-0.05) 02/06/17 15:40 Microbiology 02/03/17 10:00 Sputum - Expectorated AFB Smear Concentration - Final 02/03/17 10:00 Sputum - Expectorated Direct Acid Fast Bacilli Smear - Final 02/03/17 10:00 Sputum - Expectorated Mycobacterial Culture - Preliminary 01/31/17 05:35 Blood - Peripheral Venous TB Test (QFT) (MEGHA) - Final 02/01/17 16:10 Sputum - Expectorated AFB Smear Concentration - Final 02/01/17 16:10 Sputum - Expectorated Direct Acid Fast Bacilli Smear - Final 02/01/17 16:10 Sputum - Expectorated Mycobacterial Culture - Preliminary 02/02/17 07:40 Sputum - Expectorated AFB Smear Concentration - Final 02/02/17 07:40 Sputum - Expectorated Direct Acid Fast Bacilli Smear - Final 02/02/17 07:40 Sputum - Expectorated Mycobacterial Culture - Preliminary 01/30/17 11:55 Blood - Peripheral Venous Blood Culture - Final NO GROWTH AFTER 5 DAYS INCUBATION 01/30/17 11:55 Blood - Peripheral Venous Blood Culture - Final NO GROWTH AFTER 5 DAYS INCUBATION 01/31/17 11:05 Sputum - Expectorated Gram Stain - Final 01/31/17 11:05 Sputum - Expectorated Sputum Culture - Final Yeast Like Organism S Aureus 01/30/17 21:39 Sputum - Expectorated Gram Stain - Final 01/30/17 21:39 Sputum - Expectorated Sputum Culture - Final Yeast Like Organism 01/30/17 11:32 Urine - Urine Clean Catch Urine Culture - Final NO GROWTH OBTAINED Imaging: Chest Xray 01/29/2017: bilateral pulmonary consolidations, no pneumothorax, no large pleural effusions Chest Xray 01/30/2017: bilateral pulmonary consolidations unchanged from prior chest xray Chest CT 01/31/2017: Bilateral non specific alveolar infiltrates, minimal bilateral pleural effusion, atelectasis (likely chronic) on right lobe, centrilobular emphysema Assessment: This is a 56 year old male with a history of HIV/AIDS (dx in 1995, IVDU, hx PCP PNA, on Triumeq but does not take it regularly, unknown CD4), Hep C , HTN, and asthma/COPD who presented to the [facility] detox facility for heroin/ cocaine EtOH detox on 01/27 and was sent to the ED with shortness of breath, wheezing, and hypoxia. Plan: 1) ID: B/l pneumonia - Discontinued Vanco and Cefepime (01/30-02/07) - AFB x3 negative, isolation precautions discontinued Thrush - Continue Nystatin - Start Diflucan (02/08- ) AIDS - Continue Bactrim for prophylaxis - Continue Lamivudine - Continue Raltegravir - Continue Abacavir - Appreciate ID consult 2) Psych: Opiate dependence - No evidence of withdrawal - Can d/c to [facility] rehab once cleared by ID 3) Cardiology: HTN - Continue Norvasc - No BB as the patient has recent cocaine use Chest pain - Trops negative 4) Pulmonary: COPD exacerbation - Continue Solu-medrol, can taper tomorrow AM - Appreciate pulmonary consult 5) Persistent hiccups: - Trial of compazine - Unresolved with Reglan, d/c - Possibly 2/2 pneumonia vs. GI? - Abd x-ray with large right scrotal hernia, coarse lung changes - F/u upper GI series - F/u CTAP and chest 6) F/E/N: - CL diet - Monitor electrolytes 7) Prophylaxis: - Lovenox 40mg sq daily - OOB ambulating 8) Dispo: - Requires continued inpatient care CODE STATUS: FULL CODE Visit type - Emergency Visit Emergency Visit: Yes ED Registration Date: 01/30/17 Care time: The patient presented to the Emergency Department on the above date and was hospitalized for further evaluation of their emergent condition. - New Patient This patient is new to me today: No - Critical Care Critical Care patient: No
[2017-02-09] MEDS: lamiVUDine 150 MG TABLET PO SCH (10:00)
--- NOTE | 2017-02-09 10:16 | EKG ---
Test Reason : Blood Pressure : / mmHG Vent. Rate : 078 BPM Atrial Rate : 078 BPM P-R Int : 152 ms QRS Dur : 088 ms QT Int : 392 ms P-R-T Axes : 084 066 051 degrees QTc Int : 446 ms NORMAL SINUS RHYTHM MODERATE VOLTAGE CRITERIA FOR LVH, MAY BE NORMAL VARIANT WHEN COMPARED WITH ECG OF 06-FEB-2017 10:16, NO SIGNIFICANT CHANGE WAS FOUND Confirmed by JUVENAL CARRENO MD ([id number]) on 02/09/2017 10:16:20 AM Referred By: JANETTE RUIZ Confirmed By:JUVENAL CARRENO MD
[2017-02-09 11:26] LABS: ANION GAP 8 (8-16); CALCIUM 8.6 mg/dL (8.5-10.1); CO2 32 mmol/L (21-32); CREATININE 0.5 mg/dL (0.7-1.3); GLUCOSE,RANDOM 76 mg/dL (74-106)
--- NOTE | 2017-02-09 12:18 | PN ---
Progress Note (short form) - Note Progress Note: PULMONARY Denies shortness of breath, fevers or chills. Still with persistent hiccups. CT chest showing improvement in bibasilar infiltrates but also with dilated upper esophagus with retained fluid. Last Vital Signs Temp Pulse Resp BP Pulse Ox 98.6 F 83 16 130/76 97 02/09/17 06:00 02/09/17 06:00 02/09/17 06:00 02/09/17 06:00 02/08/17 22:00 Gen: NAD at rest Heart: RRR Lung: scattered bilateral rhonchi Abd: soft, nontender Ext: no edema CBC, BMP 02/08/17 06:00 02/09/17 09:30 Active Medications Abacavir Sulfate (Ziagen -) 300 mg PO BID [facility] Last Admin: 02/08/17 22:13 Dose: 300 mg Acetaminophen (Tylenol -) 650 mg PO Q4H PRN PRN Reason: FEVER OR PAIN Last Admin: 02/08/17 22:14 Dose: 650 mg Amlodipine Besylate (Norvasc -) 10 mg PO DAILY [facility] Last Admin: 02/08/17 09:57 Dose: 10 mg Docusate Sodium (Colace -) 100 mg PO TID [facility] Last Admin: 02/09/17 04:59 Dose: Not Given Enoxaparin Sodium (Lovenox -) 40 mg SQ DAILY [facility] Last Admin: 02/08/17 09:57 Dose: 40 mg Guaifenesin (Robitussin -) 10 ml PO Q4H PRN PRN Reason: COUGH Last Admin: 02/08/17 22:13 Dose: 10 ml Fluconazole (Diflucan 100 Mg/D5w Premixed Ivpb -) 50 mls @ 50 mls/hr IVPB DAILY [facility] Lamivudine (Epivir -) 300 mg PO DAILY [facility] Last Admin: 02/08/17 09:58 Dose: 300 mg Lidocaine (Lidoderm Patch -) 1 patch TP DAILY [facility] Last Admin: 02/08/17 10:08 Dose: Not Given Methylprednisolone Sodium Succinate (Solu-Medrol -) 40 mg IVPB DAILY [facility] Last Admin: 02/08/17 09:57 Dose: 40 mg Miscellaneous (Lidoderm Patch Removal) 1 each MC DAILY@2200 [facility] Last Admin: 02/08/17 22:39 Dose: 1 each Nicotine (Nicoderm Patch -) 14 mg TD DAILY [facility] Last Admin: 02/08/17 09:56 Dose: 14 mg Pantoprazole Sodium (Protonix -) 40 mg PO DAILY [facility] Last Admin: 02/08/17 09:57 Dose: 40 mg Potassium Chloride (K-Dur -) 40 meq PO ONCE ONE Stop: 02/09/17 11:52 Potassium Chloride (K-Dur -) 40 meq PO ONCE ONE Stop: 02/09/17 18:01 Quetiapine Fumarate (Seroquel -) 50 mg PO HS [facility] Last Admin: 02/08/17 22:13 Dose: 50 mg Raltegravir (Isentress -) 400 mg PO BID [facility] Last Admin: 02/08/17 22:14 Dose: 400 mg Trimethoprim/Sulfamethoxazole (Bactrim Ds -) 1 each PO DAILY [facility] Last Admin: 02/08/17 09:58 Dose: 1 each A/P Pneumonia treated Intractable Hiccups HIV/AIDS COPD Smoker - completed antibiotics - will change medrol to prednisone 30mg daily - GI f/u - inhaled bronchodilators - continue ART - O2 to keep SpO2 >90% - DVT prophylaxis - smoking cessation
[2017-02-09] MEDS: ABACAVIR SULFATE 300 MG TABLET PO SCH ×2 (12:40→21:45)
[2017-02-09] MEDS: amLODIPine BESYLATE 10 MG TABLET (FP) PO SCH (12:40)
[2017-02-09] MEDS: SULFAMETHOXAZOLE/TRIMETHOPRIM 800MG/160MG D.S. TABLET PO SCH (12:40)
[2017-02-09] MEDS: PANTOPRAZOLE 40 MG TABLET (FP) PO SCH (12:40)
[2017-02-09] MEDS: NICOTINE 14 MG/24 HOURS TOPICAL PATCH TD SCH (12:40)
[2017-02-09] MEDS: RALTEGRAVIR POTASSIUM 400 MG TAB PO SCH ×2 (12:41→21:44)
[2017-02-09] MEDS: ACETAMINOPHEN 325 MG TABLET (FP) PO PRN (12:41)
[2017-02-09] MEDS: LIDOCAINE 5% TOPICAL PATCH TP SCH (12:44)
[2017-02-09] MEDS: ENOXAPARIN NA (PORCINE) 40 MG/0.4 ML DISP.SYRIN SQ SCH (12:45)
[2017-02-09] MEDS: FLUCONAZOLE 100 MG/D5W 50 ML IVPB SCH (12:51)
[2017-02-09] MEDS: methylPREDNISolone NA SUCC 40 MG/1 ML VIAL IVPB SCH (13:25)
[2017-02-09] MEDS ORDERED: POTASSIUM CHLORIDE TABS 20 MEQ TABLET.ER (FP) PO ONE ×2 (13:30→18:00)
--- NOTE | 2017-02-09 15:49 | PN ---
Progress Note (short form) - Note Progress Note: no vomiting still with hiccups Vital Signs Period Temp Pulse Resp BP Sys/Galdamez Pulse Ox Last 24 Hr 97.7 F-98.6 F 79-100 16-18 113-142/71-80 93-97 no thrush cor-rrr lungs clear abd soft,nt ext no edema CBC, BMP 02/08/17 06:00 02/09/17 09:30 Microbiology 02/03/17 10:00 Sputum - Expectorated AFB Smear Concentration - Final 02/03/17 10:00 Sputum - Expectorated Direct Acid Fast Bacilli Smear - Final 02/03/17 10:00 Sputum - Expectorated Mycobacterial Culture - Preliminary 01/31/17 05:35 Blood - Peripheral Venous TB Test (QFT) (MEGHA) - Final 02/01/17 16:10 Sputum - Expectorated AFB Smear Concentration - Final 02/01/17 16:10 Sputum - Expectorated Direct Acid Fast Bacilli Smear - Final 02/01/17 16:10 Sputum - Expectorated Mycobacterial Culture - Preliminary 02/02/17 07:40 Sputum - Expectorated AFB Smear Concentration - Final 02/02/17 07:40 Sputum - Expectorated Direct Acid Fast Bacilli Smear - Final 02/02/17 07:40 Sputum - Expectorated Mycobacterial Culture - Preliminary 01/30/17 11:55 Blood - Peripheral Venous Blood Culture - Final NO GROWTH AFTER 5 DAYS INCUBATION 01/30/17 11:55 Blood - Peripheral Venous Blood Culture - Final NO GROWTH AFTER 5 DAYS INCUBATION 01/31/17 11:05 Sputum - Expectorated Gram Stain - Final 01/31/17 11:05 Sputum - Expectorated Sputum Culture - Final Yeast Like Organism Mr S Aureus 01/30/17 21:39 Sputum - Expectorated Gram Stain - Final 01/30/17 21:39 Sputum - Expectorated Sputum Culture - Final Yeast Like Organism 01/30/17 11:32 Urine - Urine Clean Catch Urine Culture - Final NO GROWTH OBTAINED repeat ct scan with esophageal dilatation, infiltrates improved a/p bilateral pneumonia-s/p vano/cefepime aids-on art thrush resolved copd steroid taper hypokalemia- replete K hiccups/vomiting- esophageal dilatation trial diflucan ?endoscopy
[2017-02-09] MEDS: QUEtiapine FUMARATE 25 MG TABLET (FP) PO SCH (21:45)
[2017-02-09] MEDS: LIDOCAINE PATCH REMOVAL MC SCH (21:51)
[2017-02-10] MEDS: DOCUSATE SODIUM 100 MG CAPSULE (FP) PO SCH ×3 (06:32→21:18)
--- NOTE | 2017-02-10 08:19 | PN ---
Progress Note (short form) - Note Progress Note: Subjective: The patient was seen and examined at the bedside, he is still complaining of hiccups. He states he would like to eat a "big meal". CT with diffuse esophageal dilatation Awaiting GI follow-up, will need possible endoscopy Current Medications Generic Name Dose Route Start Last Admin Trade Name Freq PRN Reason Stop Dose Admin Abacavir Sulfate 300 mg 02/02/17 22:00 02/09/17 21:45 Ziagen - PO 300 mg BID JANETT Administration Acetaminophen 650 mg 01/30/17 13:29 02/09/17 12:41 Tylenol - PO 650 mg Q4H PRN Administration FEVER OR PAIN Amlodipine Besylate 10 mg 02/04/17 10:00 02/09/17 12:40 Norvasc - PO 10 mg DAILY JANETT Administration Docusate Sodium 100 mg 01/30/17 14:00 02/10/17 06:32 Colace - PO 100 mg TID JANETT Administration Enoxaparin Sodium 40 mg 01/31/17 10:00 02/09/17 12:45 Lovenox - SQ 40 mg DAILY JANETT Administration Guaifenesin 10 ml 01/31/17 21:32 02/08/17 22:13 Robitussin - PO 10 ml Q4H PRN Administration COUGH Fluconazole 50 mls @ 50 mls/hr 02/09/17 10:00 02/09/17 12:51 Diflucan 100 Mg/D5w Premixed Ivpb - IVPB 50 mls/hr DAILY JANETT Administration Lamivudine 300 mg 02/02/17 18:52 02/09/17 10:00 Epivir - PO Not Given DAILY JANETT Lidocaine 1 patch 02/02/17 10:00 02/09/17 12:44 Lidoderm Patch - TP 1 patch DAILY JANETT Administration Miscellaneous 1 each 02/02/17 22:00 02/09/17 21:51 Lidoderm Patch Removal MC 1 each DAILY@2200 JANETT Administration Nicotine 14 mg 01/31/17 10:00 02/09/17 12:40 Nicoderm Patch - TD 14 mg DAILY JANETT Administration Pantoprazole Sodium 40 mg 02/01/17 10:00 02/09/17 12:40 Protonix - PO 40 mg DAILY JANETT Administration Prednisone 30 mg 02/10/17 10:00 Deltasone - PO DAILY JANETT Prochlorperazine Maleate 5 mg 02/10/17 08:10 Compazine - PO 02/10/17 08:11 ONCE ONE Quetiapine Fumarate 50 mg 02/08/17 22:00 02/09/17 21:45 Seroquel - PO 50 mg HS JANETT Administration Raltegravir 400 mg 02/02/17 22:00 02/09/17 21:44 Isentress - PO 400 mg BID JANETT Administration Trimethoprim/Sulfamethoxazole 1 each 01/31/17 10:00 02/09/17 12:40 Bactrim Ds - PO 1 each DAILY JANETT Administration Objective: Vital Signs Period Temp Pulse Resp BP Sys/Galdamez Pulse Ox Last 24 Hr 98.3 F-98.5 F 79-100 16-18 106-141/71-83 93-98 Physical Exam: General: NAD, A&Ox3, Thin Lungs: CTA bilaterally Heart: RRR, S1S2 Abd: Soft, non-tender, non-distended. Normoactive bowel sounds Ext: Warm, well-perfused 2+ DP/PT bilaterally Neuro: CN 2-12 intact CBCD WBC 9.1 K/mm3 (4.0-10.0) 02/08/17 06:00 RBC 3.71 M/mm3 (4.00-5.60) L 02/08/17 06:00 Hgb 10.5 GM/dL (11.7-16.9) L 02/08/17 06:00 Hct 32.2 % (35.4-49) L 02/08/17 06:00 MCV 86.8 fl (80-96) 02/08/17 06:00 MCHC 32.7 g/dl (32.0-35.9) 02/08/17 06:00 RDW 18.5 % (11.9-15.9) H 02/08/17 06:00 Plt Count 400 K/MM3 (134-434) 02/08/17 06:00 MPV 8.1 fl (7.5-11.1) 02/08/17 06:00 CMP Sodium 145 mmol/L (136-145) 02/09/17 09:30 Potassium 3.0 mmol/L (3.5-5.1) L 02/09/17 09:30 Chloride 105 mmol/L (98-107) 02/09/17 09:30 Carbon Dioxide 32 mmol/L (21-32) 02/09/17 09:30 Anion Gap 8 (8-16) 02/09/17 09:30 BUN 20 mg/dL (7-18) H 02/09/17 09:30 Creatinine 0.5 mg/dL (0.7-1.3) L 02/09/17 09:30 Creat Clearance w eGFR > 60 (>60) 02/08/17 06:00 Random Glucose 76 mg/dL (74-106) 02/09/17 09:30 Calcium 8.6 mg/dL (8.5-10.1) 02/09/17 09:30 Total Bilirubin 0.4 mg/dL (0.2-1.0) D 02/08/17 06:00 AST 16 U/L (15-37) D 02/08/17 06:00 ALT 34 U/L (12-78) D 02/08/17 06:00 Alkaline Phosphatase 91 U/L (45-117) 02/08/17 06:00 Total Protein 6.5 g/dl (6.4-8.2) 02/08/17 06:00 Albumin 2.5 g/dl (3.4-5.0) L 02/08/17 06:00 CARDIAC ENZYMES Creatine Kinase 312 IU/L (39-308) H 01/30/17 11:55 Troponin I < 0.02 ng/ml (0.00-0.05) 02/06/17 15:40 Microbiology 02/03/17 10:00 Sputum - Expectorated AFB Smear Concentration - Final 02/03/17 10:00 Sputum - Expectorated Direct Acid Fast Bacilli Smear - Final 02/03/17 10:00 Sputum - Expectorated Mycobacterial Culture - Preliminary 01/31/17 05:35 Blood - Peripheral Venous TB Test (QFT) (MEGHA) - Final 02/01/17 16:10 Sputum - Expectorated AFB Smear Concentration - Final 02/01/17 16:10 Sputum - Expectorated Direct Acid Fast Bacilli Smear - Final 02/01/17 16:10 Sputum - Expectorated Mycobacterial Culture - Preliminary 02/02/17 07:40 Sputum - Expectorated AFB Smear Concentration - Final 02/02/17 07:40 Sputum - Expectorated Direct Acid Fast Bacilli Smear - Final 02/02/17 07:40 Sputum - Expectorated Mycobacterial Culture - Preliminary 01/30/17 11:55 Blood - Peripheral Venous Blood Culture - Final NO GROWTH AFTER 5 DAYS INCUBATION 01/30/17 11:55 Blood - Peripheral Venous Blood Culture - Final NO GROWTH AFTER 5 DAYS INCUBATION 01/31/17 11:05 Sputum - Expectorated Gram Stain - Final 01/31/17 11:05 Sputum - Expectorated Sputum Culture - Final Yeast Like Organism S Aureus 01/30/17 21:39 Sputum - Expectorated Gram Stain - Final 01/30/17 21:39 Sputum - Expectorated Sputum Culture - Final Yeast Like Organism 01/30/17 11:32 Urine - Urine Clean Catch Urine Culture - Final NO GROWTH OBTAINED Imaging: Chest Xray 01/29/2017: bilateral pulmonary consolidations, no pneumothorax, no large pleural effusions Chest Xray 01/30/2017: bilateral pulmonary consolidations unchanged from prior chest xray Chest CT 01/31/2017: Bilateral non specific alveolar infiltrates, minimal bilateral pleural effusion, atelectasis (likely chronic) on right lobe, centrilobular emphysema Assessment: This is a 56 year old male with a history of HIV/AIDS (dx in 1995, IVDU, hx PCP PNA, on Triumeq but does not take it regularly, unknown CD4), Hep C , HTN, and asthma/COPD who presented to the [facility] detox facility for heroin/ cocaine EtOH detox on 01/27 and was sent to the ED with shortness of breath, wheezing, and hypoxia. Plan: 1) Persistent hiccups: - Trial of compazine (unresolved with reglan) - CT with diffuse esophageal dilatation - Will likely need endoscopy - F/u further GI recommendations 2) ID: B/l pneumonia - Discontinued Vanco and Cefepime (01/30-02/07) - AFB x3 negative, isolation precautions discontinued Thrush - Resolved AIDS - Continue Bactrim for prophylaxis - Continue Lamivudine - Continue Raltegravir - Continue Abacavir - Appreciate ID consult 3) Pulmonary: COPD exacerbation - Improving - Now on Prednisone 30mg po daily - Appreciate pulmonary consult 4) Psych: Opiate dependence - No evidence of withdrawal - Can d/c to [facility] rehab once cleared by ID 5) Cardiology: HTN - Continue Norvasc - No BB as the patient has recent cocaine use Chest pain - Trops negative 6) F/E/N: - CL diet - Monitor electrolytes 7) Prophylaxis: - Lovenox 40mg sq daily - OOB ambulating 8) Dispo: - Requires continued inpatient care CODE STATUS: FULL CODE Visit type - Emergency Visit Emergency Visit: Yes ED Registration Date: 01/30/17 Care time: The patient presented to the Emergency Department on the above date and was hospitalized for further evaluation of their emergent condition. - New Patient This patient is new to me today: No - Critical Care Critical Care patient: No
[2017-02-10] MEDS ORDERED: PROCHLORPERAZINE MALEATE 5 MG TABLET PO ONE (08:35)
[2017-02-10] MEDS ORDERED: PT OWN MED DRAWER 7, Y5N ONE ×4 (08:55→21:15)
[2017-02-10 09:52] LABS: ANION GAP 11 (8-16); CALCIUM 9.2 mg/dL (8.5-10.1); CO2 27 mmol/L (21-32); CREATININE 0.9 mg/dL (0.7-1.3); GLUCOSE,RANDOM 140 mg/dL (74-106)
[2017-02-10] MEDS: ENOXAPARIN NA (PORCINE) 40 MG/0.4 ML DISP.SYRIN SQ SCH (10:48)
[2017-02-10] MEDS: LIDOCAINE 5% TOPICAL PATCH TP SCH (10:48)
[2017-02-10] MEDS: lamiVUDine 150 MG TABLET PO SCH (10:48)
[2017-02-10] MEDS: FLUCONAZOLE 100 MG/D5W 50 ML IVPB SCH (10:48)
[2017-02-10] MEDS: ABACAVIR SULFATE 300 MG TABLET PO SCH ×2 (10:49→21:19)
[2017-02-10] MEDS: predniSONE 10 MG TABLET (UD) PO SCH (10:49)
[2017-02-10] MEDS: RALTEGRAVIR POTASSIUM 400 MG TAB PO SCH ×2 (10:49→21:18)
[2017-02-10] MEDS: amLODIPine BESYLATE 10 MG TABLET (FP) PO SCH (10:50)
[2017-02-10] MEDS: SULFAMETHOXAZOLE/TRIMETHOPRIM 800MG/160MG D.S. TABLET PO SCH (10:50)
[2017-02-10] MEDS: PANTOPRAZOLE 40 MG TABLET (FP) PO SCH (10:50)
[2017-02-10] MEDS: NICOTINE 14 MG/24 HOURS TOPICAL PATCH TD SCH (10:50)
--- NOTE | 2017-02-10 13:02 | PN ---
Progress Note (short form) - Note Progress Note: conitnues with hiccups and some vomiting? no fevers hungry wants to eat Vital Signs Period Temp Pulse Resp BP Sys/Galdamez Pulse Ox Last 24 Hr 98.3 F-98.3 F 81-100 16-18 106-141/71-83 98 no thrush cor rrr lungs clear abd soft,nt ext no edema CBC, BMP 02/08/17 06:00 02/10/17 09:[address] scan with esophageal dilatation, infiltrates improved a/p bilateral pneumonia-s/p vano/cefepime-treated aids-on art thrush resolved copd steroid taper hypokalemia- replete K hiccups/vomiting- esophageal dilatation-needs GI f/u trial diflucan- would d/c if no improvement after 7 days ?endoscopy ID issues stable contine art and pcp prophylaxis please call back if needed should f/u with his HIV clinic after discharge
--- NOTE | 2017-02-10 15:50 | PN ---
Progress Note (short form) - Note Progress Note: PULMONARY Denies shortness of breath, fevers or chills. Still with persistent hiccups and vomiting. Last Vital Signs Temp Pulse Resp BP Pulse Ox 98.9 F 105 H 18 120/80 95 02/10/17 14:25 02/10/17 14:25 02/10/17 14:25 02/10/17 14:25 02/10/17 10:00 Gen: NAD at rest Heart: RRR Lung: scattered bilateral rhonchi Abd: soft, nontender Ext: no edema CBC, BMP 02/08/17 06:00 02/10/17 09:15 Active Medications Abacavir Sulfate (Ziagen -) 300 mg PO BID [facility] Last Admin: 02/10/17 10:49 Dose: 300 mg Acetaminophen (Tylenol -) 650 mg PO Q4H PRN PRN Reason: FEVER OR PAIN Last Admin: 02/09/17 12:41 Dose: 650 mg Amlodipine Besylate (Norvasc -) 10 mg PO DAILY [facility] Last Admin: 02/10/17 10:50 Dose: 10 mg Docusate Sodium (Colace -) 100 mg PO TID [facility] Last Admin: 02/10/17 14:47 Dose: Not Given Enoxaparin Sodium (Lovenox -) 40 mg SQ DAILY [facility] Last Admin: 02/10/17 10:48 Dose: 40 mg Guaifenesin (Robitussin -) 10 ml PO Q4H PRN PRN Reason: COUGH Last Admin: 02/08/17 22:13 Dose: 10 ml Fluconazole (Diflucan 100 Mg/D5w Premixed Ivpb -) 50 mls @ 50 mls/hr IVPB DAILY [facility] Last Admin: 02/10/17 10:48 Dose: 50 mls/hr Lamivudine (Epivir -) 300 mg PO DAILY [facility] Last Admin: 02/10/17 10:48 Dose: 300 mg Lidocaine (Lidoderm Patch -) 1 patch TP DAILY [facility] Last Admin: 02/10/17 10:48 Dose: 1 patch Miscellaneous (Lidoderm Patch Removal) 1 each MC DAILY@2200 [facility] Last Admin: 02/09/17 21:51 Dose: 1 each Nicotine (Nicoderm Patch -) 14 mg TD DAILY [facility] Last Admin: 02/10/17 10:50 Dose: 14 mg Pantoprazole Sodium (Protonix -) 40 mg PO DAILY [facility] Last Admin: 02/10/17 10:50 Dose: 40 mg Prednisone (Deltasone -) 30 mg PO DAILY [facility] Last Admin: 02/10/17 10:49 Dose: 30 mg Quetiapine Fumarate (Seroquel -) 50 mg PO HS [facility] Last Admin: 02/09/17 21:45 Dose: 50 mg Raltegravir (Isentress -) 400 mg PO BID [facility] Last Admin: 02/10/17 10:49 Dose: 400 mg Trimethoprim/Sulfamethoxazole (Bactrim Ds -) 1 each PO DAILY [facility] Last Admin: 02/10/17 10:50 Dose: 1 each A/P Pneumonia treated Intractable Hiccups HIV/AIDS COPD Smoker - completed antibiotics - prednisone taper - GI f/u for esophageal dilatation - inhaled bronchodilators - continue ART - O2 to keep SpO2 >90% - DVT prophylaxis - smoking cessation
--- NOTE | 2017-02-10 17:47 | CON.CARD ---
Consult Consult Specialty:: cardiology - Past Medical History Pulmonary: Yes: COPD, Pneumonia Hepatobiliary: Yes: Hepatitis C Infectious Disease: Yes: AIDS, HIV Psych: Yes: Addictions (polysubstance abuse (IV heroine, cocaine, tobacco cigarettes, EtOH)) Endocrine: Yes: Hypothyroidism Additional Medical History: poly substance abuse - Past Surgical History Past Surgical History: Yes: None - Alcohol/Substance Use Hx Alcohol Use: Yes - Smoking History Smoking history: Current every day smoker Have you smoked in the past 12 months: Yes Aproximately how many cigarettes per day: 10 Home Medications - Allergies Allergies/Adverse Reactions: Allergies Allergy/AdvReac Type Severity Reaction Status Date / Time No Known Allergies Allergy Verified 01/30/17 10:48 - Home Medications Home Medications: Ambulatory Orders Quetiapine Fumarate [Seroquel -] 100 mg PO HS #30 tablet 11/11/13 Abacavir/Dolutegravir/Lamivudi [Triumeq Tablet] 1 each PO DAILY 11/06/16 Amlodipine Besylate 10 mg PO DAILY 11/06/16 Umeclidinium Daniels [Incruse Ellipta] 62.5 mcg IH DAILY 11/06/16 Family Disease History - Family Disease History Family Disease History: Diabetes: Father, Heart Disease: Father, Mother ( alcoholic ), CA: Sister, Other: Mother Vital Signs: Vital Signs Temperature 98.9 F 02/10/17 14:25 Pulse Rate 105 H 02/10/17 14:25 Respiratory Rate 18 02/10/17 14:25 Blood Pressure 120/80 02/10/17 14:25 O2 Sat by Pulse Oximetry (%) 95 02/10/17 10:00 - Other Data Labs, Other Data: CBC, BMP 02/08/17 06:00 02/10/17 09:15
[2017-02-10] MEDS: QUEtiapine FUMARATE 25 MG TABLET (FP) PO SCH (21:19)
[2017-02-10] MEDS: ACETAMINOPHEN 325 MG TABLET (FP) PO PRN (21:19)
[2017-02-10] MEDS: LIDOCAINE PATCH REMOVAL MC SCH (21:20)
[2017-02-11] MEDS: DOCUSATE SODIUM 100 MG CAPSULE (FP) PO SCH ×3 (06:59→22:09)
[2017-02-11 07:24] LABS: EOSINOPHIL 0.1 % (0-4.5); MCHC 32.8 g/dl (32.0-35.9); MEAN CELL VOLUME 88.5 fl (80-96); NEUTROPHILS 69.5 % (42.8-82.8); PLATELET COUNT 319 K/MM3 (134-434); WHITE BLOOD COUNT 6.3 K/mm3 (4.0-10.0)
[2017-02-11 07:52] LABS: ANION GAP 6 (8-16); CALCIUM 9.1 mg/dL (8.5-10.1); CO2 34 mmol/L (21-32); GLUCOSE,RANDOM 79 mg/dL (74-106)
[2017-02-11 07:54] LABS: CREATININE 0.7 mg/dL (0.7-1.3)
[2017-02-11] MEDS ORDERED: PT OWN MED DRAWER 7, Y5N ONE ×3 (09:57→22:03)
[2017-02-11] MEDS: SULFAMETHOXAZOLE/TRIMETHOPRIM 800MG/160MG D.S. TABLET PO SCH (10:00)
[2017-02-11] MEDS: amLODIPine BESYLATE 10 MG TABLET (FP) PO SCH (10:00)
[2017-02-11] MEDS: predniSONE 10 MG TABLET (UD) PO SCH (10:00)
[2017-02-11] MEDS: ENOXAPARIN NA (PORCINE) 40 MG/0.4 ML DISP.SYRIN SQ SCH (10:01)
[2017-02-11] MEDS: PANTOPRAZOLE 40 MG TABLET (FP) PO SCH (10:01)
[2017-02-11] MEDS: RALTEGRAVIR POTASSIUM 400 MG TAB PO SCH ×2 (10:02→22:10)
[2017-02-11] MEDS: NICOTINE 14 MG/24 HOURS TOPICAL PATCH TD SCH (10:02)
[2017-02-11] MEDS: ABACAVIR SULFATE 300 MG TABLET PO SCH ×2 (10:03→22:11)
[2017-02-11] MEDS: lamiVUDine 150 MG TABLET PO SCH (10:04)
[2017-02-11] MEDS: FLUCONAZOLE 100 MG/D5W 50 ML IVPB SCH (10:06)
[2017-02-11] MEDS: LIDOCAINE 5% TOPICAL PATCH TP SCH (10:51)
--- NOTE | 2017-02-11 17:06 | PN ---
Progress Note (short form) - Note Progress Note: Subjective: The patient was seen and examined at the bedside, he is still complaining of hiccups. Awaiting GI re-evaluation Current Medications Generic Name Dose Route Start Last Admin Trade Name Freq PRN Reason Stop Dose Admin Abacavir Sulfate 300 mg 02/02/17 22:00 02/11/17 10:03 Ziagen - PO 300 mg BID JANETT Administration Acetaminophen 650 mg 01/30/17 13:29 02/10/17 21:19 Tylenol - PO 650 mg Q4H PRN Administration FEVER OR PAIN Amlodipine Besylate 10 mg 02/04/17 10:00 02/11/17 10:00 Norvasc - PO 10 mg DAILY JANETT Administration Docusate Sodium 100 mg 01/30/17 14:00 02/11/17 14:04 Colace - PO 100 mg TID JANETT Administration Enoxaparin Sodium 40 mg 01/31/17 10:00 02/11/17 10:01 Lovenox - SQ 40 mg DAILY JANETT Administration Guaifenesin 10 ml 01/31/17 21:32 02/08/17 22:13 Robitussin - PO 10 ml Q4H PRN Administration COUGH Fluconazole 50 mls @ 50 mls/hr 02/09/17 10:00 02/11/17 10:06 Diflucan 100 Mg/D5w Premixed Ivpb - IVPB 50 mls/hr DAILY JANETT Administration Lamivudine 300 mg 02/02/17 18:52 02/11/17 10:04 Epivir - PO 300 mg DAILY JANETT Administration Lidocaine 1 patch 02/02/17 10:00 02/11/17 10:51 Lidoderm Patch - TP Not Given DAILY JANETT Miscellaneous 1 each 02/02/17 22:00 02/10/17 21:20 Lidoderm Patch Removal MC 1 each DAILY@2200 JANETT Administration Nicotine 14 mg 01/31/17 10:00 02/11/17 10:02 Nicoderm Patch - TD 14 mg DAILY JANETT Administration Pantoprazole Sodium 40 mg 02/01/17 10:00 02/11/17 10:01 Protonix - PO 40 mg DAILY JANETT Administration Prednisone 30 mg 02/10/17 10:00 02/11/17 10:00 Deltasone - PO 30 mg DAILY [facility]ANETT Administration Quetiapine Fumarate 50 mg 02/08/17 22:00 02/10/17 21:19 Seroquel - PO 50 mg HS JANETT Administration Raltegravir 400 mg 02/02/17 22:00 02/11/17 10:02 Isentress - PO 400 mg BID JANETT Administration Trimethoprim/Sulfamethoxazole 1 each 01/31/17 10:00 02/11/17 10:00 Bactrim Ds - PO 1 each DAILY JANETT Administration Objective: Vital Signs Period Temp Pulse Resp BP Sys/Galdamez Pulse Ox Last 24 Hr 99 F-99.6 F 90-95 16-18 98-114/64-86 94 Physical Exam: General: NAD, A&Ox3, Thin Lungs: CTA bilaterally Heart: RRR, S1S2 Abd: Soft, non-tender, non-distended. Normoactive bowel sounds Ext: Warm, well-perfused 2+ DP/PT bilaterally Neuro: CN 2-12 intact CBCD WBC 6.3 K/mm3 (4.0-10.0) D 02/11/17 06:30 RBC 3.62 M/mm3 (4.00-5.60) L 02/11/17 06:30 Hgb 10.5 GM/dL (11.7-16.9) L 02/11/17 06:30 Hct 32.1 % (35.4-49) L 02/11/17 06:30 MCV 88.5 fl (80-96) 02/11/17 06:30 MCHC 32.8 g/dl (32.0-35.9) 02/11/17 06:30 RDW 19.0 % (11.9-15.9) H 02/11/17 06:30 Plt Count 319 K/MM3 (134-434) D 02/11/17 06:30 MPV 8.0 fl (7.5-11.1) 02/11/17 06:30 CMP Sodium 143 mmol/L (136-145) 02/11/17 06:30 Potassium 3.3 mmol/L (3.5-5.1) L 02/11/17 06:30 Chloride 103 mmol/L (98-107) 02/11/17 06:30 Carbon Dioxide 34 mmol/L (21-32) H D 02/11/17 06:30 Anion Gap 6 (8-16) L 02/11/17 06:30 BUN 15 mg/dL (7-18) 02/11/17 06:30 Creatinine 0.7 mg/dL (0.7-1.3) D 02/11/17 06:30 Creat Clearance w eGFR > 60 (>60) 02/08/17 06:00 Random Glucose 79 mg/dL (74-106) D 02/11/17 06:30 Calcium 9.1 mg/dL (8.5-10.1) 02/11/17 06:30 Total Bilirubin 0.4 mg/dL (0.2-1.0) D 02/08/17 06:00 AST 16 U/L (15-37) D 02/08/17 06:00 ALT 34 U/L (12-78) D 02/08/17 06:00 Alkaline Phosphatase 91 U/L (45-117) 02/08/17 06:00 Total Protein 6.5 g/dl (6.4-8.2) 02/08/17 06:00 Albumin 2.5 g/dl (3.4-5.0) L 02/08/17 06:00 CARDIAC ENZYMES Creatine Kinase 312 IU/L (39-308) H 01/30/17 11:55 Troponin I < 0.02 ng/ml (0.00-0.05) 02/06/17 15:40 Microbiology 02/03/17 10:00 Sputum - Expectorated AFB Smear Concentration - Final 02/03/17 10:00 Sputum - Expectorated Direct Acid Fast Bacilli Smear - Final 02/03/17 10:00 Sputum - Expectorated Mycobacterial Culture - Preliminary 01/31/17 05:35 Blood - Peripheral Venous TB Test (QFT) (MEGHA) - Final 02/01/17 16:10 Sputum - Expectorated AFB Smear Concentration - Final 02/01/17 16:10 Sputum - Expectorated Direct Acid Fast Bacilli Smear - Final 02/01/17 16:10 Sputum - Expectorated Mycobacterial Culture - Preliminary 02/02/17 07:40 Sputum - Expectorated AFB Smear Concentration - Final 02/02/17 07:40 Sputum - Expectorated Direct Acid Fast Bacilli Smear - Final 02/02/17 07:40 Sputum - Expectorated Mycobacterial Culture - Preliminary 01/30/17 11:55 Blood - Peripheral Venous Blood Culture - Final NO GROWTH AFTER 5 DAYS INCUBATION 01/30/17 11:55 Blood - Peripheral Venous Blood Culture - Final NO GROWTH AFTER 5 DAYS INCUBATION 01/31/17 11:05 Sputum - Expectorated Gram Stain - Final 01/31/17 11:05 Sputum - Expectorated Sputum Culture - Final Yeast Like Organism Mr Grant Aureus 01/30/17 21:39 Sputum - Expectorated Gram Stain - Final 01/30/17 21:39 Sputum - Expectorated Sputum Culture - Final Yeast Like Organism 01/30/17 11:32 Urine - Urine Clean Catch Urine Culture - Final NO GROWTH OBTAINED Imaging: Chest Xray 01/29/2017: bilateral pulmonary consolidations, no pneumothorax, no large pleural effusions Chest Xray 01/30/2017: bilateral pulmonary consolidations unchanged from prior chest xray Chest CT 01/31/2017: Bilateral non specific alveolar infiltrates, minimal bilateral pleural effusion, atelectasis (likely chronic) on right lobe, centrilobular emphysema Assessment: This is a 56 year old male with a history of HIV/AIDS (dx in 1995, IVDU, hx PCP PNA, on Triumeq but does not take it regularly, unknown CD4), Hep C , HTN, and asthma/COPD who presented to the [facility] detox facility for heroin/ cocaine EtOH detox on 01/27 and was sent to the ED with shortness of breath, wheezing, and hypoxia. Plan: 1) Persistent hiccups: - Compazine and Reglan did not relieve hiccups - CT with diffuse esophageal dilatation - Will likely need endoscopy - F/u further GI recommendations 2) ID: B/l pneumonia - Discontinued Vanco and Cefepime (01/30-02/07) - AFB x3 negative, isolation precautions discontinued Thrush - Resolved AIDS - Continue Bactrim for prophylaxis - Continue Lamivudine - Continue Raltegravir - Continue Abacavir - Appreciate ID consult 3) Pulmonary: COPD exacerbation - Improving - Now on Prednisone 30mg po daily - Appreciate pulmonary consult 4) Psych: Opiate dependence - No evidence of withdrawal - Can d/c to [facility] rehab once cleared by ID 5) Cardiology: HTN - Continue Norvasc - No BB as the patient has recent cocaine use Chest pain - Trops negative 6) F/E/N: - CL diet - Monitor electrolytes 7) Prophylaxis: - Lovenox 40mg sq daily - OOB ambulating 8) Dispo: - Requires continued inpatient care CODE STATUS: FULL CODE Visit type - Emergency Visit Emergency Visit: Yes ED Registration Date: 01/30/17 Care time: The patient presented to the Emergency Department on the above date and was hospitalized for further evaluation of their emergent condition. - New Patient This patient is new to me today: No - Critical Care Critical Care patient: No
[2017-02-11] MEDS ORDERED: POTASSIUM CHLORIDE TABS 20 MEQ TABLET.ER (FP) PO ONE (18:27)
[2017-02-11] MEDS: QUEtiapine FUMARATE 25 MG TABLET (FP) PO SCH (22:10)
[2017-02-11] MEDS: LIDOCAINE PATCH REMOVAL MC SCH (22:10)
[2017-02-11] MEDS: guaiFENesin 200 MG/10 ML 10 ML UNIT-DOSE CUPS PO PRN (22:11)
[2017-02-12] MEDS: DOCUSATE SODIUM 100 MG CAPSULE (FP) PO SCH ×3 (06:48→21:13)
[2017-02-12] MEDS: ACETAMINOPHEN 325 MG TABLET (FP) PO PRN ×2 (06:49→16:31)
[2017-02-12] MEDS ORDERED: PT OWN MED DRAWER 7, Y5N ONE ×3 (07:34→22:18)
[2017-02-12 07:36] LABS: BASOPHIL 0.1 % (0-2.0); EOSINOPHIL 0.1 % (0-4.5); MCHC 33.3 g/dl (32.0-35.9); MEAN CELL VOLUME 87.2 fl (80-96); MEAN PLT VOLUME 8.3 fl (7.5-11.1); NEUTROPHILS 65.6 % (42.8-82.8); PLATELET COUNT 283 K/MM3 (134-434); RDW 19.3 % (11.9-15.9); WHITE BLOOD COUNT 6.6 K/mm3 (4.0-10.0)
[2017-02-12 08:59] LABS: ALBUMIN 2.4 g/dl (3.4-5.0); ALK PHOS 80 U/L (45-117); ANION GAP 9 (8-16); BILIRUBIN,TOTAL 0.5 mg/dL (0.2-1.0); CALCIUM 8.4 mg/dL (8.5-10.1); CO2 29 mmol/L (21-32); CREATININE 0.7 mg/dL (0.7-1.3); GLUCOSE,RANDOM 67 mg/dL (74-106); SGOT/AST 18 U/L (15-37); SGPT/ALT 36 U/L (12-78); TOT PROT 5.9 g/dl (6.4-8.2)
[2017-02-12] MEDS: lamiVUDine 150 MG TABLET PO SCH (10:04)
[2017-02-12] MEDS: SULFAMETHOXAZOLE/TRIMETHOPRIM 800MG/160MG D.S. TABLET PO SCH (10:04)
[2017-02-12] MEDS: amLODIPine BESYLATE 10 MG TABLET (FP) PO SCH (10:04)
[2017-02-12] MEDS: PANTOPRAZOLE 40 MG TABLET (FP) PO SCH (10:04)
[2017-02-12] MEDS: NICOTINE 14 MG/24 HOURS TOPICAL PATCH TD SCH (10:05)
[2017-02-12] MEDS: RALTEGRAVIR POTASSIUM 400 MG TAB PO SCH ×2 (10:07→21:19)
[2017-02-12] MEDS: ABACAVIR SULFATE 300 MG TABLET PO SCH ×2 (10:07→21:19)
[2017-02-12] MEDS: LIDOCAINE 5% TOPICAL PATCH TP SCH (10:08)
[2017-02-12] MEDS: ENOXAPARIN NA (PORCINE) 40 MG/0.4 ML DISP.SYRIN SQ SCH (10:08)
[2017-02-12 10:20] LABS: URINE APPEARANCE SLCLOUDY; URINE BILIRUBIN NEGATIVE (NEGATIVE); URINE BLOOD NEGATIVE (NEGATIVE); URINE COLOR DKYELLOW; URINE GLUCOSE (UA) NEGATIVE (NEGATIVE); URINE KETONE NEGATIVE (NEGATIVE); URINE LEUK ESTERASE NEGATIVE (NEGATIVE); URINE NITRITE NEGATIVE (NEGATIVE); URINE UROBILINOGEN 4.0 E.U/dl mg/dL (0.2-1.0)
[2017-02-12] MEDS: predniSONE 10 MG TABLET (UD) PO SCH (10:21)
[2017-02-12 10:34] LABS: URINE PROTEIN 3+ (NEGATIVE)
[2017-02-12 10:38] LABS: URINE MUCUS MODERATE; URINE RBC <1 /hpf (0-3); URINE WBC 6 /hpf (3-5)
[2017-02-12] MEDS: FLUCONAZOLE 100 MG/D5W 50 ML IVPB SCH (11:23)
[2017-02-12] MEDS ORDERED: SODIUM CHLORIDE 1,000 ML IV STA (11:46)
--- NOTE | 2017-02-12 12:44 | PN ---
Progress Note, Physician History of Present Illness: Spiked temp 101.1 this am Pt states he was unaware of temp No chills Still with hiccups No c/o cough/ dyspnea Denies vomiting / diarrhea - Current Medication List Current Medications: Active Medications Abacavir Sulfate (Ziagen -) 300 mg PO BID [facility] Last Admin: 02/12/17 10:07 Dose: 300 mg Acetaminophen (Tylenol -) 650 mg PO Q4H PRN PRN Reason: FEVER OR PAIN Last Admin: 02/12/17 06:49 Dose: 650 mg Amlodipine Besylate (Norvasc -) 10 mg PO DAILY [facility] Last Admin: 02/12/17 10:04 Dose: 10 mg Docusate Sodium (Colace -) 100 mg PO TID [facility] Last Admin: 02/12/17 06:48 Dose: Not Given Enoxaparin Sodium (Lovenox -) 40 mg SQ DAILY [facility] Last Admin: 02/12/17 10:08 Dose: 40 mg Guaifenesin (Robitussin -) 10 ml PO Q4H PRN PRN Reason: COUGH Last Admin: 02/11/17 22:11 Dose: 10 ml Fluconazole (Diflucan 100 Mg/D5w Premixed Ivpb -) 50 mls @ 50 mls/hr IVPB DAILY [facility] Last Admin: 02/12/17 11:23 Dose: 50 mls/hr Sodium Chloride (Normal Saline -) 1,000 mls @ 1,000 mls/hr IV ASDIR STA Stop: 02/12/17 12:45 Last Admin: 02/12/17 12:07 Dose: 1,000 mls/hr Lamivudine (Epivir -) 300 mg PO DAILY [facility] Last Admin: 02/12/17 10:04 Dose: 300 mg Lidocaine (Lidoderm Patch -) 1 patch TP DAILY [facility] Last Admin: 02/12/17 10:08 Dose: 1 patch Miscellaneous (Lidoderm Patch Removal) 1 each MC DAILY@2200 [facility] Last Admin: 02/11/17 22:10 Dose: 1 each Nicotine (Nicoderm Patch -) 14 mg TD DAILY [facility] Last Admin: 02/12/17 10:05 Dose: 14 mg Pantoprazole Sodium (Protonix -) 40 mg PO DAILY [facility] Last Admin: 02/12/17 10:04 Dose: 40 mg Prednisone (Deltasone -) 30 mg PO DAILY [facility] Last Admin: 02/12/17 10:21 Dose: 30 mg Quetiapine Fumarate (Seroquel -) 50 mg PO HS [facility] Last Admin: 02/11/17 22:10 Dose: 50 mg Raltegravir (Isentress -) 400 mg PO BID [facility] Last Admin: 02/12/17 10:07 Dose: 400 mg Trimethoprim/Sulfamethoxazole (Bactrim Ds -) 1 each PO DAILY [facility] Last Admin: 02/12/17 10:04 Dose: 1 each - Objective Vital Signs: Vital Signs Temperature 101.1 F H 02/12/17 06:00 Pulse Rate 84 02/12/17 06:00 Respiratory Rate 16 02/12/17 06:00 Blood Pressure 132/75 02/12/17 06:00 O2 Sat by Pulse Oximetry (%) 99 02/11/17 22:00 Constitutional: Yes: No Distress, Cachectic Eyes: Yes: Conjunctiva Clear Cardiovascular: Yes: Regular Rate and Rhythm, S1, S2 Respiratory: Yes: Diminished Gastrointestinal: Yes: Normal Bowel Sounds, Soft. No: Tenderness Edema: No Labs: CBC, BMP 02/12/17 07:24 02/12/17 07:24 Assessment/Plan Fever ? source S/P bilbailar pneumonia ( CT chest 02/09 improved as compared w CT 01/30) COPD AIDS CD4 29 ? Esophagitis ( CMV, HSV, gabriella, HIV) Reculture off antibiotics ?EGD
--- NOTE | 2017-02-12 14:20 | PN ---
GI Progress Note Subjective: No acute events States being very hungry Describes continued hiccups and says that he makes himself regutgitate because "it helps" Of note he tells me that he abused both heroin and cocaine 2 days prior to his admission CT scan of the chest read as diffusely dilated esophagus however looking at the images i did not appreciate diffuse esophageal dilation Esophagram/UGIS failed to reveal a dilated esophagus / acute uper GI pathology - Objective Vital Signs: Vital Signs Temperature 99.2 F 02/12/17 10:00 Pulse Rate 80 02/12/17 10:00 Respiratory Rate 18 02/12/17 10:00 Blood Pressure 100/65 02/12/17 10:00 O2 Sat by Pulse Oximetry (%) 95 02/12/17 09:00 Constitutional: Calm Eyes: No: Sclera Icterus Cardiovascular: Yes: Regular Rate and Rhythm Gastrointestinal Inspection: No: Distention ...Auscultate: Yes: Normoactive Bowel Sounds ...Palpate: No: Tenderness Edema: No Neurological: Yes: Alert, Oriented Labs: CBC, BMP 02/12/17 07:24 02/12/17 07:24 Problem List - Problems (1) Hiccups Assessment/Plan: ? if this is related to a form of opiate withdrawal as he used heroin 2 days prior to admission and is not on methadone Consider detox eval ? if related to acute pulmonary pathology Advancing diet Can trial low dose clorpromazine 25mg PO TID if seroquel can be tapered and no other medication contraidications Code(s): R06.6 - ALAINA
--- NOTE | 2017-02-12 15:08 | PN ---
Progress Note, Physician History of Present Illness: pulmonary alert,feeling better,less hiccups - Current Medication List Current Medications: Active Medications Abacavir Sulfate (Ziagen -) 300 mg PO BID [facility] Last Admin: 02/12/17 10:07 Dose: 300 mg Acetaminophen (Tylenol -) 650 mg PO Q4H PRN PRN Reason: FEVER OR PAIN Last Admin: 02/12/17 06:49 Dose: 650 mg Amlodipine Besylate (Norvasc -) 10 mg PO DAILY [facility] Last Admin: 02/12/17 10:04 Dose: 10 mg Docusate Sodium (Colace -) 100 mg PO TID [facility] Last Admin: 02/12/17 14:56 Dose: Not Given Guaifenesin (Robitussin -) 10 ml PO Q4H PRN PRN Reason: COUGH Last Admin: 02/11/17 22:11 Dose: 10 ml Fluconazole (Diflucan 100 Mg/D5w Premixed Ivpb -) 50 mls @ 50 mls/hr IVPB DAILY [facility] Last Admin: 02/12/17 11:23 Dose: 50 mls/hr Lamivudine (Epivir -) 300 mg PO DAILY [facility] Last Admin: 02/12/17 10:04 Dose: 300 mg Lidocaine (Lidoderm Patch -) 1 patch TP DAILY [facility] Last Admin: 02/12/17 10:08 Dose: 1 patch Miscellaneous (Lidoderm Patch Removal) 1 each MC DAILY@2200 [facility] Last Admin: 02/11/17 22:10 Dose: 1 each Nicotine (Nicoderm Patch -) 14 mg TD DAILY [facility] Last Admin: 02/12/17 10:05 Dose: 14 mg Pantoprazole Sodium (Protonix -) 40 mg PO DAILY [facility] Last Admin: 02/12/17 10:04 Dose: 40 mg Prednisone (Deltasone -) 30 mg PO DAILY [facility] Last Admin: 02/12/17 10:21 Dose: 30 mg Quetiapine Fumarate (Seroquel -) 50 mg PO HS [facility] Last Admin: 02/11/17 22:10 Dose: 50 mg Raltegravir (Isentress -) 400 mg PO BID [facility] Last Admin: 02/12/17 10:07 Dose: 400 mg Trimethoprim/Sulfamethoxazole (Bactrim Ds -) 1 each PO DAILY [facility] Last Admin: 02/12/17 10:04 Dose: 1 each - Objective Vital Signs: Vital Signs Temperature 99.2 F 02/12/17 10:00 Pulse Rate 80 02/12/17 10:00 Respiratory Rate 18 02/12/17 10:00 Blood Pressure 100/65 02/12/17 10:00 O2 Sat by Pulse Oximetry (%) 95 02/12/17 09:00 Constitutional: Yes: Calm, Thin Eyes: Yes: WNL, Occular Prosthesis HENT: Yes: WNL Neck: Yes: WNL Cardiovascular: Yes: Regular Rate and Rhythm, S1, S2 Respiratory: Yes: Rhonchi (few scattered rhonchi) Gastrointestinal: Yes: Normal Bowel Sounds, Soft Extremities: Yes: WNL Edema: No Labs: CBC, BMP 02/12/17 07:24 02/12/17 07:24 Problem List - Problems (1) COPD exacerbation Code(s): J44.1 - CHRONIC OBSTRUCTIVE PULMONARY DISEASE W (ACUTE) EXACERBATION (2) DVT prophylaxis Code(s): [id number] - (3) Pneumonia Code(s): J18.9 - PNEUMONIA, UNSPECIFIED ORGANISM (4) COPD (chronic obstructive pulmonary disease) Code(s): J44.9 - CHRONIC OBSTRUCTIVE PULMONARY DISEASE, UNSPECIFIED Qualifiers : COPD type: emphysema Emphysema type: other Qualified Code(s): J43.8 - Other emphysema (5) HIV (human immunodeficiency virus infection) Code(s): Z21 - ASYMPTOMATIC HUMAN IMMUNODEFICIENCY VIRUS INFECTION STATUS (6) Acute and chronic respiratory failure Code(s): J96.20 - ACUTE AND CHR RESP FAILURE, UNSP W HYPOXIA OR HYPERCAPNIA Assessment/Plan A/P Pneumonia treated Intractable Hiccups improving HIV/AIDS COPD Smoker - prednisone taper - inhaled bronchodilators - continue ART - O2 to keep SpO2 >90% - DVT prophylaxis - smoking cessation DR RODRIGUEZ
--- NOTE | 2017-02-12 16:19 | PN ---
Physical Exam: SUBJECTIVE: Patient seen and examined at the bedside. Still with hiccups. Denies chest pain or shortness of breath. OBJECTIVE: Continues with persistent hiccups and spitting up of clear saliva Fever if 101F today, denies chills Lactic acid of 3.9 Given 1 liter fluids bolus Repeat lactic acid Vital Signs Period Temp Pulse Resp BP Sys/Galdamez Pulse Ox Last 24 Hr 99.2 F-101.1 F 80-86 16-18 100-132/59-75 95-99 GENERAL: The patient is awake, alert, and fully oriented, in no acute distress. HEAD: Normal with no signs of trauma. EYES: PERRL, extraocular movements intact, sclera anicteric, conjunctiva clear. No ptosis. ENT: Ears normal, nares patent, oropharynx clear without exudates, moist mucous membranes. NECK: Trachea midline, full range of motion, supple. LUNGS: No wheezing, breath sounds equal, clear to auscultation, diminished at the bases. HEART: Regular rate and rhythm ABDOMEN: Soft, nontender, nondistended, normoactive bowel sounds, no guarding, no rebound, no hepatosplenomegaly, no masses. EXTREMITIES: no edema. NEUROLOGICAL: Normal speech PSYCH: Normal mood, normal affect. SKIN: Warm, dry, normal turgor, no rashes or lesions noted Laboratory Results - last 24 hr 02/12/17 02/12/17 02/12/17 07:24 07:24 08:30 WBC 6.6 RBC 3.49 L Hgb 10.1 L Hct 30.5 L MCV 87.2 MCH 29.0 MCHC 33.3 RDW 19.3 H Plt Count 283 MPV 8.3 Neutrophils % 65.6 Lymphocytes % 20.8 Monocytes % 13.4 H Eosinophils % 0.1 Basophils % 0.1 D Sodium 135 L Potassium 3.0 L Chloride 97 L Carbon Dioxide 29 Anion Gap 9 BUN 9 D Creatinine 0.7 Creat Clearance w eGFR > 60 Random Glucose 67 L Lactic Acid Calcium 8.4 L Total Bilirubin 0.5 D AST 18 ALT 36 Alkaline Phosphatase 80 Total Protein 5.9 L Albumin 2.4 L Urine Color Dkyellow Urine Appearance Slcloudy Urine pH 6.0 Ur Specific [place] 1.025 Urine Protein 3+ H Urine Glucose (UA) Negative Urine Ketones Negative Urine Blood Negative Urine Nitrite Negative Urine Bilirubin Negative Urine Urobilinogen 4.0 e.u/dl Ur Leukocyte Esterase Negative Urine RBC <1 Urine WBC 6 Ur Epithelial Cells Rare Urine Mucus Moderate 02/12/17 10:21 WBC RBC Hgb Hct MCV MCH MCHC RDW Plt Count MPV Neutrophils % Lymphocytes % Monocytes % Eosinophils % Basophils % Sodium Potassium Chloride Carbon Dioxide Anion Gap BUN Creatinine Creat Clearance w eGFR Random Glucose Lactic Acid 3.9 H* Calcium Total Bilirubin AST ALT Alkaline Phosphatase Total Protein Albumin Urine Color Urine Appearance Urine pH Ur Specific [place] Urine Protein Urine Glucose (UA) Urine Ketones Urine Blood Urine Nitrite Urine Bilirubin Urine Urobilinogen Ur Leukocyte Esterase Urine RBC Urine WBC Ur Epithelial Cells Urine Mucus Active Medications Generic Name Dose Route Start Last Admin Trade Name Freq PRN Reason Stop Dose Admin Abacavir Sulfate 300 mg 02/02/17 22:00 02/12/17 10:07 Ziagen - PO 300 mg BID JANETT Administration Acetaminophen 650 mg 01/30/17 13:29 02/12/17 06:49 Tylenol - PO 650 mg Q4H PRN Administration FEVER OR PAIN Amlodipine Besylate 10 mg 02/04/17 10:00 02/12/17 10:04 Norvasc - PO 10 mg DAILY JANETT Administration Docusate Sodium 100 mg 01/30/17 14:00 02/12/17 14:56 Colace - PO Not Given TID JANETT Guaifenesin 10 ml 01/31/17 21:32 02/11/17 22:11 Robitussin - PO 10 ml Q4H PRN Administration COUGH Fluconazole 50 mls @ 50 mls/hr 02/09/17 10:00 02/12/17 11:23 Diflucan 100 Mg/D5w Premixed Ivpb - IVPB 50 mls/hr DAILY JANETT Administration Lamivudine 300 mg 02/02/17 18:52 02/12/17 10:04 Epivir - PO 300 mg DAILY JANETT Administration Lidocaine 1 patch 02/02/17 10:00 02/12/17 10:08 Lidoderm Patch - TP 1 patch DAILY JANETT Administration Miscellaneous 1 each 02/02/17 22:00 02/11/17 22:10 Lidoderm Patch Removal MC 1 each DAILY@2200 JANETT Administration Nicotine 14 mg 01/31/17 10:00 02/12/17 10:05 Nicoderm Patch - TD 14 mg DAILY JANETT Administration Pantoprazole Sodium 40 mg 02/01/17 10:00 02/12/17 10:04 Protonix - PO 40 mg DAILY JANETT Administration Prednisone 30 mg 02/10/17 10:00 02/12/17 10:21 Deltasone - PO 30 mg DAILY JANETT Administration Quetiapine Fumarate 50 mg 02/08/17 22:00 02/11/17 22:10 Seroquel - PO 50 mg HS JANETT Administration Raltegravir 400 mg 02/02/17 22:00 02/12/17 10:07 Isentress - PO 400 mg BID JANETT Administration Trimethoprim/Sulfamethoxazole 1 each 01/31/17 10:00 02/12/17 10:04 Bactrim Ds - PO 1 each DAILY JANETT Administration ASSESSMENT/PLAN: Patient is a 56 year old male with a significant past medical history of ETOH abuse, cocaine abuse, current everyday smoker, HIV+, Hepatitis C, hypertension and COPD. Patient reported history of pneumonia 2 weeks prior for which he was prescribed Bactrim, however he was inconsistent with taking the Bactrim. On 01/[address] [facility] for detox for ETOH, cocaine and heroin use. He completed detox and was about to start rehab but he was noted by staff to be experiencing shortness of breath and wheezing with hypoxia @88%. He was treated with nebs and his Bactrim was increased to BID without improvement of his symptoms. On admission, He was noted to have a fever of 100.5, pulse of 110 with hypoxia @ 88% on 2 liters of NC. He was noted to also be wheezing with productive yellow sputum. Further he was weak and his gait was unsteady in the ED. Imaging: Chest Xray 01/29/2017: bilateral pulmonary consolidations, no pneumothorax, no large pleural effusions Chest Xray 01/30/2017: bilateral pulmonary consolidations unchanged from prior chest xray Chest CT 01/31/2017: Bilateral non specific alveolar infiltrates, minimal bilateral pleural effusion, atelectasis (likely chronic) on right lobe, centrilobular emphysema ID/Pulmonary: Sepsis secondary to Pneumonia/Chronic obstructive bronchitis/ PCP pneumonia A/P: On admission noted to have tachycardia, leukocytosis and fever of 102.2 and was treated with IV antibiotics for PNA (vanco and Cifepime 01/30>02/07) Had fever spike of 101.1F this morning, denies chills. Blood and urine cultures sent ID re-evaluated, monitor off IV antibiotics, only now on daily Bactrim Prednisone 30mg PO daily with taper HIV+ A/P: Reported to be non compliant with meds On antiviral medications by ID GI: Persistent Hiccups - acute on chronic A/P: Patient reports intermittent persistent hiccups in the past s/p esophgram with shows no evidence of gastric duodenal bulb ulcer, no evidence of Zenker diverticulum or schatski ring or hiatal hernia No evidence of abnormal dilatation of esophageal stricture, upper endo may be considered Patient is on seroquel, throrazine may interact with seroquel: prolong QT Psyche: Opiate dependance without evidence of withdrawal/ETOH dependence A/P: completed detox at [facility] (Methadone and Libirium) Rehab after d/c from hospital Tobacco Dependence A/P: Nicotine patch Counseled on cessation Cardiology: Hypertension A/P: BP at goal, on home dose of Norvasc 10mg Recent use of cocaine Chest Pain - resolved A/P: No chest pain on exam F.E.N. Fluids: tolerating PO Electrolytes: hypokalemia @3.0. given Kmeq 60meq x 1 now, repeat K at 6pm Nutrition: advance diet as per GI Prophylaxis: GI: protonix while on steroids DVT: Lovenox Physical therapy as tolerated Disposition: Requires inpatient hospitalization for his acute medical condition. Full Code. Visit type - Emergency Visit Emergency Visit: Yes ED Registration Date: 01/30/17 Care time: The patient presented to the Emergency Department on the above date and was hospitalized for further evaluation of their emergent condition. - New Patient This patient is new to me today: No - Critical Care Critical Care patient: No - Discharge Referral Referred to [facility] Med P.C.: No
[2017-02-12] MEDS ORDERED: POTASSIUM CHLORIDE TABS 20 MEQ TABLET.ER (FP) PO ONE ×3 (16:50→21:30)
[2017-02-12] MEDS ORDERED: POTASSIUM CHLORIDE ORAL LIQUID 20 MEQ/15 ML PO ONE (16:51)
[2017-02-12] MEDS: QUEtiapine FUMARATE 25 MG TABLET (FP) PO SCH (21:19)
[2017-02-12] MEDS: LIDOCAINE PATCH REMOVAL MC SCH (21:19)
[2017-02-13] MEDS: DOCUSATE SODIUM 100 MG CAPSULE (FP) PO SCH ×3 (05:44→21:07)
[2017-02-13 07:47] LABS: BASOPHIL 0.2 % (0-2.0); EOSINOPHIL 0.2 % (0-4.5); MCH 28.6 pg (25.7-33.7); MCHC 32.6 g/dl (32.0-35.9); MEAN CELL VOLUME 87.7 fl (80-96); MEAN PLT VOLUME 8.2 fl (7.5-11.1); PLATELET COUNT 240 K/MM3 (134-434); RDW 18.6 % (11.9-15.9); WHITE BLOOD COUNT 4.9 K/mm3 (4.0-10.0)
[2017-02-13 08:13] LABS: ALBUMIN 2.6 g/dl (3.4-5.0); ANION GAP 7 (8-16); CALCIUM 8.6 mg/dL (8.5-10.1); CO2 32 mmol/L (21-32); CREATININE 0.8 mg/dL (0.7-1.3); GLUCOSE,RANDOM 75 mg/dL (74-106); SGOT/AST 15 U/L (15-37); SGPT/ALT 36 U/L (12-78)
[2017-02-13 08:15] LABS: ALK PHOS 78 U/L (45-117); BILIRUBIN,TOTAL 0.4 mg/dL (0.2-1.0); TOT PROT 5.9 g/dl (6.4-8.2)
[2017-02-13] MEDS ORDERED: PT OWN MED DRAWER 7, Y5N ONE ×8 (09:44→20:29)
[2017-02-13] MEDS: LIDOCAINE 5% TOPICAL PATCH TP SCH (09:54)
[2017-02-13] MEDS: ENOXAPARIN NA (PORCINE) 40 MG/0.4 ML DISP.SYRIN SQ SCH (09:55)
--- NOTE | 2017-02-13 10:30 | PN ---
Progress Note, Physician - Current Medication List Current Medications: Active Medications Abacavir Sulfate (Ziagen -) 300 mg PO BID [facility] Last Admin: 02/12/17 21:19 Dose: 300 mg Acetaminophen (Tylenol -) 650 mg PO Q4H PRN PRN Reason: FEVER OR PAIN Last Admin: 02/12/17 16:31 Dose: 650 mg Amlodipine Besylate (Norvasc -) 10 mg PO DAILY [facility] Last Admin: 02/12/17 10:04 Dose: 10 mg Docusate Sodium (Colace -) 100 mg PO TID [facility] Last Admin: 02/13/17 05:44 Dose: Not Given Enoxaparin Sodium (Lovenox -) 40 mg SQ DAILY [facility] Last Admin: 02/13/17 09:55 Dose: 40 mg Guaifenesin (Robitussin -) 10 ml PO Q4H PRN PRN Reason: COUGH Last Admin: 02/11/17 22:11 Dose: 10 ml Fluconazole (Diflucan 100 Mg/D5w Premixed Ivpb -) 50 mls @ 50 mls/hr IVPB DAILY [facility] Last Admin: 02/12/17 11:23 Dose: 50 mls/hr Lamivudine (Epivir -) 300 mg PO DAILY [facility] Last Admin: 02/12/17 10:04 Dose: 300 mg Lidocaine (Lidoderm Patch -) 1 patch TP DAILY [facility] Last Admin: 02/13/17 09:54 Dose: 1 patch Miscellaneous (Lidoderm Patch Removal) 1 each MC DAILY@2200 [facility] Last Admin: 02/12/17 21:19 Dose: 1 each Nicotine (Nicoderm Patch -) 14 mg TD DAILY [facility] Last Admin: 02/12/17 10:05 Dose: 14 mg Ondansetron HCl (Zofran Odt -) 4 mg SL Q6H [facility] Pantoprazole Sodium (Protonix -) 40 mg PO DAILY [facility] Last Admin: 02/12/17 10:04 Dose: 40 mg Prednisone (Deltasone -) 30 mg PO DAILY [facility] Last Admin: 02/12/17 10:21 Dose: 30 mg Quetiapine Fumarate (Seroquel -) 50 mg PO HS [facility] Last Admin: 02/12/17 21:19 Dose: 50 mg Raltegravir (Isentress -) 400 mg PO BID [facility] Last Admin: 02/12/17 21:19 Dose: 400 mg Trimethoprim/Sulfamethoxazole (Bactrim Ds -) 1 each PO DAILY [facility] Last Admin: 02/12/17 10:04 Dose: 1 each - Objective Vital Signs: Vital Signs Temperature 98.3 F 02/13/17 06:00 Pulse Rate 81 02/13/17 06:00 Respiratory Rate 20 02/13/17 06:00 Blood Pressure 129/78 02/13/17 06:00 O2 Sat by Pulse Oximetry (%) 99 02/12/17 21:00 Eyes: Yes: WNL, Conjunctiva Clear, EOM Intact HENT: Yes: WNL, Atraumatic, Normocephalic Neck: Yes: WNL, Supple, Trachea Midline Cardiovascular: Yes: WNL, Regular Rate and Rhythm Respiratory: Yes: WNL, Regular, CTA Bilaterally Gastrointestinal: Yes: WNL, Normal Bowel Sounds Genitourinary: Yes: WNL Musculoskeletal: Yes: WNL Extremities: Yes: WNL Edema: No Integumentary: Yes: WNL Neurological: Yes: WNL, Alert, Oriented ...Motor Strength: WNL Psychiatric: Yes: WNL Labs: CBC, BMP 02/13/17 06:00 02/13/17 06:00 Problem List - Problems (1) Acute and chronic respiratory failure Code(s): J96.20 - ACUTE AND CHR RESP FAILURE, UNSP W HYPOXIA OR HYPERCAPNIA (2) Asthma exacerbation Code(s): J45.901 - UNSPECIFIED ASTHMA WITH (ACUTE) EXACERBATION (3) COPD exacerbation Code(s): J44.1 - CHRONIC OBSTRUCTIVE PULMONARY DISEASE W (ACUTE) EXACERBATION (4) DVT prophylaxis Code(s): [id number] - (5) Hiccups Code(s): R06.6 - HICCOUGH (6) Hypertension Code(s): I10 - ESSENTIAL (PRIMARY) HYPERTENSION (7) Inguinal hernia Code(s): K40.90 - UNIL INGUINAL HERNIA, W/O OBST OR GANGR, NOT SPCF RECUR (8) Pneumonia Code(s): J18.9 - PNEUMONIA, UNSPECIFIED ORGANISM (9) Sepsis Code(s): A41.9 - SEPSIS, UNSPECIFIED ORGANISM (10) Alcohol dependence with uncomplicated withdrawal Code(s): F10.230 - ALCOHOL DEPENDENCE WITH WITHDRAWAL, UNCOMPLICATED (11) Cocaine dependence Code(s): F14.20 - COCAINE DEPENDENCE, UNCOMPLICATED Qualifiers: Substance use status: uncomplicated Qualified Code(s): F14.20 - Cocaine dependence, uncomplicated (12) Depressive disorder Code(s): F32.9 - MAJOR DEPRESSIVE DISORDER, SINGLE EPISODE, UNSPECIFIED (13) Insomnia Code(s): G47.00 - INSOMNIA, UNSPECIFIED (14) Nicotine dependence Code(s): F17.200 - NICOTINE DEPENDENCE, UNSPECIFIED, UNCOMPLICATED Qualifiers : Nicotine product type: cigarettes Substance use status: uncomplicated Qualified Code(s): F17.210 - Nicotine dependence, cigarettes, uncomplicated (15) Opioid dependence with withdrawal Code(s): F11.23 - OPIOID DEPENDENCE WITH WITHDRAWAL (16) Asthma Code(s): J45.909 - UNSPECIFIED ASTHMA, UNCOMPLICATED Qualifiers: Asthma severity: mild persistent Asthma complication type: with status asthmaticus Qualified Code(s): J45.32 - Mild persistent asthma with status asthmaticus (17) COPD (chronic obstructive pulmonary disease) Code(s): J44.9 - CHRONIC OBSTRUCTIVE PULMONARY DISEASE, UNSPECIFIED Qualifiers : COPD type: emphysema Emphysema type: other Qualified Code(s): J43.8 - Other emphysema (18) HIV (human immunodeficiency virus infection) Code(s): Z21 - ASYMPTOMATIC HUMAN IMMUNODEFICIENCY VIRUS INFECTION STATUS (19) Hepatitis C carrier Code(s): Z22.52 - (20) Use of cane as ambulatory aid Code(s): R26.2 - DIFFICULTY IN WALKING, NOT ELSEWHERE CLASSIFIED Assessment/Plan htn hiv SEPSIS Pna COPD CARDIAC IBRAHIM STABLE. CONT PRESENT RX
--- NOTE | 2017-02-13 10:32 | PN ---
Progress Note, Physician - Current Medication List Current Medications: Active Medications Abacavir Sulfate (Ziagen -) 300 mg PO BID [facility] Last Admin: 02/12/17 21:19 Dose: 300 mg Acetaminophen (Tylenol -) 650 mg PO Q4H PRN PRN Reason: FEVER OR PAIN Last Admin: 02/12/17 16:31 Dose: 650 mg Amlodipine Besylate (Norvasc -) 10 mg PO DAILY [facility] Last Admin: 02/12/17 10:04 Dose: 10 mg Docusate Sodium (Colace -) 100 mg PO TID [facility] Last Admin: 02/13/17 05:44 Dose: Not Given Enoxaparin Sodium (Lovenox -) 40 mg SQ DAILY [facility] Last Admin: 02/13/17 09:55 Dose: 40 mg Guaifenesin (Robitussin -) 10 ml PO Q4H PRN PRN Reason: COUGH Last Admin: 02/11/17 22:11 Dose: 10 ml Fluconazole (Diflucan 100 Mg/D5w Premixed Ivpb -) 50 mls @ 50 mls/hr IVPB DAILY [facility] Last Admin: 02/12/17 11:23 Dose: 50 mls/hr Lamivudine (Epivir -) 300 mg PO DAILY [facility] Last Admin: 02/12/17 10:04 Dose: 300 mg Lidocaine (Lidoderm Patch -) 1 patch TP DAILY [facility] Last Admin: 02/13/17 09:54 Dose: 1 patch Miscellaneous (Lidoderm Patch Removal) 1 each MC DAILY@2200 [facility] Last Admin: 02/12/17 21:19 Dose: 1 each Nicotine (Nicoderm Patch -) 14 mg TD DAILY [facility] Last Admin: 02/12/17 10:05 Dose: 14 mg Ondansetron HCl (Zofran Odt -) 4 mg SL Q6H [facility] Pantoprazole Sodium (Protonix -) 40 mg PO DAILY [facility] Last Admin: 02/12/17 10:04 Dose: 40 mg Prednisone (Deltasone -) 30 mg PO DAILY [facility] Last Admin: 02/12/17 10:21 Dose: 30 mg Quetiapine Fumarate (Seroquel -) 50 mg PO HS [facility] Last Admin: 02/12/17 21:19 Dose: 50 mg Raltegravir (Isentress -) 400 mg PO BID [facility] Last Admin: 02/12/17 21:19 Dose: 400 mg Trimethoprim/Sulfamethoxazole (Bactrim Ds -) 1 each PO DAILY [facility] Last Admin: 02/12/17 10:04 Dose: 1 each - Objective Vital Signs: Vital Signs Temperature 98.3 F 02/13/17 06:00 Pulse Rate 81 02/13/17 06:00 Respiratory Rate 20 02/13/17 06:00 Blood Pressure 129/78 02/13/17 06:00 O2 Sat by Pulse Oximetry (%) 99 02/12/17 21:00 Eyes: Yes: WNL, Conjunctiva Clear, EOM Intact HENT: Yes: WNL, Atraumatic, Normocephalic Neck: Yes: WNL, Supple, Trachea Midline Cardiovascular: Yes: WNL, Regular Rate and Rhythm Respiratory: Yes: WNL, Regular, CTA Bilaterally Gastrointestinal: Yes: WNL, Normal Bowel Sounds Genitourinary: Yes: WNL Musculoskeletal: Yes: WNL Extremities: Yes: WNL Edema: No Integumentary: Yes: WNL Neurological: Yes: WNL, Alert, Oriented ...Motor Strength: WNL Psychiatric: Yes: WNL Labs: CBC, BMP 02/13/17 06:00 02/13/17 06:00 Problem List - Problems (1) Acute and chronic respiratory failure Code(s): J96.20 - ACUTE AND CHR RESP FAILURE, UNSP W HYPOXIA OR HYPERCAPNIA (2) Asthma exacerbation Code(s): J45.901 - UNSPECIFIED ASTHMA WITH (ACUTE) EXACERBATION (3) COPD exacerbation Code(s): J44.1 - CHRONIC OBSTRUCTIVE PULMONARY DISEASE W (ACUTE) EXACERBATION (4) DVT prophylaxis Code(s): [id number] - (5) Hiccups Code(s): R06.6 - HICCOUGH (6) Hypertension Code(s): I10 - ESSENTIAL (PRIMARY) HYPERTENSION (7) Inguinal hernia Code(s): K40.90 - UNIL INGUINAL HERNIA, W/O OBST OR GANGR, NOT SPCF RECUR (8) Pneumonia Code(s): J18.9 - PNEUMONIA, UNSPECIFIED ORGANISM (9) Sepsis Code(s): A41.9 - SEPSIS, UNSPECIFIED ORGANISM (10) Alcohol dependence with uncomplicated withdrawal Code(s): F10.230 - ALCOHOL DEPENDENCE WITH WITHDRAWAL, UNCOMPLICATED (11) Cocaine dependence Code(s): F14.20 - COCAINE DEPENDENCE, UNCOMPLICATED Qualifiers: Substance use status: uncomplicated Qualified Code(s): F14.20 - Cocaine dependence, uncomplicated (12) Depressive disorder Code(s): F32.9 - MAJOR DEPRESSIVE DISORDER, SINGLE EPISODE, UNSPECIFIED (13) Insomnia Code(s): G47.00 - INSOMNIA, UNSPECIFIED (14) Nicotine dependence Code(s): F17.200 - NICOTINE DEPENDENCE, UNSPECIFIED, UNCOMPLICATED Qualifiers : Nicotine product type: cigarettes Substance use status: uncomplicated Qualified Code(s): F17.210 - Nicotine dependence, cigarettes, uncomplicated (15) Opioid dependence with withdrawal Code(s): F11.23 - OPIOID DEPENDENCE WITH WITHDRAWAL (16) Asthma Code(s): J45.909 - UNSPECIFIED ASTHMA, UNCOMPLICATED Qualifiers: Asthma severity: mild persistent Asthma complication type: with status asthmaticus Qualified Code(s): J45.32 - Mild persistent asthma with status asthmaticus (17) COPD (chronic obstructive pulmonary disease) Code(s): J44.9 - CHRONIC OBSTRUCTIVE PULMONARY DISEASE, UNSPECIFIED Qualifiers : COPD type: emphysema Emphysema type: other Qualified Code(s): J43.8 - Other emphysema (18) HIV (human immunodeficiency virus infection) Code(s): Z21 - ASYMPTOMATIC HUMAN IMMUNODEFICIENCY VIRUS INFECTION STATUS (19) Hepatitis C carrier Code(s): Z22.52 - (20) Use of cane as ambulatory aid Code(s): R26.2 - DIFFICULTY IN WALKING, NOT ELSEWHERE CLASSIFIED Assessment/Plan htn hiv SEPSIS Pna COPD CARDIAC IBRAHIM STABLE. CONT PRESENT RX
--- NOTE | 2017-02-13 10:39 | PN ---
Physical Exam: SUBJECTIVE: Patient seen and examined. Still c/o of hiccups, although he states hiccups are improving OBJECTIVE: Continues with persistent hiccups but also observed by staff in hallways without any hiccups episodes. Hiccups seems to be subsiding but will start Baclofen 10mg TID and monitor Fever if 101F today, denies chills - continues to spike temps Lactic acidosis resolved Vital Signs Period Temp Pulse Resp BP Sys/Galdamez Pulse Ox Last 24 Hr 98.3 F-101.1 F 81-97 20-20 102-130/69-82 99 GENERAL: The patient is awake, alert, and fully oriented, in no acute distress. HEAD: Normal with no signs of trauma. EYES: PERRL, extraocular movements intact, sclera anicteric, conjunctiva clear. No ptosis. ENT: Ears normal, nares patent, oropharynx clear without exudates, moist mucous membranes. NECK: Trachea midline, full range of motion, supple. LUNGS: No wheezing, breath sounds equal, clear to auscultation, diminished at the bases. HEART: Regular rate and rhythm ABDOMEN: Soft, nontender, nondistended, normoactive bowel sounds, no guarding, no rebound, no hepatosplenomegaly, no masses. EXTREMITIES: no edema. NEUROLOGICAL: Normal speech PSYCH: Normal mood, normal affect. SKIN: Warm, dry, normal turgor, no rashes or lesions noted Laboratory Results - last 24 hr 02/12/17 02/12/17 02/12/17 08:30 10:21 16:30 WBC RBC Hgb Hct MCV MCH MCHC RDW Plt Count MPV Neutrophils % Lymphocytes % Monocytes % Eosinophils % Basophils % Sodium Potassium Chloride Carbon Dioxide Anion Gap BUN Creatinine Creat Clearance w eGFR Random Glucose Lactic Acid 3.9 H* 1.3 Calcium Total Bilirubin AST ALT Alkaline Phosphatase Total Protein Albumin Urine Color Dkyellow Urine Appearance Slcloudy Urine pH 6.0 Ur Specific Erie 1.025 Urine Protein 3+ H Urine Glucose (UA) Negative Urine Ketones Negative Urine Blood Negative Urine Nitrite Negative Urine Bilirubin Negative Urine Urobilinogen 4.0 e.u/dl Ur Leukocyte Esterase Negative Urine RBC <1 Urine WBC 6 Ur Epithelial Cells Rare Urine Mucus Moderate 02/12/17 02/13/17 02/13/17 19:00 06:00 06:00 WBC 4.9 RBC 3.51 L Hgb 10.0 L Hct 30.8 L MCV 87.7 MCH 28.6 MCHC 32.6 RDW 18.6 H Plt Count 240 MPV 8.2 Neutrophils % 61.0 Lymphocytes % 23.2 Monocytes % 15.4 H Eosinophils % 0.2 D Basophils % 0.2 Sodium 138 Potassium 3.7 D 3.7 Chloride 99 Carbon Dioxide 32 Anion Gap 7 L BUN 10 Creatinine 0.8 Creat Clearance w eGFR > 60 Random Glucose 75 Lactic Acid Calcium 8.6 Total Bilirubin 0.4 AST 15 ALT 36 Alkaline Phosphatase 78 Total Protein 5.9 L Albumin 2.6 L Urine Color Urine Appearance Urine pH Ur Specific Erie Urine Protein Urine Glucose (UA) Urine Ketones Urine Blood Urine Nitrite Urine Bilirubin Urine Urobilinogen Ur Leukocyte Esterase Urine RBC Urine WBC Ur Epithelial Cells Urine Mucus Active Medications Generic Name Dose Route Start Last Admin Trade Name Freq PRN Reason Stop Dose Admin Abacavir Sulfate 300 mg 02/02/17 22:00 02/12/17 21:19 Ziagen - PO 300 mg BID JANETT Administration Acetaminophen 650 mg 01/30/17 13:29 02/12/17 16:31 Tylenol - PO 650 mg Q4H PRN Administration FEVER OR PAIN Amlodipine Besylate 10 mg 02/04/17 10:00 02/12/17 10:04 Norvasc - PO 10 mg DAILY JANETT Administration Docusate Sodium 100 mg 01/30/17 14:00 02/13/17 05:44 Colace - PO Not Given TID JANETT Enoxaparin Sodium 40 mg 02/13/17 10:00 02/13/17 09:55 Lovenox - SQ 40 mg DAILY JANETT Administration Guaifenesin 10 ml 01/31/17 21:32 02/11/17 22:11 Robitussin - PO 10 ml Q4H PRN Administration COUGH Fluconazole 50 mls @ 50 mls/hr 02/09/17 10:00 02/12/17 11:23 Diflucan 100 Mg/D5w Premixed Ivpb - IVPB 50 mls/hr DAILY JANETT Administration Lamivudine 300 mg 02/02/17 18:52 02/12/17 10:04 Epivir - PO 300 mg DAILY JANETT Administration Lidocaine 1 patch 02/02/17 10:00 02/13/17 09:54 Lidoderm Patch - TP 1 patch DAILY JANETT Administration Miscellaneous 1 each 02/02/17 22:00 02/12/17 21:19 Lidoderm Patch Removal MC 1 each DAILY@2200 JANETT Administration Nicotine 14 mg 01/31/17 10:00 02/12/17 10:05 Nicoderm Patch - TD 14 mg DAILY JANETT Administration Ondansetron HCl 4 mg 02/13/17 10:30 Zofran Odt - SL Q6H JANETT Pantoprazole Sodium 40 mg 02/01/17 10:00 02/12/17 10:04 Protonix - PO 40 mg DAILY JANETT Administration Prednisone 30 mg 02/10/17 10:00 02/12/17 10:21 Deltasone - PO 30 mg DAILY JANETT Administration Quetiapine Fumarate 50 mg 02/08/17 22:00 02/12/17 21:19 Seroquel - PO 50 mg HS JANETT Administration Raltegravir 400 mg 02/02/17 22:00 02/12/17 21:19 Isentress - PO 400 mg BID JANETT Administration Trimethoprim/Sulfamethoxazole 1 each 01/31/17 10:00 02/12/17 10:04 Bactrim Ds - PO 1 each DAILY JANETT Administration ASSESSMENT/PLAN: Patient is a 56 year old male with a significant past medical history of ETOH abuse, cocaine abuse, current everyday smoker, HIV+, Hepatitis C, hypertension and COPD. Patient reported history of pneumonia 2 weeks prior for which he was prescribed Bactrim, however he was inconsistent with taking the Bactrim. On 01/26 he was admitted to [facility] for detox for ETOH, cocaine and heroin use. He completed detox and was about to start rehab but he was noted by staff to be experiencing shortness of breath and wheezing with hypoxia @88%. He was treated with nebs and his Bactrim was increased to BID without improvement of his symptoms. ID/Pulmonary: Sepsis secondary to Pneumonia/Chronic obstructive bronchitis/ PCP pneumonia - improving A/P: On admission noted to have tachycardia, leukocytosis and fever of 102.2 and was treated with IV antibiotics for PNA (vanco and Cifepime 01/30>02/07) Had fever spike of 101.1F again today ID re-evaluated, monitor off IV antibiotics, only now on daily Bactrim Blood and urine cultures with no growth to date Prednisone 30mg PO daily with taper ID following HIV+ A/P: Reported to be non compliant with meds On antiviral medications by ID GI: Persistent Hiccups - acute on chronic A/P: Patient states that episodes of hiccups are improving Started on Baclofen today, monitor Re-consulted Dr. Allen Marks as persistent hiccups may be due to drug withdrawal, however unlikely that this may be the cause s/p esophgram with shows no evidence of gastric duodenal bulb ulcer, no evidence of Zenker diverticulum or schatski ring or hiatal hernia No evidence of abnormal dilatation of esophageal stricture, upper endo may be considered Patient is on seroquel, throrazine may interact with seroquel: prolong QT Psyche: Opiate dependance without evidence of withdrawal/ETOH dependence A/P: completed detox at [facility] (Methadone and Libirium) Rehab after d/c from hospital Tobacco Dependence A/P: Nicotine patch Counseled on cessation Cardiology: Hypertension A/P: BP at goal, on home dose of Norvasc 10mg Recent use of cocaine Chest Pain - resolved A/P: No chest pain on exam F.E.N. Fluids: tolerating PO Electrolytes: Monitor with bmp Nutrition: tolerating diet Prophylaxis: GI: Protonix DVT: Lovenox Physical therapy as tolerated Disposition: Requires inpatient hospitalization for his acute medical condition. Full Code. Visit type - Emergency Visit Emergency Visit: Yes ED Registration Date: 01/30/17 Care time: The patient presented to the Emergency Department on the above date and was hospitalized for further evaluation of their emergent condition. - New Patient This patient is new to me today: No - Critical Care Critical Care patient: No - Discharge Referral Referred to [facility] Med P.C[facility] No
[2017-02-13] MEDS: ONDANSETRON *ODT* 4 MG TABLET SL SCH ×2 (11:58→17:06)
[2017-02-13] MEDS: ABACAVIR SULFATE 300 MG TABLET PO SCH ×2 (11:59→21:06)
[2017-02-13] MEDS: SULFAMETHOXAZOLE/TRIMETHOPRIM 800MG/160MG D.S. TABLET PO SCH (11:59)
[2017-02-13] MEDS: predniSONE 10 MG TABLET (UD) PO SCH (12:00)
[2017-02-13] MEDS: amLODIPine BESYLATE 10 MG TABLET (FP) PO SCH (12:00)
[2017-02-13] MEDS: PANTOPRAZOLE 40 MG TABLET (FP) PO SCH (12:01)
[2017-02-13] MEDS: RALTEGRAVIR POTASSIUM 400 MG TAB PO SCH ×2 (12:01→21:06)
[2017-02-13] MEDS: lamiVUDine 150 MG TABLET PO SCH (12:05)
[2017-02-13] MEDS ORDERED: INSULIN (NOVOLOG) ASPART 100 UNITS/ML 10ML VIAL ONE (12:07)
[2017-02-13] MEDS: FLUCONAZOLE 100 MG/D5W 50 ML IVPB SCH (12:29)
[2017-02-13] MEDS: NICOTINE 14 MG/24 HOURS TOPICAL PATCH TD SCH ×2 (13:04→17:08)
--- NOTE | 2017-02-13 13:18 | PN ---
Progress Note, Physician History of Present Illness: pulmonary alert,feeling better,hiccups improving - Current Medication List Current Medications: Active Medications Abacavir Sulfate (Ziagen -) 300 mg PO BID [facility] Last Admin: 02/13/17 11:59 Dose: 300 mg Acetaminophen (Tylenol -) 650 mg PO Q4H PRN PRN Reason: FEVER OR PAIN Last Admin: 02/12/17 16:31 Dose: 650 mg Amlodipine Besylate (Norvasc -) 10 mg PO DAILY [facility] Last Admin: 02/13/17 12:00 Dose: 10 mg Docusate Sodium (Colace -) 100 mg PO TID [facility] Last Admin: 02/13/17 13:05 Dose: 100 mg Enoxaparin Sodium (Lovenox -) 40 mg SQ DAILY [facility] Last Admin: 02/13/17 09:55 Dose: 40 mg Guaifenesin (Robitussin -) 10 ml PO Q4H PRN PRN Reason: COUGH Last Admin: 02/11/17 22:11 Dose: 10 ml Fluconazole (Diflucan 100 Mg/D5w Premixed Ivpb -) 50 mls @ 50 mls/hr IVPB DAILY [facility] Last Admin: 02/13/17 12:29 Dose: 50 mls/hr Lamivudine (Epivir -) 300 mg PO DAILY [facility] Last Admin: 02/13/17 12:05 Dose: 300 mg Lidocaine (Lidoderm Patch -) 1 patch TP DAILY [facility] Last Admin: 02/13/17 09:54 Dose: 1 patch Miscellaneous (Lidoderm Patch Removal) 1 each MC DAILY@2200 [facility] Last Admin: 02/12/17 21:19 Dose: 1 each Nicotine (Nicoderm Patch -) 14 mg TD DAILY [facility] Last Admin: 02/13/17 13:04 Dose: Not Given Ondansetron HCl (Zofran Odt -) 4 mg SL Q6HPO [facility] Last Admin: 02/13/17 11:58 Dose: 4 mg Pantoprazole Sodium (Protonix -) 40 mg PO DAILY [facility] Last Admin: 02/13/17 12:01 Dose: 40 mg Prednisone (Deltasone -) 30 mg PO DAILY [facility] Last Admin: 02/13/17 12:00 Dose: 30 mg Quetiapine Fumarate (Seroquel -) 50 mg PO HS [facility] Last Admin: 02/12/17 21:19 Dose: 50 mg Raltegravir (Isentress -) 400 mg PO BID [facility] Last Admin: 02/13/17 12:01 Dose: 400 mg Trimethoprim/Sulfamethoxazole (Bactrim Ds -) 1 each PO DAILY [facility] Last Admin: 02/13/17 11:59 Dose: 1 each - Objective Vital Signs: Vital Signs Temperature 99.1 F 02/13/17 10:00 Pulse Rate 81 02/13/17 06:00 Respiratory Rate 20 02/13/17 10:00 Blood Pressure 125/72 02/13/17 10:00 O2 Sat by Pulse Oximetry (%) 93 L 02/13/17 09:00 Constitutional: Yes: Calm, Thin Eyes: Yes: WNL HENT: Yes: WNL Neck: Yes: WNL Cardiovascular: Yes: Regular Rate and Rhythm, S1, S2 Respiratory: Yes: Diminished Gastrointestinal: Yes: Normal Bowel Sounds, Soft Extremities: Yes: WNL Edema: No Labs: CBC, BMP 02/13/17 06:00 02/13/17 06:00 Problem List - Problems (1) COPD exacerbation Code(s): J44.1 - CHRONIC OBSTRUCTIVE PULMONARY DISEASE W (ACUTE) EXACERBATION (2) DVT prophylaxis Code(s): [id number] - (3) Pneumonia Code(s): J18.9 - PNEUMONIA, UNSPECIFIED ORGANISM (4) COPD (chronic obstructive pulmonary disease) Code(s): J44.9 - CHRONIC OBSTRUCTIVE PULMONARY DISEASE, UNSPECIFIED Qualifiers : COPD type: emphysema Emphysema type: other Qualified Code(s): J43.8 - Other emphysema (5) HIV (human immunodeficiency virus infection) Code(s): Z21 - ASYMPTOMATIC HUMAN IMMUNODEFICIENCY VIRUS INFECTION STATUS (6) Acute and chronic respiratory failure Code(s): J96.20 - ACUTE AND CHR RESP FAILURE, UNSP W HYPOXIA OR HYPERCAPNIA Assessment/Plan A/P Pneumonia treated Intractable Hiccups improving HIV/AIDS COPD Smoker - prednisone taper - inhaled bronchodilators - continue ART - O2 to keep SpO2 >90% - DVT prophylaxis - smoking cessation DR RODRIGUEZ
[2017-02-13] MEDS: BACLOFEN 10 MG TABLET (FP) PO SCH ×2 (18:36→21:08)
[2017-02-13] MEDS: ACETAMINOPHEN 325 MG TABLET (FP) PO PRN (20:32)
[2017-02-13] MEDS: QUEtiapine FUMARATE 25 MG TABLET (FP) PO SCH (21:06)
[2017-02-13] MEDS: LIDOCAINE PATCH REMOVAL MC SCH (21:07)
[2017-02-14] MEDS: ONDANSETRON *ODT* 4 MG TABLET SL SCH ×4 (00:43→20:21)
[2017-02-14] MEDS ORDERED: PT OWN MED DRAWER 7, Y5N ONE ×4 (04:58→20:50)
[2017-02-14 07:37] LABS: BASOPHIL 0.2 % (0-2.0); EOSINOPHIL 0.1 % (0-4.5); MCH 28.9 pg (25.7-33.7); MCHC 33.2 g/dl (32.0-35.9); MEAN PLT VOLUME 8.6 fl (7.5-11.1); NEUTROPHILS 71.6 % (42.8-82.8); PLATELET COUNT 216 K/MM3 (134-434); RDW 18.8 % (11.9-15.9); WHITE BLOOD COUNT 5.7 K/mm3 (4.0-10.0)
[2017-02-14 07:44] LABS: ALBUMIN 2.4 g/dl (3.4-5.0); ALK PHOS 71 U/L (45-117); ANION GAP 7 (8-16); BILIRUBIN,TOTAL 0.3 mg/dL (0.2-1.0); CALCIUM 8.7 mg/dL (8.5-10.1); CO2 29 mmol/L (21-32); CREATININE 0.7 mg/dL (0.7-1.3); GLUCOSE,RANDOM 111 mg/dL (74-106); SGOT/AST 15 U/L (15-37); SGPT/ALT 34 U/L (12-78); TOT PROT 5.9 g/dl (6.4-8.2)
[2017-02-14] MEDS: DOCUSATE SODIUM 100 MG CAPSULE (FP) PO SCH ×3 (08:28→21:00)
--- NOTE | 2017-02-14 09:33 | PN ---
Progress Note (short form) - Note Progress Note: Subjective: The patient was seen and examined at the bedside, he has no complaints of hiccups at this time Tmax 102.2 Current Medications Generic Name Dose Route Start Last Admin Trade Name Freq PRN Reason Stop Dose Admin Abacavir Sulfate 300 mg 02/02/17 22:00 02/13/17 21:06 Ziagen - PO 300 mg BID JANETT Administration Acetaminophen 650 mg 01/30/17 13:29 02/13/17 20:32 Tylenol - PO 650 mg Q4H PRN Administration FEVER OR PAIN Amlodipine Besylate 10 mg 02/04/17 10:00 02/13/17 12:00 Norvasc - PO 10 mg DAILY JANETT Administration Baclofen 10 mg 02/13/17 16:00 02/13/17 21:08 Lioresal - PO Not Given TID JANETT Docusate Sodium 100 mg 01/30/17 14:00 02/14/17 08:28 Colace - PO Not Given TID JANETT Enoxaparin Sodium 40 mg 02/13/17 10:00 02/13/17 09:55 Lovenox - SQ 40 mg DAILY JANETT Administration Guaifenesin 10 ml 01/31/17 21:32 02/11/17 22:11 Robitussin - PO 10 ml Q4H PRN Administration COUGH Fluconazole 50 mls @ 50 mls/hr 02/09/17 10:00 02/13/17 12:29 Diflucan 100 Mg/D5w Premixed Ivpb - IVPB 50 mls/hr DAILY JANETT Administration Lamivudine 300 mg 02/02/17 18:52 02/13/17 12:05 Epivir - PO 300 mg DAILY JANETT Administration Lidocaine 1 patch 02/02/17 10:00 02/13/17 09:54 Lidoderm Patch - TP 1 patch DAILY AJNETT Administration Miscellaneous 1 each 02/02/17 22:00 02/13/17 21:07 Lidoderm Patch Removal MC 1 each DAILY@2200 JANETT Administration Nicotine 14 mg 01/31/17 10:00 02/13/17 17:08 Nicoderm Patch - TD 14 mg DAILY JANETT Administration Ondansetron HCl 4 mg 02/13/17 11:45 02/14/17 00:43 Zofran Odt - SL 4 mg Q6HPO JANETT Administration Pantoprazole Sodium 40 mg 02/01/17 10:00 02/13/17 12:01 Protonix - PO 40 mg DAILY JANETT Administration Potassium Chloride 40 meq 02/14/17 09:28 K-Dur - PO 02/14/17 09:29 ONCE ONE Prednisone 30 mg 02/10/17 10:00 02/13/17 12:00 Deltasone - PO 30 mg DAILY JANETT Administration Quetiapine Fumarate 50 mg 02/08/17 22:00 02/13/17 21:06 Seroquel - PO 50 mg HS JANETT Administration Raltegravir 400 mg 02/02/17 22:00 02/13/17 21:06 Isentress - PO 400 mg BID JANETT Administration Trimethoprim/Sulfamethoxazole 1 each 01/31/17 10:00 02/13/17 11:59 Bactrim Ds - PO 1 each DAILY JANETT Administration Objective: Vital Signs Period Temp Pulse Resp BP Sys/Galdamez Pulse Ox Last 24 Hr 99.1 F-102.2 F 88-95 18-20 116-130/53-72 94 Physical Exam: General: NAD, A&Ox3, Thin Lungs: CTA bilaterally Heart: RRR, S1S2 Abd: Soft, non-tender, non-distended. Normoactive bowel sounds Ext: Warm, well-perfused 2+ DP/PT bilaterally Neuro: CN 2-12 intact CBCD WBC 5.7 K/mm3 (4.0-10.0) 02/14/17 05:25 RBC 3.52 M/mm3 (4.00-5.60) L 02/14/17 05:25 Hgb 10.2 GM/dL (11.7-16.9) L 02/14/17 05:25 Hct 30.6 % (35.4-49) L 02/14/17 05:25 MCV 87.0 fl (80-96) 02/14/17 05:25 MCHC 33.2 g/dl (32.0-35.9) 02/14/17 05:25 RDW 18.8 % (11.9-15.9) H 02/14/17 05:25 Plt Count 216 K/MM3 (134-434) 02/14/17 05:25 MPV 8.6 fl (7.5-11.1) 02/14/17 05:25 CMP Sodium 136 mmol/L (136-145) 02/14/17 05:25 Potassium 3.3 mmol/L (3.5-5.1) L 02/14/17 05:25 Chloride 100 mmol/L (98-107) 02/14/17 05:25 Carbon Dioxide 29 mmol/L (21-32) 02/14/17 05:25 Anion Gap 7 (8-16) L 02/14/17 05:25 BUN 9 mg/dL (7-18) 02/14/17 05:25 Creatinine 0.7 mg/dL (0.7-1.3) 02/14/17 05:25 Creat Clearance w eGFR > 60 (>60) 02/14/17 05:25 Random Glucose 111 mg/dL (74-106) H D 02/14/17 05:25 Calcium 8.7 mg/dL (8.5-10.1) 02/14/17 05:25 Total Bilirubin 0.3 mg/dL (0.2-1.0) D 02/14/17 05:25 AST 15 U/L (15-37) 02/14/17 05:25 ALT 34 U/L (12-78) 02/14/17 05:25 Alkaline Phosphatase 71 U/L (45-117) 02/14/17 05:25 Total Protein 5.9 g/dl (6.4-8.2) L 02/14/17 05:25 Albumin 2.4 g/dl (3.4-5.0) L 02/14/17 05:25 CARDIAC ENZYMES Creatine Kinase 312 IU/L (39-308) H 01/30/17 11:55 Troponin I < 0.02 ng/ml (0.00-0.05) 02/06/17 15:40 Microbiology 02/12/17 08:30 Urine - Urine Clean Catch Urine Culture - Final NO GROWTH OBTAINED 02/12/17 10:21 Blood - Peripheral Venous Blood Culture - Preliminary NO GROWTH OBTAINED AFTER 24 HOURS, INCUBATION TO CONTINUE FOR 4 DAYS. 02/12/17 10:35 Blood - Peripheral Venous Blood Culture - Preliminary NO GROWTH OBTAINED AFTER 24 HOURS, INCUBATION TO CONTINUE FOR 4 DAYS. 02/03/17 10:00 Sputum - Expectorated AFB Smear Concentration - Final 02/03/17 10:00 Sputum - Expectorated Direct Acid Fast Bacilli Smear - Final 02/03/17 10:00 Sputum - Expectorated Mycobacterial Culture - Preliminary 01/31/17 05:35 Blood - Peripheral Venous TB Test (QFT) (MEGHA) - Final 02/01/17 16:10 Sputum - Expectorated AFB Smear Concentration - Final 02/01/17 16:10 Sputum - Expectorated Direct Acid Fast Bacilli Smear - Final 02/01/17 16:10 Sputum - Expectorated Mycobacterial Culture - Preliminary 02/02/17 07:40 Sputum - Expectorated AFB Smear Concentration - Final 02/02/17 07:40 Sputum - Expectorated Direct Acid Fast Bacilli Smear - Final 02/02/17 07:40 Sputum - Expectorated Mycobacterial Culture - Preliminary 01/30/17 11:55 Blood - Peripheral Venous Blood Culture - Final NO GROWTH AFTER 5 DAYS INCUBATION 01/30/17 11:55 Blood - Peripheral Venous Blood Culture - Final NO GROWTH AFTER 5 DAYS INCUBATION 01/31/17 11:05 Sputum - Expectorated Gram Stain - Final 01/31/17 11:05 Sputum - Expectorated Sputum Culture - Final Yeast Like Organism Mr S Aureus 01/30/17 21:39 Sputum - Expectorated Gram Stain - Final 01/30/17 21:39 Sputum - Expectorated Sputum Culture - Final Yeast Like Organism 01/30/17 11:32 Urine - Urine Clean Catch Urine Culture - Final NO GROWTH OBTAINED Imaging: Chest Xray 01/29/2017: bilateral pulmonary consolidations, no pneumothorax, no large pleural effusions Chest Xray 01/30/2017: bilateral pulmonary consolidations unchanged from prior chest xray Chest CT 01/31/2017: Bilateral non specific alveolar infiltrates, minimal bilateral pleural effusion, atelectasis (likely chronic) on right lobe, centrilobular emphysema Assessment: This is a 56 year old male with a history of HIV/AIDS (dx in 1995, IVDU, hx PCP PNA, on Triumeq but does not take it regularly, unknown CD4), Hep C , HTN, and asthma/COPD who presented to the [facility] detox facility for heroin/ cocaine EtOH detox on 01/27 and was sent to the ED with shortness of breath, wheezing, and hypoxia. Plan: 1) Persistent hiccups: - Resolved - Compazine and Reglan did not relieve hiccups - CT with diffuse esophageal dilatation - Esophagram/UGIS failed to reveal a dilated esophagus/acute uper GI pathology - Appreciate GI consult 2) ID: Fever - Tmax 102.2 - Repeat cultures with NGTD - Restarted on Zosyn for possible aspiration (02/14- ) - Incentive spirometer - Appreciate ID consult B/l pneumonia - Discontinued Vanco and Cefepime (01/30-02/07) - AFB x3 negative, isolation precautions discontinued Thrush - Resolved AIDS - Continue Bactrim for prophylaxis - Continue Lamivudine - Continue Raltegravir - Continue Abacavir - Appreciate ID consult 3) Pulmonary: COPD exacerbation - Improving - Now on Prednisone 30mg po daily - Appreciate pulmonary consult 4) Psych: Opiate dependence - No evidence of withdrawal 5) Cardiology: HTN - Continue Norvasc - No BB as the patient has recent cocaine use 6) F/E/N: - Low fiber diet - Monitor electrolytes 7) Prophylaxis: - Lovenox 40mg sq daily - OOB ambulating 8) Dispo: - Requires continued inpatient care CODE STATUS: FULL CODE Visit type - Emergency Visit Emergency Visit: Yes ED Registration Date: 01/30/17 Care time: The patient presented to the Emergency Department on the above date and was hospitalized for further evaluation of their emergent condition. - New Patient This patient is new to me today: No - Critical Care Critical Care patient: No
[2017-02-14] MEDS: amLODIPine BESYLATE 10 MG TABLET (FP) PO SCH (09:57)
[2017-02-14] MEDS: ABACAVIR SULFATE 300 MG TABLET PO SCH ×2 (09:57→21:00)
[2017-02-14] MEDS: LIDOCAINE 5% TOPICAL PATCH TP SCH (09:57)
[2017-02-14] MEDS: ENOXAPARIN NA (PORCINE) 40 MG/0.4 ML DISP.SYRIN SQ SCH (09:57)
[2017-02-14] MEDS: FLUCONAZOLE 100 MG/D5W 50 ML IVPB SCH (09:58)
[2017-02-14] MEDS: NICOTINE 14 MG/24 HOURS TOPICAL PATCH TD SCH (09:58)
[2017-02-14] MEDS: SULFAMETHOXAZOLE/TRIMETHOPRIM 800MG/160MG D.S. TABLET PO SCH (09:58)
[2017-02-14] MEDS: PANTOPRAZOLE 40 MG TABLET (FP) PO SCH (09:58)
[2017-02-14] MEDS: predniSONE 10 MG TABLET (UD) PO SCH (09:58)
[2017-02-14] MEDS: RALTEGRAVIR POTASSIUM 400 MG TAB PO SCH ×2 (09:59→21:00)
[2017-02-14] MEDS: lamiVUDine 150 MG TABLET PO SCH (09:59)
[2017-02-14] MEDS ORDERED: POTASSIUM CHLORIDE TABS 20 MEQ TABLET.ER (FP) PO ONE (10:00)
--- NOTE | 2017-02-14 10:09 | PN ---
Progress Note, Physician - Current Medication List Current Medications: Active Medications Abacavir Sulfate (Ziagen -) 300 mg PO BID [facility] Last Admin: 02/14/17 09:57 Dose: 300 mg Acetaminophen (Tylenol -) 650 mg PO Q4H PRN PRN Reason: FEVER OR PAIN Last Admin: 02/13/17 20:32 Dose: 650 mg Amlodipine Besylate (Norvasc -) 10 mg PO DAILY [facility] Last Admin: 02/14/17 09:57 Dose: 10 mg Baclofen (Lioresal -) 10 mg PO TID [facility] Last Admin: 02/13/17 21:08 Dose: Not Given Docusate Sodium (Colace -) 100 mg PO TID [facility] Last Admin: 02/14/17 08:28 Dose: Not Given Enoxaparin Sodium (Lovenox -) 40 mg SQ DAILY [facility] Last Admin: 02/14/17 09:57 Dose: 40 mg Guaifenesin (Robitussin -) 10 ml PO Q4H PRN PRN Reason: COUGH Last Admin: 02/11/17 22:11 Dose: 10 ml Fluconazole (Diflucan 100 Mg/D5w Premixed Ivpb -) 50 mls @ 50 mls/hr IVPB DAILY [facility] Last Admin: 02/14/17 09:58 Dose: 50 mls/hr Lamivudine (Epivir -) 300 mg PO DAILY [facility] Last Admin: 02/14/17 09:59 Dose: 300 mg Lidocaine (Lidoderm Patch -) 1 patch TP DAILY [facility] Last Admin: 02/14/17 09:57 Dose: 1 patch Miscellaneous (Lidoderm Patch Removal) 1 each MC DAILY@2200 [facility] Last Admin: 02/13/17 21:07 Dose: 1 each Nicotine (Nicoderm Patch -) 14 mg TD DAILY [facility] Last Admin: 02/14/17 09:58 Dose: 14 mg Ondansetron HCl (Zofran Odt -) 4 mg SL Q6HPO [facility] Last Admin: 02/14/17 00:43 Dose: 4 mg Pantoprazole Sodium (Protonix -) 40 mg PO DAILY [facility] Last Admin: 02/14/17 09:58 Dose: 40 mg Prednisone (Deltasone -) 30 mg PO DAILY [facility] Last Admin: 02/14/17 09:58 Dose: 30 mg Quetiapine Fumarate (Seroquel -) 50 mg PO HS [facility] Last Admin: 02/13/17 21:06 Dose: 50 mg Raltegravir (Isentress -) 400 mg PO BID [facility] Last Admin: 02/14/17 09:59 Dose: 400 mg Trimethoprim/Sulfamethoxazole (Bactrim Ds -) 1 each PO DAILY [facility] Last Admin: 02/14/17 09:58 Dose: 1 each - Objective Vital Signs: Vital Signs Temperature 102.2 F H 02/13/17 22:00 Pulse Rate 88 02/13/17 22:00 Respiratory Rate 20 02/13/17 22:00 Blood Pressure 130/66 02/13/17 22:00 O2 Sat by Pulse Oximetry (%) 94 L 02/13/17 21:00 Eyes: Yes: WNL, Conjunctiva Clear, EOM Intact HENT: Yes: WNL, Atraumatic, Normocephalic Neck: Yes: WNL, Supple, Trachea Midline Cardiovascular: Yes: WNL, Regular Rate and Rhythm Respiratory: Yes: WNL, Regular, CTA Bilaterally Gastrointestinal: Yes: WNL, Normal Bowel Sounds Genitourinary: Yes: WNL Musculoskeletal: Yes: WNL Extremities: Yes: WNL Edema: No Integumentary: Yes: WNL Neurological: Yes: WNL, Alert, Oriented ...Motor Strength: WNL Psychiatric: Yes: WNL Labs: CBC, BMP 02/14/17 05:25 02/14/17 05:25 Problem List - Problems (1) Acute and chronic respiratory failure Code(s): J96.20 - ACUTE AND CHR RESP FAILURE, UNSP W HYPOXIA OR HYPERCAPNIA (2) Asthma exacerbation Code(s): J45.901 - UNSPECIFIED ASTHMA WITH (ACUTE) EXACERBATION (3) COPD exacerbation Code(s): J44.1 - CHRONIC OBSTRUCTIVE PULMONARY DISEASE W (ACUTE) EXACERBATION (4) DVT prophylaxis Code(s): [id number] - (5) Hiccups Code(s): R06.6 - HICCOUGH (6) Hypertension Code(s): I10 - ESSENTIAL (PRIMARY) HYPERTENSION (7) Inguinal hernia Code(s): K40.90 - UNIL INGUINAL HERNIA, W/O OBST OR GANGR, NOT SPCF RECUR (8) Pneumonia Code(s): J18.9 - PNEUMONIA, UNSPECIFIED ORGANISM (9) Sepsis Code(s): A41.9 - SEPSIS, UNSPECIFIED ORGANISM (10) Alcohol dependence with uncomplicated withdrawal Code(s): F10.230 - ALCOHOL DEPENDENCE WITH WITHDRAWAL, UNCOMPLICATED (11) Cocaine dependence Code(s): F14.20 - COCAINE DEPENDENCE, UNCOMPLICATED Qualifiers: Substance use status: uncomplicated Qualified Code(s): F14.20 - Cocaine dependence, uncomplicated (12) Depressive disorder Code(s): F32.9 - MAJOR DEPRESSIVE DISORDER, SINGLE EPISODE, UNSPECIFIED (13) Insomnia Code(s): G47.00 - INSOMNIA, UNSPECIFIED (14) Nicotine dependence Code(s): F17.200 - NICOTINE DEPENDENCE, UNSPECIFIED, UNCOMPLICATED Qualifiers : Nicotine product type: cigarettes Substance use status: uncomplicated Qualified Code(s): F17.210 - Nicotine dependence, cigarettes, uncomplicated (15) Opioid dependence with withdrawal Code(s): F11.23 - OPIOID DEPENDENCE WITH WITHDRAWAL (16) Asthma Code(s): J45.909 - UNSPECIFIED ASTHMA, UNCOMPLICATED Qualifiers: Asthma severity: mild persistent Asthma complication type: with status asthmaticus Qualified Code(s): J45.32 - Mild persistent asthma with status asthmaticus (17) COPD (chronic obstructive pulmonary disease) Code(s): J44.9 - CHRONIC OBSTRUCTIVE PULMONARY DISEASE, UNSPECIFIED Qualifiers : COPD type: emphysema Emphysema type: other Qualified Code(s): J43.8 - Other emphysema (18) HIV (human immunodeficiency virus infection) Code(s): Z21 - ASYMPTOMATIC HUMAN IMMUNODEFICIENCY VIRUS INFECTION STATUS (19) Hepatitis C carrier Code(s): Z22.52 - (20) Use of cane as ambulatory aid Code(s): R26.2 - DIFFICULTY IN WALKING, NOT ELSEWHERE CLASSIFIED Assessment/Plan htn hiv SEPSIS Pna COPD CARDIAC IBRAHIM STABLE. CONT PRESENT RX
--- NOTE | 2017-02-14 12:50 | PN ---
Progress Note, Physician History of Present Illness: Persistant fever No focal complaint Swallowing better No c/o chest pain/ cough / dyspnea No dysuria/ hematuria No c/o diarrhea - Current Medication List Current Medications: Active Medications Abacavir Sulfate (Ziagen -) 300 mg PO BID [facility] Last Admin: 02/14/17 09:57 Dose: 300 mg Acetaminophen (Tylenol -) 650 mg PO Q4H PRN PRN Reason: FEVER OR PAIN Last Admin: 02/13/17 20:32 Dose: 650 mg Amlodipine Besylate (Norvasc -) 10 mg PO DAILY [facility] Last Admin: 02/14/17 09:57 Dose: 10 mg Baclofen (Lioresal -) 10 mg PO TID [facility] Last Admin: 02/13/17 21:08 Dose: Not Given Docusate Sodium (Colace -) 100 mg PO TID [facility] Last Admin: 02/14/17 08:28 Dose: Not Given Enoxaparin Sodium (Lovenox -) 40 mg SQ DAILY [facility] Last Admin: 02/14/17 09:57 Dose: 40 mg Guaifenesin (Robitussin -) 10 ml PO Q4H PRN PRN Reason: COUGH Last Admin: 02/11/17 22:11 Dose: 10 ml Fluconazole (Diflucan 100 Mg/D5w Premixed Ivpb -) 50 mls @ 50 mls/hr IVPB DAILY [facility] Last Admin: 02/14/17 09:58 Dose: 50 mls/hr Lamivudine (Epivir -) 300 mg PO DAILY [facility] Last Admin: 02/14/17 09:59 Dose: 300 mg Lidocaine (Lidoderm Patch -) 1 patch TP DAILY [facility] Last Admin: 02/14/17 09:57 Dose: 1 patch Miscellaneous (Lidoderm Patch Removal) 1 each MC DAILY@2200 [facility] Last Admin: 02/13/17 21:07 Dose: 1 each Nicotine (Nicoderm Patch -) 14 mg TD DAILY [facility] Last Admin: 02/14/17 09:58 Dose: 14 mg Ondansetron HCl (Zofran Odt -) 4 mg SL Q6HPO [facility] Last Admin: 02/14/17 11:48 Dose: 4 mg Pantoprazole Sodium (Protonix -) 40 mg PO DAILY [facility] Last Admin: 02/14/17 09:58 Dose: 40 mg Prednisone (Deltasone -) 30 mg PO DAILY [facility] Last Admin: 02/14/17 09:58 Dose: 30 mg Quetiapine Fumarate (Seroquel -) 50 mg PO HS [facility] Last Admin: 02/13/17 21:06 Dose: 50 mg Raltegravir (Isentress -) 400 mg PO BID [facility] Last Admin: 02/14/17 09:59 Dose: 400 mg Trimethoprim/Sulfamethoxazole (Bactrim Ds -) 1 each PO DAILY [facility] Last Admin: 02/14/17 09:58 Dose: 1 each - Objective Vital Signs: Vital Signs Temperature 99.0 F 02/14/17 10:00 Pulse Rate 70 02/14/17 10:00 Respiratory Rate 20 02/14/17 10:00 Blood Pressure 105/61 02/14/17 10:00 O2 Sat by Pulse Oximetry (%) 96 02/14/17 09:00 Constitutional: Yes: No Distress, Cachectic Eyes: Yes: Conjunctiva Clear Cardiovascular: Yes: Regular Rate and Rhythm, S1, S2 Respiratory: Yes: Diminished Gastrointestinal: Yes: Normal Bowel Sounds, Soft. No: Tenderness Edema: No Labs: CBC, BMP 02/14/17 05:25 02/14/17 05:25 Assessment/Plan Fever ? source ? recurrent aspiration S/P bilbailar pneumonia ( CT chest 02/09 improved as compared w CT 01/30) COPD AIDS CD4 29 ? Esophagitis ( CMV, HSV, gabriella, HIV) Recultured off antibiotics Will start empiric tx for possible aspiration
--- NOTE | 2017-02-14 13:02 | PN ---
Progress Note (short form) - Note Progress Note: PULMONARY Hiccups resolved. Denies shortness of breath or cough but now febrile. Last Vital Signs Temp Pulse Resp BP Pulse Ox 99.0 F 70 20 105/61 96 02/14/17 10:00 02/14/17 10:00 02/14/17 10:00 02/14/17 10:00 02/14/17 09:00 Gen: NAD at rest Heart: RRR Lung: decreased breath sounds at the bases Abd: soft, nontender Ext: no edema CBC, BMP 02/14/17 05:25 02/14/17 05:25 Active Medications Abacavir Sulfate (Ziagen -) 300 mg PO BID [facility] Last Admin: 02/14/17 09:57 Dose: 300 mg Acetaminophen (Tylenol -) 650 mg PO Q4H PRN PRN Reason: FEVER OR PAIN Last Admin: 02/13/17 20:32 Dose: 650 mg Amlodipine Besylate (Norvasc -) 10 mg PO DAILY [facility] Last Admin: 02/14/17 09:57 Dose: 10 mg Baclofen (Lioresal -) 10 mg PO TID [facility] Last Admin: 02/13/17 21:08 Dose: Not Given Docusate Sodium (Colace -) 100 mg PO TID [facility] Last Admin: 02/14/17 08:28 Dose: Not Given Enoxaparin Sodium (Lovenox -) 40 mg SQ DAILY [facility] Last Admin: 02/14/17 09:57 Dose: 40 mg Guaifenesin (Robitussin -) 10 ml PO Q4H PRN PRN Reason: COUGH Last Admin: 02/11/17 22:11 Dose: 10 ml Fluconazole (Diflucan 100 Mg/D5w Premixed Ivpb -) 50 mls @ 50 mls/hr IVPB DAILY [facility] Last Admin: 02/14/17 09:58 Dose: 50 mls/hr Piperacillin Sod/Tazobactam (Sod 3.375 gm/ Dextrose) 50 mls @ 100 mls/hr IVPB Q8H-IV [facility] PRN Reason: Protocol Lamivudine (Epivir -) 300 mg PO DAILY [facility] Last Admin: 02/14/17 09:59 Dose: 300 mg Lidocaine (Lidoderm Patch -) 1 patch TP DAILY [facility] Last Admin: 02/14/17 09:57 Dose: 1 patch Miscellaneous (Lidoderm Patch Removal) 1 each MC DAILY@2200 [facility] Last Admin: 02/13/17 21:07 Dose: 1 each Nicotine (Nicoderm Patch -) 14 mg TD DAILY [facility] Last Admin: 02/14/17 09:58 Dose: 14 mg Ondansetron HCl (Zofran Odt -) 4 mg SL Q6HPO [facility] Last Admin: 02/14/17 11:48 Dose: 4 mg Pantoprazole Sodium (Protonix -) 40 mg PO DAILY [facility] Last Admin: 02/14/17 09:58 Dose: 40 mg Prednisone (Deltasone -) 30 mg PO DAILY [facility] Last Admin: 02/14/17 09:58 Dose: 30 mg Quetiapine Fumarate (Seroquel -) 50 mg PO HS [facility] Last Admin: 02/13/17 21:06 Dose: 50 mg Raltegravir (Isentress -) 400 mg PO BID [facility] Last Admin: 02/14/17 09:59 Dose: 400 mg Trimethoprim/Sulfamethoxazole (Bactrim Ds -) 1 each PO DAILY [facility] Last Admin: 02/14/17 09:58 Dose: 1 each A/P Pneumonia treated Intractable Hiccups HIV/AIDS COPD Smoker - antibiotics per ID - f/u repeat cultures - will decrease prednisone to 20mg daily - inhaled bronchodilators - continue ART - O2 to keep SpO2 >90% - DVT prophylaxis - smoking cessation
[2017-02-14] MEDS ORDERED: PIPERACILLIN/TAZOBACTAM 3.375 GM VIAL IVPB ONE ×2 (13:35→17:32)
[2017-02-14] MEDS ORDERED: DEXTROSE 5%-WATER - 50 ML IVPB ONE ×2 (13:36→17:33)
[2017-02-14] MEDS: BACLOFEN 10 MG TABLET (FP) PO SCH ×3 (13:46→21:00)
[2017-02-14] MEDS: PIPERACILLIN/TAZOB 3.375 GM 3.375 GM in DEXTROSE 5%-WATER - 50 ML IVPB SCH ×2 (13:47→17:35)
[2017-02-14] MEDS: QUEtiapine FUMARATE 25 MG TABLET (FP) PO SCH (21:00)
[2017-02-14] MEDS: LIDOCAINE PATCH REMOVAL MC SCH (21:01)
[2017-02-15] MEDS ORDERED: PIPERACILLIN/TAZOBACTAM 3.375 GM VIAL IVPB ONE ×3 (00:40→16:29)
[2017-02-15] MEDS ORDERED: DEXTROSE 5%-WATER - 50 ML IVPB ONE ×3 (00:41→16:29)
[2017-02-15] MEDS: PIPERACILLIN/TAZOB 3.375 GM 3.375 GM in DEXTROSE 5%-WATER - 50 ML IVPB SCH ×3 (01:08→17:10)
[2017-02-15] MEDS: ONDANSETRON *ODT* 4 MG TABLET SL SCH ×4 (01:08→17:11)
[2017-02-15] MEDS ORDERED: PT OWN MED DRAWER 7, Y5N ONE ×2 (05:49→21:05)
[2017-02-15] MEDS: BACLOFEN 10 MG TABLET (FP) PO SCH ×3 (05:54→21:13)
[2017-02-15] MEDS: DOCUSATE SODIUM 100 MG CAPSULE (FP) PO SCH ×3 (06:01→21:13)
[2017-02-15 07:09] LABS: MCHC 32.9 g/dl (32.0-35.9); MEAN CELL VOLUME 88.1 fl (80-96); MEAN PLT VOLUME 8.1 fl (7.5-11.1); PLATELET COUNT 215 K/MM3 (134-434); RDW 19.1 % (11.9-15.9); WHITE BLOOD COUNT 7.6 K/mm3 (4.0-10.0)
[2017-02-15 07:18] LABS: ALBUMIN 2.5 g/dl (3.4-5.0); ANION GAP 10 (8-16); BILIRUBIN,TOTAL 0.2 mg/dL (0.2-1.0); CALCIUM 8.7 mg/dL (8.5-10.1); CO2 27 mmol/L (21-32); CREATININE 0.8 mg/dL (0.7-1.3); GLUCOSE,RANDOM 131 mg/dL (74-106); SGOT/AST 14 U/L (15-37); SGPT/ALT 32 U/L (12-78); TOT PROT 5.6 g/dl (6.4-8.2)
[2017-02-15 07:19] LABS: ALK PHOS 68 U/L (45-117)
[2017-02-15] MEDS ORDERED: POTASSIUM CHLORIDE ORAL LIQUID 20 MEQ/15 ML PO ONE (08:35)
--- NOTE | 2017-02-15 10:20 | PN ---
Progress Note, Physician - Current Medication List Current Medications: Active Medications Abacavir Sulfate (Ziagen -) 300 mg PO BID [facility] Last Admin: 02/14/17 21:00 Dose: 300 mg Acetaminophen (Tylenol -) 650 mg PO Q4H PRN PRN Reason: FEVER OR PAIN Last Admin: 02/13/17 20:32 Dose: 650 mg Amlodipine Besylate (Norvasc -) 10 mg PO DAILY [facility] Last Admin: 02/14/17 09:57 Dose: 10 mg Baclofen (Lioresal -) 10 mg PO TID [facility] Last Admin: 02/15/17 05:54 Dose: 10 mg Docusate Sodium (Colace -) 100 mg PO TID [facility] Last Admin: 02/15/17 06:01 Dose: Not Given Enoxaparin Sodium (Lovenox -) 40 mg SQ DAILY [facility] Last Admin: 02/14/17 09:57 Dose: 40 mg Guaifenesin (Robitussin -) 10 ml PO Q4H PRN PRN Reason: COUGH Last Admin: 02/11/17 22:11 Dose: 10 ml Fluconazole (Diflucan 100 Mg/D5w Premixed Ivpb -) 50 mls @ 50 mls/hr IVPB DAILY [facility] Last Admin: 02/14/17 09:58 Dose: 50 mls/hr Piperacillin Sod/Tazobactam (Sod 3.375 gm/ Dextrose) 50 mls @ 100 mls/hr IVPB Q8H-IV [facility] PRN Reason: Protocol Last Admin: 02/15/17 01:08 Dose: 100 mls/hr Lamivudine (Epivir -) 300 mg PO DAILY [facility] Last Admin: 02/14/17 09:59 Dose: 300 mg Lidocaine (Lidoderm Patch -) 1 patch TP DAILY [facility] Last Admin: 02/14/17 09:57 Dose: 1 patch Miscellaneous (Lidoderm Patch Removal) 1 each MC DAILY@2200 [facility] Last Admin: 02/14/17 21:01 Dose: 1 each Nicotine (Nicoderm Patch -) 14 mg TD DAILY [facility] Last Admin: 02/14/17 09:58 Dose: 14 mg Ondansetron HCl (Zofran Odt -) 4 mg SL Q6HPO [facility] Last Admin: 02/15/17 05:54 Dose: 4 mg Pantoprazole Sodium (Protonix -) 40 mg PO DAILY [facility] Last Admin: 02/14/17 09:58 Dose: 40 mg Prednisone (Deltasone -) 20 mg PO DAILY [facility] Quetiapine Fumarate (Seroquel -) 50 mg PO HS [facility] Last Admin: 02/14/17 21:00 Dose: 50 mg Raltegravir (Isentress -) 400 mg PO BID [facility] Last Admin: 02/14/17 21:00 Dose: 400 mg Trimethoprim/Sulfamethoxazole (Bactrim Ds -) 1 each PO DAILY [facility] Last Admin: 02/14/17 09:58 Dose: 1 each - Objective Vital Signs: Vital Signs Temperature 98.5 F 02/15/17 06:00 Pulse Rate 64 02/15/17 06:00 Respiratory Rate 20 02/15/17 06:00 Blood Pressure 125/61 02/15/17 06:00 O2 Sat by Pulse Oximetry (%) 96 02/14/17 20:21 Eyes: Yes: WNL, Conjunctiva Clear, EOM Intact HENT: Yes: WNL, Atraumatic, Normocephalic Neck: Yes: WNL, Supple, Trachea Midline Cardiovascular: Yes: WNL, Regular Rate and Rhythm Respiratory: Yes: WNL, Regular, CTA Bilaterally Gastrointestinal: Yes: WNL, Normal Bowel Sounds Genitourinary: Yes: WNL Musculoskeletal: Yes: WNL Extremities: Yes: WNL Edema: No Integumentary: Yes: WNL Neurological: Yes: WNL, Alert, Oriented ...Motor Strength: WNL Psychiatric: Yes: WNL Labs: CBC, BMP 02/15/17 06:30 02/15/17 06:30 Problem List - Problems (1) Acute and chronic respiratory failure Code(s): J96.20 - ACUTE AND CHR RESP FAILURE, UNSP W HYPOXIA OR HYPERCAPNIA (2) Asthma exacerbation Code(s): J45.901 - UNSPECIFIED ASTHMA WITH (ACUTE) EXACERBATION (3) COPD exacerbation Code(s): J44.1 - CHRONIC OBSTRUCTIVE PULMONARY DISEASE W (ACUTE) EXACERBATION (4) DVT prophylaxis Code(s): [id number] - (5) Hiccups Code(s): R06.6 - HICCOUGH (6) Hypertension Code(s): I10 - ESSENTIAL (PRIMARY) HYPERTENSION (7) Inguinal hernia Code(s): K40.90 - UNIL INGUINAL HERNIA, W/O OBST OR GANGR, NOT SPCF RECUR (8) Pneumonia Code(s): J18.9 - PNEUMONIA, UNSPECIFIED ORGANISM (9) Sepsis Code(s): A41.9 - SEPSIS, UNSPECIFIED ORGANISM (10) Alcohol dependence with uncomplicated withdrawal Code(s): F10.230 - ALCOHOL DEPENDENCE WITH WITHDRAWAL, UNCOMPLICATED (11) Cocaine dependence Code(s): F14.20 - COCAINE DEPENDENCE, UNCOMPLICATED Qualifiers: Substance use status: uncomplicated Qualified Code(s): F14.20 - Cocaine dependence, uncomplicated (12) Depressive disorder Code(s): F32.9 - MAJOR DEPRESSIVE DISORDER, SINGLE EPISODE, UNSPECIFIED (13) Insomnia Code(s): G47.00 - INSOMNIA, UNSPECIFIED (14) Nicotine dependence Code(s): F17.200 - NICOTINE DEPENDENCE, UNSPECIFIED, UNCOMPLICATED Qualifiers : Nicotine product type: cigarettes Substance use status: uncomplicated Qualified Code(s): F17.210 - Nicotine dependence, cigarettes, uncomplicated (15) Opioid dependence with withdrawal Code(s): F11.23 - OPIOID DEPENDENCE WITH WITHDRAWAL (16) Asthma Code(s): J45.909 - UNSPECIFIED ASTHMA, UNCOMPLICATED Qualifiers: Asthma severity: mild persistent Asthma complication type: with status asthmaticus Qualified Code(s): J45.32 - Mild persistent asthma with status asthmaticus (17) COPD (chronic obstructive pulmonary disease) Code(s): J44.9 - CHRONIC OBSTRUCTIVE PULMONARY DISEASE, UNSPECIFIED Qualifiers : COPD type: emphysema Emphysema type: other Qualified Code(s): J43.8 - Other emphysema (18) HIV (human immunodeficiency virus infection) Code(s): Z21 - ASYMPTOMATIC HUMAN IMMUNODEFICIENCY VIRUS INFECTION STATUS (19) Hepatitis C carrier Code(s): Z22.52 - (20) Use of cane as ambulatory aid Code(s): R26.2 - DIFFICULTY IN WALKING, NOT ELSEWHERE CLASSIFIED Assessment/Plan htn hiv SEPSIS Pna COPD CARDIAC IBRAHIM STABLE. CONT PRESENT RX
[2017-02-15] MEDS: ENOXAPARIN NA (PORCINE) 40 MG/0.4 ML DISP.SYRIN SQ SCH (10:26)
[2017-02-15] MEDS: predniSONE 20 MG TABLET (UD) PO SCH (10:26)
[2017-02-15] MEDS: LIDOCAINE 5% TOPICAL PATCH TP SCH (10:26)
[2017-02-15] MEDS: PANTOPRAZOLE 40 MG TABLET (FP) PO SCH (10:26)
[2017-02-15] MEDS: SULFAMETHOXAZOLE/TRIMETHOPRIM 800MG/160MG D.S. TABLET PO SCH (10:26)
--- NOTE | 2017-02-15 10:27 | PN ---
S Progress Note (SOAP) Subjective: I was asked to re-evaluate pt. for acute withdrawal sx.. Imet with pt. in his room, he's calm and speak in complete sentences. He denies withdrawal sx., his main concern at this time is to take care of a large right inguinal hernia that needs surgical intervention. Objective: 02/15/17 10:24 Vital Signs - 24 hr 02/14/17 02/14/17 02/14/17 14:30 20:21 22:00 Temperature 99.8 F H 98.7 F Pulse Rate 79 75 Respiratory 16 16 20 Rate Blood Pressure 115/70 119/66 O2 Sat by Pulse 96 Oximetry (%) 02/15/17 06:00 Temperature 98.5 F Pulse Rate 64 Respiratory 20 Rate Blood Pressure 125/61 O2 Sat by Pulse Oximetry (%) VS are stable, withdrawal sx. unlikely. Assessment: 02/15/17 10:27 Pt. completed detox two weeks ago, no need to resume methadone or librium taper. Plan: Urine drug screen to check for possible illicit drug use.
[2017-02-15] MEDS: amLODIPine BESYLATE 10 MG TABLET (FP) PO SCH (10:28)
[2017-02-15] MEDS: ABACAVIR SULFATE 300 MG TABLET PO SCH ×2 (10:28→21:13)
[2017-02-15] MEDS: NICOTINE 14 MG/24 HOURS TOPICAL PATCH TD SCH (10:28)
[2017-02-15] MEDS: RALTEGRAVIR POTASSIUM 400 MG TAB PO SCH ×2 (10:29→21:13)
[2017-02-15] MEDS: lamiVUDine 150 MG TABLET PO SCH (10:29)
[2017-02-15] MEDS: FLUCONAZOLE 100 MG/D5W 50 ML IVPB SCH (10:33)
--- NOTE | 2017-02-15 11:39 | PN ---
Progress Note, Physician History of Present Illness: pulmonary alert,feeling better,hiccups improved,-sob - Current Medication List Current Medications: Active Medications Abacavir Sulfate (Ziagen -) 300 mg PO BID [facility] Last Admin: 02/15/17 10:28 Dose: 300 mg Acetaminophen (Tylenol -) 650 mg PO Q4H PRN PRN Reason: FEVER OR PAIN Last Admin: 02/13/17 20:32 Dose: 650 mg Amlodipine Besylate (Norvasc -) 10 mg PO DAILY [facility] Last Admin: 02/15/17 10:28 Dose: Not Given Baclofen (Lioresal -) 10 mg PO TID [facility] Last Admin: 02/15/17 05:54 Dose: 10 mg Docusate Sodium (Colace -) 100 mg PO TID [facility] Last Admin: 02/15/17 06:01 Dose: Not Given Enoxaparin Sodium (Lovenox -) 40 mg SQ DAILY [facility] Last Admin: 02/15/17 10:26 Dose: 40 mg Guaifenesin (Robitussin -) 10 ml PO Q4H PRN PRN Reason: COUGH Last Admin: 02/11/17 22:11 Dose: 10 ml Fluconazole (Diflucan 100 Mg/D5w Premixed Ivpb -) 50 mls @ 50 mls/hr IVPB DAILY [facility] Last Admin: 02/15/17 10:33 Dose: 50 mls/hr Piperacillin Sod/Tazobactam (Sod 3.375 gm/ Dextrose) 50 mls @ 100 mls/hr IVPB Q8H-IV [facility] PRN Reason: Protocol Last Admin: 02/15/17 10:29 Dose: 100 mls/hr Lamivudine (Epivir -) 300 mg PO DAILY [facility] Last Admin: 02/15/17 10:29 Dose: 300 mg Lidocaine (Lidoderm Patch -) 1 patch TP DAILY [facility] Last Admin: 02/15/17 10:26 Dose: 1 patch Miscellaneous (Lidoderm Patch Removal) 1 each MC DAILY@2200 [facility] Last Admin: 02/14/17 21:01 Dose: 1 each Nicotine (Nicoderm Patch -) 14 mg TD DAILY [facility] Last Admin: 02/15/17 10:28 Dose: 14 mg Ondansetron HCl (Zofran Odt -) 4 mg SL Q6HPO [facility] Last Admin: 02/15/17 05:54 Dose: 4 mg Pantoprazole Sodium (Protonix -) 40 mg PO DAILY [facility] Last Admin: 02/15/17 10:26 Dose: 40 mg Prednisone (Deltasone -) 20 mg PO DAILY [facility] Last Admin: 02/15/17 10:26 Dose: 20 mg Quetiapine Fumarate (Seroquel -) 50 mg PO HS [facility] Last Admin: 02/14/17 21:00 Dose: 50 mg Raltegravir (Isentress -) 400 mg PO BID [facility] Last Admin: 02/15/17 10:29 Dose: 400 mg Trimethoprim/Sulfamethoxazole (Bactrim Ds -) 1 each PO DAILY [facility] Last Admin: 02/15/17 10:26 Dose: 1 each - Objective Vital Signs: Vital Signs Temperature 98.5 F 02/15/17 06:00 Pulse Rate 64 02/15/17 06:00 Respiratory Rate 20 02/15/17 09:00 Blood Pressure 125/61 02/15/17 06:00 O2 Sat by Pulse Oximetry (%) 96 02/15/17 09:00 Constitutional: Yes: Calm, Thin Eyes: Yes: WNL HENT: Yes: WNL Neck: Yes: WNL Cardiovascular: Yes: Regular Rate and Rhythm, S1, S2 Respiratory: Yes: Rales (few crackles r base) Gastrointestinal: Yes: Normal Bowel Sounds, Soft Extremities: Yes: WNL Edema: No Labs: CBC, BMP 02/15/17 06:30 02/15/17 06:30 Problem List - Problems (1) COPD exacerbation Code(s): J44.1 - CHRONIC OBSTRUCTIVE PULMONARY DISEASE W (ACUTE) EXACERBATION (2) DVT prophylaxis Code(s): [id number] - (3) Pneumonia Code(s): J18.9 - PNEUMONIA, UNSPECIFIED ORGANISM (4) COPD (chronic obstructive pulmonary disease) Code(s): J44.9 - CHRONIC OBSTRUCTIVE PULMONARY DISEASE, UNSPECIFIED Qualifiers : COPD type: emphysema Emphysema type: other Qualified Code(s): J43.8 - Other emphysema (5) HIV (human immunodeficiency virus infection) Code(s): Z21 - ASYMPTOMATIC HUMAN IMMUNODEFICIENCY VIRUS INFECTION STATUS (6) Acute and chronic respiratory failure Code(s): J96.20 - ACUTE AND CHR RESP FAILURE, UNSP W HYPOXIA OR HYPERCAPNIA Assessment/Plan A/P Pneumonia treated Intractable Hiccups improved HIV/AIDS COPD Smoker - prednisone taper - inhaled bronchodilators - continue ART - O2 to keep SpO2 >90% - DVT prophylaxis - smoking cessation DR RODRIGUEZ
--- NOTE | 2017-02-15 14:05 | PN ---
Physical Exam: SUBJECTIVE: Patient seen and examined. He feels well today, denies fever, mild subjective chills. OBJECTIVE: Vital Signs Period Temp Pulse Resp BP Sys/Gadlamez Pulse Ox Last 24 Hr 98.5 F-99.8 F 64-79 16-20 106-125/60-70 92-96 PE Neuro: alert, awake, cn 2-12intact Pulm: CTAB CV: s1 s2 rrr no mrg Abd: s nt nd +bs, LLQ hernia, large Ext: warm, no le edema Laboratory Results - last 24 hr 02/15/17 02/15/17 02/15/17 06:30 06:30 06:30 WBC 7.6 D RBC 3.22 L Hgb 9.3 L Hct 28.4 L MCV 88.1 MCH 29.0 MCHC 32.9 RDW 19.1 H Plt Count 215 MPV 8.1 Sodium 139 Potassium 3.3 L Chloride 102 Carbon Dioxide 27 Anion Gap 10 BUN 11 D Creatinine 0.8 Creat Clearance w eGFR > 60 Random Glucose 131 H Calcium 8.7 Total Bilirubin 0.2 D AST 14 L ALT 32 Alkaline Phosphatase 68 Total Protein 5.6 L Albumin 2.5 L RPR Titer Nonreactive Active Medications Generic Name Dose Route Start Last Admin Trade Name Freq PRN Reason Stop Dose Admin Abacavir Sulfate 300 mg 02/02/17 22:00 02/15/17 10:28 Ziagen - PO 300 mg BID [facility] Administration Acetaminophen 650 mg 01/30/17 13:29 02/13/17 20:32 Tylenol - PO 650 mg Q4H PRN Administration FEVER OR PAIN Amlodipine Besylate 10 mg 02/04/17 10:00 02/15/17 10:28 Norvasc - PO Not Given DAILY [facility] Baclofen 10 mg 02/13/17 16:00 02/15/17 05:54 Lioresal - PO 10 mg TID [facility] Administration Docusate Sodium 100 mg 01/30/17 14:00 02/15/17 06:01 Colace - PO Not Given TID [facility] Enoxaparin Sodium 40 mg 02/13/17 10:00 02/15/17 10:26 Lovenox - SQ 40 mg DAILY [facility] Administration Guaifenesin 10 ml 01/31/17 21:32 02/11/17 22:11 Robitussin - PO 10 ml Q4H PRN Administration COUGH Fluconazole 50 mls @ 50 mls/hr 02/09/17 10:00 02/15/17 10:33 Diflucan 100 Mg/D5w Premixed Ivpb - IVPB 50 mls/hr DAILY [facility] Administration Piperacillin Sod/Tazobactam 50 mls @ 100 mls/hr 02/14/17 13:00 02/15/17 10:29 Sod 3.375 gm/ Dextrose IVPB 100 mls/hr Q8H-IV [facility] Administration Protocol Lamivudine 300 mg 02/02/17 18:52 02/15/17 10:29 Epivir - PO 300 mg DAILY [facility] Administration Lidocaine 1 patch 02/02/17 10:00 02/15/17 10:26 Lidoderm Patch - TP 1 patch DAILY [facility] Administration Miscellaneous 1 each 02/02/17 22:00 02/14/17 21:01 Lidoderm Patch Removal MC 1 each DAILY@2200 [facility] Administration Nicotine 14 mg 01/31/17 10:00 02/15/17 10:28 Nicoderm Patch - TD 14 mg DAILY [facility] Administration Ondansetron HCl 4 mg 02/13/17 11:45 02/15/17 11:48 Zofran Odt - SL 4 mg Q6HPO [facility] Administration Pantoprazole Sodium 40 mg 02/01/17 10:00 02/15/17 10:26 Protonix - PO 40 mg DAILY [facility] Administration Prednisone 20 mg 02/15/17 10:00 02/15/17 10:26 Deltasone - PO 20 mg DAILY [facility] Administration Quetiapine Fumarate 50 mg 02/08/17 22:00 02/14/17 21:00 Seroquel - PO 50 mg HS [facility] Administration Raltegravir 400 mg 02/02/17 22:00 02/15/17 10:29 Isentress - PO 400 mg BID [facility] Administration Trimethoprim/Sulfamethoxazole 1 each 01/31/17 10:00 02/15/17 10:26 Bactrim Ds - PO 1 each DAILY [facility] Administration Imaging: Chest CT 01/31/2017: Bilateral non specific alveolar infiltrates, minimal bilateral pleural effusion, atelectasis (likely chronic) on right lobe, centrilobular emphysema Assessment: 56 year old male with a history of HIV/AIDS (dx in 1995, IVDU, hx PCP PNA, on Triumeq but does not take it regularly, unknown CD4), Hep C, HTN, and asthma/COPD who presented to the [facility] detox facility for heroin/ cocaine EtOH detox on 01/27 and was sent to the ED with shortness of breath, wheezing, and hypoxia. Plan: 1. Fever - Afebrile - r/o aspiration pna - Zosyn (02/14-) 2. Persistent hiccups - Resolved - Compazine and Reglan did not relieve hiccups - No dilated esophagus seen on Esophagram/UGIS 3. B/l pneumonia - Completed Vanco/Cefepime (01/30-02/07) - AFB x3 negative, isolation precautions discontinued 4. Thrush - Resolved 5. AIDS - Continue Bactrim for prophylaxis - Lamivudine - Raltegravir - Abacavir 6. COPD exacerbation - Improving - Taper prednisone 20mg daily (02/15- 7. Opiate dependence - No evidence of withdrawal 8. HTN - Controlled - Continue Norvasc - No BB as the patient has recent cocaine use 9. Prophylaxis - Lovenox 40mg sq daily - OOB ambulating Visit type - Emergency Visit Emergency Visit: Yes ED Registration Date: 01/30/17 Care time: The patient presented to the Emergency Department on the above date and was hospitalized for further evaluation of their emergent condition. - New Patient This patient is new to me today: Yes Date on this admission: 02/15/17 - Critical Care Critical Care patient: No
[2017-02-15] MEDS: LIDOCAINE PATCH REMOVAL MC SCH (21:13)
[2017-02-15] MEDS: QUEtiapine FUMARATE 25 MG TABLET (FP) PO SCH (21:13)
[2017-02-16] MEDS ORDERED: PIPERACILLIN/TAZOBACTAM 3.375 GM VIAL IVPB ONE ×2 (00:54→08:04)
[2017-02-16] MEDS ORDERED: DEXTROSE 5%-WATER - 50 ML IVPB ONE ×2 (00:54→08:04)
[2017-02-16] MEDS: ONDANSETRON *ODT* 4 MG TABLET SL SCH ×3 (00:57→11:33)
[2017-02-16] MEDS: PIPERACILLIN/TAZOB 3.375 GM 3.375 GM in DEXTROSE 5%-WATER - 50 ML IVPB SCH ×2 (01:00→09:38)
[2017-02-16] MEDS: BACLOFEN 10 MG TABLET (FP) PO SCH ×3 (06:20→21:30)
[2017-02-16] MEDS: DOCUSATE SODIUM 100 MG CAPSULE (FP) PO SCH ×3 (06:20→21:32)
[2017-02-16] MEDS ORDERED: PT OWN MED DRAWER 7, Y5N ONE ×3 (09:27→21:26)
[2017-02-16] MEDS: PANTOPRAZOLE 40 MG TABLET (FP) PO SCH (09:34)
[2017-02-16] MEDS: LIDOCAINE 5% TOPICAL PATCH TP SCH (09:34)
[2017-02-16] MEDS: NICOTINE 14 MG/24 HOURS TOPICAL PATCH TD SCH (09:34)
[2017-02-16] MEDS: SULFAMETHOXAZOLE/TRIMETHOPRIM 800MG/160MG D.S. TABLET PO SCH (09:34)
[2017-02-16] MEDS: ENOXAPARIN NA (PORCINE) 40 MG/0.4 ML DISP.SYRIN SQ SCH (09:34)
[2017-02-16] MEDS: amLODIPine BESYLATE 10 MG TABLET (FP) PO SCH (09:34)
[2017-02-16] MEDS: ABACAVIR SULFATE 300 MG TABLET PO SCH ×2 (09:35→21:30)
[2017-02-16] MEDS: RALTEGRAVIR POTASSIUM 400 MG TAB PO SCH ×2 (09:35→21:30)
[2017-02-16] MEDS: FLUCONAZOLE 100 MG/D5W 50 ML IVPB SCH (09:36)
[2017-02-16] MEDS: lamiVUDine 150 MG TABLET PO SCH (09:36)
[2017-02-16] MEDS: predniSONE 20 MG TABLET (UD) PO SCH (09:40)
--- NOTE | 2017-02-16 10:41 | PN ---
Progress Note, Physician - Current Medication List Current Medications: Active Medications Abacavir Sulfate (Ziagen -) 300 mg PO BID [facility] Last Admin: 02/16/17 09:35 Dose: 300 mg Acetaminophen (Tylenol -) 650 mg PO Q4H PRN PRN Reason: FEVER OR PAIN Last Admin: 02/13/17 20:32 Dose: 650 mg Amlodipine Besylate (Norvasc -) 10 mg PO DAILY [facility] Last Admin: 02/16/17 09:34 Dose: 10 mg Baclofen (Lioresal -) 10 mg PO TID [facility] Last Admin: 02/16/17 06:20 Dose: 10 mg Docusate Sodium (Colace -) 100 mg PO TID [facility] Last Admin: 02/16/17 06:20 Dose: 100 mg Enoxaparin Sodium (Lovenox -) 40 mg SQ DAILY [facility] Last Admin: 02/16/17 09:34 Dose: 40 mg Guaifenesin (Robitussin -) 10 ml PO Q4H PRN PRN Reason: COUGH Last Admin: 02/11/17 22:11 Dose: 10 ml Piperacillin Sod/Tazobactam (Sod 3.375 gm/ Dextrose) 50 mls @ 100 mls/hr IVPB Q8H-IV JANETT PRN Reason: Protocol Last Admin: 02/16/17 09:38 Dose: 100 mls/hr Lamivudine (Epivir -) 300 mg PO DAILY [facility] Last Admin: 02/16/17 09:36 Dose: 300 mg Lidocaine (Lidoderm Patch -) 1 patch TP DAILY [facility] Last Admin: 02/16/17 09:34 Dose: 1 patch Miscellaneous (Lidoderm Patch Removal) 1 each MC DAILY@2200 [facility] Last Admin: 02/15/17 21:13 Dose: 1 each Nicotine (Nicoderm Patch -) 14 mg TD DAILY [facility] Last Admin: 02/16/17 09:34 Dose: 14 mg Ondansetron HCl (Zofran Odt -) 4 mg SL Q6HPO [facility] Last Admin: 02/16/17 06:20 Dose: 4 mg Pantoprazole Sodium (Protonix -) 40 mg PO DAILY [facility] Last Admin: 02/16/17 09:34 Dose: 40 mg Prednisone (Deltasone -) 20 mg PO DAILY [facility] Last Admin: 02/16/17 09:40 Dose: 20 mg Quetiapine Fumarate (Seroquel -) 50 mg PO HS [facility] Last Admin: 02/15/17 21:13 Dose: 50 mg Raltegravir (Isentress -) 400 mg PO BID [facility] Last Admin: 02/16/17 09:35 Dose: 400 mg Trimethoprim/Sulfamethoxazole (Bactrim Ds -) 1 each PO DAILY [facility] Last Admin: 02/16/17 09:34 Dose: 1 each - Objective Vital Signs: Vital Signs Temperature 98.9 F 02/16/17 10:00 Pulse Rate 79 02/16/17 10:00 Respiratory Rate 16 02/16/17 10:00 Blood Pressure 125/72 02/16/17 10:00 O2 Sat by Pulse Oximetry (%) 93 L 02/16/17 10:10 Eyes: Yes: WNL, Conjunctiva Clear, EOM Intact HENT: Yes: WNL, Atraumatic, Normocephalic Neck: Yes: WNL, Supple, Trachea Midline Cardiovascular: Yes: WNL, Regular Rate and Rhythm Respiratory: Yes: WNL, Regular, CTA Bilaterally Gastrointestinal: Yes: WNL, Normal Bowel Sounds Genitourinary: Yes: WNL Musculoskeletal: Yes: WNL Extremities: Yes: WNL Edema: No Integumentary: Yes: WNL Neurological: Yes: WNL, Alert, Oriented ...Motor Strength: WNL Psychiatric: Yes: WNL Labs: CBC, BMP 02/15/17 06:30 02/15/17 06:30 Problem List - Problems (1) Acute and chronic respiratory failure Code(s): J96.20 - ACUTE AND CHR RESP FAILURE, UNSP W HYPOXIA OR HYPERCAPNIA (2) Asthma exacerbation Code(s): J45.901 - UNSPECIFIED ASTHMA WITH (ACUTE) EXACERBATION (3) COPD exacerbation Code(s): J44.1 - CHRONIC OBSTRUCTIVE PULMONARY DISEASE W (ACUTE) EXACERBATION (4) DVT prophylaxis Code(s): [id number] - (5) Hiccups Code(s): R06.6 - HICCOUGH (6) Hypertension Code(s): I10 - ESSENTIAL (PRIMARY) HYPERTENSION (7) Inguinal hernia Code(s): K40.90 - UNIL INGUINAL HERNIA, W/O OBST OR GANGR, NOT SPCF RECUR (8) Pneumonia Code(s): J18.9 - PNEUMONIA, UNSPECIFIED ORGANISM (9) Sepsis Code(s): A41.9 - SEPSIS, UNSPECIFIED ORGANISM (10) Alcohol dependence with uncomplicated withdrawal Code(s): F10.230 - ALCOHOL DEPENDENCE WITH WITHDRAWAL, UNCOMPLICATED (11) Cocaine dependence Code(s): F14.20 - COCAINE DEPENDENCE, UNCOMPLICATED Qualifiers: Substance use status: uncomplicated Qualified Code(s): F14.20 - Cocaine dependence, uncomplicated (12) Depressive disorder Code(s): F32.9 - MAJOR DEPRESSIVE DISORDER, SINGLE EPISODE, UNSPECIFIED (13) Insomnia Code(s): G47.00 - INSOMNIA, UNSPECIFIED (14) Nicotine dependence Code(s): F17.200 - NICOTINE DEPENDENCE, UNSPECIFIED, UNCOMPLICATED Qualifiers : Nicotine product type: cigarettes Substance use status: uncomplicated Qualified Code(s): F17.210 - Nicotine dependence, cigarettes, uncomplicated (15) Opioid dependence with withdrawal Code(s): F11.23 - OPIOID DEPENDENCE WITH WITHDRAWAL (16) Asthma Code(s): J45.909 - UNSPECIFIED ASTHMA, UNCOMPLICATED Qualifiers: Asthma severity: mild persistent Asthma complication type: with status asthmaticus Qualified Code(s): J45.32 - Mild persistent asthma with status asthmaticus (17) COPD (chronic obstructive pulmonary disease) Code(s): J44.9 - CHRONIC OBSTRUCTIVE PULMONARY DISEASE, UNSPECIFIED Qualifiers : COPD type: emphysema Emphysema type: other Qualified Code(s): J43.8 - Other emphysema (18) HIV (human immunodeficiency virus infection) Code(s): Z21 - ASYMPTOMATIC HUMAN IMMUNODEFICIENCY VIRUS INFECTION STATUS (19) Hepatitis C carrier Code(s): Z22.52 - (20) Use of cane as ambulatory aid Code(s): R26.2 - DIFFICULTY IN WALKING, NOT ELSEWHERE CLASSIFIED Assessment/Plan htn hiv SEPSIS Pna COPD CARDIAC IBRAHIM STABLE. CONT PRESENT RX
--- NOTE | 2017-02-16 11:20 | PN ---
Progress Note (short form) - Note Progress Note: PULMONARY VSS/AFEBRILE COMPLAINING OF RIGHT INGUINAL HERNIA PAIN ANICTERIC CHEST CLEAR S1S2 BS+/LARGE RIGHT INGUINAL NON-REDUCIBLE HERNIA NO EDEMA LABS/MEDS/NOTES/IMAGING REVIEWED PNEUMONIA HICCUPS COPD NON-REDUCIBLE RIGHT INGUINAL HERNIA HIV/AIDS SUGGEST SURG EVAL FOR HERNIA PNEUMONIA HAS BEEN TREATED ART/O2/SMOKING CESSATION Carmen MANUEL MD
[2017-02-16] MEDS ORDERED: predniSONE 20 MG TABLET (UD) PO SCH (11:26)
[2017-02-16] MEDS ORDERED: ONDANSETRON *ODT* 4 MG TABLET SL PRN (11:38)
--- NOTE | 2017-02-16 12:04 | PN ---
Physical Exam: SUBJECTIVE: Patient seen and examined. His only complaint is his hernia being painful. OBJECTIVE: Vital Signs Period Temp Pulse Resp BP Sys/Galdamez Pulse Ox Last 24 Hr 98.5 F-99.3 F 64-79 16-18 107-139/60-72 93-94 PE Neuro: alert, awake, cn 2-12intact Pulm: CTAB CV: s1 s2 rrr no mrg Abd: s nt nd +bs, RLQ scrotal hernia, large non reproducible Ext: warm, no le edema Active Medications Generic Name Dose Route Start Last Admin Trade Name Freq PRN Reason Stop Dose Admin Abacavir Sulfate 300 mg 02/02/17 22:00 02/16/17 09:35 Ziagen - PO 300 mg BID JANETT Administration Acetaminophen 650 mg 01/30/17 13:29 02/13/17 20:32 Tylenol - PO 650 mg Q4H PRN Administration FEVER OR PAIN Amlodipine Besylate 10 mg 02/04/17 10:00 02/16/17 09:34 Norvasc - PO 10 mg DAILY JANETT Administration Baclofen 10 mg 02/13/17 16:00 02/16/17 06:20 Lioresal - PO 10 mg TID JANETT Administration Docusate Sodium 100 mg 01/30/17 14:00 02/16/17 06:20 Colace - PO 100 mg TID JANETT Administration Enoxaparin Sodium 40 mg 02/13/17 10:00 02/16/17 09:34 Lovenox - SQ 40 mg DAILY JANETT Administration Fluconazole 100 mg 02/16/17 11:15 Diflucan - PO DAILY [facility] Guaifenesin 10 ml 01/31/17 21:32 02/11/17 22:11 Robitussin - PO 10 ml Q4H PRN Administration COUGH Lamivudine 300 mg 02/02/17 18:52 02/16/17 09:36 Epivir - PO 300 mg DAILY [facility] Administration Lidocaine 1 patch 02/02/17 10:00 02/16/17 09:34 Lidoderm Patch - TP 1 patch DAILY [facility] Administration Miscellaneous 1 each 02/02/17 22:00 02/15/17 21:13 Lidoderm Patch Removal MC 1 each DAILY@2200 JANETT Administration Nicotine 14 mg 01/31/17 10:00 02/16/17 09:34 Nicoderm Patch - TD 14 mg DAILY [facility]AN[facility]T Administration Ondansetron HCl 4 mg 02/16/17 11:38 Zofran Odt - SL Q6HPO PRN NAUSEA Pantoprazole Sodium 40 mg 02/01/17 10:00 02/16/17 09:34 Protonix - PO 40 mg DAILY JANETT Administration Prednisone 10 mg 02/16/17 11:26 Deltasone - PO DAILY [facility] Quetiapine Fumarate 50 mg 02/08/17 22:00 02/15/17 21:13 Seroquel - PO 50 mg HS JANETT Administration Raltegravir 400 mg 02/02/17 22:00 02/16/17 09:35 Isentress - PO 400 mg BID JANETT Administration Trimethoprim/Sulfamethoxazole 1 each 01/31/17 10:00 02/16/17 09:34 Bactrim Ds - PO 1 each DAILY JAN[facility]T Administration Imaging: Chest CT 01/31/2017: Bilateral non specific alveolar infiltrates, minimal bilateral pleural effusion, atelectasis (likely chronic) on right lobe, centrilobular emphysema Assessment: 56 year old male with a history of HIV/AIDS (dx in 1995, IVDU, hx PCP PNA, on Triumeq but does not take it regularly, unknown CD4), Hep C, HTN, and asthma/COPD who presented to the [facility] detox facility for heroin/ cocaine EtOH detox on 01/27 and was sent to the ED with shortness of breath, wheezing, and hypoxia. Plan: 1. Fever - Resolved, likely aspiration - Transition to PO agumentin x7 days - Diflucan PO 100mg daily 7/14 days - Stop Zosyn (02/14-02/16) 2. Right scrotal/LQ hernia - Non reproducible, tender - Surgery consult 3. Persistent hiccups - Resolved - Compazine and Reglan did not relieve hiccups - No dilated esophagus seen on Esophagram/UGIS 4. B/l pneumonia - Completed Vanco/Cefepime (01/30-02/07), - AFB x3 negative 5. Thrush - Resolved 6. AIDS - Continue Bactrim for prophylaxis - Lamivudine - Raltegravir - Abacavir - Appt made with HIV PCP/clinic 03/12 [facility], Dr. Shultz [phone] 7. COPD exacerbation - Improving - Taper prednisone 10mg daily start tomorrow x2 days then off 8. Opiate dependence - No evidence of withdrawal 9. HTN - Norvasc 10 mg daily - No BB as the patient has recent cocaine use 10. Prophylaxis - Lovenox 40mg sq daily - OOB ambulating Dispo: - PT wishes to return to [facility], bed available today, dc pending surgical eval Visit type - Emergency Visit Emergency Visit: Yes ED Registration Date: 01/30/17 Care time: The patient presented to the Emergency Department on the above date and was hospitalized for further evaluation of their emergent condition. - New Patient This patient is new to me today: No - Critical Care Critical Care patient: No
[2017-02-16] MEDS: FLUCONAZOLE 100 MG TABLET (UD) PO SCH (12:07)
--- NOTE | 2017-02-16 12:32 | PN ---
Progress Note, Physician History of Present Illness: Awake, alert No complaints Ambulatory No c/o dyspnea/ cough No dysphagia/ odynophagia Afebrile - Current Medication List Current Medications: Active Medications Abacavir Sulfate (Ziagen -) 300 mg PO BID [facility] Last Admin: 02/16/17 09:35 Dose: 300 mg Acetaminophen (Tylenol -) 650 mg PO Q4H PRN PRN Reason: FEVER OR PAIN Last Admin: 02/13/17 20:32 Dose: 650 mg Amlodipine Besylate (Norvasc -) 10 mg PO DAILY [facility] Last Admin: 02/16/17 09:34 Dose: 10 mg Baclofen (Lioresal -) 10 mg PO TID [facility] Last Admin: 02/16/17 06:20 Dose: 10 mg Docusate Sodium (Colace -) 100 mg PO TID [facility] Last Admin: 02/16/17 06:20 Dose: 100 mg Enoxaparin Sodium (Lovenox -) 40 mg SQ DAILY [facility] Last Admin: 02/16/17 09:34 Dose: 40 mg Fluconazole (Diflucan -) 100 mg PO DAILY [facility] Last Admin: 02/16/17 12:07 Dose: 100 mg Guaifenesin (Robitussin -) 10 ml PO Q4H PRN PRN Reason: COUGH Last Admin: 02/11/17 22:11 Dose: 10 ml Lamivudine (Epivir -) 300 mg PO DAILY [facility] Last Admin: 02/16/17 09:36 Dose: 300 mg Lidocaine (Lidoderm Patch -) 1 patch TP DAILY [facility] Last Admin: 02/16/17 09:34 Dose: 1 patch Miscellaneous (Lidoderm Patch Removal) 1 each MC DAILY@2200 [facility] Last Admin: 02/15/17 21:13 Dose: 1 each Nicotine (Nicoderm Patch -) 14 mg TD DAILY [facility] Last Admin: 02/16/17 09:34 Dose: 14 mg Ondansetron HCl (Zofran Odt -) 4 mg SL Q6HPO PRN PRN Reason: NAUSEA Pantoprazole Sodium (Protonix -) 40 mg PO DAILY [facility] Last Admin: 02/16/17 09:34 Dose: 40 mg Prednisone (Deltasone -) 10 mg PO DAILY [facility] Quetiapine Fumarate (Seroquel -) 50 mg PO HS [facility] Last Admin: 02/15/17 21:13 Dose: 50 mg Raltegravir (Isentress -) 400 mg PO BID [facility] Last Admin: 02/16/17 09:35 Dose: 400 mg Trimethoprim/Sulfamethoxazole (Bactrim Ds -) 1 each PO DAILY [facility] Last Admin: 02/16/17 09:34 Dose: 1 each - Objective Vital Signs: Vital Signs Temperature 98.9 F 02/16/17 10:00 Pulse Rate 79 02/16/17 10:00 Respiratory Rate 16 02/16/17 10:00 Blood Pressure 125/72 02/16/17 10:00 O2 Sat by Pulse Oximetry (%) 93 L 02/16/17 10:10 Constitutional: Yes: No Distress, Cachectic Eyes: Yes: Conjunctiva Clear Cardiovascular: Yes: Regular Rate and Rhythm, S1, S2 Respiratory: Yes: Diminished Gastrointestinal: Yes: Normal Bowel Sounds, Soft. No: Tenderness Edema: No Labs: CBC, BMP 02/15/17 06:30 02/15/17 06:30 Assessment/Plan Fever ? source ? recurrent aspiration - resolved S/P bilbasilar pneumonia ( CT chest 02/09 improved as compared w CT 01/30) COPD AIDS CD4 29 Switch to po Augmentin 875mg bid x 7d for suspected aspiration Outpatient follow up [facility]
[2017-02-16] MEDS: QUEtiapine FUMARATE 25 MG TABLET (FP) PO SCH (21:29)
[2017-02-16] MEDS: LIDOCAINE PATCH REMOVAL MC SCH (21:32)
[2017-02-17] MEDS ORDERED: PT OWN MED DRAWER 7, Y5N ONE ×2 (06:23→09:06)
[2017-02-17] MEDS: BACLOFEN 10 MG TABLET (FP) PO SCH ×2 (06:29→13:42)
[2017-02-17] MEDS: DOCUSATE SODIUM 100 MG CAPSULE (FP) PO SCH ×2 (06:30→13:42)
[2017-02-17 07:58] LABS: ANION GAP 7 (8-16); CALCIUM 9.3 mg/dL (8.5-10.1); CO2 30 mmol/L (21-32); CREATININE 0.7 mg/dL (0.7-1.3); GLUCOSE,RANDOM 75 mg/dL (74-106)
[2017-02-17] MEDS ORDERED: AMOX TR/POT CLAV 875MG/125MG TABLETS (FP) PO SCH (08:00)
--- NOTE | 2017-02-17 08:33 | PN ---
Progress Note, Physician - Current Medication List Current Medications: Active Medications Abacavir Sulfate (Ziagen -) 300 mg PO BID [facility] Last Admin: 02/16/17 21:30 Dose: 300 mg Acetaminophen (Tylenol -) 650 mg PO Q4H PRN PRN Reason: FEVER OR PAIN Last Admin: 02/13/17 20:32 Dose: 650 mg Amlodipine Besylate (Norvasc -) 10 mg PO DAILY [facility] Last Admin: 02/16/17 09:34 Dose: 10 mg Amoxicillin/Clavulanate Potassium (Augmentin - 875mg Tablet) 1 tab PO BID@0800, 1730 [facility] Baclofen (Lioresal -) 10 mg PO TID [facility] Last Admin: 02/17/17 06:29 Dose: 10 mg Docusate Sodium (Colace -) 100 mg PO TID [facility] Last Admin: 02/17/17 06:30 Dose: Not Given Enoxaparin Sodium (Lovenox -) 40 mg SQ DAILY [facility] Last Admin: 02/16/17 09:34 Dose: 40 mg Fluconazole (Diflucan -) 100 mg PO DAILY [facility] Last Admin: 02/16/17 12:07 Dose: 100 mg Guaifenesin (Robitussin -) 10 ml PO Q4H PRN PRN Reason: COUGH Last Admin: 02/11/17 22:11 Dose: 10 ml Lamivudine (Epivir -) 300 mg PO DAILY [facility] Last Admin: 02/16/17 09:36 Dose: 300 mg Lidocaine (Lidoderm Patch -) 1 patch TP DAILY [facility] Last Admin: 02/16/17 09:34 Dose: 1 patch Miscellaneous (Lidoderm Patch Removal) 1 each MC DAILY@2200 [facility] Last Admin: 02/16/17 21:32 Dose: 1 each Nicotine (Nicoderm Patch -) 14 mg TD DAILY [facility] Last Admin: 02/16/17 09:34 Dose: 14 mg Ondansetron HCl (Zofran Odt -) 4 mg SL Q6HPO PRN PRN Reason: NAUSEA Pantoprazole Sodium (Protonix -) 40 mg PO DAILY [facility] Last Admin: 02/16/17 09:34 Dose: 40 mg Prednisone (Deltasone -) 10 mg PO DAILY [facility] Quetiapine Fumarate (Seroquel -) 50 mg PO HS [facility] Last Admin: 02/16/17 21:29 Dose: 50 mg Raltegravir (Isentress -) 400 mg PO BID [facility] Last Admin: 02/16/17 21:30 Dose: 400 mg Trimethoprim/Sulfamethoxazole (Bactrim Ds -) 1 each PO DAILY [facility] Last Admin: 02/16/17 09:34 Dose: 1 each - Objective Vital Signs: Vital Signs Temperature 98.9 F 02/17/17 06:00 Pulse Rate 71 02/17/17 06:00 Respiratory Rate 18 02/17/17 06:00 Blood Pressure 111/63 02/17/17 06:00 O2 Sat by Pulse Oximetry (%) 95 02/16/17 20:22 Eyes: Yes: WNL, Conjunctiva Clear, EOM Intact HENT: Yes: WNL, Atraumatic, Normocephalic Neck: Yes: WNL, Supple, Trachea Midline Cardiovascular: Yes: WNL, Regular Rate and Rhythm Respiratory: Yes: WNL, Regular, CTA Bilaterally Gastrointestinal: Yes: WNL, Normal Bowel Sounds Genitourinary: Yes: WNL Musculoskeletal: Yes: WNL Extremities: Yes: WNL Edema: No Integumentary: Yes: WNL Neurological: Yes: WNL, Alert, Oriented ...Motor Strength: WNL Psychiatric: Yes: WNL Labs: CBC, BMP 02/15/17 06:30 02/17/17 06:00 Problem List - Problems (1) Acute and chronic respiratory failure Code(s): J96.20 - ACUTE AND CHR RESP FAILURE, UNSP W HYPOXIA OR HYPERCAPNIA (2) Asthma exacerbation Code(s): J45.901 - UNSPECIFIED ASTHMA WITH (ACUTE) EXACERBATION (3) COPD exacerbation Code(s): J44.1 - CHRONIC OBSTRUCTIVE PULMONARY DISEASE W (ACUTE) EXACERBATION (4) DVT prophylaxis Code(s): [id number] - (5) Hiccups Code(s): R06.6 - HICCOUGH (6) Hypertension Code(s): I10 - ESSENTIAL (PRIMARY) HYPERTENSION (7) Inguinal hernia Code(s): K40.90 - UNIL INGUINAL HERNIA, W/O OBST OR GANGR, NOT SPCF RECUR (8) Pneumonia Code(s): J18.9 - PNEUMONIA, UNSPECIFIED ORGANISM (9) Sepsis Code(s): A41.9 - SEPSIS, UNSPECIFIED ORGANISM (10) Alcohol dependence with uncomplicated withdrawal Code(s): F10.230 - ALCOHOL DEPENDENCE WITH WITHDRAWAL, UNCOMPLICATED (11) Cocaine dependence Code(s): F14.20 - COCAINE DEPENDENCE, UNCOMPLICATED Qualifiers: Substance use status: uncomplicated Qualified Code(s): F14.20 - Cocaine dependence, uncomplicated (12) Depressive disorder Code(s): F32.9 - MAJOR DEPRESSIVE DISORDER, SINGLE EPISODE, UNSPECIFIED (13) Insomnia Code(s): G47.00 - INSOMNIA, UNSPECIFIED (14) Nicotine dependence Code(s): F17.200 - NICOTINE DEPENDENCE, UNSPECIFIED, UNCOMPLICATED Qualifiers : Nicotine product type: cigarettes Substance use status: uncomplicated Qualified Code(s): F17.210 - Nicotine dependence, cigarettes, uncomplicated (15) Opioid dependence with withdrawal Code(s): F11.23 - OPIOID DEPENDENCE WITH WITHDRAWAL (16) Asthma Code(s): J45.909 - UNSPECIFIED ASTHMA, UNCOMPLICATED Qualifiers: Asthma severity: mild persistent Asthma complication type: with status asthmaticus Qualified Code(s): J45.32 - Mild persistent asthma with status asthmaticus (17) COPD (chronic obstructive pulmonary disease) Code(s): J44.9 - CHRONIC OBSTRUCTIVE PULMONARY DISEASE, UNSPECIFIED Qualifiers : COPD type: emphysema Emphysema type: other Qualified Code(s): J43.8 - Other emphysema (18) HIV (human immunodeficiency virus infection) Code(s): Z21 - ASYMPTOMATIC HUMAN IMMUNODEFICIENCY VIRUS INFECTION STATUS (19) Hepatitis C carrier Code(s): Z22.52 - (20) Use of cane as ambulatory aid Code(s): R26.2 - DIFFICULTY IN WALKING, NOT ELSEWHERE CLASSIFIED Assessment/Plan htn hiv SEPSIS Pna COPD CARDIAC IBRAHIM STABLE. CONT PRESENT RX
[2017-02-17] MEDS: amLODIPine BESYLATE 10 MG TABLET (FP) PO SCH (09:13)
[2017-02-17] MEDS: PANTOPRAZOLE 40 MG TABLET (FP) PO SCH (09:14)
[2017-02-17] MEDS: LIDOCAINE 5% TOPICAL PATCH TP SCH (09:14)
[2017-02-17] MEDS: SULFAMETHOXAZOLE/TRIMETHOPRIM 800MG/160MG D.S. TABLET PO SCH (09:14)
[2017-02-17] MEDS: FLUCONAZOLE 100 MG TABLET (UD) PO SCH (09:14)
[2017-02-17] MEDS: NICOTINE 14 MG/24 HOURS TOPICAL PATCH TD SCH (09:17)
[2017-02-17] MEDS: ABACAVIR SULFATE 300 MG TABLET PO SCH (09:17)
[2017-02-17] MEDS: ENOXAPARIN NA (PORCINE) 40 MG/0.4 ML DISP.SYRIN SQ SCH (09:18)
[2017-02-17] MEDS: lamiVUDine 150 MG TABLET PO SCH (09:19)
[2017-02-17] MEDS: RALTEGRAVIR POTASSIUM 400 MG TAB PO SCH (09:19)
[2017-02-17 09:22] VITALS: PULSE 81; TEMP 98.5
--- NOTE | 2017-02-17 10:27 | DS ---
Physical Exam: SUBJECTIVE: Patient seen and examined. Denies any discomfort, denies and chest pain or shortness of breath. OBJECTIVE: Patient refusing to go back to [facility], d/c home today [employer] Pract[employer]er spoke to surgeon regarding large right scrotal hernia - pt to follow up outpatient Patient is aware an in agreement 11:30a: informed by SW that patient now wants to go back to [facility] hand shaker [facility] admission No. called >message left, provided my cell phone no. Vital Signs Period Temp Pulse Resp BP Sys/Galdamez Pulse Ox Last 24 Hr 98.4 F-99.1 F 65-83 16-20 108-127/63-68 95 PHYSICAL EXAM GENERAL: The patient is awake, alert, and fully oriented, in no acute distress. HEAD: Normal with no signs of trauma. EYES: PERRL, extraocular movements intact, sclera anicteric, conjunctiva clear. No ptosis. ENT: Ears normal, nares patent, oropharynx clear without exudates, moist mucous membranes. NECK: Trachea midline, full range of motion, supple. LUNGS: No wheezing, breath sounds equal, clear to auscultation, diminished at the bases. HEART: Regular rate and rhythm ABDOMEN: Soft, nontender, nondistended, normoactive bowel sounds, no guarding, no rebound, no hepatosplenomegaly, no masses. EXTREMITIES: no edema. NEUROLOGICAL: Normal speech PSYCH: Normal mood, normal affect. SKIN: Warm, dry, normal turgor, no rashes or lesions noted LABS Laboratory Results - last 24 hr 02/17/17 06:00 Sodium 141 Potassium 3.9 Chloride 104 Carbon Dioxide 30 Anion Gap 7 L BUN 16 D Creatinine 0.7 Random Glucose 75 D Calcium 9.3 HOSPITAL COURSE: Date of Admission:01/30/17 Date of Discharge: 02/17/17 ASSESSMENT/PLAN: Patient is a 56 year old male with a significant past medical history of ETOH abuse, cocaine abuse, current everyday smoker, HIV+, Hepatitis C, hypertension and COPD. Patient reported history of pneumonia 2 weeks prior for which he was prescribed Bactrim, however he was inconsistent with taking the Bactrim. On 01/26 he was admitted to [facility] for detox for ETOH, cocaine and heroin use. He completed detox and was about to start rehab but he was noted by staff to be experiencing shortness of breath and wheezing with hypoxia @88%. He was sent to [place] [facility] for his acute condition. ID/Pulmonary: Sepsis secondary to Pneumonia/Chronic obstructive bronchitis/ PCP pneumonia - resolved A/P: On admission noted to have tachycardia, leukocytosis and fever of 102.2 and was treated with IV antibiotics for PNA (vanco and Cifepime 01/30>02/07) On Augmentin antibiotics to continue as an outpatient HIV+ A/P: Reported to be non compliant with meds Patient states he has anti viral meds at home and agrees to comply with same Has follow up appointment to HIV clinic GI: Persistent Hiccups - resolved A/P: On Baclophen Psyche: Opiate dependance without evidence of withdrawal/ETOH dependence A/P: completed detox at [facility] (Methadone and Libirium) Patient now wants to go to [facility] for rehab Tobacco Dependence A/P: Nicotine patch Counseled on cessation Cardiology: Hypertension - chronic A/P: BP at goal, on home dose of Norvasc 10mg Chest Pain - resolved A/P: No chest pain on exam Disposition: Discharge today home. Patient is now asking to go back to [facility]. I left voice message with admission nurse at [facility]. Full Code. Minutes to complete discharge: 60 Discharge Summary Reason For Visit: OBSTRUCTIVE CHRONIC BRONCHITIS Current Active Problems Acute and chronic respiratory failure (Acute) Asthma exacerbation (Acute) COPD exacerbation (Acute) DVT prophylaxis (Acute) Hiccups (Acute) Hypertension (Acute) Inguinal hernia (Acute) Pneumonia (Acute) Sepsis (Acute) Condition: Stable - Instructions Diet, Activity, Other Instructions: Mr. Prather: Please return to the ED for any, new, persistent, or worsening symptoms. Follow up with your doctor in 2 weeks. An appointment has been made for you on 03/12/17 at [address] [id number] [address] Douglass Please see Dr. Chen (address and phone no. provided) for the scrotal hernia. Continue antibiotics as directed and until completed Resume home medications as directed Take HIV meds as directed and follow up with Dr. Shultz for continued care and management Referrals: Luke Chen MD [Staff Physician] - Disposition: TRANSFER ACUTE CARE/OTHER HOSP - Home Medications Comprehensive Discharge Medication List: Ambulatory Orders Quetiapine Fumarate [Seroquel -] 100 mg PO HS #30 tablet 11/11/13 Abacavir/Dolutegravir/Lamivudi [Triumeq Tablet] 1 each PO DAILY 11/06/16 Amlodipine Besylate 10 mg PO DAILY 11/06/16 Umeclidinium [place] [Incruse Ellipta] 62.5 mcg IH DAILY 11/06/16 Amoxicillin/Potassium Clav [Augmentin 875-125 Tablet] 1 each PO BID #14 tablet 02/16/17 Fluconazole [Diflucan -] 100 mg PO DAILY #7 tablet 02/16/17 This patient is new to me today: No Emergency Visit: Yes ED Registration Date: 01/30/17 Care time: The patient presented to the Emergency Department on the above date and was hospitalized for further evaluation of their emergent condition. Critical Care patient: No - Discharge Referral [facility]erred to [facility] No
[2017-02-17 14:00] VITALS: BP 112/79
== END 2017-02-17 15:30 | disposition home or self-care (01) | DRG 890 ==
LOC: JER 10:32 → JERBED 13:45 → J7W 22:27 → J4S 01-31 17:25
PROVIDERS: ADMIT Internal Medicine; ATTEND Nurse Practitioner Family
DX: A41.9 Sepsis, unspecified organism (principal); J18.9 Pneumonia, unspecified organism; J44.1 Chronic obstructive pulmonary disease with (acute) exacerbation; J96.20 Acute and chronic respiratory failure, unspecified whether with hypoxia or hypercapnia; F14.20 Cocaine dependence, uncomplicated; B19.20 Unspecified viral hepatitis C without hepatic coma; I10 Essential (primary) hypertension; B37.89 Other sites of candidiasis; F17.210 Nicotine dependence, cigarettes, uncomplicated; R00.0 Tachycardia, unspecified; D72.828 Other elevated white blood cell count; R50.9 Fever, unspecified; J90 Pleural effusion, not elsewhere classified; K40.90 Unilateral inguinal hernia, without obstruction or gangrene, not specified as recurrent; F19.10 Other psychoactive substance abuse, uncomplicated; J98.11 Atelectasis; F10.20 Alcohol dependence, uncomplicated; B59 Pneumocystosis; F11.20 Opioid dependence, uncomplicated; R06.6 Hiccough; B20 Human immunodeficiency virus [HIV] disease; E03.9 Hypothyroidism, unspecified; B37.81 Candidal esophagitis; E87.6 Hypokalemia; Z91.14 Patient's other noncompliance with medication regimen
CPT/HCPCS: 36415; 36600; 71010-TC; 71250-TC; 71260-TC; 74020-TC; 74160-TC; 74220-TC; 74240-TC; 80048; 80053; 81003; 81015; 82375; 82553; 82803; 83050; 83605; 83615; 83735; 84132; 84484; 85025; 85027; 86359; 86360; 86480; 86593; 87040; 87070; 87077; 87086; 87116; 87186; 87205; 87206; 87556; 87899; 93005; 93010; 94640; 97116-GP; 97162-GP; 99283-25; G0480; J0475

== ENCOUNTER 2019-03-26 11:13 | Inpatient (IN) | payer OTHER ==
[2019-03-26 13:41] VITALS: BMI 26.1
--- NOTE | 2019-03-26 15:38 | HP ---
CIWA Score Nausea/Vomitin-No Nausea/No Vomiting Muscle Tremors: 1-None Visible, but [place] Anxiety: 1-Mildly Anxious Agitation: 0-Normal Activity Paroxysmal Sweats: 3 Orientation: 1-Uncertain about Date Tacttile Disturbances: 0-None Auditory Disturbances: 0-None Visual Disturbances: 0-None Headache: 0-None Present CIWA-Ar Total Score: 6 - Admission Criteria OASAS Guidelines: Admission for Medically Managed Detox: Requires at least one of the followin. CIWA greater than 12 2. Seizures within the past 24 hours 3. Delirium tremens within the past 24 hours 4. Hallucinations within the past 24 hours 5. Acute intervention needed for co occurring medical disorder 6. Acute intervention needed for co occurring psychiatric disorder 7. Severe withdrawal that cannot be handled at a lower level of care (continued vomiting, continued diarrhea, abnormal vital signs) requiring intravenous medication and/or fluids 8. Patient presents the following: None of the above Admission Criteria Met: Admission criteria not met Admitting History and Physical - Past Medical History Pulmonary: Yes: COPD, Pneumonia Hepatobiliary: Yes: Hepatitis C Infectious Disease: Yes: AIDS, HIV Psych: Yes: Addictions (polysubstance abuse (IV heroine, cocaine, tobacco cigarettes, EtOH)) Endocrine: Yes: Hypothyroidism - Past Surgical History Past Surgical History: Yes: None - Smoking History Smoking history: Current every day smoker Have you smoked in the past 12 months: Yes Aproximately how many cigarettes per day: 10 - Alcohol/Substance Use Hx Alcohol Use: Yes Admission [facility] Chief Complaint: Zachary Prather is a 59 year old male presenting for alcohol detox. Allergies/Adverse Reactions: Allergies Allergy/AdvReac Type Severity Reaction Status Date / Time No Known Allergies Allergy Verified 03/26/19 13:20 History of Present Illness: Zachary Prather is a 59 year old male presenting for alcohol detox. Alcohol: 2-3 4Lokos per day. Last drink was this morning. Everyday drinker. Has been drinking since age 15. Denies history of seizures. Has had blackouts and falls. Longest period of sobriety: 1 year while incarcerated. Denies withdrawal symptoms. Heroin: 1-2 bags when using. Not everyday. Last use 3-4 days ago. Endorses IVDU. Denies overdose. Denies having Narcan kit. Cocaine: "only a couple times a month" Has been to detox and rehab in the past. Most recent detox and rehab several years ago. After detox: states wants to go rehab wherever his insurance accepts him. Medical History: HIV(treated through Dr. Saskia Douglass)(1 month prior unknown last CD4, viral load undetectable as per patient)(takes medications daily), COPD, asthma, HTN, Hep C (treated) Surgical History: hernia repair Psychiatric: denies Smokin/2ppd since age 16 Social: apartment, lives alone. Unemployed. SSI ADRIANA 0.016 Utox: LULA, BUP Patient has failed outpatient rehab treatment and needs inpatient rehab and psychiatric social worker for his alcohol addiction. Does not currently fit detox criteria. Exam Limitations: No Limitations - Ebola screening Have you traveled outside of the country in the last 21 days: No (N) Have you had contact with anyone from an Ebola affected area: No Do you have a fever: No - Review of Systems Constitutional: Diaphoresis, Loss of Appetite EENT: reports: Nose Congestion Respiratory: reports: Cough, SOB with Exertion Cardiac: reports: Lightheadedness GI: reports: No Symptoms Reported : reports: No Symptoms Reported Musculoskeletal: reports: Back Pain Integumentary: reports: No Symptoms Reported Neuro: reports: No Symptoms reported Endocrine: reports: No Symptoms Reported Hematology: reports: No Symptoms Reported Psychiatric: reports: Judgement Intact, other (oriented x2) Patient History - Patient Medical History Hx Anemia: No Hx Asthma: Yes Hx Chronic Obstructive Pulmonary Disease (COPD): Yes Hx Cancer: No Hx Cardiac Disorders: No Hx Congestive Heart Failure: No Hx Hypertension: Yes Hx Hypercholesterolemia: No Hx Pacemaker: No HX Cerebrovascular Accident: No Hx Seizures: No Hx Dementia: No Hx Diabetes: No Hx Gastrointestinal Disorders: No Hx Liver Disease: No Hx Genitourinary Disorders: No Hx Sexually Transmitted Disorders: No Hx Renal Disease (ESRD): No Hx Thyroid Disease: No Hx Human Immunodeficiency Virus (HIV): Yes (since 1995, TRIUMEQ) Hx Hepatitis C: Yes Hx Depression: Yes Hx Suicide Attempt: No Hx Bipolar Disorder: No Hx Schizophrenia: No - Patient Surgical History Past Surgical History: Yes Hx Neurologic Surgery: No Hx Cataract Extraction: No Hx Cardiac Surgery: No Hx Lung Surgery: No Hx Breast Surgery: No Hx Breast Biopsy: No Hx Abdominal Surgery: No Hx Appendectomy: No Hx Cholecystectomy: No Hx Genitourinary Surgery: No Hx Section: No Hx Orthopedic Surgery: No Other Surgical History: hernia surgery as a child Anesthesia Reaction: No - PPD History Previous Implant?: Yes Documented Results: Negative w/o proof Implanted On Prior [facility] Admission?: Yes Date: 01/28/17 PPD to be Administered?: Yes - Smoking Cessation Smoking history: Current every day smoker Have you smoked in the past 12 months: Yes Aproximately how many cigarettes per day: 10 Cigars Per Day: 0 Hx Chewing Tobacco Use: No Initiated information on smoking cessation: Yes 'Breaking Loose' booklet given: 03/26/19 - Substance & Tx. History Hx Alcohol Use: Yes Hx Substance Use: Yes Substance Use Type: Alcohol, Heroin - Substances abused Alcohol Substance route: Oral Frequency: Daily Amount used: 3 cans beer 24oz Age of first use: 15 Date of last use: 03/26/19 Heroin Substance route: Injection Frequency: 1-3 times last 30 days Amount used: 1 bag Age of first use: 15 Date of last use: 03/06/19 Admission Physical Exam BHS - Vital Signs Vital Signs: Vital Signs - 24 hr 03/26/19 13:37 Temperature 98.4 F Pulse Rate 108 H Respiratory 20 Rate Blood Pressure 94/56 L - Physical General Appearance: Yes: Disheveled, Mild Distress HEENTM: Yes: EOMI, Normocephalic, Normal Voice, JULES, Thrush, Other (noted lesions on the tongue) Respiratory: Yes: Chest Non-Tender, No Respiratory Distress, No Accessory Muscle Use, Wheezing, Other (pursed lips breathing) Neck: Yes: No masses,lesions,Nodules, Trachea in good position Breast: Yes: Breast Exam Deferred Cardiology: Yes: Regular Rhythm, Regular Rate, S1, S2 Abdominal: Yes: Normal Bowel Sounds, Non Tender, Flat, Soft Genitourinary: Yes: Within Normal Limits Back: Yes: Normal Inspection Musculoskeletal: Yes: full range of Motion Extremities: Yes: Normal Capillary Refill, Normal Inspection, Normal Range of Motion, Non-Tender Neurological: Yes: docket specialist II-XII NML intact, Alert, Motor Strength 5/5, Normal Mood /Affect Integumentary: Yes: Normal Color, Dry, Warm, Track Powell (noted on L hand) Lymphatic: Yes: Within Normal Limits - Diagnostic (1) Buprenorphine dependence Current Visit: Yes Status: Acute (2) Alcohol dependence with uncomplicated withdrawal Current Visit: No Status: Acute (3) Depressive disorder Current Visit: No Status: Acute (4) Hypertension Current Visit: No Status: Acute (5) Nicotine dependence Current Visit: No Status: Acute Qualifiers: Nicotine product type: cigarettes Substance use status: uncomplicated Qualified Code(s): F17.210 - Nicotine dependence, cigarettes, uncomplicated (6) Opioid dependence with withdrawal Current Visit: No Status: Acute (7) Asthma Current Visit: No Status: Chronic Qualifiers: Asthma severity: mild persistent Asthma complication type: with status asthmaticus Qualified Code(s): J45.32 - Mild persistent asthma with status asthmaticus (8) COPD (chronic obstructive pulmonary disease) Current Visit: No Status: Chronic Qualifiers: COPD type: emphysema Emphysema type: other Qualified Code(s): J43.8 - Other emphysema (9) HIV (human immunodeficiency virus infection) Current Visit: No Status: Chronic (10) Hepatitis C carrier Current Visit: No Status: Chronic (11) Use of cane as ambulatory aid Current Visit: No Status: Chronic Breathalyzer - Breathalyzer Breathalyzer: 0.116 Urine Drug Screen - Test Device Lot number: [id number] Expiration date: 11/22/20 - Control Is test valid?: Yes - Results Drug screen NEGATIVE: No Urine drug screen results: LULA-Cocaine, BUP-Suboxone Inpatient Rehab Admission - Rehab Decision to Admit Inpatient rehab admission?: Yes - Initial Determination Are CD services needed?: Yes Free of communicable disease: Yes Not in need of hospitalization: Yes - Rehab Admission Criteria Previous failed treatment: Yes Poor recovery environment: Yes Comorbidities: Yes Lacks judgement: Yes Patient is meeting Inpatient Rehab admission criteria:: Yes (patient needs psychiatric social worker and has failed outpatient rehab treatment.)
[2019-03-26] MEDS ORDERED: hydrOXYzine PAMOATE 25 MG CAPSULE (FP) PO PRN (16:27)
[2019-03-26] MEDS ORDERED: MAG HYDROX/AL HYDROX/SIMETH 30 ML UNIT-DOSE CUP PO PRN ×2 (16:27→19:14)
[2019-03-26] MEDS ORDERED: MAGNESIUM HYDROX 2400MG/30ML ORAL SUSPENSION 30 ML CUP PO PRN ×2 (16:27→19:14)
[2019-03-26] MEDS ORDERED: LOPERAMIDE HCL 2 MG CAPSULE PO PRN ×2 (16:27→19:14)
[2019-03-26] MEDS ORDERED: MAGNESIUM CITRATE 300 ML BOTTLE PO PRN ×2 (16:27→19:14)
[2019-03-26] MEDS ORDERED: P-EPHED 60MG/TRIPROLIDI 2.5MG TABLET PO PRN ×2 (16:27→19:14)
[2019-03-26] MEDS ORDERED: ACETAMINOPHEN 325 MG TABLET (FP) PO PRN ×2 (16:27→19:14)
[2019-03-26] MEDS ORDERED: guaiFENesin 200 MG/10 ML 10 ML UNIT-DOSE CUPS PO PRN ×2 (16:27→19:14)
[2019-03-26] MEDS ORDERED: MENTHOL/PHENOL 1 EACH UD MM PRN ×2 (16:27→19:14)
[2019-03-26] MEDS ORDERED: IBUPROFEN 400 MG TABLET (FP) PO PRN ×2 (16:27→19:14)
--- NOTE | 2019-03-26 16:30 | PN ---
Teaching Attending Note Name of Resident: Chin Lora ATTENDING PHYSICIAN STATEMENT I saw and evaluated the patient. I reviewed the resident's note and discussed the case with the resident. I agree with the resident's findings and plan as documented. SUBJECTIVE: 59 yo with HIV pos, ASthma, COPD, HTN, on triumeq, here for alcohol use disorder - drinks 3-4 malt liqour cans/day. Pt on also on suboxone. Also occ with cocaine use. OBJECTIVE: Vital Signs - 24 hr 03/26/19 13:37 Temperature 98.4 F Pulse Rate 108 H Respiratory 20 Rate Blood Pressure 94/56 L alert and oriented ASSESSMENT AND PLAN: Alcohol use disorder- low CIWA score- pt to be admitted to rehab
[2019-03-26] MEDS ORDERED: MELATONIN 5 MG TABLETS PO PRN (22:00)
[2019-03-26] MEDS ORDERED: THIAMINE HCL 100 MG TABLET (FP) PO SCH (22:00)
[2019-03-26] MEDS: CLARITHROMYCIN 500 MG TABLET (UD) PO SCH (23:10)
[2019-03-26] MEDS: THIAMINE HCL 100 MG TABLET (FP) PO SCH (23:12)
[2019-03-26] MEDS: MOMETASONE FUROATE 220 MCG/IH INHALER IH SCH (23:12)
[2019-03-26] MEDS: cloNIDine HCL 0.1 MG TABLET PO SCH (23:12)
[2019-03-26] MEDS: RANITIDINE HCL 150 MG TABLET (FP) PO SCH (23:13)
[2019-03-27] MEDS ORDERED: ABACAVIR/DOLUTEGRAVIR/LAMIVUDI (TRIUMEQ) TABLET -NF PO SCH ×2 (08:00)
[2019-03-27] MEDS ORDERED: PRENATAL VITAMINS W/ FOLIC ACID TABLET (FP) PO SCH (10:00)
[2019-03-27] MEDS ORDERED: NICOTINE 21 MG/24 HOURS TOPICAL PATCH TD SCH (10:00)
[2019-03-27] MEDS: cloNIDine HCL 0.1 MG TABLET PO SCH ×2 (10:09→21:30)
[2019-03-27] MEDS: amLODIPine BESYLATE 10 MG TABLET (FP) PO SCH (10:09)
[2019-03-27] MEDS: SULFAMETHOXAZOLE/TRIMETHOPRIM 800MG/160MG D.S. TABLET PO SCH (10:09)
[2019-03-27] MEDS: LISINOPRIL 20 MG TABLET (FP) PO SCH (10:09)
[2019-03-27] MEDS: PRENATAL VITAMINS W/ FOLIC ACID TABLET (FP) PO SCH (10:09)
[2019-03-27] MEDS: CLARITHROMYCIN 500 MG TABLET (UD) PO SCH ×2 (10:09→21:32)
[2019-03-27] MEDS: NICOTINE 14 MG/24 HOURS TOPICAL PATCH TD SCH (10:10)
[2019-03-27 10:55] LABS: HEMATOCRIT 39.8 % (35.4-49); HEMOGLOBIN 13.4 GM/dL (11.7-16.9); MCH 32.2 pg (25.7-33.7); MCHC 33.8 g/dl (32.0-35.9); MEAN CELL VOLUME 95.2 fl (80-96); MEAN PLT VOLUME 8.1 fl (7.5-11.1); PLATELET COUNT 315 K/MM3 (134-434); RBC 4.18 M/mm3 (4.00-5.60); RDW 18.4 % (11.9-15.9); WHITE BLOOD COUNT 4.9 K/mm3 (4.0-10.0)
[2019-03-27 10:58] LABS: ALBUMIN 3.4 g/dl (3.4-5.0); BILIRUBIN,TOTAL 0.4 mg/dL (0.2-1); BLOOD UREA NITROGEN 11.1 mg/dL (7-18); CALCIUM 9.2 mg/dL (8.5-10.1); CREATININE 1.5 mg/dL (0.55-1.3); POTASSIUM 3.8 mmol/L (3.5-5.1); TOT PROT 8.1 g/dl (6.4-8.2)
[2019-03-27] MEDS ORDERED: FLU VACCINE QUAD 60 MCG/0.5 ML (MDV 19-20) IM ONE (12:00)
[2019-03-27] MEDS ORDERED: PNEUMOC 13-VAL CONJ-DIP CRM/PF 0.5 ML DISP.SYRIN IM ONE (12:00)
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
[2019-03-27] MEDS: MELATONIN 5 MG TABLETS PO PRN (21:30)
[2019-03-27] MEDS: RANITIDINE HCL 150 MG TABLET (FP) PO SCH (21:30)
[2019-03-27] MEDS: THIAMINE HCL 100 MG TABLET (FP) PO SCH (21:30)
[2019-03-27] MEDS: QUEtiapine FUMARATE 100 MG TABLET (FP) PO SCH (21:32)
[2019-03-27] MEDS: MOMETASONE FUROATE 220 MCG/IH INHALER IH SCH (21:33)
[2019-03-28] MEDS: ABACAVIR/DOLUTEGRAVIR/LAMIVUDI (TRIUMEQ) TABLET -NF PO SCH (07:27)
[2019-03-28] MEDS: SULFAMETHOXAZOLE/TRIMETHOPRIM 800MG/160MG D.S. TABLET PO SCH (10:29)
[2019-03-28] MEDS: NICOTINE 14 MG/24 HOURS TOPICAL PATCH TD SCH (10:30)
[2019-03-28] MEDS: LISINOPRIL 20 MG TABLET (FP) PO SCH (10:30)
[2019-03-28] MEDS: cloNIDine HCL 0.1 MG TABLET PO SCH ×2 (10:30→21:31)
[2019-03-28] MEDS: amLODIPine BESYLATE 10 MG TABLET (FP) PO SCH (10:30)
[2019-03-28] MEDS: PRENATAL VITAMINS W/ FOLIC ACID TABLET (FP) PO SCH (10:30)
[2019-03-28] MEDS: CLARITHROMYCIN 500 MG TABLET (UD) PO SCH ×2 (11:18→21:33)
[2019-03-28] MEDS: THIAMINE HCL 100 MG TABLET (FP) PO SCH (21:31)
[2019-03-28] MEDS: QUEtiapine FUMARATE 100 MG TABLET (FP) PO SCH (21:31)
[2019-03-28] MEDS: RANITIDINE HCL 150 MG TABLET (FP) PO SCH (21:31)
[2019-03-28] MEDS: MOMETASONE FUROATE 220 MCG/IH INHALER IH SCH (21:32)
[2019-03-29] MEDS: ABACAVIR/DOLUTEGRAVIR/LAMIVUDI (TRIUMEQ) TABLET -NF PO SCH (07:14)
[2019-03-29] MEDS: PRENATAL VITAMINS W/ FOLIC ACID TABLET (FP) PO SCH (10:15)
[2019-03-29] MEDS: SULFAMETHOXAZOLE/TRIMETHOPRIM 800MG/160MG D.S. TABLET PO SCH (10:15)
[2019-03-29] MEDS: amLODIPine BESYLATE 10 MG TABLET (FP) PO SCH (10:15)
[2019-03-29] MEDS: NICOTINE 14 MG/24 HOURS TOPICAL PATCH TD SCH (10:16)
[2019-03-29] MEDS: cloNIDine HCL 0.1 MG TABLET PO SCH ×2 (10:16→21:31)
[2019-03-29] MEDS: LISINOPRIL 20 MG TABLET (FP) PO SCH (10:16)
[2019-03-29] MEDS: CLARITHROMYCIN 500 MG TABLET (UD) PO SCH ×2 (10:16→23:25)
[2019-03-29] MEDS: THIAMINE HCL 100 MG TABLET (FP) PO SCH (21:31)
[2019-03-29] MEDS: QUEtiapine FUMARATE 100 MG TABLET (FP) PO SCH (21:31)
[2019-03-29] MEDS: RANITIDINE HCL 150 MG TABLET (FP) PO SCH (21:31)
[2019-03-29] MEDS: MOMETASONE FUROATE 220 MCG/IH INHALER IH SCH (21:32)
[2019-03-30] MEDS: ABACAVIR/DOLUTEGRAVIR/LAMIVUDI (TRIUMEQ) TABLET -NF PO SCH (07:38)
[2019-03-30] MEDS: NICOTINE 14 MG/24 HOURS TOPICAL PATCH TD SCH (10:24)
[2019-03-30] MEDS: PRENATAL VITAMINS W/ FOLIC ACID TABLET (FP) PO SCH (10:24)
[2019-03-30] MEDS: SULFAMETHOXAZOLE/TRIMETHOPRIM 800MG/160MG D.S. TABLET PO SCH (10:24)
[2019-03-30] MEDS: cloNIDine HCL 0.1 MG TABLET PO SCH ×2 (10:24→21:21)
[2019-03-30] MEDS: amLODIPine BESYLATE 10 MG TABLET (FP) PO SCH (10:24)
[2019-03-30] MEDS: LISINOPRIL 20 MG TABLET (FP) PO SCH (10:24)
[2019-03-30] MEDS: CLARITHROMYCIN 500 MG TABLET (UD) PO SCH ×2 (10:25→21:22)
[2019-03-30] MEDS: QUEtiapine FUMARATE 100 MG TABLET (FP) PO SCH (21:21)
[2019-03-30] MEDS: THIAMINE HCL 100 MG TABLET (FP) PO SCH (21:21)
[2019-03-30] MEDS: RANITIDINE HCL 150 MG TABLET (FP) PO SCH (21:21)
[2019-03-30] MEDS: MOMETASONE FUROATE 220 MCG/IH INHALER IH SCH (21:21)
[2019-03-31] MEDS: ABACAVIR/DOLUTEGRAVIR/LAMIVUDI (TRIUMEQ) TABLET -NF PO SCH (07:30)
[2019-03-31] MEDS: PRENATAL VITAMINS W/ FOLIC ACID TABLET (FP) PO SCH (10:16)
[2019-03-31] MEDS: SULFAMETHOXAZOLE/TRIMETHOPRIM 800MG/160MG D.S. TABLET PO SCH (10:16)
[2019-03-31] MEDS: CLARITHROMYCIN 500 MG TABLET (UD) PO SCH ×2 (10:16→21:37)
[2019-03-31] MEDS: amLODIPine BESYLATE 10 MG TABLET (FP) PO SCH (10:16)
[2019-03-31] MEDS: LISINOPRIL 20 MG TABLET (FP) PO SCH (10:17)
[2019-03-31] MEDS: NICOTINE 14 MG/24 HOURS TOPICAL PATCH TD SCH (10:17)
[2019-03-31] MEDS: cloNIDine HCL 0.1 MG TABLET PO SCH ×2 (10:17→21:36)
[2019-03-31] MEDS: ALBUTEROL SO4 8 GM HFA INHALER IH PRN (10:18)
[2019-03-31] MEDS: MOMETASONE FUROATE 220 MCG/IH INHALER IH SCH (21:35)
[2019-03-31] MEDS: QUEtiapine FUMARATE 100 MG TABLET (FP) PO SCH (21:36)
[2019-03-31] MEDS: THIAMINE HCL 100 MG TABLET (FP) PO SCH (21:36)
[2019-03-31] MEDS: MELATONIN 5 MG TABLETS PO PRN (21:36)
[2019-03-31] MEDS: RANITIDINE HCL 150 MG TABLET (FP) PO SCH (21:36)
[2019-04-01] MEDS: ABACAVIR/DOLUTEGRAVIR/LAMIVUDI (TRIUMEQ) TABLET -NF PO SCH (07:17)
[2019-04-01] MEDS: SULFAMETHOXAZOLE/TRIMETHOPRIM 800MG/160MG D.S. TABLET PO SCH (10:27)
[2019-04-01] MEDS: amLODIPine BESYLATE 10 MG TABLET (FP) PO SCH (10:27)
[2019-04-01] MEDS: LISINOPRIL 20 MG TABLET (FP) PO SCH (10:27)
[2019-04-01] MEDS: PRENATAL VITAMINS W/ FOLIC ACID TABLET (FP) PO SCH (10:27)
[2019-04-01] MEDS: NICOTINE 14 MG/24 HOURS TOPICAL PATCH TD SCH (10:28)
[2019-04-01] MEDS: cloNIDine HCL 0.1 MG TABLET PO SCH ×2 (10:28→21:29)
[2019-04-01] MEDS: CLARITHROMYCIN 500 MG TABLET (UD) PO SCH ×2 (10:28→21:30)
[2019-04-01] MEDS: ALBUTEROL SO4 8 GM HFA INHALER IH PRN ×2 (10:29→21:30)
[2019-04-01] MEDS: QUEtiapine FUMARATE 100 MG TABLET (FP) PO SCH (21:28)
[2019-04-01] MEDS: MELATONIN 5 MG TABLETS PO PRN (21:29)
[2019-04-01] MEDS: THIAMINE HCL 100 MG TABLET (FP) PO SCH (21:29)
[2019-04-01] MEDS: RANITIDINE HCL 150 MG TABLET (FP) PO SCH (21:29)
[2019-04-01] MEDS: MOMETASONE FUROATE 220 MCG/IH INHALER IH SCH (21:30)
[2019-04-02] MEDS: ALBUTEROL SO4 8 GM HFA INHALER IH PRN ×2 (06:05→21:05)
[2019-04-02] MEDS: ABACAVIR/DOLUTEGRAVIR/LAMIVUDI (TRIUMEQ) TABLET -NF PO SCH (07:05)
[2019-04-02] MEDS: PRENATAL VITAMINS W/ FOLIC ACID TABLET (FP) PO SCH (10:08)
[2019-04-02] MEDS: SULFAMETHOXAZOLE/TRIMETHOPRIM 800MG/160MG D.S. TABLET PO SCH (10:08)
[2019-04-02] MEDS: LISINOPRIL 20 MG TABLET (FP) PO SCH (10:08)
[2019-04-02] MEDS: NICOTINE 14 MG/24 HOURS TOPICAL PATCH TD SCH (10:08)
[2019-04-02] MEDS: amLODIPine BESYLATE 10 MG TABLET (FP) PO SCH (10:08)
[2019-04-02] MEDS: cloNIDine HCL 0.1 MG TABLET PO SCH ×2 (10:10→21:03)
[2019-04-02] MEDS: CLARITHROMYCIN 500 MG TABLET (UD) PO SCH (12:26)
[2019-04-02] MEDS: RANITIDINE HCL 150 MG TABLET (FP) PO SCH (21:03)
[2019-04-02] MEDS: QUEtiapine FUMARATE 100 MG TABLET (FP) PO SCH (21:03)
[2019-04-02] MEDS: MOMETASONE FUROATE 220 MCG/IH INHALER IH SCH (21:04)
[2019-04-02] MEDS: THIAMINE HCL 100 MG TABLET (FP) PO SCH (21:04)
[2019-04-02] MEDS: MELATONIN 5 MG TABLETS PO PRN (21:05)
[2019-04-03] MEDS: ABACAVIR/DOLUTEGRAVIR/LAMIVUDI (TRIUMEQ) TABLET -NF PO SCH (07:33)
[2019-04-03] MEDS: SULFAMETHOXAZOLE/TRIMETHOPRIM 800MG/160MG D.S. TABLET PO SCH (10:02)
[2019-04-03] MEDS: cloNIDine HCL 0.1 MG TABLET PO SCH (10:02)
[2019-04-03] MEDS: amLODIPine BESYLATE 10 MG TABLET (FP) PO SCH (10:02)
[2019-04-03] MEDS: LISINOPRIL 20 MG TABLET (FP) PO SCH (10:02)
[2019-04-03] MEDS: PRENATAL VITAMINS W/ FOLIC ACID TABLET (FP) PO SCH (10:02)
[2019-04-03] MEDS: NICOTINE 14 MG/24 HOURS TOPICAL PATCH TD SCH (10:03)
[2019-04-03] MEDS: ALBUTEROL SO4 8 GM HFA INHALER IH PRN ×2 (10:04→21:24)
[2019-04-03] MEDS ORDERED: cloNIDine HCL 0.1 MG TABLET PO PRN (11:35)
[2019-04-03] MEDS: QUEtiapine FUMARATE 100 MG TABLET (FP) PO SCH (21:22)
[2019-04-03] MEDS: RANITIDINE HCL 150 MG TABLET (FP) PO SCH (21:22)
[2019-04-03] MEDS: MELATONIN 5 MG TABLETS PO PRN (21:22)
[2019-04-03] MEDS: THIAMINE HCL 100 MG TABLET (FP) PO SCH (21:23)
[2019-04-03] MEDS: MOMETASONE FUROATE 220 MCG/IH INHALER IH SCH (21:25)
[2019-04-04] MEDS: ABACAVIR/DOLUTEGRAVIR/LAMIVUDI (TRIUMEQ) TABLET -NF PO SCH (07:00)
[2019-04-04] MEDS: PRENATAL VITAMINS W/ FOLIC ACID TABLET (FP) PO SCH (10:19)
[2019-04-04] MEDS: ALBUTEROL SO4 8 GM HFA INHALER IH PRN (10:19)
[2019-04-04] MEDS: SULFAMETHOXAZOLE/TRIMETHOPRIM 800MG/160MG D.S. TABLET PO SCH (10:19)
[2019-04-04] MEDS: LISINOPRIL 20 MG TABLET (FP) PO SCH (10:19)
[2019-04-04] MEDS: amLODIPine BESYLATE 10 MG TABLET (FP) PO SCH (10:20)
[2019-04-04] MEDS: NICOTINE 14 MG/24 HOURS TOPICAL PATCH TD SCH (11:45)
[2019-04-04] MEDS: MELATONIN 5 MG TABLETS PO PRN (21:22)
[2019-04-04] MEDS: QUEtiapine FUMARATE 100 MG TABLET (FP) PO SCH (21:22)
[2019-04-04] MEDS: RANITIDINE HCL 150 MG TABLET (FP) PO SCH (21:22)
[2019-04-04] MEDS: THIAMINE HCL 100 MG TABLET (FP) PO SCH (21:22)
[2019-04-04] MEDS: MOMETASONE FUROATE 220 MCG/IH INHALER IH SCH (21:23)
[2019-04-05] MEDS: ALBUTEROL SO4 8 GM HFA INHALER IH PRN ×3 (05:51→21:55)
[2019-04-05] MEDS: ABACAVIR/DOLUTEGRAVIR/LAMIVUDI (TRIUMEQ) TABLET -NF PO SCH (07:53)
[2019-04-05] MEDS: LISINOPRIL 20 MG TABLET (FP) PO SCH (11:06)
[2019-04-05] MEDS: SULFAMETHOXAZOLE/TRIMETHOPRIM 800MG/160MG D.S. TABLET PO SCH (11:06)
[2019-04-05] MEDS: PRENATAL VITAMINS W/ FOLIC ACID TABLET (FP) PO SCH (11:06)
[2019-04-05] MEDS: amLODIPine BESYLATE 10 MG TABLET (FP) PO SCH (11:07)
[2019-04-05] MEDS: NICOTINE 14 MG/24 HOURS TOPICAL PATCH TD SCH (11:07)
[2019-04-05] MEDS: THIAMINE HCL 100 MG TABLET (FP) PO SCH (21:53)
[2019-04-05] MEDS: MOMETASONE FUROATE 220 MCG/IH INHALER IH SCH (21:53)
[2019-04-05] MEDS: QUEtiapine FUMARATE 100 MG TABLET (FP) PO SCH (21:55)
[2019-04-05] MEDS: RANITIDINE HCL 150 MG TABLET (FP) PO SCH (21:55)
[2019-04-05] MEDS: MELATONIN 5 MG TABLETS PO PRN (21:56)
[2019-04-06] MEDS: ABACAVIR/DOLUTEGRAVIR/LAMIVUDI (TRIUMEQ) TABLET -NF PO SCH (09:59)
[2019-04-06] MEDS: amLODIPine BESYLATE 10 MG TABLET (FP) PO SCH (10:00)
[2019-04-06] MEDS: SULFAMETHOXAZOLE/TRIMETHOPRIM 800MG/160MG D.S. TABLET PO SCH (10:00)
[2019-04-06] MEDS: PRENATAL VITAMINS W/ FOLIC ACID TABLET (FP) PO SCH (10:00)
[2019-04-06] MEDS: NICOTINE 14 MG/24 HOURS TOPICAL PATCH TD SCH (10:00)
[2019-04-06] MEDS: LISINOPRIL 20 MG TABLET (FP) PO SCH (10:01)
[2019-04-06] MEDS: MOMETASONE FUROATE 220 MCG/IH INHALER IH SCH (21:32)
[2019-04-06] MEDS: QUEtiapine FUMARATE 100 MG TABLET (FP) PO SCH (21:32)
[2019-04-06] MEDS: RANITIDINE HCL 150 MG TABLET (FP) PO SCH (21:32)
[2019-04-06] MEDS: THIAMINE HCL 100 MG TABLET (FP) PO SCH (21:32)
[2019-04-06] MEDS: MELATONIN 5 MG TABLETS PO PRN (21:34)
[2019-04-07] MEDS: ABACAVIR/DOLUTEGRAVIR/LAMIVUDI (TRIUMEQ) TABLET -NF PO SCH (08:59)
[2019-04-07] MEDS: ALBUTEROL SO4 8 GM HFA INHALER IH PRN ×2 (10:06→21:22)
[2019-04-07] MEDS: LISINOPRIL 20 MG TABLET (FP) PO SCH (10:07)
[2019-04-07] MEDS: SULFAMETHOXAZOLE/TRIMETHOPRIM 800MG/160MG D.S. TABLET PO SCH (10:07)
[2019-04-07] MEDS: amLODIPine BESYLATE 10 MG TABLET (FP) PO SCH (10:07)
[2019-04-07] MEDS: PRENATAL VITAMINS W/ FOLIC ACID TABLET (FP) PO SCH (10:07)
[2019-04-07] MEDS: NICOTINE 14 MG/24 HOURS TOPICAL PATCH TD SCH (10:08)
[2019-04-07] MEDS: MOMETASONE FUROATE 220 MCG/IH INHALER IH SCH (21:20)
[2019-04-07] MEDS: QUEtiapine FUMARATE 100 MG TABLET (FP) PO SCH (21:20)
[2019-04-07] MEDS: MELATONIN 5 MG TABLETS PO PRN (21:20)
[2019-04-07] MEDS: THIAMINE HCL 100 MG TABLET (FP) PO SCH (21:20)
[2019-04-07] MEDS: RANITIDINE HCL 150 MG TABLET (FP) PO SCH (21:20)
[2019-04-08] MEDS: ABACAVIR/DOLUTEGRAVIR/LAMIVUDI (TRIUMEQ) TABLET -NF PO SCH (08:28)
[2019-04-08] MEDS: ALBUTEROL SO4 8 GM HFA INHALER IH PRN ×2 (10:17→21:20)
[2019-04-08] MEDS: SULFAMETHOXAZOLE/TRIMETHOPRIM 800MG/160MG D.S. TABLET PO SCH (10:18)
[2019-04-08] MEDS: PRENATAL VITAMINS W/ FOLIC ACID TABLET (FP) PO SCH (10:18)
[2019-04-08] MEDS: amLODIPine BESYLATE 10 MG TABLET (FP) PO SCH (10:18)
[2019-04-08] MEDS: LISINOPRIL 20 MG TABLET (FP) PO SCH (10:18)
[2019-04-08] MEDS: NICOTINE 14 MG/24 HOURS TOPICAL PATCH TD SCH (10:19)
--- NOTE | 2019-04-08 11:29 | PN ---
[facility] Progress Note Note: Patient is scheduled for discharge tomorrow. Scripts for 30 days supply of medications(Wellbutrin XL 150 mg/day, Seroquel 100 mg/hs) will be electronically transmitted to [facility] at [address] [place] [address]
[2019-04-08] MEDS: MELATONIN 5 MG TABLETS PO PRN (21:19)
[2019-04-08] MEDS: THIAMINE HCL 100 MG TABLET (FP) PO SCH (21:19)
[2019-04-08] MEDS: MOMETASONE FUROATE 220 MCG/IH INHALER IH SCH (21:19)
[2019-04-08] MEDS: QUEtiapine FUMARATE 100 MG TABLET (FP) PO SCH (21:20)
[2019-04-08] MEDS: RANITIDINE HCL 150 MG TABLET (FP) PO SCH (21:20)
[2019-04-09 06:57] VITALS: BP 124/70; PULSE 87; TEMP 97.9
[2019-04-09] MEDS: ABACAVIR/DOLUTEGRAVIR/LAMIVUDI (TRIUMEQ) TABLET -NF PO SCH (07:03)
--- NOTE | 2019-04-09 09:49 | DS ---
[facility] Rehab Discharge Summary - [facility] Rehab Discharge Summary Admission Date: 03/26/19 Discharge Date: 04/10/19 - History Present History: Alcohol dependence, Cocaine dependence, Opioid dependence Additional Comments: Pt is a 59 y/o male admitted to rehab for BOBBY and discharged today to follow up with CD aftercare at [facility]. Pt has a primary care/I.D clinic at [facility] for medical management. Pt with this underwriter was unable to get through with patient's PMD yesterday but pt will be walking in to the clinic this morning after discharge for medical follow up and HAART medication management with his PCP. Pertinent Past History: Asthma COPD HIV+/AIDS Hep C HTN - Discharge Physical Exam Vital Signs: Vital Signs Temperature 97.9 F 04/09/19 06:56 Pulse Rate 87 04/09/19 06:56 Respiratory Rate 18 04/09/19 06:56 Blood Pressure 124/70 04/09/19 06:56 O2 Sat by Pulse Oximetry (%) alert o x 3 nad oob ambulating with steady gait cardiac:s1 s2, rrr lungs:cta,yesi. Abdomen:soft,+bs,nt,nd extremities/skin;no edema,full ROM,skin intact. Pertinent Admission Physical Exam Findings: Laboratory Tests 03/27/19 03/27/19 03/27/19 08:10 08:10 08:10 WBC 4.9 RBC 4.18 Hgb 13.4 Hct 39.8 D MCV 95.2 MCH 32.2 D MCHC 33.8 RDW 18.4 H Plt Count 315 D MPV 8.1 Sodium 140 Potassium 3.8 Chloride 106 Carbon Dioxide 23 Anion Gap 11 BUN 11.1 Creatinine 1.5 H Est GFR (CKD-EPI)AfAm 57.41 Est GFR (CKD-EPI)NonAf 49.53 Random Glucose 119 H Calcium 9.2 Total Bilirubin 0.4 AST 31 ALT 31 Alkaline Phosphatase 123 H Total Protein 8.1 Albumin 3.4 RPR Titer Nonreactive Unremarkable All lab results given to pt for follow up with his primary care appointment today. - Treatment Discharge Condition: Discharge condition good Hospital Course: Rehabilitated safely and responded well. Accepted CD aftercare referral - Medication Discharge Medications: Ambulatory Orders Quetiapine Fumarate [Seroquel -] 100 mg PO HS #30 tablet 11/11/13 Abacavir/Dolutegravir/Lamivudi [Triumeq Tablet] 1 each PO DAILY 11/06/16 Umeclidinium [place] [Incruse Ellipta] 62.5 mcg IH DAILY 11/06/16 Amlodipine Besylate/Benazepril [Lotrel 1040] 1 each PO DAILY 03/26/19 Bupropion HCl [Bupropion Xl] 150 mg PO DAILY 03/26/19 Diphenhydramine HCl 25 mg PO HS PRN 03/26/19 Docusate Sodium [Stool Softener] 100 mg PO PRN PRN 03/26/19 Fluticasone Propionate [Flovent Hfa] 220 mcg IH BID 03/26/19 Multivitamin [Multiple Vitamins] 1 each PO DAILY 03/26/19 Ranitidine [Zantac -] 150 mg PO HS 03/26/19 Sulfamethoxazole/Trimethoprim [Bactrim Ds -] 1 tab PO DAILY 03/26/19 Bupropion HCl [Wellbutrin Xl -] 150 mg PO DAILY #30 tab.sr.24h 04/08/19 Quetiapine Fumarate [Seroquel -] 100 mg PO DAILY #30 tablet 04/08/19 - Medication-Assisted Treatment (MAT) Medication-Assisted Treatment (MAT): No MAT Follow-up Referral: Pt not currently on MAT but reports was buying it on the street and will explore clinic treatment with his aftercare after discharge from here. Spoke to pt about dangers of street drug use and encouraged him to follow through with aftercare recommendation. - Discharge Instructions Diet, activity, other medical instructions: Diet:DANIKA Activity: oob ad carol Other medical instructions:Follow up with CD aftercare with [facility] on [address] [place], [place] as recommended in D/C package. Follow up with PMD Noah Salinas at [facility] on [address],[place], [place]. - Diagnosis (1) Alcohol dependence Status: Chronic Qualifiers: Substance use status: uncomplicated Qualified Code(s): F10.20 - Alcohol dependence, uncomplicated (2) Buprenorphine dependence Status: Chronic (3) Opioid dependence Status: Chronic Qualifiers: Substance use status: uncomplicated Qualified Code(s): F11.20 - Opioid dependence, uncomplicated (4) AIDS (acquired immune deficiency syndrome) Status: Chronic (5) Nicotine dependence Status: Chronic Qualifiers: Nicotine product type: cigarettes Substance use status: uncomplicated Qualified Code(s): F17.210 - Nicotine dependence, cigarettes, uncomplicated (6) Cocaine dependence Status: Chronic Qualifiers: Substance use status: uncomplicated Qualified Code(s): F14.20 - Cocaine dependence, uncomplicated (7) Asthma Status: Chronic Qualifiers: Asthma severity: mild persistent Asthma complication type: with status asthmaticus (8) COPD (chronic obstructive pulmonary disease) Status: Chronic Qualifiers: COPD type: emphysema Emphysema type: other Qualified Code(s): J43.8 - Other emphysema (9) Hypertension Status: Chronic Qualifiers: Hypertension type: unspecified Qualified Code(s): I10 - Essential (primary ) hypertension - Follow-up Referral Minutes to complete discharge: 30 - AMA Did Patient Leave Against Medical Advice: No Additional Comments: Pt states he has own meds with him. Pt will follow up with his PMD Saskia Salinas at [facility] today.
[2019-04-09] MEDS: PRENATAL VITAMINS W/ FOLIC ACID TABLET (FP) PO SCH (10:18)
[2019-04-09] MEDS: SULFAMETHOXAZOLE/TRIMETHOPRIM 800MG/160MG D.S. TABLET PO SCH (10:18)
[2019-04-09] MEDS: amLODIPine BESYLATE 10 MG TABLET (FP) PO SCH (10:18)
[2019-04-09] MEDS: LISINOPRIL 20 MG TABLET (FP) PO SCH (10:18)
[2019-04-09] MEDS: ALBUTEROL SO4 8 GM HFA INHALER IH PRN (10:19)
[2019-04-09] MEDS: NICOTINE 14 MG/24 HOURS TOPICAL PATCH TD SCH (10:19)
== END 2019-04-09 10:20 | disposition home or self-care (01) | DRG 772 ==
LOC: YASAS 11:13 → Y3N 17:24 → UNDODISIN 19:25 → Y5N 22:22
PROVIDERS: ADMIT Neuromusculoskeletal Medicine & OMM; ATTEND Neuromusculoskeletal Medicine & OMM
PROC: HZ42ZZZ Group Counseling for Substance Abuse Treatment, Cognitive-Behavioral (ICD-10-PCS; principal; 2019-03-26)
DX: F11.20 Opioid dependence, uncomplicated (principal); F10.20 Alcohol dependence, uncomplicated; F13.20 Sedative, hypnotic or anxiolytic dependence, uncomplicated; F14.20 Cocaine dependence, uncomplicated; F17.210 Nicotine dependence, cigarettes, uncomplicated; F32.9 Major depressive disorder, single episode, unspecified; F19.282 Other psychoactive substance dependence with psychoactive substance-induced sleep disorder; B20 Human immunodeficiency virus [HIV] disease; J45.22 Mild intermittent asthma with status asthmaticus; J43.8 Other emphysema; E03.9 Hypothyroidism, unspecified; B18.2 Chronic viral hepatitis C; R26.2 Difficulty in walking, not elsewhere classified; Z99.89 Dependence on other enabling machines and devices
CPT/HCPCS: 36415; 80053; 85027; 86593; 90670; G0008; G0009; J0735; Q2036